=== PATIENT | male | born 1930 | race Caucasian/White ===

== ENCOUNTER 2017-08-08 12:46 | Inpatient (IN) | payer OTHER, MEDICARE ==
[~2017-08-08] VITALS: Ht 180.3 cm; Wt 90.1 kg
[~2017-08-08 12:46] MED LIST: ALLO300T2 PO; BACT800T5 PO; CEPH500C3 PO; FURO1TAB93 PO; KCL20 PO; LISI10 PO; OXYC-360 PO; PROP80CA PO; SIMV40 PO
[2017-08-08 12:48] VITALS: BP 157/90; PULSE 77; RESP 12; TEMP 98.9; O2SAT 96
[2017-08-08 13:16] VITALS: BP 168/89; PULSE 75; RESP 18; TEMP 97.8; O2SAT 98
[2017-08-08] MEDS ORDERED: POTA-163 PO (13:16)
[2017-08-08] MEDS ORDERED: FURO40TA PO (13:16)
[2017-08-08] MEDS ORDERED: LISI10TA3 PO (13:16)
[2017-08-08] MEDS ORDERED: SIMV20TA PO (13:16)
[2017-08-08] MEDS ORDERED: MORPHINE SULFATE 4 MG/ML INJ IV PUSH ONE (13:30)
[2017-08-08] MEDS ORDERED: SODIUM CHLORIDE 0.9% FLUSH 10 ML FLUSH IVF PRN (13:30)
[2017-08-08] MEDS ORDERED: SODIUM CHLORID 0.9% 500 ML INJ 500 ML IV ONE (13:30)
--- NOTE | 2017-08-08 13:30 | PD ---
HPI Chief Complaint: Back/ Neck Pain or Injury Time Seen by Provider: 13:16 Travel History International Travel<30 days: No Contact w/Intl Traveler<30days: No Traveled to known affect area: No History of Present Illness HPI 87-year-old male with history of pacemaker, and A. fib as well as on Coumadin, presents the emergency department with sudden onset severe pain between both shoulder blades started approximately 10 AM this morning. Patient was not doing anything strenuous. He was about to lay down for rest when it came on suddenly. He states it is 10 out of 10 and constant. Patient denies shortness of breath or anterior chest pain. He denies pain in the abdomen, or weakness or dizziness. Patient denies nausea or vomiting. No recent illness or fever. Patient has had a rash over the past 2 weeks which is itchy. Patient also was recently stopped on his Coumadin 3 days ago due to being hypertherapeutic. Patient states no history of aortic aneurysm reported to him. He has a history of MRSA but no other allergies to medications. PFSH Past Medical History Hx Anticoagulant Therapy: Yes (warfarin) Cardiovascular Problems: Yes (pacemaker ) High Cholesterol: Yes Chemotherapy: No Congestive Heart Failure: Yes Cerebrovascular Accident: No Diabetes: No Diminished Hearing: No Genitourinary: Yes (chronic kidney disease) Hypertension: Yes Musculoskeletal: No Respiratory: No Tetanus Vaccination: > 5 Years Past Surgical History Body Medical Devices: PACEMAKER Cardiac Surgery: Yes (PACEMAKER [facility] ) Social History Alcohol Use: Yes (RARE ) Tobacco Use: No Substance Use: No Allergies-Medications (Allergen,Severity, Reaction): Coded Allergies: *MDRO Multi-Drug Resistant Organism (Unverified Adverse Reaction, Unknown , 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 Reported Meds & Prescriptions Reported Meds & Active Scripts Active Reported Simvastatin 20 Mg Tab 20 Mg PO DAILY Potassium Chloride ER (Potassium Chloride) 20 Meq Tab 20 Meq PO DAILY Lisinopril 10 Mg Tab 10 Mg PO DAILY Furosemide 40 Mg Tab 40 Mg PO DAILY Propranolol ER (Propranolol HCl) 80 Mg Cap 40 Mg PO BID Kcl 20 Meq Tab (Potassium Chloride) 20 Meq Tabcr 20 Meq PO DAILY Review of Systems Except as stated in HPI: all other systems reviewed are Neg General / Constitutional: No: Fever Eyes: No: Visual changes HENT: No: Headaches Cardiovascular: Positive: Chest Pain or Discomfort (see history present illness.), No: Palpitations, Irregular Rhythm Respiratory: No: Cough, Shortness of Breath, Wheezing Gastrointestinal: No: Nausea, Vomiting, Diarrhea, Abdominal Pain Genitourinary: No: Dysuria Musculoskeletal: Positive: Pain, No: Myalgias, Arthralgias, Limited ROM Skin: No Rash Neurologic: No: Weakness Psychiatric: No: Depression Endocrine: No: Polydipsia Hematologic/Lymphatic: No: Easy Bruising Physical Exam Narrative GENERAL: Patient appears in mild to moderate distress. SKIN: Warm and dry. Normal color. Normal turgor. Patient is a dry generalized raised erythematous patchy rash consistent with tinea corporis to the trunk and upper arms. HEAD: Atraumatic. Normocephalic. EYES: Pupils equal and round. No scleral icterus. No injection or drainage. ENT: No nasal bleeding or discharge. Mucous membranes pink and moist. Pharynx is clear. Airway is patent. NECK: Trachea midline. Supple nontender. No bruits appreciated. CARDIOVASCULAR: Irregular rhythm with rate of 80 beats for minute. No obvious bruits or murmurs appreciated. RESPIRATORY: No accessory muscle use. Clear to auscultation. Breath sounds equal bilaterally. GASTROINTESTINAL: Abdomen soft, non-tender, nondistended. Hepatic and splenic margins not palpable. No palpable pulsatile masses. No CVA tenderness. MUSCULOSKELETAL: Extremities without clubbing, cyanosis, or bilateral 2+ nonpitting edema. No obvious deformities. Pain is not reproducible in the back between the shoulder blades. NEUROLOGICAL: Awake and alert. No obvious cranial nerve deficits. Motor grossly within normal limits. Five out of 5 muscle strength in the arms and legs. Normal speech. PSYCHIATRIC: Appropriate mood and affect; insight and judgment normal. Data Data Last Documented VS Vital Signs Date Time Temp Pulse Resp B/P (MAP) Pulse Ox O2 Delivery O2 Flow Rate FiO2 08/08/17 13:53 18 08/08/17 13:34 87 99 Room Air 08/08/17 13:16 97.8 Orders Orders Electrocardiogram (08/08/17 13:30) B-Type Natriuretic Peptide (08/08/17 13:30) Ckmb (Isoenzyme) Profile (08/08/17 13:30) Complete Blood Count With Diff (08/08/17 13:30) Comprehensive Metabolic Panel (08/08/17 13:30) Magnesium (Mg) (08/08/17 13:30) Prothrombin Time / Inr (Pt) (08/08/17 13:30) Act Partial Throm Time (Ptt) (08/08/17 13:30) Troponin I (08/08/17 13:30) Lipase (08/08/17 13:30) Chest, Single Ap (08/08/17 13:30) Ecg Monitoring (08/08/17 13:30) Bilateral Bp Monitoring (08/08/17 13:30) Iv Access Insert/Monitor (08/08/17 13:30) Oximetry (08/08/17 13:30) Oxygen Administration (08/08/17 13:30) Morphine Inj (Morphine Inj) (08/08/17 13:30) Sodium Chloride 0.9% Flush (Ns Flush) (08/08/17 13:30) Sodium Chlorid 0.9% 500 Ml Inj (Ns 500 M (08/08/17 13:30) Cta Thor Abd Aorta W Iv C W3d (08/08/17 13:30) Furosemide Inj (Lasix Inj) (08/08/17 14:15) Iodixanol 320 Inj (Rad Ct) (Visipaque 32 (08/08/17 16:02) Oxycodone-Acetamin 10-325 Mg (Percocet 1 (08/08/17 17:00) Admit Order (Ed Use Only) (08/08/17 16:56) Labs Laboratory Tests Test 08/08/17 13:44 White Blood Count 5.5 TH/MM3 Red Blood Count 4.01 MIL/MM3 Hemoglobin 9.9 GM/DL Hematocrit 32.1 % Mean Corpuscular Volume 80.1 FL Mean Corpuscular Hemoglobin 24.8 PG Mean Corpuscular Hemoglobin Concent 30.9 % Red Cell Distribution Width 16.6 % Platelet Count 144 TH/MM3 Mean Platelet Volume 7.5 FL Neutrophils (%) (Auto) 67.4 % Lymphocytes (%) (Auto) 11.0 % Monocytes (%) (Auto) 13.0 % Eosinophils (%) (Auto) 7.6 % Basophils (%) (Auto) 1.0 % Neutrophils # (Auto) 3.7 TH/MM3 Lymphocytes # (Auto) 0.6 TH/MM3 Monocytes # (Auto) 0.7 TH/MM3 Eosinophils # (Auto) 0.4 TH/MM3 Basophils # (Auto) 0.1 TH/MM3 CBC Comment DIFF FINAL Differential Comment Prothrombin Time 37.4 SEC Prothromb Time International Ratio 3.2 RATIO Activated Partial Thromboplast Time 52.5 SEC Blood Urea Nitrogen 29 MG/DL Creatinine 1.82 MG/DL Random Glucose 85 MG/DL Total Protein 7.0 GM/DL Albumin 3.0 GM/DL Calcium Level 8.0 MG/DL Magnesium Level 2.0 MG/DL Alkaline Phosphatase 89 U/L Aspartate Amino Transf (AST/SGOT) 12 U/L Alanine Aminotransferase (ALT/SGPT) 19 U/L Total Bilirubin 0.9 MG/DL Sodium Level 140 MEQ/L Potassium Level 4.6 MEQ/L Chloride Level 107 MEQ/L Carbon Dioxide Level 22.8 MEQ/L Anion Gap 10 MEQ/L Estimat Glomerular Filtration Rate 35 ML/MIN Total Creatine Kinase 65 U/L Troponin I 0.02 NG/ML B-Type Natriuretic Peptide 1453 PG/ML Lipase 228 U/L MDM Medical Decision Making Medical Screen Exam Complete: Yes Emergency Medical Condition: Yes Medical Record Reviewed: Yes Differential Diagnosis Atypical chest pain. Possible aortic dissection. AAA. Cardiac syndrome. Muscle skeletal pain. Narrative Course Patient is in pain but medically stable at time of exam. EKG shows normal sinus rhythm with left axis deviation without obvious paced rhythm at this time. This is reviewed with Dr. Liz. Chest x-ray and CT of the chest and abdomen with IV contrast is ordered. To rule out aortic aneurysm or dissection. IV access is obtained and labs ordered including CBC, CMP, PT PTT and INR, lipase, and cardiac panel. Patient is given 4 mg morphine IV as well as 4 mg Zofran IV. Aspirin is held at this time, as patient's history of warfarin, and risk of aortic dissection. CBC is remarkable for hemoglobin 9.9, hematocrit of 32.1. This is typical for the patient however, when compared to previous labs. Coagulation studies showed PT of 37.4, APTT of 52.5, and INR 3.2 Chest x-ray shows Congestive heart failure versus bibasilar pneumonia. Patient is given 40 mg Lasix IV. CMP shows BUN of 29, creatinine 1.82, aspirin and GFR 35, calcium is 8.0. First troponin is 0.02. ProBNP is 1453, which is consistent with chest x-ray showing CHF. CT of the chest and abdomen: 1. Right greater than left pleural effusion, probable rounded atelectasis at the left lung base with pleural thickening. No evidence for aortic dissection. 2. Mild aneurysmal dilatation of the infrarenal abdominal aorta. 3. Diverticulosis. 4. Liver cysts. 5. Mild left-sided hydronephrosis and mild bilateral hydroureter left greater than right. 6. Cholelithiasis. 7. Extensive atherosclerotic disease. Calls placed to the hospitalist for admission for CHF exacerbation. As well as acute kidney injury on chronic kidney disease. Patient discussed with the Residents and the patient will be admitted. Diagnosis Primary Impression: CHF exacerbation Qualified Codes: I50.9 - Heart failure, unspecified Additional Impressions: Acute kidney injury superimposed on chronic kidney disease Back pain Tinea corporis Admitting Information Admitting Physician Requests: Admit Condition: Stable Pelon Akins Aug 08, 2017 13:30
[2017-08-08 13:34] VITALS: PULSE 87; RESP 20; O2SAT 99
--- NOTE | 2017-08-08 13:53 | RADRPT ---
EXAM DATE/TIME: 08/08/2017 13:46 [facility] COMPARISON: No previous studies available for comparison. INDICATIONS : Chest and neck pain. MEDICAL HISTORY : Hypercholesterolemia. Hypertension Congestive heart failure. SURGICAL HISTORY : Pacemaker. ENCOUNTER: Initial ACUITY: 1 day PAIN SCORE: 10/10 LOCATION: Bilateral chest FINDINGS: Perihilar and basilar predominant bilateral airspace opacities with small bilateral pleural effusions . No pneumothorax. Heart size upper limits of normal. Cardiac pacer present. CONCLUSION: Failure versus bibasilar pneumonia. Jalil Lay MD on August 08, 2017 at 13:50 Board Certified Radiologist. This report was verified electronically.
[2017-08-08 14:07] LABS: AUTOMATED NEUTROPHIL # 3.7 TH/MM3 (1.8-7.7); BASOPHIL # 0.1 TH/MM3 (0-0.2); EOSINOPHIL # 0.4 TH/MM3 (0-0.4); EOSINOPHIL % 7.6 % (0.0-4.0); HEMATOCRIT 32.1 % (39.0-51.0); HEMOGLOBIN 9.9 GM/DL (13.0-17.0); LYMPHOCYTE # 0.6 TH/MM3 (1.0-4.8); MEAN CELL VOLUME 80.1 FL (80.0-100.0); MEAN CORPUSCULAR HEMOGLOBIN 24.8 PG (27.0-34.0); MEAN CORPUSCULAR HGB CONC 30.9 % (32.0-36.0); MEAN PLATELET VOLUME 7.5 FL (7.0-11.0); MONOCYTE # 0.7 TH/MM3 (0-0.9); NEUT % 67.4 % (16.0-70.0); PLATELET COUNT 144 TH/MM3 (150-450); RED BLOOD COUNT 4.01 MIL/MM3 (4.50-5.90); RED CELL DISTRIBUTION WIDTH 16.6 % (11.6-17.2); WHITE BLOOD COUNT 5.5 TH/MM3 (4.0-11.0)
[2017-08-08] MEDS ORDERED: FUROSEMIDE 40 MG/4 ML VIAL IV PUSH ONE (14:15)
[2017-08-08 14:16] LABS: INTERNATIONAL NORMALIZED RATIO 3.2 RATIO; PROTHROMBIN TIME - PATIENT 37.4 SEC (9.8-11.6)
[2017-08-08 14:25] LABS: AST (GOT) 12 U/L (15-37); BICARBONATE 22.8 MEQ/L (21.0-32.0); BLOOD UREA NITROGEN 29 MG/DL (7-18); CHLORIDE 107 MEQ/L (98-107); CREATININE 1.82 MG/DL (0.60-1.30); GLOMERULAR FILTRATION RATE 35 ML/MIN (>89); GLUCOSE,RANDOM 85 MG/DL (74-106); LIPASE 228 U/L (73-393); SODIUM (NA) 140 MEQ/L (136-145)
[2017-08-08 14:26] LABS: ALT (GPT) 19 U/L (12-78)
[2017-08-08 14:30] LABS: ALKALINE PHOSPHATASE 89 U/L (45-117); TOTAL BILIRUBIN ADULT 0.9 MG/DL (0.2-1.0); TROPONIN I 0.02 NG/ML (0.02-0.05)
[2017-08-08] MEDS ORDERED: IODIXANOL 320 MG/ML 10 ML VIAL (for Rad CT) IVCONTRAST ONE (16:02)
--- NOTE | 2017-08-08 16:10 | RADRPT ---
EXAM DATE/TIME: 08/08/2017 15:41 [facility] COMPARISON: No previous studies available for comparison. INDICATIONS : Back pain. IV CONTRAST: 50 cc Visipaque (iodixanol) IV RADIATION DOSE: 9.31 CTDIvol (mGy) MEDICAL HISTORY : Cardiovascular disease. SURGICAL HISTORY : None. ENCOUNTER: Initial ACUITY: 1 day PAIN SCALE: 5/10 LOCATION: Bilateral back TECHNIQUE: Volumetric scanning was performed using a multi-row detector CT scanner. The data was post processed with a variety of visualization algorithms including full volume maximum intensity projection, multi -planar sliding thin slab reformation, curved planar reformation, and surface rendering techniques. Using automated exposure control and adjustment of the mA and/or kV according to patient size, radiat ion dose was kept as low as reasonably achievable to obtain optimal diagnostic quality images. DICOM format image data is available electronically for review and comparison. FINDINGS: There is a large right-sided pleural effusion and a moderate left effusion. There are dependent atelectatic changes seen at both lung bases. There is masslike consolidative area in the left lower l obe measuring 5.4 x 2.6 cm with pleural thickening. An area of rounded atelectasis is suspected. 2 cm right paratracheal lymph node identified. Subcentimeter prevascular lymph node, 1.1 cm shor t axis subcarinal lymph node. Cholelithiasis is noted. There is diffuse atherosclerotic plaquing of t he aorta, great vessels, coronary arteries and visceral branches. There is no dissection. There is mi ld dilatation of the infrarenal abdominal aorta up to 3 cm in AP and transverse dimension on axial im age 89 just proximal to the bifurcation. Urinary bladder is unremarkable. There is diverticulosis of the sigmoid colon and descending colon without diverticulitis. Mildly prominent bilateral inguinal l ymph nodes are identified. There is subcutaneous edema and mild skin thickening of the lower abdomina l wall. There is a cyst in the lateral segment of the left lobe of the liver measuring 1.5 cm. The ki dneys demonstrate cortical thinning bilaterally, there is mild left-sided hydronephrosis, and bilater al mild ureteral dilatation left greater than right. 1.8 cm left midpole renal cyst and a cyst at the lower pole measuring 1.9 cm.. CONCLUSION: 1. Right greater than left pleural effusion, probable rounded atelectasis at the left lung base with pleural thickening. No evidence for aortic dissection. 2. Mild aneurysmal dilatation of the infrarenal abdominal aorta. 3. Diverticulosis. 4. Liver cysts. 5. Mild left-sided hydronephrosis and mild bilateral hydroureter left greater than right. 6. Cholelithiasis. 7. Extensive atherosclerotic disease. Frederick Victor MD on August 08, 2017 at 16:03 Board Certified Radiologist. This report was verified electronically.
[2017-08-08] MEDS ORDERED: oxyCODONE/ACETAMINOPHEN 10 MG/325 MG TAB PO ONE (17:00)
--- NOTE | 2017-08-08 17:45 | HHI.HP ---
HPI Service Family Medicine Primary Care Physician Unknown Admission Diagnosis CHF/Renal Insufficientcy/Upper Back Pain/Tinea Diagnoses: International Travel<30 Days: No Contact w/Intl Traveler<30days: No Known Affected Area: No History of Present Illness Patient is a very pleasant 87 year old with PMH significant for a-fib on coumadin, CHF, CKD, HTN, HLD who presents to the ED for evaluation of neck pain. He states he noticed pain in his lower neck this morning suddenly around 10:00 am. He is unsure what may have caused the pain. He denies any focal neuro deficit. Denying weakness, numbness, tingling, paresthesias of any extremity. He stated he had been having a stiff neck for about the past 2 weeks prior to this morning. He is unsure what may have caused his stiff neck. He has not had anything like this in the past. He denies any trauma to his neck or back in the past or recently within the last month. He has taken some Tylenol or Aleve as needed for relief of his neck pain which has not seem to help. He denies a headache, blurry or double vision, fevers or chills, recent unexplained weight loss, saddle anesthesia, bowel or bladder incontinence. He has not noticed any weakness to his upper or lower extremities recently. He states he is unable to move his neck much without having significant pain. His pain does not radiate anywhere. He denies chest pain. Denies lower back pain. He states he was not having this character of neck pain prior to this morning and that his range of motion had just been restricted for the past couple weeks. He states he is at baseline able to walk about 50 to 100 feet before getting short of breath. Over the past week or so he has had increased shortness of breath while walking inside his house just within his kitchen. Denies orthopnea or lower extremity edema. (Felix Ruiz MD R2) Review of Systems Constitutional: DENIES: Fever, Chills, Change in appetite Eyes: DENIES: Blurred vision, Diplopia, Vision loss, Double Vision Ears, nose, mouth, throat: DENIES: Tinnitus Respiratory: DENIES: Cough, Wheezing, Shortness of breath Cardiovascular: DENIES: Chest pain, Palpitations, Lower Extremity Edema Gastrointestinal: DENIES: Abdominal pain, Black stools, Bloody stools, Constipation, Diarrhea, Nausea, Vomiting Genitourinary: DENIES: Hematuria Musculoskeletal: COMPLAINS OF: Stiffness, Neck pain, DENIES: Back pain Neurologic: DENIES: Headache, Localized weakness, Paresthesias, Poor Balance ( Felix Ruiz MD R2) Past Family Social History Past Medical History Atrial fibrillation HTN HLD CHF Past Surgical History Pacemaker placement 2012 Bilateral knee replacements (Felix Ruiz MD R2) Allergies: Coded Allergies: *MDRO Multi-Drug Resistant Organism (Unverified Adverse Reaction, Unknown , 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 Family History Father: from complications due to alcoholism when patient was 13 years old Mother: from unknown cancer at 78 years of age Social History Tobacco: quit smoking earlier this year, previously 1/2 PPD for 10-15 years total Etoh: rare social occasions Illicit drug use: denies Lives with his and daughter at home (Felix Ruiz MD R2) Physical Exam Vital Signs Vital Signs Date Time Temp Pulse Resp B/P (MAP) Pulse Ox O2 Delivery O2 Flow Rate FiO2 08/08/17 13:53 18 08/08/17 13:34 87 20 99 Room Air 08/08/17 13:34 99 Room Air 08/08/17 13:16 97.8 75 18 168/89 (115) 98 Room Air 08/08/17 13:16 81 20 08/08/17 12:48 98.9 77 12 157/90 (112) 96 Physical Exam GENERAL: Sitting in bed with neck still, having pain with any movement of neck NEURO: Alert. Normal speech. apple packing header intact. Motor grossly normal. Strength 5/5 throughout. Sensation intact throughout to light touch. Gait normal. SKIN: Warm and dry. Erythematous, blotchy patches scattered on back. HEAD: Normocephalic. Atraumatic. NECK: No tenderness to percussion of spiny processes or paraspinal muscles. Marked limitation in neck flexion, extension, lateral movements, and rotation all exacerbating pain. EYES: PERRL. EOMI. No scleral icterus. No injection or drainage. ENT: No nasal drainage. Moist mucous membranes. No oral ulcers or lesions. NECK: Supple, trachea midline. No JVD. CARDIOVASCULAR: Regular rate, irregular rhythm. Early to mid systolic murmur best auscultated along left upper sternal border. Peripheral pulses 2+. Capillary refill < 2 seconds. RESPIRATORY: Bibasilar crackles. Expiratory wheezing mid and lower lung cantu. No accessory muscle use. GASTROINTESTINAL: Abdomen soft, nontender, nondistended, normal BS. MUSCULOSKELETAL: No lower extremity edema. Normal range of motion. BACK: Nontender without obvious deformity. Laboratory Laboratory Tests Test 08/08/17 13:44 White Blood Count 5.5 Red Blood Count 4.01 Hemoglobin 9.9 Hematocrit 32.1 Mean Corpuscular Volume 80.1 Mean Corpuscular Hemoglobin 24.8 Mean Corpuscular Hemoglobin Concent 30.9 Red Cell Distribution Width 16.6 Platelet Count 144 Mean Platelet Volume 7.5 Neutrophils (%) (Auto) 67.4 Lymphocytes (%) (Auto) 11.0 Monocytes (%) (Auto) 13.0 Eosinophils (%) (Auto) 7.6 Basophils (%) (Auto) 1.0 Neutrophils # (Auto) 3.7 Lymphocytes # (Auto) 0.6 Monocytes # (Auto) 0.7 Eosinophils # (Auto) 0.4 Basophils # (Auto) 0.1 CBC Comment DIFF FINAL Differential Comment Prothrombin Time 37.4 Prothromb Time International Ratio 3.2 Activated Partial Thromboplast Time 52.5 Blood Urea Nitrogen 29 Creatinine 1.82 Random Glucose 85 Total Protein 7.0 Albumin 3.0 Calcium Level 8.0 Magnesium Level 2.0 Alkaline Phosphatase 89 Aspartate Amino Transf (AST/SGOT) 12 Alanine Aminotransferase (ALT/SGPT) 19 Total Bilirubin 0.9 Sodium Level 140 Potassium Level 4.6 Chloride Level 107 Carbon Dioxide Level 22.8 Anion Gap 10 Estimat Glomerular Filtration Rate 35 Total Creatine Kinase 65 Troponin I 0.02 B-Type Natriuretic Peptide 1453 Lipase 228 (Felix Ruiz MD R2) Result Diagram: 08/08/17 1344 08/08/17 1344 Caprini VTE Risk Assessment Caprini VTE Risk Assessment: Mod/High Risk (score >= 2) Caprini Risk Assessment Model Point Value = 1 Point Value = 2 Point Value = 3 Point Value = 5 Age 41-60 Minor surgery BMI > 25 kg/m2 Swollen legs Varicose veins or History of unexplained or recurrent spontaneous Oral contraceptives or hormone replacement Sepsis (< 1 month) Serious lung disease, including pneumonia (< 1 month) Abnormal pulmonary function Acute myocardial infarction Congestive heart failure (< 1 month) History of inflammatory bowel disease Medical patient at bed rest Age 61-74 Arthroscopic surgery Major open surgery (> 45 min) Laparoscopic surgery (> 45 min) Malignancy Confined to bed (> 72 hours) Immobilizing plaster cast Central venous access Age >= 75 History of VTE Family history of VTE Factor V Leiden Prothrombin 30215I Lupus anticoagulant Anticardiolipin antibodies Elevated serum homocysteine Heparin-induced thrombocytopenia Other congenital or acquired thrombophilia Stroke (< 1 month) Elective arthroplasty Hip, pelvis, or leg fracture Acute spinal cord injury (< 1 month) Prophylaxis Regimen Total Risk Factor Score Risk Level Prophylaxis Regimen 0-1 Low Early ambulation 2 Moderate Order ONE of the following: *Sequential Compression Device (SCD) *Heparin 5000 units SQ BID 3-4 Higher Order ONE of the following medications: *Heparin 5000 units SQ TID *Enoxaparin/Lovenox 40 mg SQ daily (WT < 150 kg, CrCl > 30 mL/min) *Enoxaparin/Lovenox 30 mg SQ daily (WT < 150 kg, CrCl > 10-29 mL/min) *Enoxaparin/Lovenox 30 mg SQ BID (WT < 150 kg, CrCl > 30 mL/min) AND/OR *Sequential Compression Device (SCD) 5 or more Highest Order ONE of the following medications: *Heparin 5000 units SQ TID (Preferred with Epidurals) *Enoxaparin/Lovenox 40 mg SQ daily (WT < 150 kg, CrCl > 30 mL/min) *Enoxaparin/Lovenox 30 mg SQ daily (WT < 150 kg, CrCl > 10-29 mL/min) *Enoxaparin/Lovenox 30 mg SQ BID (WT < 150 kg, CrCl > 30 mL/min) AND *Sequential Compression Device (SCD) (Felix Ruiz MD R2) Assessment and Plan Assessment and Plan 87 year old male being admitted due to neck pain and acute on chronic CHF. Code Status Full code Discussed Condition With Dr. Carmelo Scott (Felix Ruiz MD R2) Attending Attestation Patient seen and examined. Case reviewed and discussed with the resident team. Agree with plan of care as discussed with me and documented in the resident note. pt seen in ED and his neck pain is as described with being worse on movement (Martha Rhodes MD) Problem List: (1) CHF exacerbation ICD Codes: I50.9 - Heart failure, unspecified Status: Acute Plan: - si/sxs consistent with acute exacerbation of CHF - BNP elevated to 1453 - Patient given Lasix 40 mg IV x1 in the ED - Continue lasix 40 mg po daily tomorrow - Continue to monitor clinically - Monitor I/Os - Trend BNP - Last echo from 03/2012 with an ejection fraction of 50% - Will obtain repeat 2D echo (2) Neck pain ICD Codes: M54.2 - Cervicalgia Status: Acute Plan: - Suspecting a musculoskeletal etiology at this time, patient not having any neuropathic pain or dermatomal symptoms - Neuro exam reassuring, no red flag symptoms - Will obtain a cervical spine x-ray - Will trial applying heat for relief of symptoms and patient would benefit from therapy if this is MSK in nature - Avoiding muscle relaxants at this time given his age and comorbidities - Holding off on contrast studies to avoid contrast-induced nephropathy as he already has underlying CKD - Consider noncontrast MRI if pain does not improve or is warranted on repeat neuro exam (3) Atrial fibrillation ICD Codes: I48.91 - Unspecified atrial fibrillation Status: Chronic Plan: Continue home propranolol INR at 3.2 Patient stated he takes warfarin 10 mg po daily and was instructed from his PCP to hold this for a total of 3 days after his INR was slightly above 4. Patient stated tomorrow will be day 3 of discontinuation. Will check INR tomorrow and consider restarting warfarin at the same or reduced dose the following day. (4) CKD (chronic kidney disease) ICD Codes: N18.9 - Chronic kidney disease, unspecified Status: Chronic Plan: Cr. 1.82 on admission Continue to monitor renal function, I/Os Avoid nephrotoxins (5) Hypertension ICD Codes: I10 - Essential (primary) hypertension Status: Chronic Plan: Continue home lisinopril 10 mg po daily Lasix 40 mg po daily Vitals q4h (6) Nutrition, metabolism, and development symptoms ICD Codes: R63.8 - Other symptoms and signs concerning food and fluid intake Status: Acute Plan: Fluids: none Electrolytes: WNL, continue to monitor Nutrition: Heart healthy DVT ppx: b/l SCDs (Felix Ruiz MD R2) Physician Certification 2 Midnight Certification Type: Admission for Inpatient Services Order for Inpatient Services The services are ordered in accordance with Medicare regulations or non- Medicare payer requirements, as applicable. In the case of services not specified as inpatient-only, they are appropriately provided as inpatient services in accordance with the 2-midnight benchmark. Estimated LOS (days): 2 days is the estimated time the patient will need to remain in the hospital, assuming treatment plan goals are met and no additional complications. Post-Hospital Plan: Home (Felix Ruiz MD R2) Problem Qualifiers (1) CHF exacerbation: Qualified Codes: I50.9 - Heart failure, unspecified (2) Atrial fibrillation: Qualified Codes: I48.2 - Chronic atrial fibrillation (3) CKD (chronic kidney disease): Qualified Codes: N18.3 - Chronic kidney disease, stage 3 (moderate) (4) Hypertension: Qualified Codes: I10 - Essential (primary) hypertension Felix Ruiz MD R2 Aug 08, 2017 17:45 Martha Rhodes MD Aug 09, 2017 14:02
[2017-08-08] MEDS ORDERED: ONDANSETRON HCL 4 MG/2 ML VIAL IVP PRN (18:15)
[2017-08-08] MEDS ORDERED: LACTULOSE SYRUP 20 GM/30 ML CUP PO PRN (18:15)
[2017-08-08] MEDS ORDERED: SENNOSIDES 8.6 MG TAB PO PRN (18:15)
[2017-08-08] MEDS ORDERED: SODIUM CHLORIDE 0.9% FLUSH 10 ML FLUSH IV FLUSH PRN (18:15)
[2017-08-08] MEDS ORDERED: BISACODYL 10 MG SUPP RECTAL PRN (18:15)
[2017-08-08] MEDS ORDERED: HEPARIN SODIUM - SQ 10,000 UNITS/ML VIAL SQ SCH (18:15)
[2017-08-08] MEDS ORDERED: ACETAMINOPHEN 325 MG TAB PO PRN (18:15)
[2017-08-08] MEDS ORDERED: MORPHINE SULFATE 4 MG/ML INJ IV PUSH PRN (18:15)
[2017-08-08] MEDS ORDERED: MAGNESIUM HYDROXIDE SUSP 30 ML CUP PO PRN (18:15)
[2017-08-08] MEDS ORDERED: NALOXONE HCL 0.4 MG/ML AMP IV PUSH PRN (18:15)
--- NOTE | 2017-08-08 19:18 | RADRPT ---
EXAM DATE/TIME: 08/08/2017 18:38 [place] COMPARISON: No previous studies available for comparison. INDICATIONS : Neck pain. MEDICAL HISTORY : Cardiovascular disease. SURGICAL HISTORY : Pacemaker. ENCOUNTER: Initial ACUITY: 1 day PAIN SCORE: 10/10 LOCATION: Bilateral neck. FINDINGS: Prominent bridging anterior osteophyte formation and mild disc space narrowing. Moderate facet hypert rophic changes throughout the cervical spine. Cervicothoracic junction is approximated. Severe forami nal narrowing at C3-4 through C6-7 on the left greater than right sides. Odontoid process is intact. Prevertebral soft tissues are unremarkable. CONCLUSION: Qulazwdd-cg-xdrdld degenerative changes. Frederick Victor MD on August 08, 2017 at 19:15 Board Certified Radiologist. This report was verified electronically.
[2017-08-08 20:15] VITALS: BP 150/91; PULSE 87; RESP 20; TEMP 97.5; O2SAT 99
[2017-08-08 21:37] VITALS: PULSE 82
[2017-08-08] MEDS ORDERED: ACETAMINOPHEN/HYDROcodone 325 MG/10 MG TAB PO PRN (22:00)
[2017-08-08] MEDS: PROPRANOLOL HCL 40 MG TAB PO SCH (22:14)
[2017-08-08] MEDS: DOCUSATE SODIUM 50 MG/SENNA 8.6 MG TAB PO SCH (22:14)
[2017-08-08] MEDS: SODIUM CHLORIDE 0.9% FLUSH 10 ML FLUSH IV FLUSH SCH (22:15)
[2017-08-09] VITALS: BP 115/57; PULSE 63; RESP 20; TEMP 97.7; O2SAT 96
[2017-08-09 04:00] VITALS: BP 109/66; PULSE 60; RESP 20; TEMP 97.9; O2SAT 97
[2017-08-09 08:00] VITALS: BP 122/82; PULSE 63; RESP 18; TEMP 99; O2SAT 95
[2017-08-09 08:22] LABS: AUTOMATED NEUTROPHIL # 3.3 TH/MM3 (1.8-7.7); BASOPHIL # 0.1 TH/MM3 (0-0.2); BASOPHIL % 1.2 % (0.0-2.0); EOSINOPHIL # 0.2 TH/MM3 (0-0.4); EOSINOPHIL % 4.1 % (0.0-4.0); HEMATOCRIT 29.2 % (39.0-51.0); HEMOGLOBIN 9.3 GM/DL (13.0-17.0); LYMPH % 15.9 % (9.0-44.0); LYMPHOCYTE # 0.8 TH/MM3 (1.0-4.8); MEAN CELL VOLUME 80.4 FL (80.0-100.0); MEAN CORPUSCULAR HEMOGLOBIN 25.6 PG (27.0-34.0); MEAN CORPUSCULAR HGB CONC 31.8 % (32.0-36.0); MONO % 15.9 % (0.0-8.0); MONOCYTE # 0.8 TH/MM3 (0-0.9); NEUT % 62.9 % (16.0-70.0); PLATELET COUNT 135 TH/MM3 (150-450); RED BLOOD COUNT 3.63 MIL/MM3 (4.50-5.90); RED CELL DISTRIBUTION WIDTH 16.3 % (11.6-17.2); WHITE BLOOD COUNT 5.3 TH/MM3 (4.0-11.0)
[2017-08-09 08:29] LABS: INTERNATIONAL NORMALIZED RATIO 3.3 RATIO; PROTHROMBIN TIME - PATIENT 38.9 SEC (9.8-11.6)
[2017-08-09 08:44] LABS: BICARBONATE 24.4 MEQ/L (21.0-32.0); CALCIUM 7.8 MG/DL (8.5-10.1); CREATININE 2.25 MG/DL (0.60-1.30)
--- NOTE | 2017-08-09 10:09 | HHI.HP ---
[facility] Service Family Medicine Primary Care Physician Unknown Admission Diagnosis CHF/Renal Insufficientcy/Upper Back Pain/Tinea Diagnoses: (1) CHF exacerbation Diagnosis: Principal (2) Neck pain Diagnosis: Principal (3) Atrial fibrillation Diagnosis: Principal (4) CKD (chronic kidney disease) Diagnosis: Principal (5) Hypertension Diagnosis: Principal (6) Nutrition, metabolism, and development symptoms Diagnosis: Principal International Travel<30 Days: No Contact w/Intl Traveler<30days: No Known Affected Area: No History of Present Illness Dr Vazquez is a very pleasant 87 year old with PMH significant for a-fib on coumadin, CHF, CKD, HTN, HLD who presented to the ED for evaluation of neck pain. He states he noticed pain in his lower neck this morning suddenly around 10:00 am. He is unsure what may have caused the pain. He denies any focal neuro deficit. Denying weakness, numbness, tingling, paresthesias of any extremity. He stated he had been having a stiff neck for about the past 2 weeks prior to this morning. He is unsure what may have caused his stiff neck. He has not had anything like this in the past. He denies any trauma to his neck or back in the past or recently within the last month. He has taken some Tylenol or Aleve as needed for relief of his neck pain which has not seem to help. He denies a headache, blurry or double vision, fevers or chills, recent unexplained weight loss, saddle anesthesia, bowel or bladder incontinence. He has not noticed any weakness to his upper or lower extremities recently. He states he is unable to move his neck much without having significant pain. His pain does not radiate anywhere. He denies chest pain. Denies lower back pain. He states he was not having this character of neck pain prior to this morning and that his range of motion had just been restricted for the past couple weeks. He states he is at baseline able to walk about 50 to 100 feet before getting short of breath. Over the past week or so he has had increased shortness of breath while walking inside his house just within his kitchen. Denies orthopnea or lower extremity edema. He reports feeling much better this am with his neck due to pain meds. Unfortunately, his renal fxn has decreased overnight likely due to contrast dye plus lasix. Explained to him he will need some gentle hydration as he has a poor mitral valve and perhaps chronic CHF related to that. 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 Review of Systems Other Constitutional: DENIES: Fever, Chills, Change in appetite Eyes: DENIES: Blurred vision, Diplopia, Vision loss, Double Vision Ears, nose, mouth, throat: DENIES: Tinnitus Respiratory: DENIES: Cough, Wheezing, Shortness of breath Cardiovascular: DENIES: Chest pain, Palpitations, Lower Extremity Edema Gastrointestinal: DENIES: Abdominal pain, Black stools, Bloody stools, Constipation, Diarrhea, Nausea, Vomiting Genitourinary: DENIES: Hematuria Musculoskeletal: COMPLAINS OF: Stiffness, Neck pain, DENIES: Back pain Neurologic: DENIES: Headache, Localized weakness, Paresthesias, Poor Balance Past Family Social History Past Medical History Atrial fibrillation HTN HLD CHF Past Surgical History Pacemaker placement 2012 Bilateral knee replacements Allergies: Coded Allergies: *MDRO Multi-Drug Resistant Organism (Unverified Adverse Reaction, Unknown , 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 Family History Father: from complications due to alcoholism when patient was 13 years old Mother: from unknown cancer at 78 years of age Social History Tobacco: quit smoking earlier this year, previously 1/2 PPD for 10-15 years total Etoh: rare social occasions Illicit drug use: denies Lives with his and daughter at home Physical Exam Vital Signs Vital Signs Date Time Temp Pulse Resp B/P (MAP) Pulse Ox O2 Delivery O2 Flow Rate FiO2 08/09/17 08:00 99.0 63 18 122/82 (95) 95 08/09/17 04:00 97.9 60 20 109/66 (80) 97 08/09/17 04:00 Room Air 08/09/17 00:00 97.7 63 20 115/57 (76) 96 08/09/17 00:00 Room Air 08/08/17 21:37 82 08/08/17 20:15 97.5 87 20 150/91 (110) 99 08/08/17 19:44 08/08/17 19:30 Room Air 08/08/17 13:53 18 08/08/17 13:34 87 20 99 Room Air 08/08/17 13:34 99 Room Air 08/08/17 13:16 97.8 75 18 168/89 (115) 98 Room Air 08/08/17 13:16 81 20 08/08/17 12:48 98.9 77 12 157/90 (112 96 Physical Exam GENERAL: Sitting in chair with neck still, having pain with any movement of neck but feels improved from yesterday NEURO: Alert. Normal speech. 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 Motor grossly normal. Strength 5/5 throughout. Sensation intact throughout to light touch. Gait normal. SKIN: Warm and dry. Erythematous, blotchy patches scattered on back. HEAD: Normocephalic. Atraumatic. NECK: No tenderness to percussion of spiny processes or paraspinal muscles. Marked limitation in neck flexion, extension, lateral movements, and rotation all exacerbating pain. EYES: PERRL. EOMI. No scleral icterus. No injection or drainage. ENT: No nasal drainage. Moist mucous membranes. No oral ulcers or lesions. NECK: Supple, trachea midline. No JVD. CARDIOVASCULAR: Regular rate, irregular rhythm. Early to mid systolic murmur best auscultated along left upper sternal border. Peripheral pulses 2+. Capillary refill < 2 seconds. RESPIRATORY: Bibasilar crackles. No accessory muscle use. GASTROINTESTINAL: Abdomen soft, nontender, nondistended, normal BS. MUSCULOSKELETAL: No lower extremity edema. Normal range of motion. BACK: Nontender without obvious deformity. Laboratory Laboratory Tests Test 08/08/17 13:44 08/09/17 05:50 White Blood Count 5.5 5.3 Red Blood Count 4.01 3.63 Hemoglobin 9.9 9.3 Hematocrit 32.1 29.2 Mean Corpuscular Volume 80.1 80.4 Mean Corpuscular Hemoglobin 24.8 25.6 Mean Corpuscular Hemoglobin Concent 30.9 31.8 Red Cell Distribution Width 16.6 16.3 Platelet Count 144 135 Mean Platelet Volume 7.5 8.0 Neutrophils (%) (Auto) 67.4 62.9 Lymphocytes (%) (Auto) 11.0 15.9 Monocytes (%) (Auto) 13.0 15.9 Eosinophils (%) (Auto) 7.6 4.1 Basophils (%) (Auto) 1.0 1.2 Neutrophils # (Auto) 3.7 3.3 Lymphocytes # (Auto) 0.6 0.8 Monocytes # (Auto) 0.7 0.8 Eosinophils # (Auto) 0.4 0.2 Basophils # (Auto) 0.1 0.1 CBC Comment DIFF FINAL DIFF FINAL Differential Comment Prothrombin Time 37.4 38.9 Prothromb Time International Ratio 3.2 3.3 Activated Partial Thromboplast Time 52.5 Blood Urea Nitrogen 29 34 Creatinine 1.82 2.25 Random Glucose 85 73 Total Protein 7.0 Albumin 3.0 Calcium Level 8.0 7.8 Magnesium Level 2.0 Alkaline Phosphatase 89 Aspartate Amino Transf (AST/SGOT) 12 Alanine Aminotransferase (ALT/SGPT) 19 Total Bilirubin 0.9 Sodium Level 140 143 Potassium Level 4.6 5.0 Chloride Level 107 109 Carbon Dioxide Level 22.8 24.4 Anion Gap 10 10 Estimat Glomerular Filtration Rate 35 28 Total Creatine Kinase 65 Troponin I 0.02 B-Type Natriuretic Peptide 1453 Lipase 228 Result Diagram: 08/09/1750 08/09/1750 Caprini VTE Risk Assessment Caprini VTE Risk Assessment: Mod/High Risk (score >= 2) Caprini Risk Assessment Model Point Value = 1 Point Value = 2 Point Value = 3 Point Value = 5 Age 41-60 Minor surgery BMI > 25 kg/m2 Swollen legs Varicose veins or History of unexplained or recurrent spontaneous Oral contraceptives or hormone replacement Sepsis (< 1 month) Serious lung disease, including pneumonia (< 1 month) Abnormal pulmonary function Acute myocardial infarction Congestive heart failure (< 1 month) History of inflammatory bowel disease Medical patient at bed rest Age 61-74 Arthroscopic surgery Major open surgery (> 45 min) Laparoscopic surgery (> 45 min) Malignancy Confined to bed (> 72 hours) Immobilizing plaster cast Central venous access Age >= 75 History of VTE Family history of VTE Factor V Leiden Prothrombin [id number] Lupus anticoagulant Anticardiolipin antibodies Elevated serum homocysteine Heparin-induced thrombocytopenia Other congenital or acquired thrombophilia Stroke (< 1 month) Elective arthroplasty Hip, pelvis, or leg fracture Acute spinal cord injury (< 1 month) Prophylaxis Regimen Total Risk Factor Score Risk Level Prophylaxis Regimen 0-1 Low Early ambulation 2 Moderate Order ONE of the following: *Sequential Compression Device (SCD) *Heparin 5000 units SQ BID 3-4 Higher Order ONE of the following medications: *Heparin 5000 units SQ TID *Enoxaparin/Lovenox 40 mg SQ daily (WT < 150 kg, CrCl > 30 mL/min) *Enoxaparin/Lovenox 30 mg SQ daily (WT < 150 kg, CrCl > 10-29 mL/min) *Enoxaparin/Lovenox 30 mg SQ BID (WT < 150 kg, CrCl > 30 mL/min) AND/OR *Sequential Compression Device (SCD) 5 or more Highest Order ONE of the following medications: *Heparin 5000 units SQ TID (Preferred with Epidurals) *Enoxaparin/Lovenox 40 mg SQ daily (WT < 150 kg, CrCl > 30 mL/min) *Enoxaparin/Lovenox 30 mg SQ daily (WT < 150 kg, CrCl > 10-29 mL/min) *Enoxaparin/Lovenox 30 mg SQ BID (WT < 150 kg, CrCl > 30 mL/min) AND *Sequential Compression Device (SCD) Assessment and Plan Assessment and Plan 87 year old male being admitted due to neck pain and acute on chronic CHF. Problem List: (1) CHF exacerbation ICD Codes: I50.9 - Heart failure, unspecified Status: Acute Plan: - si/sxs consistent with acute exacerbation of CHF - BNP elevated to 1453, now even higher - Patient given Lasix 40 mg IV x1 in the ED - Continue lasix 40 mg po daily tomorrow as tolerated - Continue to monitor clinically - Monitor I/Os - Trend BNP - Last echo from 03/2012 with an ejection fraction of 50% - Will obtain repeat 2D echo unfortunately, will need to give some iv hydration to help his kidneys (2) Neck pain ICD Codes: M54.2 - Cervicalgia Status: Acute Plan: - Suspecting a musculoskeletal etiology at this time, patient not having any neuropathic pain or dermatomal symptoms - Neuro exam reassuring, no red flag symptoms - Will obtain a cervical spine x-ray, showed OA - Will trial applying heat for relief of symptoms and patient would benefit from therapy if this is MSK in nature - Avoiding muscle relaxants at this time given his age and comorbidities - Holding off on contrast studies to avoid contrast-induced nephropathy as he already has underlying CKD - Consider noncontrast MRI if pain does not improve or is warranted on repeat neuro exam (3) Atrial fibrillation ICD Codes: I48.91 - Unspecified atrial fibrillation Status: Chronic Plan: Continue home propranolol INR at 3.2 Patient stated he takes warfarin 10 mg po daily and was instructed from his PCP to hold this for a total of 3 days after his INR was slightly above 4. Patient stated today is day 3 of discontinuation. Will check INR tomorrow and consider restarting warfarin at the same or reduced dose the following day. He was told he would need to start at 5 mg of Coumadin tomorrow (4) CKD (chronic kidney disease) ICD Codes: N18.9 - Chronic kidney disease, unspecified Status: Chronic Plan: Cr. 1.82 on admission, now higher Continue to monitor renal function, I/Os Avoid nephrotoxins (5) Hypertension ICD Codes: I10 - Essential (primary) hypertension Status: Chronic Plan: Continue home lisinopril 10 mg po daily Lasix 40 mg po daily Vitals q4h (6) Nutrition, metabolism, and development symptoms ICD Codes: R63.8 - Other symptoms and signs concerning food and fluid intake Status: Acute Plan: Fluids: start gentle hydration today as tolerated Electrolytes: WNL, continue to monitor Nutrition: Heart healthy DVT ppx: b/l SCDs (7) Acute kidney injury superimposed on chronic kidney disease ICD Codes: N17.9 - Acute kidney failure, unspecified; N18.9 - Chronic kidney disease, unspecified Status: Acute Plan: stuck with giving gentle fluids despite heart failure. Nor SOB right now. will need to watch renal fxn plus signs of heart failure Problem Qualifiers (1) CHF exacerbation: Qualified Codes: I50.9 - Heart failure, unspecified (2) Atrial fibrillation: Qualified Codes: I48.2 - Chronic atrial fibrillation (3) CKD (chronic kidney disease): Qualified Codes: N18.3 - Chronic kidney disease, stage 3 (moderate) (4) Hypertension: Qualified Codes: I10 - Essential (primary) hypertension Martha Rhodes MD Aug 09, 2017 10:09
[2017-08-09] MEDS: PROPRANOLOL HCL 40 MG TAB PO SCH ×2 (10:12→20:47)
[2017-08-09] MEDS: DOCUSATE SODIUM 50 MG/SENNA 8.6 MG TAB PO SCH ×2 (10:12→20:47)
[2017-08-09] MEDS: LISINOPRIL 10 MG TAB PO SCH (10:13)
[2017-08-09] MEDS: SODIUM CHLORIDE 0.9% FLUSH 10 ML FLUSH IV FLUSH SCH ×2 (10:13→20:47)
[2017-08-09] MEDS: FUROSEMIDE 40 MG TAB PO SCH (10:13)
[2017-08-09] MEDS ORDERED: SODIUM CHLOR 0.9% 1000 ML INJ 1,000 ML IV SCH (11:00)
--- NOTE | 2017-08-09 11:18 | EKG ---
Date Performed: 08/08/2017 Time Performed: 13:21:17 PTAGE: 87 years EKG: Normal Sinus rhythm with first degree AV block and PACs, which are new compared to the previous tracing MARKED LEFT AXIS DEVIATION MODERATE INTRAVENTRICULAR CONDUCTION DELAY MINIMAL ST DEPRESSION ABNORMAL QRS-T ANGLE PROL ONGED QT INTERVAL ABNORMAL ECG PREVIOUS TRACING 03/06/12 DOCTOR: Odin Vargas Interpretating Date/Time 08/09/2017 11:17:13
[2017-08-09 12:00] VITALS: BP 124/64; PULSE 88; RESP 20; TEMP 97.5; O2SAT 93
[2017-08-09 16:41] VITALS: BP 155/77; PULSE 65; RESP 18; TEMP 98.2; O2SAT 99
[2017-08-09 20:00] VITALS: BP 131/64; PULSE 60; RESP 18; TEMP 98.1; O2SAT 99
[2017-08-09] MEDS: TRIAMCINOLONE ACET 0.1% LOTION 60 ML BTL TOPICAL SCH (20:47)
[2017-08-10] VITALS (8 sets, daily range): BP systolic 130–164; BP diastolic 60–88; PULSE 60–80; RESP 18–20; TEMP 97.3–98; O2SAT 95–100
[2017-08-10 08:03] LABS: HEMATOCRIT 27.6 % (39.0-51.0); HEMOGLOBIN 8.9 GM/DL (13.0-17.0); MEAN CELL VOLUME 79.9 FL (80.0-100.0); MEAN CORPUSCULAR HEMOGLOBIN 25.8 PG (27.0-34.0); MEAN CORPUSCULAR HGB CONC 32.3 % (32.0-36.0); MEAN PLATELET VOLUME 7.8 FL (7.0-11.0); PLATELET COUNT 126 TH/MM3 (150-450); RED BLOOD COUNT 3.45 MIL/MM3 (4.50-5.90); RED CELL DISTRIBUTION WIDTH 16.4 % (11.6-17.2); WHITE BLOOD COUNT 4.8 TH/MM3 (4.0-11.0)
[2017-08-10 08:12] LABS: INTERNATIONAL NORMALIZED RATIO 2.4 RATIO; PROTHROMBIN TIME - PATIENT 27.6 SEC (9.8-11.6)
[2017-08-10 08:17] LABS: BICARBONATE 20.4 MEQ/L (21.0-32.0); CALCIUM 7.5 MG/DL (8.5-10.1); CREATININE 2.42 MG/DL (0.60-1.30)
[2017-08-10] MEDS: TRIAMCINOLONE ACET 0.1% LOTION 60 ML BTL TOPICAL SCH ×2 (09:00→20:42)
[2017-08-10] MEDS: SODIUM CHLORIDE 0.9% FLUSH 10 ML FLUSH IV FLUSH SCH ×2 (09:16→20:42)
[2017-08-10] MEDS: DOCUSATE SODIUM 50 MG/SENNA 8.6 MG TAB PO SCH ×2 (09:16→20:42)
[2017-08-10] MEDS: LISINOPRIL 10 MG TAB PO SCH (09:16)
[2017-08-10] MEDS: FUROSEMIDE 40 MG TAB PO SCH (09:16)
[2017-08-10] MEDS: PROPRANOLOL HCL 40 MG TAB PO SCH ×2 (09:16→20:41)
--- NOTE | 2017-08-10 13:03 | ECHRPT ---
Indication: HEART FAILURE CONCLUSIONS Mildly dilated left ventricle. Mild concentric left ventricular hypertrophy. The left ventricular systolic function is qopnnxlb-th-pawlsyc reduced with an estimated ejection fra ction in the range of 35-40%. The right ventricle is mildly dilated. The left atrial size is tush-wc-hbaidanwqm dilated. Moderate to severe mitral valve regurgitation. Aortic valve sclerosis is present. Fiyl-ky-vaqqixsn aortic valve regurgitation. Moderate Aortic Stenosis. Aortic valve area is 1.2 cm. Echogenic structure in the RV consistent with Pacemaker BP: 155 / 77 HR: Rhythm: Sinus MEASUREMENTS (Male / Female) Normal Values Technical Quality:Fair 2D ECHO LV Diastolic Diameter PLAX 6.4 cm 4.2 - 5.9 / 3.9 - 5.3 cm LV Systolic Diameter PLAX 5.5 cm IVS Diastolic Thickness 1.2 cm 0.6 - 1.0 / 0.6 - 0.9 cm LVPW Diastolic Thickness 1.2 cm 0.6 - 1.0 / 0.6 - 0.9 cm LV Relative Wall Thickness 0.4 LVOT Diameter 2.6 cm Aortic Root Diameter 3.7 cm LA Systolic Diameter LX 4.3 cm 3.0 - 4.0 / 2.7 - 3.8 cm DOPPLER AV Peak Velocity 221.5 cm/s AV Peak Gradient 19.6 mmHg AV Mean Gradient 10.5 mmHg AV Velocity Time Integral 46.9 cm AI Peak Velocity 436.0 cm/s AI Peak Gradient 76.0 mmHg AI Pressure Half Time 569.0 ms LVOT Peak Velocity 54.9 cm/s LVOT Peak Gradient 1.2 mmHg LVOT Velocity Time Integral 11.0 cm AV Area Cont Eq vti 1.2 cm AV Area Cont Eq pk 1.3 cm Mitral E Point Velocity 79.0 cm/s Mitral A Point Velocity 35.0 cm/s Mitral E to A Ratio 2.3 LV E' Lateral Velocity 7.0 cm/s Mitral E to LV E' Lateral Ratio 11.3 LV E' Septal Velocity 2.6 cm/s Mitral E to LV E' Septal Ratio 30.0 TR Peak Velocity 404.0 cm/s TR Peak Gradient 65.3 mmHg Right Atrial Pressure 10.0 mmHg Pulmonary Artery Systolic Pressu 75.3 mmHg Right Ventricular Systolic Press 75.3 mmHg PV Peak Velocity 45.9 cm/s PV Peak Gradient 0.8 mmHg FINDINGS LEFT VENTRICLE Mildly dilated left ventricle. Mild concentric left ventricular hypertrophy. The left ventricular systolic function is xmwzudop-jn-kdwtcym reduced with an estimated ejection fra ction in the range of 35-40%. RIGHT VENTRICLE The right ventricle is mildly dilated. LEFT ATRIUM The left atrial size is lock-qq-igixftgmna dilated. MITRAL VALVE Iipj-af-gbytlfmw mitral valve regurgitation. AORTIC VALVE Aortic valve sclerosis is present. Ifoy-rh-wkcffpqo aortic valve regurgitation. Aortic valve area is 1.2 cm. Aortic valve mean gradient is 10.5 mmHg. Haris Zacarias MD (Electronically Signed) Final Date:10 August 2017 13:01
--- NOTE | 2017-08-10 13:03 | ECHRPT ---
Indication: HEART FAILURE CONCLUSIONS Mildly dilated left ventricle. Mild concentric left ventricular hypertrophy. The left ventricular systolic function is gyqismbf-vd-qyjgszl reduced with an estimated ejection fra ction in the range of 35-40%. The right ventricle is mildly dilated. The left atrial size is mqwq-jx-znriboqpkf dilated. Moderate to severe mitral valve regurgitation. Aortic valve sclerosis is present. Fbvk-vq-cagmnjcu aortic valve regurgitation. Moderate Aortic Stenosis. Aortic valve area is 1.2 cm. Echogenic structure in the RV consistent with Pacemaker BP: 155 / 77 HR: Rhythm: Sinus MEASUREMENTS (Male / Female) Normal Values Technical Quality:Fair 2D ECHO LV Diastolic Diameter PLAX 6.4 cm 4.2 - 5.9 / 3.9 - 5.3 cm LV Systolic Diameter PLAX 5.5 cm IVS Diastolic Thickness 1.2 cm 0.6 - 1.0 / 0.6 - 0.9 cm LVPW Diastolic Thickness 1.2 cm 0.6 - 1.0 / 0.6 - 0.9 cm LV Relative Wall Thickness 0.4 LVOT Diameter 2.6 cm Aortic Root Diameter 3.7 cm LA Systolic Diameter LX 4.3 cm 3.0 - 4.0 / 2.7 - 3.8 cm DOPPLER AV Peak Velocity 221.5 cm/s AV Peak Gradient 19.6 mmHg AV Mean Gradient 10.5 mmHg AV Velocity Time Integral 46.9 cm AI Peak Velocity 436.0 cm/s AI Peak Gradient 76.0 mmHg AI Pressure Half Time 569.0 ms LVOT Peak Velocity 54.9 cm/s LVOT Peak Gradient 1.2 mmHg LVOT Velocity Time Integral 11.0 cm AV Area Cont Eq vti 1.2 cm AV Area Cont Eq pk 1.3 cm Mitral E Point Velocity 79.0 cm/s Mitral A Point Velocity 35.0 cm/s Mitral E to A Ratio 2.3 LV E' Lateral Velocity 7.0 cm/s Mitral E to LV E' Lateral Ratio 11.3 LV E' Septal Velocity 2.6 cm/s Mitral E to LV E' Septal Ratio 30.0 TR Peak Velocity 404.0 cm/s TR Peak Gradient 65.3 mmHg Right Atrial Pressure 10.0 mmHg Pulmonary Artery Systolic Pressu 75.3 mmHg Right Ventricular Systolic Press 75.3 mmHg PV Peak Velocity 45.9 cm/s PV Peak Gradient 0.8 mmHg FINDINGS LEFT VENTRICLE Mildly dilated left ventricle. Mild concentric left ventricular hypertrophy. The left ventricular systolic function is kqjziqxo-tu-vstgyho reduced with an estimated ejection fra ction in the range of 35-40%. RIGHT VENTRICLE The right ventricle is mildly dilated. LEFT ATRIUM The left atrial size is qpxd-xp-zhumupppbh dilated. MITRAL VALVE Euxn-kl-ftdvdpii mitral valve regurgitation. AORTIC VALVE Aortic valve sclerosis is present. Znei-es-ongoomvq aortic valve regurgitation. Aortic valve area is 1.2 cm. Aortic valve mean gradient is 10.5 mmHg. Haris Zacarias MD (Electronically Signed) Final Date:10 August 2017 13:01
--- NOTE | 2017-08-10 13:03 | ECHRPT ---
Indication: HEART FAILURE CONCLUSIONS Mildly dilated left ventricle. Mild concentric left ventricular hypertrophy. The left ventricular systolic function is rkkhbvxe-pf-yfjuapx reduced with an estimated ejection fra ction in the range of 35-40%. The right ventricle is mildly dilated. The left atrial size is mkbt-wr-ahpoesmerx dilated. Moderate to severe mitral valve regurgitation. Aortic valve sclerosis is present. Uwpl-qg-ksfrnwnq aortic valve regurgitation. Moderate Aortic Stenosis. Aortic valve area is 1.2 cm. Echogenic structure in the RV consistent with Pacemaker BP: 155 / 77 HR: Rhythm: Sinus MEASUREMENTS (Male / Female) Normal Values Technical Quality:Fair 2D ECHO LV Diastolic Diameter PLAX 6.4 cm 4.2 - 5.9 / 3.9 - 5.3 cm LV Systolic Diameter PLAX 5.5 cm IVS Diastolic Thickness 1.2 cm 0.6 - 1.0 / 0.6 - 0.9 cm LVPW Diastolic Thickness 1.2 cm 0.6 - 1.0 / 0.6 - 0.9 cm LV Relative Wall Thickness 0.4 LVOT Diameter 2.6 cm Aortic Root Diameter 3.7 cm LA Systolic Diameter LX 4.3 cm 3.0 - 4.0 / 2.7 - 3.8 cm DOPPLER AV Peak Velocity 221.5 cm/s AV Peak Gradient 19.6 mmHg AV Mean Gradient 10.5 mmHg AV Velocity Time Integral 46.9 cm AI Peak Velocity 436.0 cm/s AI Peak Gradient 76.0 mmHg AI Pressure Half Time 569.0 ms LVOT Peak Velocity 54.9 cm/s LVOT Peak Gradient 1.2 mmHg LVOT Velocity Time Integral 11.0 cm AV Area Cont Eq vti 1.2 cm AV Area Cont Eq pk 1.3 cm Mitral E Point Velocity 79.0 cm/s Mitral A Point Velocity 35.0 cm/s Mitral E to A Ratio 2.3 LV E' Lateral Velocity 7.0 cm/s Mitral E to LV E' Lateral Ratio 11.3 LV E' Septal Velocity 2.6 cm/s Mitral E to LV E' Septal Ratio 30.0 TR Peak Velocity 404.0 cm/s TR Peak Gradient 65.3 mmHg Right Atrial Pressure 10.0 mmHg Pulmonary Artery Systolic Pressu 75.3 mmHg Right Ventricular Systolic Press 75.3 mmHg PV Peak Velocity 45.9 cm/s PV Peak Gradient 0.8 mmHg FINDINGS LEFT VENTRICLE Mildly dilated left ventricle. Mild concentric left ventricular hypertrophy. The left ventricular systolic function is sycebzjk-gt-bcetefm reduced with an estimated ejection fra ction in the range of 35-40%. RIGHT VENTRICLE The right ventricle is mildly dilated. LEFT ATRIUM The left atrial size is rxdn-gs-lzzofotagi dilated. MITRAL VALVE Mqme-mb-aaxhbkzd mitral valve regurgitation. AORTIC VALVE Aortic valve sclerosis is present. Mkaq-rc-oekvgdgu aortic valve regurgitation. Aortic valve area is 1.2 cm. Aortic valve mean gradient is 10.5 mmHg. Haris Zacarias MD (Electronically Signed) Final Date:10 August 2017 13:01
--- NOTE | 2017-08-10 14:31 | HHI.FPPN ---
Subjective Remarks No acute events overnight, afebrile, vital signs within normal limits and stable. Today he feels well, denies neck pain, chest pain, shortness of breath. Objective Vitals Vital Signs Date Time Temp Pulse Resp B/P (MAP) Pulse Ox O2 Delivery O2 Flow Rate FiO2 08/10/17 12:00 97.3 60 20 133/69 (90) 95 08/10/17 08:00 97.6 67 20 156/78 (104) 97 08/10/17 04:00 Room Air 08/10/17 04:00 97.9 75 18 144/80 (101) 98 08/10/17 00:00 Room Air 08/10/17 00:00 98.0 60 18 130/60 (83) 98 08/09/17 20:00 60 08/09/17 20:00 Room Air 08/09/17 20:00 98.1 60 18 131/64 (86) 99 08/09/17 16:41 98.2 65 18 155/77 (103) 99 I/O 08/09/17 08/09/17 08/09/17 08/10/17 08/10/17 08/10/17 07:00 15:00 23:00 07:00 15:00 23:00 Intake Total 480 ml 240 ml 1227 ml Output Total 400 ml 50 ml Balance 480 ml -160 ml 1227 ml -50 ml Intake Oral 480 ml 240 ml 480 ml IV Total 747 ml Output Urine Total 400 ml 50 ml # Voids 1 5 2 # Bowel Movements 1 0 Result Diagram: 08/10/17 0639 08/10/17 0639 Objective Remarks GENERAL: Well-developed, well-nourished elderly white male lying comfortably in bed in no acute distress SKIN: No rashes, ecchymoses or lesions. Cool and dry. NECK: Supple, normal active range of motion in all axes without pain CARDIOVASCULAR: Normal rate, irregularly irregular rhythm.. Normal S1/S2. Soft, blowing, 2/6 systolic murmur loudest in the mitral area RESPIRATORY: CTAB. No crackles or wheezes. MUSCULOSKELETAL: Extremities without clubbing, cyanosis, or edema. NEUROLOGICAL: Awake and alert. Cranial nerves II through XII grossly intact. Moves all extremities without difficulty. Normal speech. A/P Assessment and Plan 87 year old male being admitted due to neck pain and acute on chronic CHF. Problem List: (1) CHF exacerbation ICD Codes: I50.9 - Heart failure, unspecified Status: Acute Plan: Resolved, now asymptomatic BNP trending upward, but likely due to acute kidney injury Echo showing EF 35-40% (slightly decreased from prior study) and severe mitral regurgitation (stable from previous) - Continue lasix 40 mg po daily - Gentle IVF for LISBETH as noted below - Monitor I/Os - Trend BNP (2) Acute kidney injury superimposed on chronic kidney disease ICD Codes: N17.9 - Acute kidney failure, unspecified; N18.9 - Chronic kidney disease, unspecified Status: Acute Plan: Likely due to contrast dye during imaging studies (Cr was at baseline on admission) - Gentle IV hydration (64 cc/hr) (3) Neck pain ICD Codes: M54.2 - Cervicalgia Status: Resolved Plan: Suspecting a musculoskeletal etiology at this time, patient not having any neuropathic pain or dermatomal symptoms Neuro exam reassuring, no red flag symptoms Cervical spine x-ray, showed OA - Heat for relief of symptoms - Avoiding muscle relaxants at this time given his age and comorbidities - Tylenol as needed for pain - [place] 5-325 as needed for breakthrough pain (4) Atrial fibrillation ICD Codes: I48.91 - Unspecified atrial fibrillation Status: Chronic Plan: Continue home propranolol INR at 2.4 - Resume coumadin at 7.5 mg daily dosing (decreasing due to PCP plan to lower due to elevated INR) (5) CKD (chronic kidney disease) ICD Codes: N18.9 - Chronic kidney disease, unspecified Status: Chronic Plan: Baseline Cr 1.82 Today 2.42 See LISBETH plan above (6) Hypertension ICD Codes: I10 - Essential (primary) hypertension Status: Chronic Plan: Continue home lisinopril 10 mg po daily Lasix 40 mg po daily Vitals q4h (7) Nutrition, metabolism, and development symptoms ICD Codes: R63.8 - Other symptoms and signs concerning food and fluid intake Status: Acute Plan: Fluids: continue gentle hydration today as tolerated Electrolytes: WNL, continue to monitor Nutrition: Heart healthy DVT ppx: b/l SCDs Problem Qualifiers (1) CHF exacerbation: Qualified Codes: I50.9 - Heart failure, unspecified (2) Atrial fibrillation: Qualified Codes: I48.2 - Chronic atrial fibrillation (3) CKD (chronic kidney disease): Qualified Codes: N18.3 - Chronic kidney disease, stage 3 (moderate) (4) Hypertension: Qualified Codes: I10 - Essential (primary) hypertension Ryan Castro MD R2 Aug 10, 2017 2:31 pm
[2017-08-10] MEDS: WARFARIN SOD 7.5 MG TAB PO SCH (16:42)
[2017-08-11] VITALS: BP 146/69; PULSE 77; RESP 20; TEMP 97.6; O2SAT 96
[2017-08-11 04:00] VITALS: BP 158/81; PULSE 64; RESP 20; TEMP 98.6; O2SAT 98
[2017-08-11 08:00] VITALS: BP 158/89; PULSE 61; PULSE 86; RESP 20; TEMP 97.6; O2SAT 97
[2017-08-11] MEDS: LISINOPRIL 10 MG TAB PO SCH (08:04)
[2017-08-11] MEDS: DOCUSATE SODIUM 50 MG/SENNA 8.6 MG TAB PO SCH (08:04)
[2017-08-11] MEDS: PROPRANOLOL HCL 40 MG TAB PO SCH (08:04)
[2017-08-11] MEDS: FUROSEMIDE 40 MG TAB PO SCH (08:04)
[2017-08-11] MEDS ORDERED: KETOCONAZOLE 2% CREAM 15 GM TOPICAL SCH (11:00)
[2017-08-11 12:00] VITALS: BP 150/81; PULSE 60; RESP 20; TEMP 97.5; O2SAT 98
--- NOTE | 2017-08-11 12:11 | HHI.FPPN ---
Subjective Remarks No acute events overnight. AFVSS. Feels well, denies CP, SOB, calf pain. Has been walking without difficulty. Objective Vitals Vital Signs Date Time Temp Pulse Resp B/P (MAP) Pulse Ox O2 Delivery O2 Flow Rate FiO2 08/11/17 08:00 97.6 61 20 158/89 (112) 97 08/11/17 04:00 98.6 64 20 158/81 (106) 98 08/11/17 00:00 97.6 77 20 146/69 (94) 96 08/10/17 20:29 80 08/10/17 20:00 Room Air 08/10/17 20:00 97.6 79 20 164/88 (113) 100 08/10/17 16:00 97.3 73 20 148/84 (105) 95 I/O 08/10/17 08/10/17 08/10/17 08/11/17 08/11/17 08/11/17 07:00 15:00 23:00 07:00 15:00 23:00 Intake Total 1227 ml 360 ml 1213 ml Output Total 50 ml 3 ml Balance 1227 ml -50 ml 357 ml 1213 ml Intake Oral 480 ml 360 ml 400 ml IV Total 747 ml 813 ml Output Urine Total 50 ml 3 ml # Voids 2 2 # Bowel Movements 0 0 Result Diagram: 08/10/1763808/10/17638 Objective Remarks GENERAL: Well-developed, well-nourished elderly white male lying comfortably in bed in no acute distress SKIN: No rashes, ecchymoses or lesions. Cool and dry. NECK: Supple, normal active range of motion in all axes without pain CARDIOVASCULAR: Normal rate, irregularly irregular rhythm.. Normal S1/S2. Soft, blowing, 2/6 systolic murmur loudest in the mitral area RESPIRATORY: CTAB. No crackles or wheezes. MUSCULOSKELETAL: Extremities without clubbing, cyanosis, or edema. NEUROLOGICAL: Awake and alert. Cranial nerves II through XII grossly intact. Moves all extremities without difficulty. Normal speech. A/P Assessment and Plan 87 year old male being admitted due to neck pain and acute on chronic CHF. Problem List: (1) CHF exacerbation ICD Codes: I50.9 - Heart failure, unspecified Status: Resolved Plan: Resolved, now asymptomatic BNP trending upward, but likely due to acute kidney injury Echo showing EF 35-40% (slightly decreased from prior study) and severe mitral regurgitation (stable from previous) - Continue lasix 40 mg po daily - Gentle IVF for LISBETH as noted below - Monitor I/Os (2) Acute kidney injury superimposed on chronic kidney disease ICD Codes: N17.9 - Acute kidney failure, unspecified; N18.9 - Chronic kidney disease, unspecified Status: Acute Plan: Likely due to contrast dye during imaging studies (Cr was at baseline on admission) - Gentle IV hydration (64 cc/hr) - F/u BMP; if improved, can discharge home with repeat BMP in about a week - Encourage oral hydration at home (caution re: fluid overload) (3) Neck pain ICD Codes: M54.2 - Cervicalgia Status: Resolved Plan: Suspecting a musculoskeletal etiology at this time, patient not having any neuropathic pain or dermatomal symptoms Neuro exam reassuring, no red flag symptoms Cervical spine x-ray, showed OA - Heat for relief of symptoms - Avoiding muscle relaxants at this time given his age and comorbidities - Tylenol as needed for pain (4) Atrial fibrillation ICD Codes: I48.91 - Unspecified atrial fibrillation Status: Chronic Plan: Continue home propranolol INR at 2.4 - Resumed coumadin on 08/10/17 at 7.5 mg daily dosing (decreasing due to PCP plan to lower due to elevated INR) - F/u INR as outpatient with PCP (5) CKD (chronic kidney disease) ICD Codes: N18.9 - Chronic kidney disease, unspecified Status: Chronic Plan: Baseline Cr 1.82 BMP today pending See LISBETH plan above (6) Hypertension ICD Codes: I10 - Essential (primary) hypertension Status: Chronic Plan: Continue home lisinopril 10 mg po daily Lasix 40 mg po daily Vitals q4h (7) Nutrition, metabolism, and development symptoms ICD Codes: R63.8 - Other symptoms and signs concerning food and fluid intake Status: Acute Plan: Fluids: continue gentle hydration IV until discharge Electrolytes: WNL, continue to monitor Nutrition: Heart healthy DVT ppx: b/l SCDs Problem Qualifiers (1) CHF exacerbation: Qualified Codes: I50.9 - Heart failure, unspecified (2) Atrial fibrillation: Qualified Codes: I48.2 - Chronic atrial fibrillation (3) CKD (chronic kidney disease): Qualified Codes: N18.3 - Chronic kidney disease, stage 3 (moderate) (4) Hypertension: Qualified Codes: I10 - Essential (primary) hypertension Ryan Castro MD R2 Aug 11, 2017 12:11 pm
[2017-08-11 12:48] LABS: HEMATOCRIT 32.1 % (39.0-51.0); HEMOGLOBIN 10.3 GM/DL (13.0-17.0)
[2017-08-11 13:16] LABS: BICARBONATE 21.8 MEQ/L (21.0-32.0); CALCIUM 7.9 MG/DL (8.5-10.1); CREATININE 2.58 MG/DL (0.60-1.30)
--- NOTE | 2017-08-11 15:29 | HHI.DCPOC ---
Discharge Care Plan Diagnosis: (1) Neck pain (2) Hypertension (3) CKD (chronic kidney disease) (4) Acute kidney injury superimposed on chronic kidney disease (5) CHF exacerbation Goals to Promote Your Health * To prevent worsening of your condition and complications * To maintain your health at the optimal level Directions to Meet Your Goals Take your medications as prescribed Follow your dietary instruction Follow activity as directed Keep your appointments as scheduled Take your immunizations and boosters as scheduled If your symptoms worsen call your PCP, if no PCP go to Urgent Care Center or Emergency Room Smoking is Dangerous to Your Health. Avoid second hand smoke Call the 24-hour hour crisis hotline for domestic abuse at Sherrie Leblanc MD, R1 Aug 11, 2017 15:29
--- NOTE | 2017-08-11 15:29 | HHI.DCPOC ---
Discharge Care Plan Diagnosis: (1) Neck pain (2) Hypertension (3) CKD (chronic kidney disease) (4) Acute kidney injury superimposed on chronic kidney disease (5) CHF exacerbation Goals to Promote Your Health * To prevent worsening of your condition and complications * To maintain your health at the optimal level Directions to Meet Your Goals Take your medications as prescribed Follow your dietary instruction Follow activity as directed Keep your appointments as scheduled Take your immunizations and boosters as scheduled If your symptoms worsen call your PCP, if no PCP go to Urgent Care Center or Emergency Room Smoking is Dangerous to Your Health. Avoid second hand smoke Call the 24-hour hour crisis hotline for domestic abuse at Sherrie Leblanc MD, R1 Aug 11, 2017 15:29
--- NOTE | 2017-08-11 15:29 | HHI.DCPOC ---
Discharge Care Plan Diagnosis: (1) Neck pain (2) Hypertension (3) CKD (chronic kidney disease) (4) Acute kidney injury superimposed on chronic kidney disease (5) CHF exacerbation Goals to Promote Your Health * To prevent worsening of your condition and complications * To maintain your health at the optimal level Directions to Meet Your Goals Take your medications as prescribed Follow your dietary instruction Follow activity as directed Keep your appointments as scheduled Take your immunizations and boosters as scheduled If your symptoms worsen call your PCP, if no PCP go to Urgent Care Center or Emergency Room Smoking is Dangerous to Your Health. Avoid second hand smoke Call the 24-hour hour crisis hotline for domestic abuse at Sherrie Leblanc MD, R1 Aug 11, 2017 15:29
[2017-08-11 16:15] VITALS: BP 135/70; PULSE 70; RESP 20; TEMP 98
[2017-08-11] MEDS: WARFARIN SOD 7.5 MG TAB PO SCH (17:27)
== END 2017-08-11 18:02 | disposition home or self-care (01) | DRG 292 ==
LOC: NEPC 12:46 → NEDA 16:58 → N04A 19:54
PROVIDERS: ADMIT Family Medicine; ATTEND Family Medicine
DX: I13.0 Hypertensive heart and chronic kidney disease with heart failure and stage 1 through stage 4 chronic kidney disease, or unspecified chronic kidney disease (principal); N17.9 Acute kidney failure, unspecified; N13.30 Unspecified hydronephrosis; K76.89 Other specified diseases of liver; I48.2 Chronic atrial fibrillation; B35.4 Tinea corporis; J98.11 Atelectasis; I34.0 Nonrheumatic mitral (valve) insufficiency; E78.5 Hyperlipidemia, unspecified; I50.9 Heart failure, unspecified; N18.3 Chronic kidney disease, stage 3 (moderate); M54.2 Cervicalgia; I71.4 Abdominal aortic aneurysm, without rupture; K57.90 Diverticulosis of intestine, part unspecified, without perforation or abscess without bleeding; K80.20 Calculus of gallbladder without cholecystitis without obstruction; M43.6 Torticollis; Z79.01 Long term (current) use of anticoagulants; Z79.899 Other long term (current) drug therapy; Z86.14 Personal history of Methicillin resistant Staphylococcus aureus infection; Z87.891 Personal history of nicotine dependence; Z95.0 Presence of cardiac pacemaker; Z96.653 Presence of artificial knee joint, bilateral
CPT/HCPCS: 71010; 71275; 72050; 74174; 80048; 80053; 82550; 83690; 83735; 83880; 84484; 85014; 85018; 85025; 85027; 85610; 85730; 93005; 93306; 96361; 96374; 96375; J1940; J2270; J7030; J7040; Q9967

== ENCOUNTER 2017-08-15 15:17 | Observation (INO) | payer MEDICARE, OTHER ==
[~2017-08-15] VITALS: Ht 180.3 cm; Wt 85.0 kg
[~2017-08-15 15:17] MED LIST changes: -ALLO300T2 PO; -BACT800T5 PO; -CEPH500C3 PO; -FURO1TAB93 PO; +FURO40TA PO; -LISI10 PO; +LISI10TA3 PO; -OXYC-360 PO; +SIMV20TA PO; -SIMV40 PO
[2017-08-15 15:22] VITALS: BP 128/59; PULSE 62; RESP 18; O2SAT 96
[2017-08-15 15:25] VITALS: BP 103/59; PULSE 76; RESP 19; TEMP 98.1; O2SAT 100
[2017-08-15] MEDS ORDERED: SODIUM CHLORIDE 0.9% FLUSH 10 ML FLUSH IVF PRN (15:45)
--- NOTE | 2017-08-15 15:49 | PD ---
HPI Chief Complaint: Complaint Time Seen by Provider: 15:25 Travel History International Travel<30 days: No Contact w/Intl Traveler<30days: No History of Present Illness HPI 87-year-old male with past medical history significant for A. fib on Coumadin, CHF, CK-MB, hypertension, a child the presents to the emergency department for evaluation of hematuria that started this morning. Patient was recently discharged for CHF, renal insufficiency, neck pain. He states he was doing well. He denies any pain at all. He denies any headache. No fevers or chills. No chest pain or shortness breath. No abdominal pain. No nausea, vomiting, diarrhea. She states he feels well, but wanted evaluation of his hematuria. He denies any dysuria, frequency, urgency. He does report a decreased urinary stream. Patient does appear well on exam. Severity is mild to moderate. No exacerbating or alleviating factors. PFSH Past Medical History Hx Anticoagulant Therapy: Yes (warfarin) Arthritis: Yes (hands, arms,legs ) Asthma: No Autoimmune Disease: No (had hep as a child ,not sure which one) Heart Rhythm Problems: Yes (afib) Cancer: No Cardiovascular Problems: Yes High Cholesterol: Yes Chemotherapy: No Chest Pain: No Congestive Heart Failure: Yes COPD: No Cerebrovascular Accident: No Diabetes: No Diminished Hearing: No Endocrine: No Genitourinary: Yes Hypertension: Yes Immune Disorder: No Kidney Stones: No Musculoskeletal: Yes Neurologic: No Psychiatric: No Respiratory: Yes Migraines: No Renal Failure: No Seizures: No Sickle Cell Disease: No Sleep Apnea: No Thyroid Disease: No Past Surgical History Abdominal Surgery: No AICD: No Arteriovenous Shunt: No Body Medical Devices: PACEMAKER Cardiac Surgery: Yes (PACEMAKER) Ear Surgery: No Endocrine Surgery: No Eye Surgery: No Genitourinary Surgery: No Insulin Pump: No Joint Replacement: Yes (bilateral knees) Oral Surgery: Yes (april upper teeth removed) Pacemaker: Yes (st laurie) Thoracic Surgery: No Social History Alcohol Use: No Tobacco Use: No Substance Use: No Allergies-Medications (Allergen,Severity, Reaction): Coded Allergies: *MDRO Multi-Drug Resistant Organism (Unverified Adverse Reaction, Unknown , 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 Reported Meds & Prescriptions Reported Meds & Active Scripts Active Reported Simvastatin 20 Mg Tab 20 Mg PO DAILY Lisinopril 10 Mg Tab 10 Mg PO DAILY Furosemide 40 Mg Tab 40 Mg PO DAILY Propranolol ER (Propranolol HCl) 80 Mg Cap 40 Mg PO BID Kcl 20 Meq Tab (Potassium Chloride) 20 Meq Tabcr 20 Meq PO DAILY Review of Systems Except as stated in HPI: all other systems reviewed are Neg Physical Exam Narrative GENERAL: Well-nourished, well-developed elderly male patient, ambulatory. Afebrile. SKIN: Focused skin assessment warm/dry. HEAD: Normocephalic. Atraumatic. EYES: No scleral icterus. No injection or drainage. NECK: Supple, trachea midline. No JVD or lymphadenopathy. CARDIOVASCULAR: Regular rate without murmurs, gallops, or rubs. RESPIRATORY: Breath sounds equal bilaterally. No accessory muscle use. Lungs sounds are clear to auscultation. GASTROINTESTINAL: Abdomen soft, non-tender, nondistended. MUSCULOSKELETAL: No cyanosis, or edema. BACK: Nontender without obvious deformity. No CVA tenderness. Data Data Last Documented VS Vital Signs Date Time Temp Pulse Resp B/P (MAP) Pulse Ox O2 Delivery O2 Flow Rate FiO2 08/15/17 15:25 98.1 76 19 103/59 (74) 100 Orders Orders Complete Blood Count With Diff (08/15/17 15:34) Basic Metabolic Panel (Bmp) (08/15/17 15:34) Urinalysis - C+S If Indicated (08/15/17 15:34) Ct Abd/Pel W/O Iv Contrast (08/15/17 15:34) Ecg Monitoring (08/15/17 15:34) Iv Access Insert/Monitor (08/15/17 15:34) Sodium Chloride 0.9% Flush (Ns Flush) (08/15/17 15:45) Act Partial Throm Time (Ptt) (08/15/17 15:49) Prothrombin Time / Inr (Pt) (08/15/17 15:49) Urinary Catheter Insert/Apply (08/15/17 16:21) Urine Culture (08/15/17 15:43) Ceftriaxone Inj (Rocephin Inj) (08/15/17 16:45) Phytonadione Inj (Vitamin K Inj) (08/15/17 17:15) Type And Screen (08/15/17 17:01) Admit Order (Ed Use Only) (08/15/17 17:38) Labs Laboratory Tests Test 08/15/17 15:43 08/15/17 16:05 White Blood Count 9.2 TH/MM3 Red Blood Count 4.04 MIL/MM3 Hemoglobin 10.3 GM/DL Hematocrit 31.7 % Mean Corpuscular Volume 78.4 FL Mean Corpuscular Hemoglobin 25.5 PG Mean Corpuscular Hemoglobin Concent 32.5 % Red Cell Distribution Width 16.2 % Platelet Count 149 TH/MM3 Mean Platelet Volume 7.4 FL Neutrophils (%) (Auto) 81.2 % Lymphocytes (%) (Auto) 7.2 % Monocytes (%) (Auto) 9.2 % Eosinophils (%) (Auto) 1.8 % Basophils (%) (Auto) 0.6 % Neutrophils # (Auto) 7.4 TH/MM3 Lymphocytes # (Auto) 0.7 TH/MM3 Monocytes # (Auto) 0.8 TH/MM3 Eosinophils # (Auto) 0.2 TH/MM3 Basophils # (Auto) 0.1 TH/MM3 CBC Comment DIFF FINAL Differential Comment Urine Color RED Urine Turbidity CLOUDY Urine pH 6.5 Urine Specific [place] 1.012 Urine Protein 100 mg/dL Urine Glucose (UA) NEG mg/dL Urine Ketones NEG mg/dL Urine Occult Blood LARGE Urine Nitrite NEG Urine Bilirubin NEG Urine Urobilinogen LESS THAN 2.0 MG/DL Urine Leukocyte Esterase LARGE Urine RBC /hpf Urine WBC /hpf Urine WBC Clumps MANY Urine Bacteria MOD /hpf Microscopic Urinalysis Comment CULTURE INDICATED Blood Urea Nitrogen 41 MG/DL Creatinine 2.38 MG/DL Random Glucose 97 MG/DL Calcium Level 7.8 MG/DL Sodium Level 141 MEQ/L Potassium Level 4.4 MEQ/L Chloride Level 108 MEQ/L Carbon Dioxide Level 23.3 MEQ/L Anion Gap 10 MEQ/L Estimat Glomerular Filtration Rate 26 ML/MIN Prothrombin Time 47.2 SEC Prothromb Time International Ratio 4.0 RATIO Activated Partial Thromboplast Time 64.8 SEC [facility] Medical Decision Making Medical Screen Exam Complete: Yes Emergency Medical Condition: Yes Medical Record Reviewed: Yes Differential Diagnosis Supratherapeutic INR versus UTI versus mass Narrative Course 87-year-old male presents to the emergency department for evaluation of hematuria that started this morning. Patient is on Coumadin. He denies any pain. He does appear well on exam. CBC, BMP, PTT, PT/INR are ordered and pending. UA is ordered and pending. CT abdomen/pelvis without contrast is ordered and pending. CBC shows slight anemia hemoglobin 10.3, hematocrit 31.7. BMP shows BUN 41, creatinine 2.38. This appears stable since previous labs on August 11, 2017. PTT is 64.8. PT/INR is 47.2/4.0. UA shows large occult blood, large leukocyte esterase, many wbc clumps, innumerable WBC, moderate bacteria. CT abdomen/ pelvis shows Left hydronephrosis and hydroureter; On the right, there is mild pelvocaliectasis of the collecting system with normal caliber of the proximal right ureter. Distal ureter is distended, however. 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 Cunningham was inserted and 1200 mL of bloody urine with blood clots are noted. I discussed the case with attending physician, Dr. Berger. Patient is given vitamin K 5 mg subcutaneous. Patient is given Rocephin 1 g IV for UTI. Dr. Berger recommends 23 hour observation. The patient agrees to this. Dr. Marti accepted admission. Diagnosis Primary Impression: Hematuria Qualified Codes: R31.0 - Gross hematuria Additional Impressions: UTI (urinary tract infection) Qualified Codes: N30.01 - Acute cystitis with hematuria Supratherapeutic INR CKD (chronic kidney disease) Qualified Codes: N18.9 - Chronic kidney disease, unspecified Admitting Information Admitting Physician Requests: Observation Polly Conner Aug 15, 2017 15:49
[2017-08-15 15:59] LABS: AUTOMATED NEUTROPHIL # 7.4 TH/MM3 (1.8-7.7); BASOPHIL # 0.1 TH/MM3 (0-0.2); BASOPHIL % 0.6 % (0.0-2.0); EOSINOPHIL # 0.2 TH/MM3 (0-0.4); EOSINOPHIL % 1.8 % (0.0-4.0); HEMATOCRIT 31.7 % (39.0-51.0); HEMO FLAGS DIFF FINAL; LYMPH % 7.2 % (9.0-44.0); LYMPHOCYTE # 0.7 TH/MM3 (1.0-4.8); MEAN CELL VOLUME 78.4 FL (80.0-100.0); MEAN CORPUSCULAR HEMOGLOBIN 25.5 PG (27.0-34.0); MEAN CORPUSCULAR HGB CONC 32.5 % (32.0-36.0); MONO % 9.2 % (0.0-8.0); NEUT % 81.2 % (16.0-70.0); PLATELET COUNT 149 TH/MM3 (150-450); RED BLOOD COUNT 4.04 MIL/MM3 (4.50-5.90); RED CELL DISTRIBUTION WIDTH 16.2 % (11.6-17.2); WHITE BLOOD COUNT 9.2 TH/MM3 (4.0-11.0)
[2017-08-15 16:10] LABS: BICARBONATE 23.3 MEQ/L (21.0-32.0); POTASSIUM 4.4 MEQ/L (3.5-5.1)
--- NOTE | 2017-08-15 16:17 | RADRPT ---
EXAM DATE/TIME: 08/15/2017 15:47 [facility] COMPARISON: CTA THORACIC ABDOMINAL AORTA W 3D RECON, August 08, 2017, 15:41. INDICATIONS : Hematuria, urinary retention. ORAL CONTRAST: No oral contrast ingested. RADIATION DOSE: 10.49 CTDIvol (mGy) MEDICAL HISTORY : Cardiovascular disease. Hepatitis. Hypertension. SURGICAL HISTORY : None. ENCOUNTER: Initial ACUITY: 1 day PAIN SCALE: 0/10 LOCATION: lower quadrant TECHNIQUE: Volumetric scanning of the abdomen and pelvis was performed. Using automated exposure control and ad justment of the mA and/or kV according to patient size, radiation dose was kept as low as reasonably achievable to obtain optimal diagnostic quality images. DICOM format image data is available electro nically for review and comparison. FINDINGS: LOWER LUNGS: Bilateral pleural effusions, moderate on the right and very small on the left. Concomitant atelectati c changes in the left base. LIVER: Probable 1.7 cm cyst in the left hepatic lobe. Small dependent gallstones in the gallbladder lumen. SPLEEN: Normal size without lesion. PANCREAS: Within normal limits. KIDNEYS: Pelvocaliectasis of the renal collecting systems bilaterally, left greater than right. Diffuse left-s ided hydroureter. The right renal pelvis is prominent with the ureter returning to a normal caliber j ust distal to the pelvis. The distal ureter on the right is again prominent. ADRENAL GLANDS: Within normal limits. VASCULAR: Mild ectasia of the distal abdominal aorta with scattered calcification. 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 ABDOMINAL WALL: Within normal limits. RETROPERITONEUM: There is no lymphadenopathy. BLADDER: Distention of the urinary bladder. REPRODUCTIVE: Within normal limits. INGUINAL: There is no lymphadenopathy or hernia. MUSCULOSKELETAL: Marked degenerative spurring of the lumbar spine. CONCLUSION: 1. Left hydronephrosis and hydroureter 2. On the right, there is mild pelvocaliectasis of the collecting system with normal caliber of the p roximal right ureter. Distal ureter is distended, however. I believe the ureteral prominence bilatera lly is due to urinary retention with marked distention of the urinary bladder. 3. Moderate right and a small left pleural effusion with concomitant atelectatic changes in the left base. 4. Cholelithiasis. 5. 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 6. Dense atherosclerotic calcification of the visualized coronary arteries . Brandon Patricio MD on August 15, 2017 at 16:06 Board Certified Radiologist. This report was verified electronically.
[2017-08-15 16:34] LABS: BACTERIA, URINE MOD /hpf; BLOOD, URINE LARGE (NEG); COMMENT (UR) CULTURE INDICATED; CULTURE IF INDICATED CULTURE INDICATED; GLUCOSE,URINE NEG (NEG); KETONE, URINE NEG (NEG); NITRITE,URINE NEG (NEG); PH, URINE 6.5 (5.0-8.5)
[2017-08-15 16:35] LABS: URINE COLOR RED (YELLW/STRAW)
[2017-08-15] MEDS ORDERED: cefTRIAXone INJ 1,000 MG in SODIUM CHLORIDE 0.9% INJ 100 ML IV ONE (16:45)
[2017-08-15 16:46] LABS: APTT (PATIENT) 64.8 SEC (24.3-30.1); PROTHROMBIN TIME - PATIENT 47.2 SEC (9.8-11.6)
[2017-08-15] MEDS ORDERED: PHYTONADIONE 10 MG/ML VIAL SQ ONE (17:15)
[2017-08-15 18:12] VITALS: BP 156/75; PULSE 62; RESP 17; O2SAT 100
[2017-08-15] MEDS ORDERED: NALOXONE HCL 0.4 MG/ML AMP IV PUSH PRN (18:30)
[2017-08-15] MEDS ORDERED: SODIUM CHLORIDE 0.9% FLUSH 10 ML FLUSH IV FLUSH PRN (18:30)
[2017-08-15] MEDS: TAMSULOSIN HCL 0.4 MG CAP PO SCH (18:30)
[2017-08-15] MEDS ORDERED: SENNOSIDES 8.6 MG TAB PO PRN (18:30)
--- NOTE | 2017-08-15 18:41 | HHI.HP ---
[facility] Admission Diagnosis hematuria, UTI, urinary retention, supratherapeutic INR Diagnoses: Chief Complaint: Hematuria Travel History International Travel<30 Days: No Contact w/Intl Traveler <30 Da: No History of Present Illness Patient is a 87-year-old gentleman who was recently discharged from the hospital with exacerbation of CHF. Patient does calm today because of hematuria and urinary incontinence at home. He reports not having normal urination since overnight. He came in without pain but with red urine and incontinence. A catheter was placed and 1.2 L of gross bloody urine was obtained. Patient did not have any pain or pressure. He notes no dysuria but urinary frequency and incontinence for the last several months. He says his family doctor put him on "a urine pill" but he is not sure what it is. Currently he is not on anything but Lasix. Patient says recently he had decreased his Lasix and vomiting and with shortness of breath and evidence of congestive heart failure and that is why he was recently admitted. Once his medications were adjusted he reports improvement in his shortness of breath. He does have chronic kidney disease and his renal function slightly above normal at this time. Patient is recommended for further evaluation due to gross hematuria and severe urinary retention Review of Systems Constitutional: DENIES: Diaphoretic episodes, Fatigue, Fever, Weight gain, Weight loss, Chills, Dizziness, Change in appetite, Night Sweats Endocrine: DENIES: Heat/cold intolerance, Polydipsia, Polyuria, Polyphagia Eyes: DENIES: Blurred vision, Diplopia, Eye inflammation, Eye pain, Vision loss , Photosensitivity, Double Vision Ears, nose, mouth, throat: DENIES: Tinnitus, Hearing loss, Vertigo, Nasal discharge, Oral lesions, Throat pain, Hoarseness, Ear Pain, Running Nose, Epistaxis, Sinus Pain, Toothache, Odynophagia Respiratory: DENIES: Apneas, Cough, Snoring, Wheezing, Hemoptysis, Sputum production, Shortness of breath Cardiovascular: DENIES: Chest pain, Palpitations, Syncope, Dyspnea on Exertion , PND, Lower Extremity Edema, Orthopnea, Claudication Genitourinary: COMPLAINS OF: Urinary incontinence, Urgency, Hematuria, DENIES: Sexual dysfunction, Urinary frequency, Dysuria, Nocturia, Penile Discharge, Testicular Pain, Testicular Swelling Musculoskeletal: DENIES: Joint pain, Muscle aches, Stiffness, Joint Swelling, Back pain, Neck pain Integumentary: DENIES: Abnormal pigmentation, Nail changes, Pruritus, Rash Hematologic/lymphatic: DENIES: Bruising, Lymphadenopathy Psychiatric: DENIES: Anxiety, Confusion, Mood changes, Depression, Hallucinations, Agitation, Suicidal Ideation, Homicidal Ideation, Delusions Past Family Social History Past Medical History Atrial fibrillation Prostatic hyperplasia per patient Congestive heart failure Chronic kidney disease Hypertension Past Surgical History Pacemaker Bilateral knees Reported Medications reviewed in the EMR Allergies: Coded Allergies: *MDRO Multi-Drug Resistant Organism (Unverified Adverse Reaction, Unknown , 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 Cool and dry. HEAD: Atraumatic. Normocephalic. No temporal or scalp tenderness. EYES: Pupils equal round and reactive. Extraocular motions intact. No scleral icterus. No injection or drainage. ENT: Nose without bleeding, purulent drainage or septal hematoma. Throat without erythema, tonsillar hypertrophy or exudate. Uvula midline. Airway patent. NECK: Trachea midline. No JVD or lymphadenopathy. Supple, nontender, no meningeal signs. CARDIOVASCULAR: Pacemaker, Regular rate and rhythm without murmurs, gallops, or rubs. RESPIRATORY: Clear to auscultation. Breath sounds equal bilaterally. No wheezes , rales, or rhonchi. GASTROINTESTINAL: Abdomen soft, non-tender, nondistended. No hepato-splenomegaly , or palpable masses. No guarding. MUSCULOSKELETAL: Extremities without clubbing, cyanosis, or edema. No joint tenderness, effusion, or edema noted. No calf tenderness. Negative Homans sign bilaterally. NEUROLOGICAL: Awake and alert. Cranial nerves II through XII intact. Motor and sensory grossly within normal limits. Five out of 5 muscle strength in all muscle groups. Normal speech. Laboratory Laboratory Tests Test 08/15/17 15:43 08/15/17 16:05 White Blood Count 9.2 Red Blood Count 4.04 Hemoglobin 10.3 Hematocrit 31.7 Mean Corpuscular Volume 78.4 Mean Corpuscular Hemoglobin 25.5 Mean Corpuscular Hemoglobin Concent 32.5 Red Cell Distribution Width 16.2 Platelet Count 149 Mean Platelet Volume 7.4 Neutrophils (%) (Auto) 81.2 Lymphocytes (%) (Auto) 7.2 Monocytes (%) (Auto) 9.2 Eosinophils (%) (Auto) 1.8 Basophils (%) (Auto) 0.6 Neutrophils # (Auto) 7.4 Lymphocytes # (Auto) 0.7 Monocytes # (Auto) 0.8 Eosinophils # (Auto) 0.2 Basophils # (Auto) 0.1 CBC Comment DIFF FINAL Differential Comment Urine Color RED Urine Turbidity CLOUDY Urine pH 6.5 Urine Specific [place] 1.012 Urine Protein 100 Urine Glucose (UA) NEG Urine Ketones NEG Urine Occult Blood LARGE Urine Nitrite NEG Urine Bilirubin NEG Urine Urobilinogen LESS THAN 2.0 Urine Leukocyte Esterase LARGE Urine RBC Urine WBC Urine WBC Clumps MANY Urine Bacteria MOD Microscopic Urinalysis Comment CULTURE INDICATED Blood Urea Nitrogen 41 Creatinine 2.38 Random Glucose 97 Calcium Level 7.8 Sodium Level 141 Potassium Level 4.4 Chloride Level 108 Carbon Dioxide Level 23.3 Anion Gap 10 Estimat Glomerular Filtration Rate 26 Prothrombin Time 47.2 Prothromb Time International Ratio 4.0 Activated Partial Thromboplast Time 64.8 Date/Time Source Procedure Growth Status 08/15/17 15:43 Urine Random Urine Urine Culture Pending Received Result Diagram: 08/15/17 1543 08/15/17 1543 Imaging Last Impressions Abdomen/Pelvis CT 08/15/17 1534 Signed Impressions: Service Date/Time: Thursday, August 15, 2017 15:47 - CONCLUSION: 1. Left hydronephrosis and hydroureter 2. On the right, there is mild pelvocaliectasis of the collecting system with normal caliber of the proximal right ureter. Distal ureter is distended, however. I believe the ureteral prominence bilaterally is due to urinary retention with marked distention of the urinary bladder. 3. Moderate right and a small left pleural effusion with concomitant atelectatic changes in the left base. 4. Cholelithiasis. 5. 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 6. Dense atherosclerotic calcification of the visualized coronary arteries . MD Isabel Ramirez VTE Risk Assessment Caprini VTE Risk Assessment: Mod/High Risk (score >= 2) VTE Pharm Contraindication: Active bleeding Caprini Risk Assessment Model Point Value = 1 Point Value = 2 Point Value = 3 Point Value = 5 Age 41-60 Minor surgery BMI > 25 kg/m2 Swollen legs Varicose veins or History of unexplained or recurrent spontaneous Oral contraceptives or hormone replacement Sepsis (< 1 month) Serious lung disease, including pneumonia (< 1 month) Abnormal pulmonary function Acute myocardial infarction Congestive heart failure (< 1 month) History of inflammatory bowel disease Medical patient at bed rest Age 61-74 Arthroscopic surgery Major open surgery (> 45 min) Laparoscopic surgery (> 45 min) Malignancy Confined to bed (> 72 hours) Immobilizing plaster cast Central venous access Age >= 75 History of VTE Family history of VTE Factor V Leiden Prothrombin [id number] Lupus anticoagulant Anticardiolipin antibodies Elevated serum homocysteine Heparin-induced thrombocytopenia Other congenital or acquired thrombophilia Stroke (< 1 month) Elective arthroplasty Hip, pelvis, or leg fracture Acute spinal cord injury (< 1 month) Prophylaxis Regimen Total Risk Factor Score Risk Level Prophylaxis Regimen 0-1 Low Early ambulation 2 Moderate Order ONE of the following: *Sequential Compression Device (SCD) *Heparin 5000 units SQ BID 3-4 Higher Order ONE of the following medications: *Heparin 5000 units SQ TID *Enoxaparin/Lovenox 40 mg SQ daily (WT < 150 kg, CrCl > 30 mL/min) *Enoxaparin/Lovenox 30 mg SQ daily (WT < 150 kg, CrCl > 10-29 mL/min) *Enoxaparin/Lovenox 30 mg SQ BID (WT < 150 kg, CrCl > 30 mL/min) AND/OR *Sequential Compression Device (SCD) 5 or more Highest Order ONE of the following medications: *Heparin 5000 units SQ TID (Preferred with Epidurals) *Enoxaparin/Lovenox 40 mg SQ daily (WT < 150 kg, CrCl > 30 mL/min) *Enoxaparin/Lovenox 30 mg SQ daily (WT < 150 kg, CrCl > 10-29 mL/min) *Enoxaparin/Lovenox 30 mg SQ BID (WT < 150 kg, CrCl > 30 mL/min) AND *Sequential Compression Device (SCD) Assessment and Plan Problem List: (1) CHF (congestive heart failure) ICD Code: I50.9 - Heart failure, unspecified Plan: patient with a known EF of about 40% and severe MR that is stable Patient on Lasix and (2) Retention, urine ICD Code: R33.9 - Retention of urine, unspecified Plan: patient with a Hx or prostatic enlargement Add flomax, retain catheter Urology eval pending (3) Hematuria ICD Code: R31.9 - Hematuria, unspecified Status: Acute Plan: May be due to urinary retention, follow for any cultures Follow hemoglobin for transfusion needs (4) Atrial fibrillation ICD Code: I48.91 - Unspecified atrial fibrillation Status: Chronic Plan: Rate currently controlled with supratherapeutic INR. We'll hold Coumadin and give vitamin K due to active hematuria Repeat INR in a.m. Continue propranolol Discussed Condition With patient, PERSONNEL REPRESENTATIVE and daughter at bedside Problem Qualifiers (1) Hematuria: Qualified Codes: R31.0 - Gross hematuria Saba Marti MD Aug 15, 2017 18:41
[2017-08-15 20:00] VITALS: BP 152/80; PULSE 73; RESP 20; O2SAT 96
[2017-08-15 20:50] VITALS: BP 162/86; PULSE 78; RESP 18; TEMP 97.4; O2SAT 100
[2017-08-15] MEDS: SODIUM CHLORIDE 0.9% FLUSH 10 ML FLUSH IV FLUSH SCH (21:02)
[2017-08-16] VITALS (7 sets, daily range): BP systolic 112–151; BP diastolic 66–80; PULSE 60–87; RESP 16–18; TEMP 97.4–98.2; O2SAT 97–99
[2017-08-16] MEDS ORDERED: LACTULOSE SYRUP 20 GM/30 ML CUP PO PRN (07:30)
[2017-08-16] MEDS ORDERED: SENNOSIDES 8.6 MG TAB PO PRN (07:30)
[2017-08-16] MEDS ORDERED: BISACODYL 10 MG SUPP RECTAL PRN (07:30)
[2017-08-16] MEDS ORDERED: NALOXONE HCL 0.4 MG/ML AMP IV PUSH PRN (07:30)
[2017-08-16] MEDS ORDERED: ONDANSETRON HCL 4 MG/2 ML VIAL IVP PRN (07:30)
[2017-08-16] MEDS ORDERED: ACETAMINOPHEN 325 MG TAB PO PRN ×2 (07:30)
[2017-08-16 08:03] LABS: AUTOMATED NEUTROPHIL # 5.8 TH/MM3 (1.8-7.7); BASOPHIL % 0.5 % (0.0-2.0); EOSINOPHIL # 0.1 TH/MM3 (0-0.4); EOSINOPHIL % 1.7 % (0.0-4.0); HEMATOCRIT 27.9 % (39.0-51.0); HEMO FLAGS DIFF FINAL; LYMPH % 8.5 % (9.0-44.0); LYMPHOCYTE # 0.6 TH/MM3 (1.0-4.8); MEAN CORPUSCULAR HEMOGLOBIN 25.6 PG (27.0-34.0); MEAN CORPUSCULAR HGB CONC 32.8 % (32.0-36.0); MONO % 11.1 % (0.0-8.0); NEUT % 78.2 % (16.0-70.0); PLATELET COUNT 122 TH/MM3 (150-450); RED BLOOD COUNT 3.58 MIL/MM3 (4.50-5.90); RED CELL DISTRIBUTION WIDTH 16.1 % (11.6-17.2); WHITE BLOOD COUNT 7.5 TH/MM3 (4.0-11.0)
[2017-08-16 08:06] LABS: INTERNATIONAL NORMALIZED RATIO 2.9 RATIO
[2017-08-16 08:27] LABS: BICARBONATE 23.5 MEQ/L (21.0-32.0); POTASSIUM 4.2 MEQ/L (3.5-5.1)
[2017-08-16] MEDS ORDERED: PHYTONADIONE 10 MG/ML VIAL SQ ONE (09:30)
[2017-08-16] MEDS: TAMSULOSIN HCL 0.4 MG CAP PO SCH (10:09)
[2017-08-16] MEDS: FUROSEMIDE 40 MG TAB PO SCH (10:09)
[2017-08-16] MEDS: DOCUSATE SODIUM 50 MG/SENNA 8.6 MG TAB PO SCH ×2 (10:09→21:26)
[2017-08-16] MEDS: SODIUM CHLORIDE 0.9% FLUSH 10 ML FLUSH IV FLUSH SCH ×2 (10:10→21:26)
[2017-08-16] MEDS: cefTRIAXone INJ 1,000 MG in SODIUM CHLORIDE 0.9% INJ 100 ML IV SCH (10:10)
--- NOTE | 2017-08-16 11:14 | MB ---
cc: MONSTER FARFAN MD DATE OF CONSULTATION: 08/16/2017 REASON FOR CONSULTATION: 1. Acute urinary retention. 2. Gross hematuria. 3. Bilateral hydronephrosis. HISTORY OF PRESENT ILLNESS: The patient is an 87 year-old male with history of chronic kidney disease who was recently discharged from the hospital for evaluation of CHF. He presented to the ER yesterday complaining of gross hematuria and unable to control his urine. In the ER catheter was placed for approximately 1200 cc of grossly bloody urine and he immediately felt better. CT of the abdomen and pelvis without contrast was performed which showed mild bilateral hydroureter nephrosis with a distended bladder prior to catheter insertion. Urology was consulted for these findings. The patient denies episode of gross hematuria in the past. He does have some baseline mild to moderate lower urinary tract infection, including weak stream, nocturia two to three and urinary frequency. He has not seen a urologist in the past. He does take Furosemide for his CHF. Denies history of kidney stones, urinary tract infection, denies history of prostate cancer, denies previous surgery on his prostate or his bladder. Denies nausea, vomiting, fevers, chills, flank pain. PAST MEDICAL HISTORY: Significant for: 1. Atrial fibrillation. 2. BPH. 3. Congestive heart failure. 4. Chronic kidney disease 5. Hypertension. PAST SURGICAL HISTORY Bilateral knee replacement, pacemaker ALLERGIES NO KNOWN DRUG ALLERGIES MEDICATIONS Home medications include: 1. Simvastatin 20 milligrams p.o. daily. 2. Propranolol 80 milligrams ER daily. 3. Lisinopril 20 milligrams p.o. daily. 4. Potassium chloride 20 milligrams a day. 5. Furosemide 40 milligram tablet daily. Denies urolithiasis or genitourinary malignancies. SOCIAL HISTORY Denies tobacco, illicit drug use, or alcohol dependency. REVIEW OF SYSTEMS: See HPI. 12 systems reviewed, and are otherwise negative. PHYSICAL EXAMINATION Vital signs: Temperature 98.1, pulse 87, respiratory rate 18, blood pressure 151/80, sating 99% on room air. GENERAL: Alert, oriented x3. No apparent distress. Pleasant, cooperative gentleman appearing his stated age. Head: Normocephalic, atraumatic. Eyes: No scleral icterus. Extraocular muscles intact. Neck is supple. Trachea is midline. No JVD. Skin: Mucous membranes pink and moist. No visible ulcers or rashes. Lungs: Nonlabored respirations. No wheezes, rales or rhonchi. Heart: Irregularly irregular, no murmurs, rubs, or gallops. Abdomen: Soft, non-tender, non-distended. Positive bowel sounds. Genitourinary: Penis is uncircumcised but it is edematous and swollen with the foreskin stuck behind the glans penis consistent with paraphimosis. He has a catheter draining grossly red urine. Testes descended bilaterally, normal size and consistency, without mass. Rectal: No examined at this time. Extremities: Nontender. No clubbing, cyanosis or edema. Psych: Normal affect. Neurologic: Cranial nerves II through XII intact. Strength is 5/5 all four extremities. LABORATORY DATA: White count 7.5019, hemoglobin 9.2, hematocrit 27.9, platelet count 122, sodium 141, potassium 4.2, chloride 108, carbon dioxide 28.5. creatinine 2.2, BUN 37. Urine showed large blood, large leukocyte esterase. Culture currently pending. IMAGING STUDIES CT of the abdomen and pelvis without contrast images were reviewed. Awaiting radiology report. The patient has a bilateral hydronephrosis, left greater than right with a distended bladder, no evidence of kidney stones. ASSESSMENT AND PLAN: The patient is an 87 year-old male with history of atrial fibrillation, BPH, comments with gross hematuria and urinary incontinence, found to be in acute urinary retention with bilateral nephrosis and a paraphimosis. Would recommend continuing a [place] catheter for now. Also start the patient on Flomax 0.4 milligrams daily. The paraphimosis was reduced successfully at bedside without difficulty. Maintain proper [place] catheter care. Will follow the hemoglobin. If his catheter stops draining, then he won't need to have a three way and start on bladder Will need cystoscopy as an outpatient. Thank you for the consultation. Monster Farfan MD EMF/NICOLE /9:59 AM /10:53 AM
--- NOTE | 2017-08-16 14:17 | HHI.PR ---
Subjective Remarks Follow-up gross hematuria. Denies pain. Patient has Cunningham catheter. Denies shortness of breath. Discussed with RN and , hold off with CBI at this time Objective Vitals Vital Signs Date Time Temp Pulse Resp B/P (MAP) Pulse Ox O2 Delivery O2 Flow Rate FiO2 08/16/17 12:40 97.6 75 18 124/66 (85) 99 08/16/17 08:33 98.1 87 18 151/80 (103) 99 08/16/17 04:36 98.2 80 16 139/76 (97) 99 08/16/17 00:07 98.1 73 18 145/75 (98) 99 08/15/17 20:50 97.4 78 18 162/86 (111) 100 08/15/17 20:00 73 20 152/80 (104) 96 08/15/17 18:12 62 17 156/75 (102) 100 Room Air 08/15/17 15:25 98.1 76 19 103/59 (74) 100 08/15/17 15:22 62 18 128/59 (82) 96 I/O 08/15/17 08/15/17 08/15/17 08/16/17 08/16/17 08/16/17 07:00 15:00 23:00 07:00 15:00 23:00 Output Total 800 ml 1300 ml Balance -800 ml -1300 ml Output Urine Total 800 ml 1300 ml Result Diagram: 08/16/17 0630 08/16/17 0630 Imaging Last Impressions Abdomen/Pelvis CT 08/15/17 1534 Signed Impressions: Service Date/Time: Tuesday, August 15, 2017 15:47 - CONCLUSION: 1. Left hydronephrosis and hydroureter 2. On the right, there is mild pelvocaliectasis of the collecting system with normal caliber of the proximal right ureter. Distal ureter is distended, however. I believe the ureteral prominence bilaterally is due to urinary retention with marked distention of the urinary bladder. 3. Moderate right and a small left pleural effusion with concomitant atelectatic changes in the left base. 4. Cholelithiasis. 5. 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 6. Dense atherosclerotic calcification of the visualized coronary arteries . Brandon Patricio MD Objective Remarks GENERAL: This is a well-nourished, well-developed patient SKIN: No rashes, ecchymoses or lesions. Cool and dry. HEAD: Atraumatic. Normocephalic. No temporal or scalp tenderness. EYES: Pupils equal round and reactive. Extraocular motions intact. No scleral icterus. No injection or drainage. ENT: Nose without bleeding, purulent drainage or septal hematoma. Throat without erythema, tonsillar hypertrophy or exudate. Uvula midline. Airway patent. NECK: Trachea midline. No JVD or lymphadenopathy. Supple, nontender, no meningeal signs. CARDIOVASCULAR: Pacemaker, Regular rate and rhythm without gallops, or rubs. RESPIRATORY: Clear to auscultation. Breath sounds equal bilaterally. No wheezes , rales, or rhonchi. GASTROINTESTINAL: Abdomen soft, non-tender, nondistended. No guarding. Cunningham with gross hematuria MUSCULOSKELETAL: Extremities without clubbing, cyanosis, or edema. No joint tenderness, effusion, or edema noted. No calf tenderness. Negative Homans sign bilaterally. NEUROLOGICAL: Awake and alert. Cranial nerves II through XII intact. Motor and sensory grossly within normal limits. Five out of 5 muscle strength in all muscle groups. Normal speech. Procedures None A/P Problem List: (1) CHF (congestive heart failure) ICD Code: I50.9 - Heart failure, unspecified (2) Retention, urine ICD Code: R33.9 - Retention of urine, unspecified (3) Hematuria ICD Code: R31.9 - Hematuria, unspecified Status: Acute (4) Atrial fibrillation ICD Code: I48.91 - Unspecified atrial fibrillation Status: Chronic Assessment and Plan (1) CHF (congestive heart failure) patient with a known EF of about 40% and severe MR that is stable Patient on Lasix and beta surendra. Also on JUAN ANTONIO inhibitor currently on hold secondary to acute kidney injury (2) Retention, urine patient with a Hx or prostatic enlargement in acute urinary retention with bilateral nephrosis and paraphimosis. Add flomax, retain catheter Urology consulted (3) Hematuria May be due to urinary retention, follow culture Follow hemoglobin for transfusion needs (4) Atrial fibrillation Rate currently controlled with supratherapeutic INR. We'll hold Coumadin and give vitamin K due to active hematuria Repeat INR in a.m. Continue propranolol Worsening anemia secondary to acute blood loss. Hemodynamically stable. Repeat CBC in the morning Discharge Planning Not stable for discharge Problem Qualifiers (1) Hematuria: Qualified Codes: R31.0 - Gross hematuria Bernabe Tinoco MD Aug 16, 2017 14:17
[2017-08-16] MEDS: PROPRANOLOL HCL 40 MG TAB PO SCH (21:26)
[2017-08-17 03:09] VITALS: BP 109/63; PULSE 61; RESP 16; TEMP 98.1; O2SAT 99
[2017-08-17 07:24] VITALS: BP 120/59; PULSE 61; RESP 16; TEMP 98; O2SAT 99
[2017-08-17 07:29] LABS: AUTOMATED NEUTROPHIL # 4.2 TH/MM3 (1.8-7.7); BASOPHIL % 0.8 % (0.0-2.0); EOSINOPHIL # 0.4 TH/MM3 (0-0.4); EOSINOPHIL % 7.2 % (0.0-4.0); HEMO FLAGS DIFF FINAL; LYMPH % 12.1 % (9.0-44.0); LYMPHOCYTE # 0.7 TH/MM3 (1.0-4.8); MEAN CELL VOLUME 77.6 FL (80.0-100.0); MEAN CORPUSCULAR HEMOGLOBIN 25.1 PG (27.0-34.0); MEAN CORPUSCULAR HGB CONC 32.4 % (32.0-36.0); MONO % 10.1 % (0.0-8.0); NEUT % 69.8 % (16.0-70.0); PLATELET COUNT 127 TH/MM3 (150-450); RED BLOOD COUNT 3.35 MIL/MM3 (4.50-5.90); RED CELL DISTRIBUTION WIDTH 16.6 % (11.6-17.2)
[2017-08-17 07:40] LABS: INTERNATIONAL NORMALIZED RATIO 1.4 RATIO; PROTHROMBIN TIME - PATIENT 15.6 SEC (9.8-11.6)
--- NOTE | 2017-08-17 08:14 | HHI.PR ---
Subjective Patient symptoms today denies any new issues. Still with blood in urine but good UOP. Denies fevers. Objective Vital Signs Vital Signs Date Time Temp Pulse Resp B/P (MAP) Pulse Ox O2 Delivery O2 Flow Rate FiO2 08/17/17 07:24 98.0 61 16 120/59 (79) 99 08/17/17 03:09 98.1 61 16 109/63 (78) 99 08/16/17 23:28 97.9 60 17 112/67 (82) 99 08/16/17 19:47 97.4 86 17 122/67 (85) 99 08/16/17 17:08 97.5 87 16 123/72 (89) 97 08/16/17 12:40 97.6 75 18 124/66 (85) 99 08/16/17 08:33 98.1 87 18 151/80 (103) 99 Intake & Output 08/17/17 08/17/17 07:00 19:00 Output Total 850 ml Balance -850 ml Output Urine Total 850 ml Result Diagram: 08/17/17 0559 08/16/17 0630 Objective Remarks NAD. abd soft penile edema, paraphimosis Medications and IVs Current Medications Medications (Trade) Dose Ordered Sig/Aga Route Start Time Stop Time Status Last Admin (NS Flush) 2 ml UNSCH PRN IVF 08/15/17 15:45 (NS Flush) 2 ml UNSCH PRN IV FLUSH 08/15/17 18:30 (NS Flush) 2 ml BID IV FLUSH 08/15/17 21:00 08/16/17 21:26 (Flomax) 0.4 mg DAILY PO 08/15/17 18:30 08/16/17 10:09 Ceftriaxone Sodium 1000 mg/ Sodium Chloride 100 ml @ 200 mls/hr Q24H IV 08/16/17 11:00 08/16/17 10:10 (Tylenol) 650 mg Q4H PRN PO 08/16/17 07:30 (Zofran Inj) 4 mg Q6H PRN IVP 08/16/17 07:30 (Tylenol) 650 mg Q6H PRN PO 08/16/17 07:30 (Narcan Inj) 0.4 mg UNSCH PRN IV PUSH 08/16/17 07:30 (Flower-Colace) 1 tab BID PO 08/16/17 09:00 08/16/17 21:26 (Senokot) 17.2 mg Q12H PRN PO 08/16/17 07:30 (Dulcolax Supp) 10 mg DAILY PRN RECTAL 08/16/17 07:30 (Lactulose Liq) 30 ml DAILY PRN PO 08/16/17 07:30 (Lasix) 40 mg DAILY PO 08/16/17 09:30 08/16/17 10:09 (Inderal) 40 mg BID PO 08/16/17 21:00 08/16/17 21:26 (Pravachol) 40 mg DAILY PO 08/17/17 09:00 Assessment and Plan Assessment and Plan 87 yo male with gross hematuria, urinary retention, paraphimosis x 2 -Home with sotomayor -Flomax 0.4 mg daily -Paraphimosis reduced again. Discussed with nurse about returning foreskin to proper position after catheter care. -F/U as outpatient for void trial. Monster Iqbal MD Aug 17, 2017 08:13
[2017-08-17 08:16] LABS: BICARBONATE 23.9 MEQ/L (21.0-32.0); MAGNESIUM 1.8 MG/DL (1.5-2.5)
[2017-08-17 08:35] LABS: CALCIUM-PROTEIN CORRECTED 8.2 MG/DL (8.5-10.1)
[2017-08-17] MEDS: FUROSEMIDE 40 MG TAB PO SCH (10:03)
[2017-08-17] MEDS: DOCUSATE SODIUM 50 MG/SENNA 8.6 MG TAB PO SCH ×2 (10:03→21:15)
[2017-08-17] MEDS: PRAVASTATIN SOD 40 MG TAB PO SCH (10:03)
[2017-08-17] MEDS: TAMSULOSIN HCL 0.4 MG CAP PO SCH (10:03)
[2017-08-17] MEDS: cefTRIAXone INJ 1,000 MG in SODIUM CHLORIDE 0.9% INJ 100 ML IV SCH (10:04)
[2017-08-17] MEDS: SODIUM CHLORIDE 0.9% FLUSH 10 ML FLUSH IV FLUSH SCH ×2 (10:04→21:21)
[2017-08-17] MEDS: PROPRANOLOL HCL 40 MG TAB PO SCH ×2 (10:04→21:15)
[2017-08-17 11:03] LABS: TRANSFERRIN IRON PROFILE 152 MG/DL (200-360)
[2017-08-17 11:29] LABS: FERRITIN 204 NG/ML (26-388)
[2017-08-17] MEDS ORDERED: VANCOMYCIN INJ 1,250 MG in SODIUM CHLOR 0.9% 250 ML INJ 250 ML IV ONE (11:30)
[2017-08-17] MEDS ORDERED: Vancomycin Consult Pharmacy 1 EA OTHER SCH (11:30)
[2017-08-17 11:58] VITALS: BP 132/61; PULSE 60; RESP 16; TEMP 98.1; O2SAT 98
--- NOTE | 2017-08-17 14:26 | HHI.PR ---
Subjective Remarks Follow-up hematuria. Still with hematuria. He does not want to leave the hospital with a Cunningham catheter and wants cystoscopy done in house. Discussed with RN, to update with patient's demands. Objective Vitals Vital Signs Date Time Temp Pulse Resp B/P (MAP) Pulse Ox O2 Delivery O2 Flow Rate FiO2 08/17/17 11:58 98.1 60 16 132/61 (84) 98 08/17/17 07:24 98.0 61 16 120/59 (79) 99 08/17/17 03:09 98.1 61 16 109/63 (78) 99 08/16/17 23:28 97.9 60 17 112/67 (82) 99 08/16/17 19:47 97.4 86 17 122/67 (85) 99 08/16/17 17:08 97.5 87 16 123/72 (89) 97 I/O 08/16/17 08/16/17 08/16/17 08/17/17 08/17/17 08/17/17 07:00 15:00 23:00 07:00 15:00 23:00 Intake Total 2600 ml 100 ml Output Total 800 ml 1300 ml 1400 ml 850 ml Balance -800 ml -1300 ml 1200 ml -850 ml 100 ml Intake Oral 2600 ml IV Total 100 ml Output Urine Total 800 ml 1300 ml 1400 ml 850 ml Result Diagram: 08/17/17 0559 08/17/17 0559 Imaging Last Impressions Abdomen/Pelvis CT 08/15/17 1534 Signed Impressions: Service Date/Time: Tuesday, August 15, 2017 15:47 - CONCLUSION: 1. Left hydronephrosis and hydroureter 2. On the right, there is mild pelvocaliectasis of the collecting system with normal caliber of the proximal right ureter. Distal ureter is distended, however. I believe the ureteral prominence bilaterally is due to urinary retention with marked distention of the urinary bladder. 3. Moderate right and a small left pleural effusion with concomitant atelectatic changes in the left base. 4. Cholelithiasis. 5. 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 6. Dense atherosclerotic calcification of the visualized coronary arteries . Brandon Patricio MD Objective Remarks GENERAL: This is a well-nourished, well-developed patient SKIN: No rashes, ecchymoses or lesions. Cool and dry. CARDIOVASCULAR: Pacemaker, Regular rate and rhythm without gallops, or rubs. RESPIRATORY: Clear to auscultation. Breath sounds equal bilaterally. No wheezes , rales, or rhonchi. GASTROINTESTINAL: Abdomen soft, non-tender, nondistended. No guarding. Cunningham with gross hematuria MUSCULOSKELETAL: Extremities without clubbing, cyanosis, or edema. No joint tenderness, effusion, or edema noted. No calf tenderness. Negative Homans sign bilaterally. NEUROLOGICAL: Awake and alert. Cranial nerves II through XII intact. Motor and sensory grossly within normal limits. Five out of 5 muscle strength in all muscle groups. Normal speech. Procedures None A/P Problem List: (1) CHF (congestive heart failure) ICD Code: I50.9 - Heart failure, unspecified (2) Retention, urine ICD Code: R33.9 - Retention of urine, unspecified (3) Hematuria ICD Code: R31.9 - Hematuria, unspecified Status: Acute (4) Atrial fibrillation ICD Code: I48.91 - Unspecified atrial fibrillation Status: Chronic Assessment and Plan (1) CHF (congestive heart failure) patient with a known EF of about 40% and severe MR that is stable Patient on Lasix and beta surendra. Also on JUAN ANTONIO inhibitor currently on hold secondary to acute kidney injury (2) Retention, urine patient with a Hx or prostatic enlargement in acute urinary retention with bilateral nephrosis and paraphimosis. Continue Flomax. Cunningham care Urology consulted. Patient does not want to go home with Cunningham and requests cystoscopy to be done in-house (3) Hematuria May be due to urinary retention, follow culture Follow hemoglobin for transfusion needs (4) Atrial fibrillation Rate currently controlled with supratherapeutic INR. We'll hold Coumadin status post vitamin K INR 1.6 Repeat INR in a.m. Continue propranolol Worsening anemia secondary to acute blood loss. Hemodynamically stable. Repeat CBC in the morning MRSA UTI. Switch to vancomycin and monitor response. Discharge Planning Not stable for discharge Problem Qualifiers (1) Hematuria: Qualified Codes: R31.0 - Gross hematuria Bernabe Tinoco MD Aug 17, 2017 14:26
--- NOTE | 2017-08-17 16:44 | HHI.FF ---
Face to Face Verification Diagnosis: (1) Retention, urine (2) Hematuria (3) UTI (urinary tract infection) Home Health Nursing Order: Nursing assessment with vital signs Cunningham catheter maintenance I have seen patient Gregor Vazquez on 08/17/17. My clinical findings support the need for the requested home health care services because: Ltd mobility - disease progression Deconditioned w/ increased weakness Limited ability to care for self I certify that my clinical findings support that this patient is homebound because: Post-op weakness Unsafe to leave home unassisted Unable to use public transportation Zoie Butler Aug 17, 2017 16:44
[2017-08-17] MEDS ORDERED: DOXYCYCLINE HYCLATE 100 MG CAP PO ONE (16:45)
[2017-08-17] MEDS ORDERED: TAMS5CAP PO (16:46)
[2017-08-17] MEDS ORDERED: DOXY100C PO (16:46)
[2017-08-17 16:47] VITALS: BP 124/61; PULSE 60; RESP 16; TEMP 98; O2SAT 100
[2017-08-17] MEDS ORDERED: COUM5TAB PO (17:40)
[2017-08-17 21:06] VITALS: BP 132/65; PULSE 61; RESP 19; TEMP 98.6; O2SAT 100
[2017-08-17] MEDS: DOXYCYCLINE HYCLATE 100 MG CAP PO SCH (21:14)
[2017-08-17] MEDS ORDERED: WARFARIN SOD 5 MG TAB PO SCH (22:15)
[2017-08-17 23:24] VITALS: BP 137/66; PULSE 59; RESP 19; TEMP 98.1; O2SAT 98
[2017-08-18 03:47] VITALS: BP 142/67; PULSE 60; RESP 18; TEMP 98.6; O2SAT 98
[2017-08-18 08:17] VITALS: BP 128/78; PULSE 62; RESP 16; TEMP 97.5; O2SAT 98
[2017-08-18] MEDS: SODIUM CHLORIDE 0.9% FLUSH 10 ML FLUSH IV FLUSH SCH (09:00)
[2017-08-18] MEDS: DOCUSATE SODIUM 50 MG/SENNA 8.6 MG TAB PO SCH (09:00)
[2017-08-18 09:35] LABS: AUTOMATED NEUTROPHIL # 3.6 TH/MM3 (1.8-7.7); BASOPHIL % 0.9 % (0.0-2.0); EOSINOPHIL # 0.5 TH/MM3 (0-0.4); EOSINOPHIL % 9.9 % (0.0-4.0); HEMATOCRIT 26.1 % (39.0-51.0); HEMO FLAGS DIFF FINAL; LYMPH % 13.3 % (9.0-44.0); LYMPHOCYTE # 0.7 TH/MM3 (1.0-4.8); MEAN CELL VOLUME 77.1 FL (80.0-100.0); MEAN CORPUSCULAR HEMOGLOBIN 25.4 PG (27.0-34.0); MONO % 9.7 % (0.0-8.0); NEUT % 66.2 % (16.0-70.0); PLATELET COUNT 138 TH/MM3 (150-450); RED BLOOD COUNT 3.39 MIL/MM3 (4.50-5.90); RED CELL DISTRIBUTION WIDTH 16.1 % (11.6-17.2); WHITE BLOOD COUNT 5.5 TH/MM3 (4.0-11.0)
[2017-08-18 09:40] LABS: INTERNATIONAL NORMALIZED RATIO 1.2 RATIO; PROTHROMBIN TIME - PATIENT 13.4 SEC (9.8-11.6)
[2017-08-18 10:21] LABS: BICARBONATE 24.3 MEQ/L (21.0-32.0); MAGNESIUM 1.8 MG/DL (1.5-2.5)
[2017-08-18] MEDS: PROPRANOLOL HCL 40 MG TAB PO SCH (10:57)
[2017-08-18] MEDS: FUROSEMIDE 40 MG TAB PO SCH (10:57)
[2017-08-18] MEDS: DOXYCYCLINE HYCLATE 100 MG CAP PO SCH (10:57)
[2017-08-18] MEDS: PRAVASTATIN SOD 40 MG TAB PO SCH (10:57)
[2017-08-18] MEDS: TAMSULOSIN HCL 0.4 MG CAP PO SCH (10:57)
[2017-08-18] MEDS ORDERED: VANCOMYCIN INJ 1,250 MG in SODIUM CHLOR 0.9% 250 ML INJ 250 ML IV SCH (13:00)
--- NOTE | 2017-08-18 14:19 | HHI.DS ---
Discharge Summary Admission Date Aug 15, 2017 at 17:40 Discharge Date: Aug 18, 2017 Admitting Diagnosis hematuria, UTI, urinary retention, supratherapeutic INR (1) CHF (congestive heart failure) ICD Code: I50.9 - Heart failure, unspecified Diagnosis: Principal (2) Retention, urine ICD Code: R33.9 - Retention of urine, unspecified Diagnosis: Principal Status: Acute (3) Hematuria ICD Code: R31.9 - Hematuria, unspecified Diagnosis: Principal Status: Acute (4) Atrial fibrillation ICD Code: I48.91 - Unspecified atrial fibrillation Diagnosis: Principal Status: Acute Procedures None Brief History - From Admission Patient is a 87-year-old gentleman who was recently discharged from the hospital with exacerbation of CHF. Patient does calm today because of hematuria and urinary incontinence at home. He reports not having normal urination since overnight. He came in without pain but with red urine and incontinence. A catheter was placed and 1.2 L of gross bloody urine was obtained. Patient did not have any pain or pressure. He notes no dysuria but urinary frequency and incontinence for the last several months. He says his family doctor put him on "a urine pill" but he is not sure what it is. Currently he is not on anything but Lasix. Patient says recently he had decreased his Lasix and vomiting and with shortness of breath and evidence of congestive heart failure and that is why he was recently admitted. Once his medications were adjusted he reports improvement in his shortness of breath. He does have chronic kidney disease and his renal function slightly above normal at this time. Patient is recommended for further evaluation due to gross hematuria and severe urinary retention CBC/BMP: 08/18/17 0847 08/18/17 0847 Significant Findings Laboratory Tests Test 08/15/17 15:43 08/15/17 16:05 08/16/17 06:30 08/17/17 05:57 Red Blood Count 4.04 MIL/MM3 (4.50-5.90) 3.58 MIL/MM3 (4.50-5.90) Hemoglobin 10.3 GM/DL (13.0-17.0) 9.2 GM/DL (13.0-17.0) Hematocrit 31.7 % (39.0-51.0) 27.9 % (39.0-51.0) Mean Corpuscular Volume 78.4 FL (80.0-100.0) 78.0 FL (80.0-100.0) Mean Corpuscular Hemoglobin 25.5 PG (27.0-34.0) 25.6 PG (27.0-34.0) Platelet Count 149 TH/MM3 (150-450) 122 TH/MM3 (150-450) Neutrophils (%) (Auto) 81.2 % (16.0-70.0) 78.2 % (16.0-70.0) Lymphocytes (%) (Auto) 7.2 % (9.0-44.0) 8.5 % (9.0-44.0) Monocytes (%) (Auto) 9.2 % (0.0-8.0) 11.1 % (0.0-8.0) Lymphocytes # (Auto) 0.7 TH/MM3 (1.0-4.8) 0.6 TH/MM3 (1.0-4.8) Urine Color RED (YELLW/STRAW) Urine Turbidity CLOUDY (CLEAR) Urine Protein 100 mg/dL (NEG-TRACE) Urine Occult Blood LARGE (NEG) Urine Leukocyte Esterase LARGE (NEG) Urine WBC Clumps MANY (NONE) Urine Bacteria MOD /hpf (NONE) Blood Urea Nitrogen 41 MG/DL (7-18) 37 MG/DL (7-18) Creatinine 2.38 MG/DL (0.60-1.30) 2.20 MG/DL (0.60-1.30) Calcium Level 7.8 MG/DL (8.5-10.1) 7.5 MG/DL (8.5-10.1) Chloride Level 108 MEQ/L (98-107) 108 MEQ/L (98-107) Estimat Glomerular Filtration Rate 26 ML/MIN (>89) 28 ML/MIN (>89) Prothrombin Time 47.2 SEC (9.8-11.6) 33.0 SEC (9.8-11.6) Activated Partial Thromboplast Time 64.8 SEC (24.3-30.1) Random Glucose 71 MG/DL (74-106) Iron Level 24 MCG/DL (65-175) Total Iron Binding Capacity 213 MCG/DL (250-450) Percent Iron Saturation 11.3 % (20-50) Test 08/17/17 05:58 08/17/17 05:59 08/18/17 08:47 Prothrombin Time 15.6 SEC (9.8-11.6) 13.4 SEC (9.8-11.6) Red Blood Count 3.35 MIL/MM3 (4.50-5.90) 3.39 MIL/MM3 (4.50-5.90) Hemoglobin 8.4 GM/DL (13.0-17.0) 8.6 GM/DL (13.0-17.0) Hematocrit 26.0 % (39.0-51.0) 26.1 % (39.0-51.0) Mean Corpuscular Volume 77.6 FL (80.0-100.0) 77.1 FL (80.0-100.0) Mean Corpuscular Hemoglobin 25.1 PG (27.0-34.0) 25.4 PG (27.0-34.0) Platelet Count 127 TH/MM3 (150-450) 138 TH/MM3 (150-450) Monocytes (%) (Auto) 10.1 % (0.0-8.0) 9.7 % (0.0-8.0) Eosinophils (%) (Auto) 7.2 % (0.0-4.0) 9.9 % (0.0-4.0) Lymphocytes # (Auto) 0.7 TH/MM3 (1.0-4.8) 0.7 TH/MM3 (1.0-4.8) Blood Urea Nitrogen 36 MG/DL (7-18) 39 MG/DL (7-18) Creatinine 1.98 MG/DL (0.60-1.30) 1.99 MG/DL (0.60-1.30) Random Glucose 71 MG/DL (74-106) Total Protein 5.7 GM/DL (6.4-8.2) 5.8 GM/DL (6.4-8.2) Calcium Level 7.4 MG/DL (8.5-10.1) 7.3 MG/DL (8.5-10.1) Chloride Level 108 MEQ/L (98-107) Estimat Glomerular Filtration Rate 32 ML/MIN (>89) 32 ML/MIN (>89) Protein Corrected Calcium 8.2 MG/DL (8.5-10.1) 8.0 MG/DL (8.5-10.1) Eosinophils # (Auto) 0.5 TH/MM3 (0-0.4) Imaging Last Impressions Abdomen/Pelvis CT 08/15/17 1534 Signed Impressions: Service Date/Time: Tuesday, August 15, 2017 15:47 - CONCLUSION: 1. Left hydronephrosis and hydroureter 2. On the right, there is mild pelvocaliectasis of the collecting system with normal caliber of the proximal right ureter. Distal ureter is distended, however. I believe the ureteral prominence bilaterally is due to urinary retention with marked distention of the urinary bladder. 3. Moderate right and a small left pleural effusion with concomitant atelectatic changes in the left base. 4. Cholelithiasis. 5. 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 6. Dense atherosclerotic calcification of the visualized coronary arteries . Brandon Patricio MD PE at Discharge GENERAL: This is a well-nourished, well-developed patient SKIN: No rashes, ecchymoses or lesions. Cool and dry. CARDIOVASCULAR: Pacemaker, Regular rate and rhythm without gallops, or rubs. RESPIRATORY: Clear to auscultation. Breath sounds equal bilaterally. No wheezes , rales, or rhonchi. GASTROINTESTINAL: Abdomen soft, non-tender, nondistended. No guarding. Cunningham with gross hematuria MUSCULOSKELETAL: Extremities without clubbing, cyanosis, or edema. No joint tenderness, effusion, or edema noted. No calf tenderness. Negative Homans sign bilaterally. NEUROLOGICAL: Awake and alert. Cranial nerves II through XII intact. Motor and sensory grossly within normal limits. Five out of 5 muscle strength in all muscle groups. Normal speech. Hospital Course (1) CHF (congestive heart failure) patient with a known EF of about 40% and severe MR that is stable Patient on Lasix and beta surendra. Also on JUAN ANTONIO inhibitor currently on hold secondary to acute kidney injury (2) Retention, urine patient with a Hx or prostatic enlargement in acute urinary retention with bilateral nephrosis and paraphimosis. Continue Flomax. Cunningham care Urology recommended to continue Cunningham catheter and have cystoscopy outpatient (3) Hematuria May be due to urinary retention, follow culture Follow hemoglobin for transfusion needs (4) Atrial fibrillation Rate currently controlled Was supratherapeutic status post vitamin K. cleared patient to restart Coumadin keep INR between 2 and 3 Continue propranolol Worsening anemia secondary to acute blood loss. Hemodynamically stable. Repeat CBC with stable blood counts MRSA UTI. Continue doxycycline Pt Condition on Discharge: Stable Discharge Disposition: Disch w/ Home Health Serv Discharge Time: > 30 minutes Discharge Instructions DIET: Follow Instructions for: Heart Healthy Diet Activities you can perform: Regular-No Restrictions Activities to Avoid: Driving Follow up Referrals: PCP Follow-up - 08/20/17 Urology - 1 Week with Monster Iqbal MD New Orders: BASIC METABOLIC PROF - 08/20/17 CBC WITH DIFF - 08/20/17 PT/INR - 08/20/17 New Medications: Warfarin (Coumadin) 5 Mg Tab 5 MG PO DAILY for Blood Clot Prevention, #30 TAB 0 Refills Take 5mg daily except on Thursday and Thursday. No Coumadin on Thursday and Thursday. Doxycycline Hyclate (Doxycycline Hyclate) 100 Mg Cap 100 MG PO BID for INFECTION for 7 Days, #14 CAP Tamsulosin (Flomax) 0.4 Mg Cap 0.4 MG PO DAILY for URINARY RETENTION for 30 Days, #30 CAP Continued Medications: Furosemide (Furosemide) 40 Mg Tab 40 MG PO DAILY, TAB 0 Refills Potassium Chloride (Kcl 20 Meq Tab) 20 Meq Tabcr 20 MEQ PO DAILY Propranolol ER (Propranolol ER) 80 Mg Cap 40 MG PO BID Simvastatin (Simvastatin) 20 Mg Tab 20 MG PO DAILY for Cholesterol Management, TAB 0 Refills Discontinued Medications: Lisinopril (Lisinopril) 10 Mg Tab 10 MG PO DAILY, TAB 0 Refills Bernabe Tinoco MD Aug 18, 2017 14:19
[2017-08-20] MEDS ORDERED: PHARMACY ORDERED LAB ONE (12:45)
== END 2017-08-18 15:03 | disposition home or self-care (01) ==
LOC: NEPE 15:17 → NEDA 17:40 → NEPGCP 20:47
PROVIDERS: ADMIT Internal Medicine; ATTEND Internal Medicine
DX: N30.01 Acute cystitis with hematuria (principal); B95.62 Methicillin resistant Staphylococcus aureus infection as the cause of diseases classified elsewhere; N40.1 Benign prostatic hyperplasia with lower urinary tract symptoms; R33.9 Retention of urine, unspecified; I48.91 Unspecified atrial fibrillation; I13.0 Hypertensive heart and chronic kidney disease with heart failure and stage 1 through stage 4 chronic kidney disease, or unspecified chronic kidney disease; I50.9 Heart failure, unspecified; N18.9 Chronic kidney disease, unspecified; Z79.01 Long term (current) use of anticoagulants
CPT/HCPCS: 74176; 80048; 81001; 82607; 82728; 82746; 83540; 83550; 83735; 84155; 85025; 85610; 85730; 86403; 86850; 86900; 86901; 87086; 87186; 96365; 96366; 96372; 96376; 97110; 97162; 97530; 99285; G0378; G8987; G8988; J0696; J3370; J3430; J7050

== ENCOUNTER 2017-08-25 14:56 | Emergency (ER) | payer OTHER ==
[~2017-08-25] VITALS: Ht 180.3 cm; Wt 80.5 kg
[~2017-08-25 14:56] MED LIST changes: +COUM5TAB PO; +DOXY100C PO; -LISI10TA3 PO; +TAMS5CAP PO
[2017-08-25 14:57] VITALS: BP 127/61; PULSE 60; RESP 16; TEMP 97.9; O2SAT 100
== END 2017-08-25 15:45 | disposition left against medical advice (07) ==
LOC: NEPC 14:56
DX: Z00.00 Encounter for general adult medical examination without abnormal findings (principal)

== ENCOUNTER 2017-11-22 14:08 | Inpatient (IN) | payer OTHER, MEDICARE ==
[2017-11-22] VITALS (18 sets, daily range): BP systolic 65–145; BP diastolic 39–78; PULSE 60–98; RESP 15–22; TEMP 97.5–100.1; O2SAT 95–100
[~2017-11-22] VITALS: Ht 181.6 cm; Wt 77.6 kg
[2017-11-22] MEDS ORDERED: LIDOCAINE HCL 1% 30 ML VIAL INFIL ONE (14:30)
[2017-11-22] MEDS ORDERED: TETANUS/DIPHTHERIA TOXOID ADULT 0.5 ML VIAL IM ONE (14:30)
[2017-11-22 14:40] LABS: AUTOMATED NEUTROPHIL # 7.1 TH/MM3 (1.8-7.7); BASOPHIL # 0.1 TH/MM3 (0-0.2); BASOPHIL % 0.7 % (0.0-2.0); EOSINOPHIL # 0.1 TH/MM3 (0-0.4); EOSINOPHIL % 0.7 % (0.0-4.0); HEMATOCRIT 29.2 % (39.0-51.0); HEMOGLOBIN 9.8 GM/DL (13.0-17.0); LYMPH % 6.2 % (9.0-44.0); LYMPHOCYTE # 0.5 TH/MM3 (1.0-4.8); MEAN CORPUSCULAR HEMOGLOBIN 24.6 PG (27.0-34.0); MEAN CORPUSCULAR HGB CONC 33.7 % (32.0-36.0); MONO % 11.7 % (0.0-8.0); NEUT % 80.7 % (16.0-70.0); PLATELET COUNT 193 TH/MM3 (150-450); RED CELL DISTRIBUTION WIDTH 16.3 % (11.6-17.2); WHITE BLOOD COUNT 8.8 TH/MM3 (4.0-11.0)
[2017-11-22 14:54] LABS: ALBUMIN 2.3 GM/DL (3.4-5.0); ALT (GPT) 13 U/L (12-78); AST (GOT) 16 U/L (15-37); BICARBONATE 18.7 MEQ/L (21.0-32.0); BLOOD UREA NITROGEN 73 MG/DL (7-18); CALCIUM 8.1 MG/DL (8.5-10.1); CHLORIDE 105 MEQ/L (98-107); CREATININE 2.56 MG/DL (0.60-1.30); GLOMERULAR FILTRATION RATE 24 ML/MIN (>89); GLUCOSE,RANDOM 88 MG/DL (74-106); SODIUM (NA) 135 MEQ/L (136-145)
[2017-11-22] MEDS ORDERED: LIDOCAINE HCL 1% PF 30 ML VIAL ONE (14:55)
--- NOTE | 2017-11-22 14:55 | RADRPT ---
EXAM DATE/TIME: 11/22/2017 14:37 [facility] COMPARISON: CHEST SINGLE AP, August 08, 2017, 13:46. INDICATIONS : Fall, complained of dizziness/weak prior to fall. MEDICAL HISTORY : Cardiovascular disease. SURGICAL HISTORY : Pacemaker. ENCOUNTER: Initial ACUITY: 1 day PAIN SCORE: 0/10 LOCATION: Bilateral chest FINDINGS: A single view of the chest demonstrates there is diffuse pulmonary vascular congestion. Left subclavi an bipolar pacer. The cardiac silhouette is widened unchanged.. The cardiomediastinal contours are u nremarkable. Osseous structures are intact. CONCLUSION: Mild pulmonary vascular congestion with a left subclavian pacer. Dagoberto Das MD on November 22, 2017 at 14:53 Board Certified Radiologist. This report was verified electronically.
[2017-11-22 14:57] LABS: INTERNATIONAL NORMALIZED RATIO 6.5 RATIO
[2017-11-22 14:58] LABS: ALKALINE PHOSPHATASE 83 U/L (45-117); TOTAL BILIRUBIN ADULT 0.4 MG/DL (0.2-1.0); TOTAL PROTEIN 7.7 GM/DL (6.4-8.2); TROPONIN I 0.02 NG/ML (0.02-0.05)
--- NOTE | 2017-11-22 14:59 | RADRPT ---
EXAM DATE/TIME: 11/22/2017 14:36 [facility] COMPARISON: No previous studies available for comparison. INDICATIONS : Fall about 2 hours ago. Patient complained of dizziness/weaknes prior to fall. MEDICAL HISTORY : Cardiovascular disease. SURGICAL HISTORY : Pacemaker. ENCOUNTER: Initial ACUITY: 1 day PAIN SCORE: 5/10 LOCATION: Bilateral pelvis FINDINGS: A single frontal view of the pelvis demonstrates no evidence of fracture. The bony pelvic ring is in tact. Bony mineralization is normal. The soft tissues are intact. CONCLUSION: Unremarkable examination of the pelvis. Dagoberto Das MD on November 22, 2017 at 14:57 Board Certified Radiologist. This report was verified electronically.
--- NOTE | 2017-11-22 15:02 | RADRPT ---
EXAM DATE/TIME: 11/22/2017 14:39 [facility] COMPARISON: CT BRAIN W/O CONTRAST, March 02, 2012, 16:05. INDICATIONS : Trauma; fall. RADIATION DOSE: 65.54 CTDIvol (mGy) MEDICAL HISTORY : Congestive hearrt failure. Hypertension. Chronic kidney disease. SURGICAL HISTORY : Pacemaker. ENCOUNTER: Initial ACUITY: 1 day PAIN SCALE: 5/10 LOCATION: Bilateral cranial TECHNIQUE: Multiple contiguous axial images were obtained of the head. Using automated exposure control and adj ustment of the mA and/or kV according to patient size, radiation dose was kept as low as reasonably a chievable to obtain optimal diagnostic quality images. DICOM format image data is available electro nically for review and comparison. FINDINGS: CEREBRUM: There is diffuse atrophy present. In the high right frontal region there is a small linear area of in creased density only 2 mm wide could be a small vessel. It is unlikely to represent a intracranial ar ea of hemorrhage The ventricles are normal for age. No evidence of midline shift, mass lesion, hemor rhage or acute infarction. No extra-axial fluid collections are seen. POSTERIOR FOSSA: The cerebellum and brainstem are intact. The 4th ventricle is midline. The cerebellopontine angle i s unremarkable. EXTRACRANIAL: The visualized portion of the orbits is intact. SKULL: The calvaria is intact. No evidence of skull fracture. CONCLUSION: Diffuse atrophy. 2 mm linear area of dense material in the extra-axial subdural space unlikely to rep resent hemorrhage. Soft tissue swelling in the high right parietal region Dagoberto Das MD on November 22, 2017 at 14:58 Board Certified Radiologist. This report was verified electronically.
--- NOTE | 2017-11-22 15:06 | RADRPT ---
EXAM DATE/TIME: 11/22/2017 14:39 [facility] COMPARISON: No previous studies available for comparison. INDICATIONS : Fall, neck pain. RADIATION DOSE: 21.62 CTDIvol (mGy) MEDICAL HISTORY : Congestive hearrt failure. Hypertension. Chronic kidney disease. SURGICAL HISTORY : None. ENCOUNTER: Initial ACUITY: 1 day PAIN SCALE: 3/10 LOCATION: Bilateral neck TECHNIQUE: Volumetric scanning of the cervical spine was performed. Multiplanar reconstructions in the sagittal, coronal and oblique axial planes were performed. Using automated exposure control and adjustment o f the mA and/or kV according to patient size, radiation dose was kept as low as reasonably achievable to obtain optimal diagnostic quality images. DICOM format image data is available electronically f or review and comparison. FINDINGS: VERTEBRAE: Normal vertebral body height. Large anterior osteophyte at C2-3 and C5-6. No endplate fractures ident ified. Marked intervertebral disc space narrowing at the 5-6 level. ALIGNMENT: No evidence of subluxation. C2-C3: The bony spinal canal is normal in size. No evidence of disc bulge or herniation. The neural forami na are bilaterally patent. C3-C4: The bony spinal canal is normal in size. No evidence of disc bulge or herniation. The neural forami na are bilaterally narrowed due to osteophytes. C4-C5: The bony spinal canal is normal in size. No evidence of disc bulge or herniation. The neural forami na are moderately narrowed due to uncovertebral osteophytes. C5-C6: The bony spinal canal is normal in size. No evidence of disc bulge or herniation. The neural forami na are bilaterally narrowed due to osteophyte. C6-C7: The bony spinal canal is normal in size. No evidence of disc bulge or herniation. The neural forami na are bilaterally patent. C7-T1: The bony spinal canal is normal in size. No evidence of disc bulge or herniation. The neural forami na are bilaterally patent. CONCLUSION: Large anterior osteophytes at multiple levels. Scattered areas of bilateral neuroforaminal narrowing due to osteophyte. No evidence of acute fracture or significant subluxation. Dagoberto Das MD on November 22, 2017 at 15:02 Board Certified Radiologist. This report was verified electronically.
--- NOTE | 2017-11-22 15:56 | PD ---
HPI Chief Complaint: Fall Time Seen by Provider: 14:18 Travel History International Travel<30 days: No Contact w/Intl Traveler<30days: No Traveled to known affect area: No History of Present Illness HPI 87 yo male here for mechanical fall and possible LOC. Patient was brought here via Ambulance. Per report and patient he lost his footing and hit the back of his head. Family did not witness it and has a head laceration. Possible LOC but not sure how long. Pain mainly to left shoulder and head. Takes coumadin. Per family patient is getting worked up for loss of 20 pounds recently and concerned for cancer. Takes coumadin for atrial fibrillation. No hip or back pain. No chest pain. No SOB. Unclear lass tetanus. No urinary or BM issues. History of MRSA. No blurry vision. Pain per patient is 4/10. Has abrasions to left lower leg. PFSH Past Medical History Hx Anticoagulant Therapy: Yes (warfarin) Arthritis: Yes (hands, arms,legs ) Asthma: No Autoimmune Disease: No (had hep as a child ,not sure which one) Blood Disorders: No Heart Rhythm Problems: Yes (afib) Cancer: No Cardiovascular Problems: Yes High Cholesterol: Yes Chemotherapy: No Chest Pain: No Congestive Heart Failure: Yes COPD: No Cerebrovascular Accident: No Diabetes: No Diminished Hearing: No Endocrine: No Genitourinary: Yes Hypertension: Yes Immune Disorder: No Kidney Stones: No Musculoskeletal: Yes Neurologic: No Psychiatric: No Reproductive: No Respiratory: Yes Migraines: No Radiation Therapy: No Renal Failure: No Seizures: No Sickle Cell Disease: No Sleep Apnea: No Thyroid Disease: No ?: Not Past Surgical History Abdominal Surgery: No AICD: No Arteriovenous Shunt: No Body Medical Devices: PACEMAKER Cardiac Surgery: Yes (PACEMAKER) Ear Surgery: No Endocrine Surgery: No Eye Surgery: No Genitourinary Surgery: No Insulin Pump: No Joint Replacement: Yes (bilateral knees) Oral Surgery: Yes (april upper teeth removed) Pacemaker: Yes (st laurie) Thoracic Surgery: No Social History Alcohol Use: No Tobacco Use: No Substance Use: No Allergies-Medications (Allergen,Severity, Reaction): Coded Allergies: *MDRO Multi-Drug Resistant Organism (Unverified Adverse Reaction, Unknown , 11/22/17) MRSA back wound 02/2015. Reported Meds & Prescriptions Reported Meds & Active Scripts Active Flomax (Tamsulosin HCl) 0.4 Mg Cap 0.4 Mg PO DAILY 30 Days Reported Linzess (Linaclotide) 72 Mcg Capsule 1 Tab PO DAILY Ferrous Sulfate 325 Mg (65 Mg Iron) Tablet 27 Mg PO DAILY Nitrofurantoin Macrocrystal 100 Mg Cap 100 Mg PO BID Warfarin 10 Mg Tab 10 Mg PO DAILY Vitamin D3 (Cholecalciferol) 5,000 Unit Cap 5,000 Units PO DAILY Metoprolol Tartrate 50 Mg Tab 50 Mg PO BID Lisinopril 20 Mg Tab 20 Mg PO DAILY Simvastatin 20 Mg Tab 20 Mg PO DAILY Furosemide 40 Mg Tab 40 Mg PO DAILY Review of Systems Except as stated in HPI: all other systems reviewed are Neg Physical Exam Narrative GENERAL: SKIN: Warm and dry. HEAD: Atraumatic. Normocephalic. Has a 4 cm semicircular laceration to right posterior head. Minor bleeding noted. EYES: Pupils equal and round 4mms reactive to light and accomodation. No scleral icterus. No injection or drainage. ENT: No nasal bleeding or discharge. Mucous membranes pink and moist.Tongue is midline. No uvula deviation. NECK: Trachea midline. No JVD. CARDIOVASCULAR: Regular rate and rhythm. No murmurs, S3, S4. RESPIRATORY: No accessory muscle use. Clear to auscultation. Breath sounds equal bilaterally. GASTROINTESTINAL: Abdomen soft, non-tender, nondistended. Hepatic and splenic margins not palpable. MUSCULOSKELETAL: Extremities without clubbing, cyanosis, or edema. No obvious deformities. No cervical, thoracic, lumbar spine tenderness to palpation. Full ROM of the upper and lower extremities bilaterally. Pain and swelling to left shoulder with bruising. Two small abrasions to left knee with no pain. 2+ pulses bilaterally. NEUROLOGICAL: Awake and alert. No obvious cranial nerve deficits. Motor grossly within normal limits. Five out of 5 muscle strength in the arms and legs. Normal speech. PSYCHIATRIC: Appropriate mood and affect; insight and judgment normal. Data Data Last Documented VS Vital Signs Date Time Temp Pulse Resp B/P (MAP) Pulse Ox O2 Delivery O2 Flow Rate FiO2 11/22/17 17:37 63 17 85/50 (62) 99 Nasal Cannula 2.00 11/22/17 16:59 98.9 Orders Orders Electrocardiogram (11/22/17 14:18) Complete Blood Count With Diff (11/22/17 14:18) Comprehensive Metabolic Panel (11/22/17 14:18) Troponin I (11/22/17 14:18) Prothrombin Time / Inr (Pt) (11/22/17 14:18) Act Partial Throm Time (Ptt) (11/22/17 14:18) Urinalysis - C+S If Indicated (11/22/17 14:18) Magnesium (Mg) (11/22/17 14:18) Chest, Single Ap (11/22/17 14:18) Ct Brain W/O Iv Contrast(Rout) (11/22/17 14:18) Iv Access Insert/Monitor (11/22/17 14:18) Ecg Monitoring (11/22/17 14:18) Oximetry (11/22/17 14:18) Ct Cerv Spine W/O Contrast (11/22/17 14:18) Pelvis, Ap Only (Routine) (11/22/17 ) Tetanus/Diphtheria Tox Adult (Tetanus/Di (11/22/17 14:30) Lidocaine 1% Inj (Xylocaine 1% Inj) (11/22/17 14:30) Shoulder, Complete (>2vws) (11/22/17 ) Lidocaine Pf 1% Inj (Xylocaine-Mpf 1% In (11/22/17 14:55) Ct Thorax/ Chest Wo Iv Contras (11/22/17 ) Ct Abd/Pel W/O Iv Contrast (11/22/17 ) Fresh Frozen Plasma (Ffp) (11/22/17 15:12) Blood Product Administration (11/22/17 15:12) Blood Culture (11/22/17 16:11) Lactic Acid Sepsis Protocol (11/22/17 16:11) Acetaminophen (Tylenol) (11/22/17 16:15) Sodium Chlorid 0.9% 500 Ml Inj (Ns 500 M (11/22/17 16:30) Urine Culture (11/22/17 16:00) Ceftriaxone Inj (Rocephin Inj) (11/22/17 16:30) Sodium Chlor 0.9% 1000 Ml Inj (Ns 1000 M (11/22/17 17:00) Type And Screen (11/22/17 16:55) Phenylephrine Inj (Neosynephrine Inj) (11/22/17 17:15) Terbutaline Inj (Brethine Inj) (11/22/17 17:15) Complete Blood Count With Diff (11/22/17 17:31) Basic Metabolic Panel (Bmp) (11/22/17 17:31) Piperacil-Tazo 3.375 Gm Premix (Zosyn 3. (11/22/17 17:45) Admit Order (Ed Use Only) (11/22/17 17:37) Red Blood Cells (Rbc) (11/22/17 15:55) Labs Laboratory Tests Test 11/22/17 14:20 11/22/17 16:00 11/22/17 17:00 White Blood Count 8.8 TH/MM3 Red Blood Count 4.00 MIL/MM3 Hemoglobin 9.8 GM/DL Hematocrit 29.2 % Mean Corpuscular Volume 73.0 FL Mean Corpuscular Hemoglobin 24.6 PG Mean Corpuscular Hemoglobin Concent 33.7 % Red Cell Distribution Width 16.3 % Platelet Count 193 TH/MM3 Mean Platelet Volume 6.0 FL Neutrophils (%) (Auto) 80.7 % Lymphocytes (%) (Auto) 6.2 % Monocytes (%) (Auto) 11.7 % Eosinophils (%) (Auto) 0.7 % Basophils (%) (Auto) 0.7 % Neutrophils # (Auto) 7.1 TH/MM3 Lymphocytes # (Auto) 0.5 TH/MM3 Monocytes # (Auto) 1.0 TH/MM3 Eosinophils # (Auto) 0.1 TH/MM3 Basophils # (Auto) 0.1 TH/MM3 CBC Comment DIFF FINAL Differential Comment Prothrombin Time 65.0 SEC Prothromb Time International Ratio 6.5 RATIO Activated Partial Thromboplast Time 74.9 SEC Blood Urea Nitrogen 73 MG/DL Creatinine 2.56 MG/DL Random Glucose 88 MG/DL Total Protein 7.7 GM/DL Albumin 2.3 GM/DL Calcium Level 8.1 MG/DL Magnesium Level 2.0 MG/DL Alkaline Phosphatase 83 U/L Aspartate Amino Transf (AST/SGOT) 16 U/L Alanine Aminotransferase (ALT/SGPT) 13 U/L Total Bilirubin 0.4 MG/DL Sodium Level 135 MEQ/L Potassium Level 5.5 MEQ/L Chloride Level 105 MEQ/L Carbon Dioxide Level 18.7 MEQ/L Anion Gap 11 MEQ/L Estimat Glomerular Filtration Rate 24 ML/MIN Troponin I 0.02 NG/ML Urine Color LIGHT-YELLOW Urine Turbidity HAZY Urine pH 5.0 Urine Specific [place] 1.008 Urine Protein NEG mg/dL Urine Glucose (UA) NEG mg/dL Urine Ketones NEG mg/dL Urine Occult Blood MOD Urine Nitrite NEG Urine Bilirubin NEG Urine Urobilinogen LESS THAN 2.0 MG/DL Urine Leukocyte Esterase LARGE Urine RBC 48 /hpf Urine WBC 93 /hpf Urine WBC Clumps RARE Urine Bacteria FEW /hpf Urine Mucus FEW /lpf Microscopic Urinalysis Comment CULTURE INDICATED Lactic Acid Level 2.5 mmol/L [facility] Medical Decision Making Medical Screen Exam Complete: Yes Emergency Medical Condition: Yes Medical Record Reviewed: Yes Interpretation(s) CBC & BMP Diagram 11/22/17 14:20 Total Protein 7.7, Albumin 2.3 L, Calcium Level 8.1 L, Magnesium Level 2.0, Alkaline Phosphatase 83, Aspartate Amino Transf (AST/SGOT) 16, Alanine Aminotransferase (ALT/SGPT) 13, Total Bilirubin 0.4 coags with elevated INR of 6.5 troponin and CKMB negative EKG shows atrial fibrillation but no RVR Last Impressions Head CT 11/22/17 1418 Signed Impressions: Service Date/Time: Wednesday, November 22, 2017 14:39 - CONCLUSION: Diffuse atrophy. 2 mm linear area of dense material in the extra-axial subdural space unlikely to represent hemorrhage. Soft tissue swelling in the high right parietal region Dagoberto Das MD Chest X-Ray 11/22/171417 Signed Impressions: Service Date/Time: Wednesday, November 22, 2017 14:37 - CONCLUSION: Mild pulmonary vascular congestion with a left subclavian pacer. Dagoberto Das MD Cervical Spine CT 11/22/17 1418 Signed Impressions: Service Date/Time: Wednesday, November 22, 2017 14:39 - CONCLUSION: Large anterior osteophytes at multiple levels. Scattered areas of bilateral neuroforaminal narrowing due to osteophyte. No evidence of acute fracture or significant subluxation. Dagoberto Das MD Pelvis X-Ray 11/22/17 0000 Signed Impressions: Service Date/Time: Wednesday, November 22, 2017 14:36 - CONCLUSION: Unremarkable examination of the pelvis. Dagoberto Das MD UA shows signs of infection Differential Diagnosis Fall versus head injury versus head bleed versus fracture versus contusion versus laceration versus internal injuries Narrative Course 87-year-old male that presents to the ED for evaluation of fall and head injury. Patient was properly examined and was found to have signs and symptoms consistent appears to be fall. Fall was not witnessed but per patient he did lost his footing he does remember that part. He does not remember how long he was on the floor. Follow was not witnessed. Labs and imaging were ordered. Labs did show highly elevated INR of 6.5 as well as pulmonary congestion what appears to be acute on chronic kidney injury, patient also has been found to have a low-grade fever of unclear etiology. CT of the head was reassuring but there was some concern for possible head bleed. The radiologist thought that it might not. Patient does have a laceration which does require suturing. Please refer to my suture note. Case was discussed in my attending who recommends FFP secondary to possible abnormal head CT. MRI was ordered but patient cannot get it secondary to pacemaker. Also patient has bad kidney function and CT with contract cannot be done. Labs and imaging were essentially unremarkable for acute disease other than stated above. I was called by ED nurse as patient started to having more alteration in his blood pressure started dropping. No signs of bleeding at this time. Patient does appear to be pale. Case was discussed in my attending immediately Dr. Harp who came and evaluated the patient and recommends inpatient on pressors as well as to doses of blood and continuing care. Patient will be admitted to the intensive care unit. I spoke with Dr. Cervantes who agrees to admission to his service but to Dr Snow. He wants to specifically to have asked that CBC and BMP redone, femoral line by my attending or central line, started on Zosyn incentive ceftriaxone, blood as needed and you can start on pressors per his recommendation and if the CBC does appear to be going down to start patient on vitamin K 10 mg SQ stat. This was made aware to my attending who has started doing the central line. Hand H did drop. Vit K SQ given Procedures Procedure Narrative LACERATION LOCATION: right posterior head LENGTH: 5 cm NUMBER OF STITCHES/ADRIANE: 11 sutures REPAIR: The area of the laceration was prepped with Betadine and sterilely draped. The laceration was infiltrated with 1% Xylocaine. The wound was copiously irrigated and explored without evidence of foreign body, tendon injury or neurovascular injury. The wound was closed using 5-0 Prolene. This was a 1 layer repair. A sterile dressing was applied. The patient was advised to keep the dressing clean and dry. Patient tolerated the procedure well. [facility] Point of Care Internal Pos. & Neg. Controls: Passed Fecal Specimen Occult Blood: Negative Sepsis Criteria SIRS Criteria (2 or more): WBC > 65389, < 4000 or > 10% bands Sepsis Criteria (SIRS+source): Infect source susp/known Severe Sepsis (+one): Hypotension Criteria Outcome: Meets sepsis criteria Diagnosis Primary Impression: Hypotension Qualified Codes: I95.9 - Hypotension, unspecified Additional Impressions: Acute kidney injury Hyperkalemia UTI (urinary tract infection) Qualified Codes: N30.00 - Acute cystitis without hematuria Sepsis Qualified Codes: A41.9 - Sepsis, unspecified organism Coagulopathy Subdural hematoma Admitting Information Admitting Physician Requests: Admit Carlos Villagomez Nov 22, 2017 15:55
[2017-11-22] MEDS ORDERED: CHOL5000 PO (16:11)
[2017-11-22] MEDS ORDERED: LINA72CA PO (16:11)
[2017-11-22] MEDS ORDERED: LISI-515 PO (16:11)
[2017-11-22] MEDS ORDERED: NITR1CAP36 PO (16:11)
[2017-11-22] MEDS ORDERED: FERR325T18 PO (16:11)
[2017-11-22] MEDS ORDERED: WARF-22 PO (16:11)
[2017-11-22] MEDS ORDERED: METO50TA PO (16:11)
[2017-11-22] MEDS ORDERED: ACETAMINOPHEN 325 MG TAB PO ONE (16:15)
[2017-11-22 16:22] LABS: BACTERIA, URINE FEW /hpf; BILIRUBIN, URINE NEG (NEG); BLOOD, URINE MOD (NEG); GLUCOSE,URINE NEG (NEG); KETONE, URINE NEG (NEG); MUCUS URINE FEW /lpf (OCC); NITRITE,URINE NEG (NEG); URINE COLOR LIGHT-YELLOW (YELLW/STRAW); URINE LEUKOCYTE ESTERASE LARGE (NEG); WHITE BLOOD CELL CLUMPS RARE
[2017-11-22] MEDS ORDERED: SODIUM CHLORID 0.9% 500 ML INJ 500 ML IV ONE (16:30)
[2017-11-22] MEDS ORDERED: cefTRIAXone INJ 1,000 MG in SODIUM CHLORIDE 0.9% INJ 100 ML IV ONE (16:30)
--- NOTE | 2017-11-22 16:31 | RADRPT ---
EXAM DATE/TIME: 11/22/2017 16:02 [facility] COMPARISON: CT ABDOMEN & PELVIS W/O CONTRAST, August 15, 2017, 15:47. INDICATIONS : Trauma; fall. ORAL CONTRAST: No oral contrast ingested. RADIATION DOSE: 15.93 CTDIvol (mGy) ; Combined studies MEDICAL HISTORY : Cardiovascular disease. Congestive heart failure. Hypertension. SURGICAL HISTORY : Pacemaker. ENCOUNTER: Initial ACUITY: 1 day PAIN SCALE: Non-responsive LOCATION: lower quadrant TECHNIQUE: Volumetric scanning of the abdomen and pelvis was performed. Using automated exposure control and ad justment of the mA and/or kV according to patient size, radiation dose was kept as low as reasonably achievable to obtain optimal diagnostic quality images. DICOM format image data is available electro nically for review and comparison. FINDINGS: There is respiratory motion artifact. LOWER LUNGS: Please refer to chest CT report for description of the supradiaphragmatic findings. LIVER: Homogeneous density with a stable left lobe cyst measuring 16 mm. There are are high-density stones i n the gallbladder. There is no dilation of the biliary tree. SPLEEN: Normal size without lesion. PANCREAS: Within normal limits. KIDNEYS: Normal in size and shape. There is no mass, stone, or hydronephrosis. ADRENAL GLANDS: Within normal limits. VASCULAR: There is severe atherosclerotic disease with ectasia of the aorta. It measures up to 2.8 cm. BOWEL/MESENTERY: The stomach, small bowel, and colon demonstrate no acute abnormality. There is no free intraperitone al air or fluid. There is sigmoid diverticulosis. ABDOMINAL WALL: Within normal limits. RETROPERITONEUM: There is no lymphadenopathy. BLADDER: No wall thickening or mass. REPRODUCTIVE: Within normal limits. INGUINAL: There is no lymphadenopathy or hernia. MUSCULOSKELETAL: There are degenerative changes throughout the lumbar spine. CONCLUSION: 1. No acute finding is identified on this mildly motion degraded noncontrast CT of the abdomen and pe lvis. 2. Stable nonacute findings include cholelithiasis, severe atherosclerotic disease, and sigmoid diver ticulosis. Jalil Cedillo MD on November 22, 2017 at 16:25 Board Certified Radiologist. This report was verified electronically.
--- NOTE | 2017-11-22 16:35 | RADRPT ---
EXAM DATE/TIME: 11/22/2017 16:02 [facility] COMPARISON: CTA THORACIC ABDOMINAL AORTA W 3D RECON, August 08, 2017, 15:41. INDICATIONS : Trauma; fall. RADIATION DOSE: 15.93 CTDIvol (mGy) MEDICAL HISTORY : Cardiovascular disease. Congestive heart failure. Hypertension. SURGICAL HISTORY : Pacemaker. ENCOUNTER: Initial ACUITY: 1 day PAIN SCALE: Non-responsive LOCATION: Bilateral chest TECHNIQUE: Volumetric scanning of the chest was performed. Using automated exposure control and adjustment of t he mA and/or kV according to patient size, radiation dose was kept as low as reasonably achievable to obtain optimal diagnostic quality images. DICOM format image data is available electronically for r eview and comparison. Follow-up recommendations for detected pulmonary nodules are based at a minimum on nodule size and pa tient risk factors according to Fleischner Society Guidelines. FINDINGS: LUNGS: There is a chronic pleural thickening in the left inferior hemithorax with chronic or round atelectas is in the left lower lobe and trace left pleural fluid. There is less aerated left lung volume compar ed to the right which is stable from the prior study. No pneumothorax is present. PLEURAE: There is pleural thickening in the left posterior inferior hemithorax with trace pleural fluid. These findings are stable. MEDIASTINUM: The heart and great vessels demonstrate no acute abnormality. Coronary artery calcification is prese nt along with moderate to severe atherosclerotic disease of the aorta. The ascending aorta measures u p to 4 cm. Left chest wall cardiac pacing device is present with lead tips in the right heart. There is no mediastinal or hilar lymphadenopathy. AXILLAE: Within normal limits. No lymphadenopathy. MUSCULOSKELETAL: There are degenerative changes throughout the thoracic spine. No acute osseous abnormality is identif ied. MISCELLANEOUS: Please refer to abdomen and pelvis CT report for description of the subdiaphragmatic findings. CONCLUSION: 1. No acute finding is identified on this noncontrast examination of the chest. 2. There is stable left pleural thickening, trace left pleural fluid, and volume loss in the left low er lobe. 3. Coronary artery calcification and severe atherosclerotic disease of aorta. Jalil Cedillo MD on November 22, 2017 at 16:29 Board Certified Radiologist. This report was verified electronically.
--- NOTE | 2017-11-22 16:54 | RADRPT ---
EXAM DATE/TIME: 11/22/2017 16:27 [facility] COMPARISON: No previous studies available for comparison. INDICATIONS : Left shoulder pain, fell MEDICAL HISTORY : Cardiovascular disease. Congestive heart failure. Hypertension SURGICAL HISTORY : Pacemaker. ENCOUNTER: Initial ACUITY: 1 day PAIN SCORE: 2/10 LOCATION: Left [place] FINDINGS: Multiple view examination of the left shoulder demonstrates no evidence of fracture or dislocation. T here is marked impingement on the greater tuberosity. Left subclavian bipolar pacer The glenohumeral and acromioclavicular joints are maintained. There is normal range of motion between internal and e xternal rotation. Bony mineralization is normal. Marked acromial spurring CONCLUSION: Unremarkable examination of the left shoulder status post left bipolar pacermaker. Marked impingemen t change with acromial spurring and erosions across the greater tuberosity Dagoberto Das MD on November 22, 2017 at 16:51 Board Certified Radiologist. This report was verified electronically.
[2017-11-22] MEDS: SODIUM CHLOR 0.9% 1000 ML INJ 1,000 ML IV ONE ×2 (17:00→17:06)
--- NOTE | 2017-11-22 17:12 | PD ---
Physical Exam Narrative GENERAL: SKIN: Warm and dry. PALE SKIN HEAD: Atraumatic. Normocephalic. EYES: Pupils equal and round. No scleral icterus. No injection or drainage. ENT: No nasal bleeding or discharge. Mucous membranes pink and moist. NECK: Trachea midline. No JVD. CARDIOVASCULAR: Regular rate and rhythm. RESPIRATORY: No accessory muscle use. Clear to auscultation. Breath sounds equal bilaterally. GASTROINTESTINAL: Abdomen soft, non-tender, nondistended. MUSCULOSKELETAL: Extremities without clubbing, cyanosis, or edema. No obvious deformities. NEUROLOGICAL: Awake and alert. No obvious cranial nerve deficits. Motor grossly within normal limits. Five out of 5 muscle strength in the arms and legs. Normal speech. PSYCHIATRIC: Appropriate mood and affect; insight and judgment normal. Data Data Last Documented VS Vital Signs Date Time Temp Pulse Resp B/P (MAP) Pulse Ox O2 Delivery O2 Flow Rate FiO2 11/22/17 17:37 63 17 85/50 (62) 99 Nasal Cannula 2.00 11/22/17 16:59 98.9 Orders Orders Electrocardiogram (11/22/17 14:18) Complete Blood Count With Diff (11/22/17 14:18) Comprehensive Metabolic Panel (11/22/17 14:18) Troponin I (11/22/17 14:18) Prothrombin Time / Inr (Pt) (11/22/17 14:18) Act Partial Throm Time (Ptt) (11/22/17 14:18) Urinalysis - C+S If Indicated (11/22/17 14:18) Magnesium (Mg) (11/22/17 14:18) Chest, Single Ap (11/22/17 14:18) Ct Brain W/O Iv Contrast(Rout) (11/22/17 14:18) Iv Access Insert/Monitor (11/22/17 14:18) Ecg Monitoring (11/22/17 14:18) Oximetry (11/22/17 14:18) Ct Cerv Spine W/O Contrast (11/22/17 14:18) Pelvis, Ap Only (Routine) (11/22/17 ) Tetanus/Diphtheria Tox Adult (Tetanus/Di (11/22/17 14:30) Lidocaine 1% Inj (Xylocaine 1% Inj) (11/22/17 14:30) Shoulder, Complete (>2vws) (11/22/17 ) Lidocaine Pf 1% Inj (Xylocaine-Mpf 1% In (11/22/17 14:55) Ct Thorax/ Chest Wo Iv Contras (11/22/17 ) Ct Abd/Pel W/O Iv Contrast (11/22/17 ) Fresh Frozen Plasma (Ffp) (11/22/17 15:12) Blood Product Administration (11/22/17 15:12) Blood Culture (11/22/17 16:11) Lactic Acid Sepsis Protocol (11/22/17 16:11) Acetaminophen (Tylenol) (11/22/17 16:15) Sodium Chlorid 0.9% 500 Ml Inj (Ns 500 M (11/22/17 16:30) Urine Culture (11/22/17 16:00) Ceftriaxone Inj (Rocephin Inj) (11/22/17 16:30) Sodium Chlor 0.9% 1000 Ml Inj (Ns 1000 M (11/22/17 17:00) Type And Screen (11/22/17 16:55) Phenylephrine Inj (Neosynephrine Inj) (11/22/17 17:15) Terbutaline Inj (Brethine Inj) (11/22/17 17:15) Complete Blood Count With Diff (11/22/17 17:31) Basic Metabolic Panel (Bmp) (11/22/17 17:31) Piperacil-Tazo 3.375 Gm Premix (Zosyn 3. (11/22/17 17:45) Admit Order (Ed Use Only) (11/22/17 17:37) Red Blood Cells (Rbc) (11/22/17 15:55) Labs Laboratory Tests Test 11/22/17 14:20 11/22/17 16:00 11/22/17 17:00 White Blood Count 8.8 TH/MM3 Red Blood Count 4.00 MIL/MM3 Hemoglobin 9.8 GM/DL Hematocrit 29.2 % Mean Corpuscular Volume 73.0 FL Mean Corpuscular Hemoglobin 24.6 PG Mean Corpuscular Hemoglobin Concent 33.7 % Red Cell Distribution Width 16.3 % Platelet Count 193 TH/MM3 Mean Platelet Volume 6.0 FL Neutrophils (%) (Auto) 80.7 % Lymphocytes (%) (Auto) 6.2 % Monocytes (%) (Auto) 11.7 % Eosinophils (%) (Auto) 0.7 % Basophils (%) (Auto) 0.7 % Neutrophils # (Auto) 7.1 TH/MM3 Lymphocytes # (Auto) 0.5 TH/MM3 Monocytes # (Auto) 1.0 TH/MM3 Eosinophils # (Auto) 0.1 TH/MM3 Basophils # (Auto) 0.1 TH/MM3 CBC Comment DIFF FINAL Differential Comment Prothrombin Time 65.0 SEC Prothromb Time International Ratio 6.5 RATIO Activated Partial Thromboplast Time 74.9 SEC Blood Urea Nitrogen 73 MG/DL Creatinine 2.56 MG/DL Random Glucose 88 MG/DL Total Protein 7.7 GM/DL Albumin 2.3 GM/DL Calcium Level 8.1 MG/DL Magnesium Level 2.0 MG/DL Alkaline Phosphatase 83 U/L Aspartate Amino Transf (AST/SGOT) 16 U/L Alanine Aminotransferase (ALT/SGPT) 13 U/L Total Bilirubin 0.4 MG/DL Sodium Level 135 MEQ/L Potassium Level 5.5 MEQ/L Chloride Level 105 MEQ/L Carbon Dioxide Level 18.7 MEQ/L Anion Gap 11 MEQ/L Estimat Glomerular Filtration Rate 24 ML/MIN Troponin I 0.02 NG/ML Urine Color LIGHT-YELLOW Urine Turbidity HAZY Urine pH 5.0 Urine Specific [place] 1.008 Urine Protein NEG mg/dL Urine Glucose (UA) NEG mg/dL Urine Ketones NEG mg/dL Urine Occult Blood MOD Urine Nitrite NEG Urine Bilirubin NEG Urine Urobilinogen LESS THAN 2.0 MG/DL Urine Leukocyte Esterase LARGE Urine RBC 48 /hpf Urine WBC 93 /hpf Urine WBC Clumps RARE Urine Bacteria FEW /hpf Urine Mucus FEW /lpf Microscopic Urinalysis Comment CULTURE INDICATED Lactic Acid Level 2.5 mmol/L [facility] Medical Record Reviewed: Yes Supervised Visit with JACIEL: Yes Critical Care Narrative CRITICAL CARE NOTE: With evaluation of the patient, labs, EKG, receipt of radiologic studies, administration of medications, reevaluation the patient and discussion of the patient with the admitting physicians, the total critical care time was [60] minutes. Time to perform other separately billable procedures was not included in the critical care time. REQUIRING PRESSOR, FFP AND PRBC TRANSFUSION Procedures Procedure Narrative After the risks and benefits were discussed the following procedure was performed: CENTRAL VENOUS LINE: The site was prepped with Betadine and sterilely draped. It was infiltrated with 1% lidocaine plain. The deep vein was cannulated using normal Seldinger technique. A central line was placed in the [RIGHT SUBCLAVIAN VEIN] site and secured with simple interrupted suture. The site was sterilely dressed. The patient tolerated the procedure well. Diagnosis Primary Impression: SYNCOPE Additional Impressions: Anemia Qualified Codes: D64.9 - Anemia, unspecified COUMADIN TOXICITY Hypotension Qualified Codes: I95.9 - Hypotension, unspecified Darrel Harp MD Nov 22, 2017 17:12
[2017-11-22] MEDS ORDERED: TERBUTALINE INJ 1 MG/ML AMP SQ PRN (17:15)
[2017-11-22 17:30] LABS: LACTIC ACID SEPSIS PROTOCOL 2.5 mmol/L (0.4-2.0)
[2017-11-22] MEDS: PHENYLEPHRINE INJ 40 MG in DEXTROSE 5% IN WATE 500 ML INJ 496 ML IV PRN ×4 (17:45→17:51)
[2017-11-22] MEDS ORDERED: PIPERACIL-TAZO 3.375 GM PREMIX 50 ML IV ONE (17:45)
--- NOTE | 2017-11-22 18:26 | RADRPT ---
EXAM DATE/TIME: 11/22/2017 18:15 [place] COMPARISON: No previous studies available for comparison. INDICATIONS : Post central line placement MEDICAL HISTORY : Cardiovascular disease. Congestive heart failure. Hypertension. SURGICAL HISTORY : Pacemaker. ENCOUNTER: Subsequent ACUITY: 1 day PAIN SCORE: 0/10 LOCATION: chest FINDINGS: A single view of the chest demonstrates poorly continued volume loss in left lung base with probably small pleural effusion and/or atelectasis. Left-sided bipolar pacer. The cardiomediastinal contours a re unremarkable. Osseous structures are intact. CONCLUSION: Persistent mild loss of left lung base with pleural effusion and passive atelectasis. Right lung is c lear. New right subclavian central line with its tip overlying the SVC. Dagoberot Das MD on November 22, 2017 at 18:24 Board Certified Radiologist. This report was verified electronically.
[2017-11-22 18:34] LABS: BASOPHIL % 0.4 % (0.0-2.0); EOSINOPHIL % 0.1 % (0.0-4.0); HEMATOCRIT 21.1 % (39.0-51.0); HEMOGLOBIN 7.3 GM/DL (13.0-17.0); LYMPHOCYTE # 0.4 TH/MM3 (1.0-4.8); MEAN CELL VOLUME 72.8 FL (80.0-100.0); MEAN CORPUSCULAR HEMOGLOBIN 25.1 PG (27.0-34.0); MEAN CORPUSCULAR HGB CONC 34.4 % (32.0-36.0); MONO % 11.4 % (0.0-8.0); MONOCYTE # 0.8 TH/MM3 (0-0.9); NEUT % 82.1 % (16.0-70.0); PLATELET COUNT 152 TH/MM3 (150-450); WHITE BLOOD COUNT 7.3 TH/MM3 (4.0-11.0)
[2017-11-22 18:56] LABS: BICARBONATE 21.5 MEQ/L (21.0-32.0); CALCIUM 7.8 MG/DL (8.5-10.1); CREATININE 2.75 MG/DL (0.60-1.30)
[2017-11-22] MEDS ORDERED: PHYTONADIONE INJ 10 MG in DEXTROSE 5% IN WATER INJ 50 ML IV ONE ×2 (19:00)
[2017-11-22] MEDS ORDERED: PHYTONADIONE 10 MG/ML VIAL SQ ONE (19:00)
[2017-11-22] MEDS ORDERED: PANTOPRAZOLE SODIUM 40 MG VIAL IV PUSH SCH (19:15)
[2017-11-22] MEDS ORDERED: SENNOSIDES 8.6 MG TAB PO PRN (19:15)
[2017-11-22] MEDS ORDERED: BISACODYL 10 MG SUPP RECTAL PRN (19:15)
[2017-11-22] MEDS ORDERED: SODIUM CHLORIDE 0.9% FLUSH 10 ML FLUSH IV FLUSH PRN (19:15)
[2017-11-22] MEDS ORDERED: CHLORHEXIDINE GLUCONATE 2 % 1 PACK (2 CLOTHS) TOP PRN (19:15)
[2017-11-22] MEDS ORDERED: MISCELLANEOUS NURSING INFORMATION XX SCH (19:15)
[2017-11-22] MEDS ORDERED: MAGNESIUM HYDROXIDE SUSP 30 ML CUP PO PRN (19:15)
[2017-11-22] MEDS ORDERED: RESP: ALBUTEROL 2.5 MG/IPRATROPIUM 0.5 MG NEB (PRN) INH (19:15)
[2017-11-22] MEDS ORDERED: LACTULOSE SYRUP 20 GM/30 ML CUP PO PRN (19:15)
[2017-11-22] MEDS ORDERED: METOCLOPRAMIDE HCL 10 MG/2 ML VIAL IV PUSH PRN (19:15)
[2017-11-22] MEDS ORDERED: ACETAMINOPHEN 325 MG TAB PO PRN (19:15)
[2017-11-22] MEDS ORDERED: ONDANSETRON HCL 4 MG/2 ML VIAL IV PUSH PRN (19:15)
[2017-11-22 20:52] LABS: INTERNATIONAL NORMALIZED RATIO 3.3 RATIO; PROTHROMBIN TIME - PATIENT 33.1 SEC (9.8-11.6)
[2017-11-22] MEDS: DOCUSATE SODIUM 50 MG/SENNA 8.6 MG TAB PO SCH (21:00)
[2017-11-22] MEDS: SODIUM CHLORIDE 0.9% FLUSH 10 ML FLUSH IV FLUSH SCH (21:00)
--- NOTE | 2017-11-22 21:22 | HHI.HP ---
HPI Service Critical Care Medicine Primary Care Physician Unknown Admission Diagnosis hypotension, sepsis, UTI, acute head injury, coagulopathy Diagnosis: Travel History International Travel<30 Days: No Contact w/Intl Traveler <30 Da: No Traveled to Known Affected Are: No History of Present Illness HPI Chief Complaint: Fall Time Seen by Provider: 14:18 Travel History International Travel<30 days: No Contact w/Intl Traveler<30days: No Traveled to known affect area: No History of Present Illness HPI 87 yo male here for mechanical fall and possible LOC. Patient was brought here via Ambulance. Per report and patient he lost his footing and hit the back of his head. Family did not witness it and has a head laceration. Possible LOC but not sure how long. Pain mainly to left shoulder and head. Takes coumadin. Per family patient is getting worked up for loss of 20 pounds recently and concerned for cancer. Takes coumadin for atrial fibrillation. No hip or back pain. No chest pain. No SOB. Unclear lass tetanus. No urinary or BM issues. History of MRSA. No blurry vision. Pain per patient is 4/10. Has abrasions to left lower leg. She reportedly had a urologic procedure a week back for a urethral stricture. He has noticed black tarry stools for the last week or so and has been progressively getting weaker. Patient had significant bleeding from his scalp laceration which was sutured in the ER. He was noted to be coagulopathic with an INR of 6.5 and received 2 units of FFP and vitamin K 10 mg IV in the ER. He had a subclavian central line placed by ER physician. Patient was given 1.5 L fluid bolus and started on Faisal-Synephrine for pressor support. 2 units FFP, PRBCs 2 units were ordered to be transfused as his hemoglobin dropped to 6.9 following fluid bolus. Patient was accepted for admission by critical care medicine service. When I evaluated the patient in the ER he was resting in the ER stretcher appeared comfortable and not in any acute distress. Head CT done earlier revealed a subdural hematoma from neurosurgery was consulted and did not plan any active intervention. When I evaluated the patient he was on Faisal-Synephrine about 20 mics per minute with a systolic blood pressure in the 140s having just finished his second unit of PRBCs. History PFSH Past Medical History Hx Anticoagulant Therapy: Yes (warfarin) Arthritis: Yes (hands, arms,legs ) Asthma: No Autoimmune Disease: No (had hep as a child ,not sure which one) Blood Disorders: No Heart Rhythm Problems: Yes (afib) Cancer: No Cardiovascular Problems: Yes High Cholesterol: Yes Chemotherapy: No Chest Pain: No Congestive Heart Failure: Yes COPD: No Cerebrovascular Accident: No Diabetes: No Diminished Hearing: No Endocrine: No Genitourinary: Yes Hypertension: Yes Immune Disorder: No Kidney Stones: No Musculoskeletal: Yes Neurologic: No Psychiatric: No Reproductive: No Respiratory: Yes Migraines: No Radiation Therapy: No Renal Failure: No Seizures: No Sickle Cell Disease: No Sleep Apnea: No Thyroid Disease: No ?: Not Past Surgical History Abdominal Surgery: No AICD: No Arteriovenous Shunt: No Body Medical Devices: PACEMAKER Cardiac Surgery: Yes (PACEMAKER) Ear Surgery: No Endocrine Surgery: No Eye Surgery: No Genitourinary Surgery: No Insulin Pump: No Joint Replacement: Yes (bilateral knees) Oral Surgery: Yes (april upper teeth removed) Pacemaker: Yes (st laurie) Thoracic Surgery: No Social History Alcohol Use: No Tobacco Use: No Substance Use: No Allergies-Medications Allergies-Medications (Allergen,Severity, Reaction): Coded Allergies: *MDRO Multi-Drug Resistant Organism (Unverified Adverse Reaction, Unknown , 11/22/17) MRSA back wound 02/2015. Reported Meds & Prescriptions Reported Meds & Active Scripts Active Flomax (Tamsulosin HCl) 0.4 Mg Cap 0.4 Mg PO DAILY 30 Days Reported Linzess (Linaclotide) 72 Mcg Capsule 1 Tab PO DAILY Ferrous Sulfate 325 Mg (65 Mg Iron) Tablet 27 Mg PO DAILY Nitrofurantoin Macrocrystal 100 Mg Cap 100 Mg PO BID Warfarin 10 Mg Tab 10 Mg PO DAILY Vitamin D3 (Cholecalciferol) 5,000 Unit Cap 5,000 Units PO DAILY Metoprolol Tartrate 50 Mg Tab 50 Mg PO BID Lisinopril 20 Mg Tab 20 Mg PO DAILY Simvastatin 20 Mg Tab 20 Mg PO DAILY Furosemide 40 Mg Tab 40 Mg PO DAILY ROS Review of Systems Except as stated in HPI: all other systems reviewed are Neg Review of Systems ROS Per history of present illness Physical Exam Vital Signs Vital Signs Date Time Temp Pulse Resp B/P (MAP) Pulse Ox O2 Delivery O2 Flow Rate FiO2 11/22/17 20:40 63 18 122/60 (80) 100 Room Air 11/22/17 20:08 67 18 137/78 (97) 98 Nasal Cannula 2.00 11/22/17 19:10 65 18 126/57 (80) 99 Nasal Cannula 2.00 11/22/17 18:49 97.6 63 15 117/56 99 11/22/17 18:39 97.5 60 22 109/54 (72) 98 Nasal Cannula 2.00 11/22/17 18:35 97.5 66 20 109/54 98 11/22/17 18:23 71 22 72/43 (53) 100 Nasal Cannula 2.00 11/22/17 18:09 65 20 65/39 (48) 100 Nasal Cannula 2.00 11/22/17 17:52 63 15 94/51 (65) 99 Nasal Cannula 2.00 11/22/17 17:51 60 85/51 11/22/17 17:37 63 17 85/50 (62) 99 Nasal Cannula 2.00 11/22/17 17:29 74 16 86/49 97 11/22/17 16:59 98.9 68 20 92/51 98 11/22/17 16:55 98.9 65 20 76/42 (53) 99 Nasal Cannula 2.00 11/22/17 16:44 98.9 76 20 88/52 95 11/22/17 16:17 64 16 124/78 (93) 95 Room Air 11/22/17 14:20 100.1 98 22 145/69 (94) 95 Physical Exam Narrative GENERAL: SKIN: Warm and dry. HEAD: Atraumatic. Normocephalic. Has a 4 cm semicircular sutured laceration to right posterior head. EYES: Pupils equal and round 4mms reactive to light and accomodation. No scleral icterus. No injection or drainage. ENT: No nasal bleeding or discharge. Mucous membranes pink and moist.Tongue is midline. No uvula deviation. NECK: Trachea midline. No JVD. CARDIOVASCULAR: Regular rate and rhythm. No murmurs, S3, S4. RESPIRATORY: No accessory muscle use. Clear to auscultation. Breath sounds equal bilaterally. GASTROINTESTINAL: Abdomen soft, non-tender, nondistended. Hepatic and splenic margins not palpable. MUSCULOSKELETAL: Extremities without clubbing, cyanosis, or edema. No obvious deformities. No cervical, thoracic, lumbar spine tenderness to palpation. Full ROM of the upper and lower extremities bilaterally. Pain and swelling to left shoulder with bruising. Two small abrasions to left knee with no pain. 2+ pulses bilaterally. NEUROLOGICAL: Awake and alert. No obvious cranial nerve deficits. Motor grossly within normal limits. Five out of 5 muscle strength in the arms and legs. Normal speech. PSYCHIATRIC: Appropriate mood and affect; insight and judgment normal. Laboratory Laboratory Tests Test 11/22/17 14:20 11/22/17 16:00 11/22/17 17:00 11/22/17 18:15 White Blood Count 8.8 7.3 Red Blood Count 4.00 2.90 Hemoglobin 9.8 7.3 Hematocrit 29.2 21.1 Mean Corpuscular Volume 73.0 72.8 Mean Corpuscular Hemoglobin 24.6 25.1 Mean Corpuscular Hemoglobin Concent 33.7 34.4 Red Cell Distribution Width 16.3 16.0 Platelet Count 193 152 Mean Platelet Volume 6.0 6.0 Neutrophils (%) (Auto) 80.7 82.1 Lymphocytes (%) (Auto) 6.2 6.0 Monocytes (%) (Auto) 11.7 11.4 Eosinophils (%) (Auto) 0.7 0.1 Basophils (%) (Auto) 0.7 0.4 Neutrophils # (Auto) 7.1 6.0 Lymphocytes # (Auto) 0.5 0.4 Monocytes # (Auto) 1.0 0.8 Eosinophils # (Auto) 0.1 0.0 Basophils # (Auto) 0.1 0.0 CBC Comment DIFF FINAL DIFF FINAL Differential Comment Prothrombin Time 65.0 Prothromb Time International Ratio 6.5 Activated Partial Thromboplast Time 74.9 Blood Urea Nitrogen 73 73 Creatinine 2.56 2.75 Random Glucose 88 113 Total Protein 7.7 Albumin 2.3 Calcium Level 8.1 7.8 Magnesium Level 2.0 Alkaline Phosphatase 83 Aspartate Amino Transf (AST/SGOT) 16 Alanine Aminotransferase (ALT/SGPT) 13 Total Bilirubin 0.4 Sodium Level 135 136 Potassium Level 5.5 5.4 Chloride Level 105 106 Carbon Dioxide Level 18.7 21.5 Anion Gap 11 9 Estimat Glomerular Filtration Rate 24 22 Troponin I 0.02 Urine Color LIGHT-YELLOW Urine Turbidity HAZY Urine pH 5.0 Urine Specific [place] 1.008 Urine Protein NEG Urine Glucose (UA) NEG Urine Ketones NEG Urine Occult Blood MOD Urine Nitrite NEG Urine Bilirubin NEG Urine Urobilinogen LESS THAN 2.0 Urine Leukocyte Esterase LARGE Urine RBC 48 Urine WBC 93 Urine WBC Clumps RARE Urine Bacteria FEW Urine Mucus FEW Microscopic Urinalysis Comment CULTURE INDICATED Lactic Acid Level 2.5 Test 11/22/17 20:20 Prothrombin Time 33.1 Prothromb Time International Ratio 3.3 Activated Partial Thromboplast Time 60.5 Lactic Acid Level 1.6 Date/Time Source Procedure Growth Status 11/22/17 15:15 Blood Peripheral Aerobic Blood Culture Pending Received 11/22/17 15:15 Blood Peripheral Anaerobic Blood Culture Pending Received 11/22/17 16:00 Urine Random Urine Urine Culture Pending Received Result Diagram: 11/22/17 18111/22/17 181 Imaging Last Impressions Head CT 11/22/17 141 Signed Impressions: Service Date/Time: Wednesday, November 22, 2017 14:39 - CONCLUSION: Diffuse atrophy. 2 mm linear area of dense material in the extra-axial subdural space unlikely to represent hemorrhage. Soft tissue swelling in the high right parietal region Dagoberto Das MD Chest X-Ray 11/22/17 1418 Signed Impressions: Service Date/Time: Wednesday, November 22, 2017 14:37 - CONCLUSION: Mild pulmonary vascular congestion with a left subclavian pacer. Dagoberto Das MD Cervical Spine CT 11/22/17 1418 Signed Impressions: Service Date/Time: Wednesday, November 22, 2017 14:39 - CONCLUSION: Large anterior osteophytes at multiple levels. Scattered areas of bilateral neuroforaminal narrowing due to osteophyte. No evidence of acute fracture or significant subluxation. Dagoberto Das MD Shoulder X-Ray 11/22/17 0000 Signed Impressions: Service Date/Time: Wednesday, November 22, 2017 16:27 - CONCLUSION: Unremarkable examination of the left shoulder status post left bipolar pacermaker. Marked impingement change with acromial spurring and erosions across the greater tuberosity Dagoberto Das MD Pelvis X-Ray 11/22/17 0000 Signed Impressions: Service Date/Time: Wednesday, November 22, 2017 14:36 - CONCLUSION: Unremarkable examination of the pelvis. Dagoberto Das MD Chest CT 11/22/17 0000 Signed Impressions: Service Date/Time: Wednesday, November 22, 2017 16:02 - CONCLUSION: 1. No acute finding is identified on this noncontrast examination of the chest. 2. There is stable left pleural thickening, trace left pleural fluid, and volume loss in the left lower lobe. 3. Coronary artery calcification and severe atherosclerotic disease of aorta. Jalil Cedillo MD Abdomen/Pelvis CT 11/22/17 0000 Signed Impressions: Service Date/Time: Wednesday, November 22, 2017 16:02 - CONCLUSION: 1. No acute finding is identified on this mildly motion degraded noncontrast CT of the abdomen and pelvis. 2. Stable nonacute findings include cholelithiasis, severe atherosclerotic disease, and sigmoid diverticulosis. MD Isabel Jackson VTE Risk Assessment Caprini VTE Risk Assessment: Mod/High Risk (score >= 2) Caprini Risk Assessment Model Point Value = 1 Point Value = 2 Point Value = 3 Point Value = 5 Age 41-60 Minor surgery BMI > 25 kg/m2 Swollen legs Varicose veins or History of unexplained or recurrent spontaneous Oral contraceptives or hormone replacement Sepsis (< 1 month) Serious lung disease, including pneumonia (< 1 month) Abnormal pulmonary function Acute myocardial infarction Congestive heart failure (< 1 month) History of inflammatory bowel disease Medical patient at bed rest Age 61-74 Arthroscopic surgery Major open surgery (> 45 min) Laparoscopic surgery (> 45 min) Malignancy Confined to bed (> 72 hours) Immobilizing plaster cast Central venous access Age >= 75 History of VTE Family history of VTE Factor V Leiden Prothrombin [id number] Lupus anticoagulant Anticardiolipin antibodies Elevated serum homocysteine Heparin-induced thrombocytopenia Other congenital or acquired thrombophilia Stroke (< 1 month) Elective arthroplasty Hip, pelvis, or leg fracture Acute spinal cord injury (< 1 month) Prophylaxis Regimen Total Risk Factor Score Risk Level Prophylaxis Regimen 0-1 Low Early ambulation 2 Moderate Order ONE of the following: *Sequential Compression Device (SCD) *Heparin 5000 units SQ BID 3-4 Higher Order ONE of the following medications: *Heparin 5000 units SQ TID *Enoxaparin/Lovenox 40 mg SQ daily (WT < 150 kg, CrCl > 30 mL/min) *Enoxaparin/Lovenox 30 mg SQ daily (WT < 150 kg, CrCl > 10-29 mL/min) *Enoxaparin/Lovenox 30 mg SQ BID (WT < 150 kg, CrCl > 30 mL/min) AND/OR *Sequential Compression Device (SCD) 5 or more Highest Order ONE of the following medications: *Heparin 5000 units SQ TID (Preferred with Epidurals) *Enoxaparin/Lovenox 40 mg SQ daily (WT < 150 kg, CrCl > 30 mL/min) *Enoxaparin/Lovenox 30 mg SQ daily (WT < 150 kg, CrCl > 10-29 mL/min) *Enoxaparin/Lovenox 30 mg SQ BID (WT < 150 kg, CrCl > 30 mL/min) AND *Sequential Compression Device (SCD) Assessment and Plan Assessment and Plan 87-year-old male with: Fall Scalp laceration Small subdural hemorrhage Coagulopathy secondary to Coumadin Acute blood loss anemia Hypotension Suspected GI blood loss Unexplained weight loss UTI LISBETH Plan: Neuro: Follow neuro status. Neurosurgery consult requested. Received vitamin K and FFP to reverse coagulopathy. Repeat head CT in a.m. Cardiovascular: Receive fluid bolus earlier. On Faisal-Synephrine for pressor support. Transfuse 2 units PRBCs 2 units FFP. Hold antihypertensives at this time. Has permanent pacemaker in place. Pulmonary: Supplemental O2 as needed. Broncho-dilators when necessary. GI/liver: Clear liquids for now. We'll consult GI in view of black tarry stools as patient may need EGD and colonoscopy for further evaluation. CT abdomen pelvis unremarkable except for cholelithiasis. Renal/: Recent urologic procedure per patient. UA appears infected. Received 1 dose of Rocephin earlier. We will initiate IV Zosyn for empiric antibiotic coverage. Follow UA and urine cultures ID: Follow-up urine cultures. Empiric antibiotic coverage with IV Zosyn. Endocrine: Watch for hyperglycemia, SSI for glycemic control if needed Heme: Follow CBC and coags. Received FFP and vitamin K. Repeat coags tonight. Prophylaxis: PPI/SCDs. No heparin or Lovenox in view of concern for bleeding. Discussed with neurosurgery Discussed with ER PA Condition critical. critical care excluding procedures 60 minutes Flako Fried MD Nov 22, 2017 21:22
[2017-11-22] MEDS: SODIUM CHLOR 0.9% 1000 ML INJ 1,000 ML IV SCH (23:00)
--- NOTE | 2017-11-22 23:25 | HHI.NSPN ---
History Chief Complaint: Fall Interval History 78 y/o male who fell striking his head. Unknown LOC Brought to ER due to scalp laceration and bleeding. Takes Coumadin Exam Results Vital Signs Date Time Temp Pulse Resp B/P (MAP) Pulse Ox O2 Delivery O2 Flow Rate FiO2 11/22/17 21:15 11/22/17 21:10 98.2 65 16 11/22/17 20:40 100 Room Air 11/22/17 20:08 2.00 Intake and Output 11/22/17 11/22/17 11/23/17 08:00 16:00 00:00 Intake Total 2008 ml Balance 2008 ml Physical Examination Alert and awake. Oriented x 3. Follws commands well Fluent speech. Normal affect Right handed CN intact Motor 5/5 Difficulty with right shoulder movement due to pain Sensory intact to touch DTRs TR Repaired laceration over right parietal boss Lab, Micro, Other Results CT head- Evidence of punctate hemorrhage in expanded subdural space or hygroma in the right parietal area CT of C spine- deg changes INR 6 Medical Decision Making Impression and Plan Imp: Punctate hemorrhage of subdural space. right Abnormal INR-elevated Rec: Correction of INR with FFP and Vit K Neuro observation Repeat CT in am No intervention necessary Solomon Garnica MD Nov 22, 2017 23:25
[2017-11-23] VITALS (16 sets, daily range): BP systolic 107–131; BP diastolic 52–88; PULSE 64–94; RESP 14–20; TEMP 97.5–99; O2SAT 96–100
[2017-11-23 00:43] LABS: HEMATOCRIT 26.4 % (39.0-51.0); HEMOGLOBIN 9.2 GM/DL (13.0-17.0); MEAN CELL VOLUME 73.5 FL (80.0-100.0); MEAN CORPUSCULAR HEMOGLOBIN 25.5 PG (27.0-34.0); MEAN CORPUSCULAR HGB CONC 34.7 % (32.0-36.0); MEAN PLATELET VOLUME 5.8 FL (7.0-11.0); PLATELET COUNT 132 TH/MM3 (150-450); RED CELL DISTRIBUTION WIDTH 17.6 % (11.6-17.2); WHITE BLOOD COUNT 8.1 TH/MM3 (4.0-11.0)
[2017-11-23] MEDS ORDERED: PIPERACIL-TAZO 2.25 GM PREMIX 50 ML IV SCH (01:00)
[2017-11-23] MEDS: PIPERACIL-TAZO 2.25 GM PREMIX 50 ML IV SCH ×3 (01:32→16:53)
[2017-11-23] MEDS: CHLORHEXIDINE GLUCONATE 2 % 1 PACK (2 CLOTHS) TOP SCH (02:57)
[2017-11-23 04:55] LABS: AUTOMATED NEUTROPHIL # 5.1 TH/MM3 (1.8-7.7); BASOPHIL % 0.6 % (0.0-2.0); EOSINOPHIL % 0.6 % (0.0-4.0); HEMATOCRIT 25.3 % (39.0-51.0); HEMOGLOBIN 8.8 GM/DL (13.0-17.0); LYMPH % 10.8 % (9.0-44.0); LYMPHOCYTE # 0.7 TH/MM3 (1.0-4.8); MEAN CELL VOLUME 73.5 FL (80.0-100.0); MEAN CORPUSCULAR HEMOGLOBIN 25.6 PG (27.0-34.0); MEAN CORPUSCULAR HGB CONC 34.9 % (32.0-36.0); MEAN PLATELET VOLUME 5.8 FL (7.0-11.0); MONO % 11.4 % (0.0-8.0); MONOCYTE # 0.8 TH/MM3 (0-0.9); NEUT % 76.6 % (16.0-70.0); PLATELET COUNT 129 TH/MM3 (150-450); RED BLOOD COUNT 3.44 MIL/MM3 (4.50-5.90); RED CELL DISTRIBUTION WIDTH 17.4 % (11.6-17.2); WHITE BLOOD COUNT 6.7 TH/MM3 (4.0-11.0)
[2017-11-23 05:02] LABS: INTERNATIONAL NORMALIZED RATIO 3.3 RATIO; PROTHROMBIN TIME - PATIENT 33.1 SEC (9.8-11.6)
[2017-11-23 05:23] LABS: ALBUMIN 2.1 GM/DL (3.4-5.0); ALT (GPT) 12 U/L (12-78); AST (GOT) 16 U/L (15-37); BICARBONATE 21.7 MEQ/L (21.0-32.0); BLOOD UREA NITROGEN 66 MG/DL (7-18); CALCIUM 7.7 MG/DL (8.5-10.1); CHLORIDE 108 MEQ/L (98-107); CREATININE 2.43 MG/DL (0.60-1.30); GLOMERULAR FILTRATION RATE 25 ML/MIN (>89); GLUCOSE,RANDOM 88 MG/DL (74-106); MAGNESIUM 2.1 MG/DL (1.5-2.5); SODIUM (NA) 138 MEQ/L (136-145)
[2017-11-23 05:25] LABS: ALKALINE PHOSPHATASE 64 U/L (45-117); TOTAL BILIRUBIN ADULT 0.8 MG/DL (0.2-1.0); TOTAL PROTEIN 6.5 GM/DL (6.4-8.2)
--- NOTE | 2017-11-23 06:16 | MB ---
cc: SOLOMON GARNICA MD DATE OF CONSULTATION 11/22/2017 CHIEF COMPLAINT Fall. HISTORY This is an 87-year-old male patient with history of Coumadin use who presents to the ER apparently after falling. The patient reports that he was trying to go to the bathroom when he lost control and fell striking the back of his head. He had possible loss of consciousness of unknown duration. He was brought to the emergency room because of bleeding of the scalp and a laceration and underwent evaluation. He also complains of left shoulder pain. He takes Coumadin for atrial fibrillation. Denies any other types or problems at the present time except for weight loss since August of last year for which he has undergone evaluation. PAST MEDICAL HISTORY 1. Remarkable for use of Coumadin. Has history of atrial fibrillation. 2. High cholesterol. 3. Congestive heart failure. 4. Genitourinary problems. 5. Hypertension. PAST SURGICAL HISTORY 1. Remarkable for placement of a pacemaker. 2. Bilateral knee replacements. 3. Urological procedure for bladder control. SOCIAL HISTORY Unremarkable. ALLERGIES Not well reported. MEDICATIONS 1. Flomax. 2. Linzess. 3. Ferrous sulfate. 4. Nitrofurantoin. 5. Warfarin. 6. Metoprolol. 7. Lisinopril. 8. Simvastatin. 9. Furosemide. 10. Vitamin D3. REVIEW OF SYSTEMS Unremarkable except for the above-mentioned items. PHYSICAL EXAMINATION VITAL SIGNS: Blood pressure initially of 85/50, pulse is 63, respirations of 17. Temperature 98.9. HEENT: Remarkable for evidence of a laceration which has been repaired in the right posterior parietal area. NECK: Supple with good carotid pulses. CHEST: Symmetrical. LUNGS: Clear. HEART: Regular rhythm with normal heart sounds. ABDOMEN: Soft and nontender. EXTREMITIES: Bruising in various areas of the arms and legs and there is small active bleeding in the left knee. NEUROLOGIC: The patient is alert and awake. He follows commands well. Speech is fluent. He is oriented x 3. His affect is normal. Cranial nerves II-XII are intact. Motor exam is 5+/5. He has difficulty moving the shoulders, especially the left one secondary to pain. Sensory exam is intact to touch. Deep tendon reflexes are trace at all sites. LABORATORY DATA INR was 6.5. IMAGING STUDIES CT scan of the brain showed evidence of increased density in the subdural space in the posterior right parietal area representing a questionable hemorrhage. CT of the cervical spine shows no acute fracture but significant degenerative changes. IMPRESSION Overall impression is that of possible punctate hemorrhage in the subdural/ expanded subarachnoid space right parietal. PLAN 1. Admit the patient for observation, 2. Correct his INR. 3. Place him on neurological observation. 4. No neurosurgical intervention needed at the present time. Solomon Garnica MD JLДмитрий/AZAM /8:01 PM /6:01 AM MTDCharlene
[2017-11-23] MEDS ORDERED: SODIUM CHLOR 0.9% 250 ML INJ 250 ML IV ONE (06:30)
[2017-11-23] MEDS: SODIUM CHLORIDE 0.9% FLUSH 10 ML FLUSH IV FLUSH SCH ×2 (09:20→20:12)
--- NOTE | 2017-11-23 09:25 | HHI.CCPN ---
Subjective Remarks/Hospital Course 11/22: 87 yo male here for mechanical fall and possible LOC. Patient was brought here via Ambulance. Per report and patient he lost his footing and hit the back of his head. Family did not witness it and has a head laceration. Possible LOC but not sure how long. Pain mainly to left shoulder and head. Takes coumadin. Per family patient is getting worked up for loss of 20 pounds recently and concerned for cancer. Takes coumadin for atrial fibrillation. No hip or back pain. No chest pain. No SOB. Unclear lass tetanus. No urinary or BM issues. History of MRSA. No blurry vision. Pain per patient is 4/10. Has abrasions to left lower leg. She reportedly had a urologic procedure a week back for a urethral stricture. He has noticed black tarry stools for the last week or so and has been progressively getting weaker. Patient had significant bleeding from his scalp laceration which was sutured in the ER. He was noted to be coagulopathic with an INR of 6.5 and received 2 units of FFP and vitamin K 10 mg IV in the ER. He had a subclavian central line placed by ER physician. Patient was given 1.5 L fluid bolus and started on Faisal-Synephrine for pressor support. 2 units FFP, PRBCs 2 units were ordered to be transfused as his hemoglobin dropped to 6.9 following fluid bolus. Patient was accepted for admission by critical care medicine service. When I evaluated the patient in the ER he was resting in the ER stretcher appeared comfortable and not in any acute distress. Head CT done earlier revealed a subdural hematoma from neurosurgery was consulted and did not plan any active intervention. When I evaluated the patient he was on Faisal-Synephrine about 20 mics per minute with a systolic blood pressure in the 140s having just finished his second unit of PRBCs. 11/23: No events over the night. Patient is doing well. Denies CP, dyspnea, palpitations, abdominal pain, N/V, melena since admission. No CHAMPAGNE. C/o right shoulder pain. Tmax 100.1, positive 2.4 liters since admission. Objective Vital Signs Date Time Temp Pulse Resp B/P (MAP) Pulse Ox O2 Delivery O2 Flow Rate FiO2 11/23/17 09:13 97.5 69 18 112/61 100 11/22/17 20:40 Room Air 11/22/17 20:08 2.00 Intake and Output 11/23/17 11/23/17 11/24/17 08:00 16:00 00:00 Intake Total 1004 ml 335 ml Output Total 1000 ml Balance 4 ml 335 ml Result Diagram: 11/23/17 0436 11/23/17 0436 Imaging Last Impressions Head CT 11/22/17 1418 Signed Impressions: Service Date/Time: Wednesday, November 22, 2017 14:39 - CONCLUSION: Diffuse atrophy. 2 mm linear area of dense material in the extra-axial subdural space unlikely to represent hemorrhage. Soft tissue swelling in the high right parietal region Dagoberto Das MD Chest X-Ray 11/22/17 1418 Signed Impressions: Service Date/Time: Wednesday, November 22, 2017 14:37 - CONCLUSION: Mild pulmonary vascular congestion with a left subclavian pacer. Dagoberto Das MD Cervical Spine CT 11/22/171417 Signed Impressions: Service Date/Time: Wednesday, November 22, 2017 14:39 - CONCLUSION: Large anterior osteophytes at multiple levels. Scattered areas of bilateral neuroforaminal narrowing due to osteophyte. No evidence of acute fracture or significant subluxation. Dagoberto Das MD Shoulder X-Ray 11/22/17 0000 Signed Impressions: Service Date/Time: Wednesday, November 22, 2017 16:27 - CONCLUSION: Unremarkable examination of the left shoulder status post left bipolar pacermaker. Marked impingement change with acromial spurring and erosions across the greater tuberosity Dagoberto Das MD Pelvis X-Ray 11/22/17 0000 Signed Impressions: Service Date/Time: Wednesday, November 22, 2017 14:36 - CONCLUSION: Unremarkable examination of the pelvis. Dagoberto Das MD Chest CT 11/22/17 0000 Signed Impressions: Service Date/Time: Wednesday, November 22, 2017 16:02 - CONCLUSION: 1. No acute finding is identified on this noncontrast examination of the chest. 2. There is stable left pleural thickening, trace left pleural fluid, and volume loss in the left lower lobe. 3. Coronary artery calcification and severe atherosclerotic disease of aorta. Jalil Cedillo MD Abdomen/Pelvis CT 11/22/17 0000 Signed Impressions: Service Date/Time: Wednesday, November 22, 2017 16:02 - CONCLUSION: 1. No acute finding is identified on this mildly motion degraded noncontrast CT of the abdomen and pelvis. 2. Stable nonacute findings include cholelithiasis, severe atherosclerotic disease, and sigmoid diverticulosis. Jalil Cedillo MD Objective Remarks General - elderly gentleman, awake, in no distress HEENT - small scalp laceration with dressing, pupils equal, reactive, sclerae anicteric, neck supple, no nuchal rigidity, neck veins not distended, no carotid bruit, dry MM, no thrush CV - regular S1, S2, systolic murmur at apex Chest - clear b/l, good air entry, no wheezes Abdomen - soft, non-tender, non-distended, BS present, no hepatomegaly, no splenomegaly Skin - no rashes, no cyanosis Extremities - warm and well perfused, no edema, + peripheral pulses, no clubbing Neuro - awake, alert and oriented X 3, motor 5/5 over all extremities, + right shoulder pain with motion, sensation intact, EOMI, smile symmetric, tongue midline, shrugs shoulders A/P Assessment and Plan 1. Small SDH post fall 2. Scalp laceration 3. Coagulopathy secondary to warfarin - improved 4. Acute blood loss anemia likely secondary to GIB 5. Hypotension - resolved 6. UTI 7. LISBETH 8. Unexplained weight loss Plan: 1. Continue neurochecks. CT head stat with any change in mental status 2. NS f/u 3. Transfuse an additional 3 units FFP and vit K at 7 pm 4. Repeat INR and CBC at 3 PM 5. GI consult 6. PPI BID 7. Pip/tazo till urine cx is available 8. Mechanical DVT prophylaxis with SCD's 9. Check ionized calcium Luis Manuel Bañuelos MD Nov 23, 2017 09:25
--- NOTE | 2017-11-23 10:00 | PD.CONS ---
HPI History of Present Illness This is a 87 year old male with AF on coumadin who presented after a fall and was found to have a small SDH. GI has been consulted for anemia and black tarry stool and weight loss. Pt was found to have supratherapeutic INR. He is being monitored for now by neurosurgery. He admits black tarry stools for the last 3 days. He has lost 45 lbs since August. He had a cystoscopy done at that time and what sounds like a procedure to alleviate BPH. He said since then he has felt fatigued, had decreased appetite. he denies any prior hx of GIB. Denies n/v, abd pain, sherrie bleeding, frequent use NSAIDs. [facility] 1 [facility] and was "ok." he has never had an EGD. 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 Family History cancer of "female organs" Social History rare etoh former smoker quit 1 y ago no illicit drug use (Klaudia Nina) Review of Systems Constitutional: COMPLAINS OF: Fatigue, Weight loss, DENIES: Fever Endocrine: DENIES: Polydipsia Eyes: DENIES: Blurred vision Ears, nose, mouth, throat: DENIES: Hearing loss Respiratory: DENIES: Cough Cardiovascular: DENIES: Chest pain Gastrointestinal: COMPLAINS OF: Black stools, DENIES: Abdominal pain, Bloody stools, Diarrhea, Nausea, Vomiting, Hematemesis Genitourinary: DENIES: Hematuria Musculoskeletal: DENIES: Joint Swelling Integumentary: DENIES: Rash Immunologic/allergic: DENIES: Eczema Neurologic: DENIES: Abnormal gait Psychiatric: DENIES: Confusion (Klaudia Nina) GI Exam Vitals I&O Vital Signs Date Time Temp Pulse Resp B/P (MAP) Pulse Ox O2 Delivery O2 Flow Rate FiO2 11/23/17 09:42 97.5 70 16 112/61 100 11/23/17 09:13 97.5 69 18 112/61 100 11/23/17 09:00 97.5 79 16 119/58 96 11/23/17 08:43 97.5 69 16 108/52 100 18 06:00 68 18 04:00 98.5 64 18 107/54 (71) 100 18 04:00 66 18 00:00 68 18 22:00 97.9 62 20 131/61 (84) 100 18 21:15 11/22/17 21:10 98.2 65 16 132/61 11/22/17 20:40 63 18 122/60 (80) 100 Room Air 11/22/17 20:08 67 18 137/78 (97) 98 Nasal Cannula 2.00 11/22/17 19:10 65 18 126/57 (80) 99 Nasal Cannula 2.00 11/22/17 18:49 97.6 63 15 117/56 99 18 18:39 97.5 60 22 109/54 (72) 98 Nasal Cannula 2.00 11/22/17 18:35 97.5 66 20 109/54 98 18 18:23 71 22 72/43 (53) 100 Nasal Cannula 2.00 18 18:09 65 20 65/39 (48) 100 Nasal Cannula 2.00 18 17:52 63 15 94/51 (65) 99 Nasal Cannula 2.00 18 17:51 60 85/51 18 17:37 63 17 85/50 (62) 99 Nasal Cannula 2.00 18 17:29 74 16 86/49 97 18 16:59 98.9 68 20 92/51 98 18 16:55 98.9 65 20 76/42 (53) 99 Nasal Cannula 2.00 18 16:44 98.9 76 20 88/52 95 18 16:17 64 16 124/78 (93) 95 Room Air 11/22/17 14:20 100.1 98 22 145/69 (94) 95 I/O 11/22/17 218/18 218/18 2/18 218 11/23/17 07:00 15:00 23:00 07:00 15:00 23:00 Intake Total 2009 ml 1404 ml 569 ml Output Total 1000 ml Balance 2009 ml 404 ml 569 ml Intake IV Total 600 ml 504 ml Packed Cells 400 ml 650 ml FFP 549 ml 250 ml 529 ml Blood Product IV Normal Saline Flush 460 ml 40 ml Output Urine Total 1000 ml Imaging Last Impressions Head CT 11/22/17 1418 Signed Impressions: Service Date/Time: Wednesday, November 22, 2017 14:39 - CONCLUSION: Diffuse atrophy. 2 mm linear area of dense material in the extra-axial subdural space unlikely to represent hemorrhage. Soft tissue swelling in the high right parietal region Dagoberto Das MD Chest X-Ray 11/22/178 Signed Impressions: Service Date/Time: Wednesday, November 22, 2017 14:37 - CONCLUSION: Mild pulmonary vascular congestion with a left subclavian pacer. Dagoberto Das MD Cervical Spine CT 11/22/171417 Signed Impressions: Service Date/Time: Wednesday, November 22, 2017 14:39 - CONCLUSION: Large anterior osteophytes at multiple levels. Scattered areas of bilateral neuroforaminal narrowing due to osteophyte. No evidence of acute fracture or significant subluxation. Dagoberto Das MD Shoulder X-Ray 11/22/17 0000 Signed Impressions: Service Date/Time: Wednesday, November 22, 2017 16:27 - CONCLUSION: Unremarkable examination of the left shoulder status post left bipolar pacermaker. Marked impingement change with acromial spurring and erosions across the greater tuberosity Dagoberto Das MD Pelvis X-Ray 11/22/17 0000 Signed Impressions: Service Date/Time: Wednesday, November 22, 2017 14:36 - CONCLUSION: Unremarkable examination of the pelvis. Dagoberto Das MD Chest CT 11/22/17 0000 Signed Impressions: Service Date/Time: Wednesday, November 22, 2017 16:02 - CONCLUSION: 1. No acute finding is identified on this noncontrast examination of the chest. 2. There is stable left pleural thickening, trace left pleural fluid, and volume loss in the left lower lobe. 3. Coronary artery calcification and severe atherosclerotic disease of aorta. Jalil Cedillo MD Abdomen/Pelvis CT 11/22/17 0000 Signed Impressions: Service Date/Time: Wednesday, November 22, 2017 16:02 - CONCLUSION: 1. No acute finding is identified on this mildly motion degraded noncontrast CT of the abdomen and pelvis. 2. Stable nonacute findings include cholelithiasis, severe atherosclerotic disease, and sigmoid diverticulosis. Jalil Cedillo MD Laboratory Test 11/22/17 14:20 11/22/17 16:00 11/22/17 17:00 11/22/17 18:15 White Blood Count 8.8 TH/MM3 7.3 TH/MM3 Red Blood Count 4.00 MIL/MM3 2.90 MIL/MM3 Hemoglobin 9.8 GM/DL 7.3 GM/DL Hematocrit 29.2 % 21.1 % Mean Corpuscular Volume 73.0 FL 72.8 FL Mean Corpuscular Hemoglobin 24.6 PG 25.1 PG Mean Corpuscular Hemoglobin Concent 33.7 % 34.4 % Red Cell Distribution Width 16.3 % 16.0 % Platelet Count 193 TH/MM3 152 TH/MM3 Mean Platelet Volume 6.0 FL 6.0 FL Neutrophils (%) (Auto) 80.7 % 82.1 % Lymphocytes (%) (Auto) 6.2 % 6.0 % Monocytes (%) (Auto) 11.7 % 11.4 % Eosinophils (%) (Auto) 0.7 % 0.1 % Basophils (%) (Auto) 0.7 % 0.4 % Neutrophils # (Auto) 7.1 TH/MM3 6.0 TH/MM3 Lymphocytes # (Auto) 0.5 TH/MM3 0.4 TH/MM3 Monocytes # (Auto) 1.0 TH/MM3 0.8 TH/MM3 Eosinophils # (Auto) 0.1 TH/MM3 0.0 TH/MM3 Basophils # (Auto) 0.1 TH/MM3 0.0 TH/MM3 CBC Comment DIFF FINAL DIFF FINAL Differential Comment Prothrombin Time 65.0 SEC Prothromb Time International Ratio 6.5 RATIO Activated Partial Thromboplast Time 74.9 SEC Blood Urea Nitrogen 73 MG/DL 73 MG/DL Creatinine 2.56 MG/DL 2.75 MG/DL Random Glucose 88 MG/DL 113 MG/DL Total Protein 7.7 GM/DL Albumin 2.3 GM/DL Calcium Level 8.1 MG/DL 7.8 MG/DL Magnesium Level 2.0 MG/DL Alkaline Phosphatase 83 U/L Aspartate Amino Transf (AST/SGOT) 16 U/L Alanine Aminotransferase (ALT/SGPT) 13 U/L Total Bilirubin 0.4 MG/DL Sodium Level 135 MEQ/L 136 MEQ/L Potassium Level 5.5 MEQ/L 5.4 MEQ/L Chloride Level 105 MEQ/L 106 MEQ/L Carbon Dioxide Level 18.7 MEQ/L 21.5 MEQ/L Anion Gap 11 MEQ/L 9 MEQ/L Estimat Glomerular Filtration Rate 24 ML/MIN 22 ML/MIN Troponin I 0.02 NG/ML Urine Color LIGHT-YELLOW Urine Turbidity HAZY Urine pH 5.0 Urine Specific [place] 1.008 Urine Protein NEG mg/dL Urine Glucose (UA) NEG mg/dL Urine Ketones NEG mg/dL Urine Occult Blood MOD Urine Nitrite NEG Urine Bilirubin NEG Urine Urobilinogen LESS THAN 2.0 MG/DL Urine Leukocyte Esterase LARGE Urine RBC 48 /hpf Urine WBC 93 /hpf Urine WBC Clumps RARE Urine Bacteria FEW /hpf Urine Mucus FEW /lpf Microscopic Urinalysis Comment CULTURE INDICATED Lactic Acid Level 2.5 mmol/L Test 11/22/17 20:20 11/22/17 22:30 11/23/17 00:30 11/23/17 04:36 Prothrombin Time 33.1 SEC 33.1 SEC Prothromb Time International Ratio 3.3 RATIO 3.3 RATIO Activated Partial Thromboplast Time 60.5 SEC 61.5 SEC Lactic Acid Level 1.6 mmol/L 0.8 mmol/L Nasal Screen MRSA (PCR) MRSA DETECTED White Blood Count 8.1 TH/MM3 6.7 TH/MM3 Red Blood Count 3.60 MIL/MM3 3.44 MIL/MM3 Hemoglobin 9.2 GM/DL 8.8 GM/DL Hematocrit 26.4 % 25.3 % Mean Corpuscular Volume 73.5 FL 73.5 FL Mean Corpuscular Hemoglobin 25.5 PG 25.6 PG Mean Corpuscular Hemoglobin Concent 34.7 % 34.9 % Red Cell Distribution Width 17.6 % 17.4 % Platelet Count 132 TH/MM3 129 TH/MM3 Mean Platelet Volume 5.8 FL 5.8 FL Neutrophils (%) (Auto) 76.6 % Lymphocytes (%) (Auto) 10.8 % Monocytes (%) (Auto) 11.4 % Eosinophils (%) (Auto) 0.6 % Basophils (%) (Auto) 0.6 % Neutrophils # (Auto) 5.1 TH/MM3 Lymphocytes # (Auto) 0.7 TH/MM3 Monocytes # (Auto) 0.8 TH/MM3 Eosinophils # (Auto) 0.0 TH/MM3 Basophils # (Auto) 0.0 TH/MM3 CBC Comment DIFF FINAL Differential Comment Blood Urea Nitrogen 66 MG/DL Creatinine 2.43 MG/DL Random Glucose 88 MG/DL Total Protein 6.5 GM/DL Albumin 2.1 GM/DL Calcium Level 7.7 MG/DL Phosphorus Level 4.0 MG/DL Magnesium Level 2.1 MG/DL Alkaline Phosphatase 64 U/L Aspartate Amino Transf (AST/SGOT) 16 U/L Alanine Aminotransferase (ALT/SGPT) 12 U/L Total Bilirubin 0.8 MG/DL Sodium Level 138 MEQ/L Potassium Level 5.0 MEQ/L Chloride Level 108 MEQ/L Carbon Dioxide Level 21.7 MEQ/L Anion Gap 8 MEQ/L Estimat Glomerular Filtration Rate 25 ML/MIN Date/Time Source Procedure Growth Status 11/22/17 15:15 Blood Peripheral Aerobic Blood Culture Pending Received 11/22/17 15:15 Blood Peripheral Anaerobic Blood Culture Pending Received 11/22/17 16:00 Urine Random Urine Urine Culture Pending Received Physical Examination HEENT: PERRL; normocephalic; no jaundice. bandage right cranium CHEST: diminished CARDIAC: irr HR ABDOMEN: Soft, nondistended, nontender; no hepatosplenomegaly; bowel sounds are present in all four quadrants. EXTREMITIES: No clubbing, cyanosis, or edema. SKIN: Normal; no rash; no jaundice. INSTRUMENT SETTER: No focal deficits; alert and oriented times three. (Klaudia Nina [facility]) Assessment and Plan Plan ASSESSMENT - black tarry stool, anemia - poss UGIB, on coumadin had supratherapeutic INR. anemia is microcytic. receiving FFP. - weight loss, decreased appetite - 45 lbs since september. last colonoscopy 1 y ago and "ok." never had EGD neurosurgery will clear for endoscopy if head CT in am stable, so will plan for just EGD for now - SDH, neurosurgery following, being monitored - LISBETH per [facility] PLAN - EGD Thursday if head CT stable, per neurosurgery - soft diet today - NPO after MN - obtain consent - monitor HH and coags - transfuse as needed -further recs to follow pt seen by myself and Dr Kenny and this note is written on his behalf (Klaudia Nina) Physician Comments Seen and examined with [facility], egd tomorrow if stable from neurosurgery standpoint. CT head ordered for tomorrow. Colonoscopy planned at a later date. Thank you (Delmer Kenny MD) Klaudia Nina Nov 23, 2017 10:00 Delmer Kenny MD Nov 23, 2017 16:13
[2017-11-23] MEDS: SODIUM CHLOR 0.9% 1000 ML INJ 1,000 ML IV SCH ×2 (10:08→16:53)
[2017-11-23] MEDS: DOCUSATE SODIUM 50 MG/SENNA 8.6 MG TAB PO SCH ×2 (10:08→20:19)
[2017-11-23] MEDS: PANTOPRAZOLE SODIUM 40 MG VIAL IV PUSH SCH ×2 (10:08→20:20)
--- NOTE | 2017-11-23 13:03 | HHI.NSPN ---
(Cory Mcconnell) History Chief Complaint: Fall (Cory Mcconnell) Interval History This is an 87-year-old male patient with history of Coumadin use who presents to the ER apparently after falling. The patient reports that he was trying to go to the bathroom when he lost control and fell striking the back of his head. He had possible loss of consciousness of unknown duration. He was brought to the emergency room because of bleeding of the scalp and a laceration and underwent evaluation. He also complains of left shoulder pain. He takes Coumadin for atrial fibrillation. Denies any other types or problems at the present time except for weight loss since August of last year for which he has undergone evaluation. 11/23/17: Pt awake and alert. Denies headache. No n/v. Pt states he has felt weak and tired over last 3 days at least and feels this is why his legs gave out from him and he fell. He also reports to me he has had dark stools during this time. (Cory Mcconnell) Review of Systems General: Negative for: fever, chills, insomnia Respiratory: Negative for: shortness of breath, cough, sputum Cardiovascular: Negative for: chest pain Gastrointestinal: Negative for: nausea, vomitting, diarrhea, constipation ( Cory Mcconnell) Exam Results Vital Signs Date Time Temp Pulse Resp B/P (MAP) Pulse Ox O2 Delivery O2 Flow Rate FiO2 11/23/17 10:00 80 11/23/17 09:42 97.5 16 112/61 100 11/23/17 07:00 Nasal Cannula 2.00 Intake and Output 11/23/17 11/23/17 11/24/17 08:00 16:00 00:00 Intake Total 1004 ml 924 ml Output Total 1000 ml Balance 4 ml 924 ml (Cory Mcconnell) Physical Examination General: Pt awake and alert. Joking with staff in no acute distress and stable vitals. Eyes: Pupils equal sclera anicteric. Resp: CTA bilaterally. Heart: NSR no murmurs Abd: Soft positive bs Skin: No cyanosis or erythema. Muscle: Moves all 4 extremities symmetrically with good strength. Neuro: Pt awake and alert. Pupils equal. Follows commands well. Speech clear and appropriate. (Cory Mcconnell) Lab, Micro, Other Results Last Impressions Head CT 11/22/171417 Signed Impressions: Service Date/Time: Wednesday, November 22, 2017 14:39 - CONCLUSION: Diffuse atrophy. 2 mm linear area of dense material in the extra-axial subdural space unlikely to represent hemorrhage. Soft tissue swelling in the high right parietal region Dagoberto Das MD Chest X-Ray 11/22/171417 Signed Impressions: Service Date/Time: Wednesday, November 22, 2017 14:37 - CONCLUSION: Mild pulmonary vascular congestion with a left subclavian pacer. Dagoberto Das MD Cervical Spine CT 11/22/171417 Signed Impressions: Service Date/Time: Wednesday, November 22, 2017 14:39 - CONCLUSION: Large anterior osteophytes at multiple levels. Scattered areas of bilateral neuroforaminal narrowing due to osteophyte. No evidence of acute fracture or significant subluxation. Dagoberto Das MD Shoulder X-Ray 11/22/17 0000 Signed Impressions: Service Date/Time: Wednesday, November 22, 2017 16:27 - CONCLUSION: Unremarkable examination of the left shoulder status post left bipolar pacermaker. Marked impingement change with acromial spurring and erosions across the greater tuberosity Dagoberto Das MD Pelvis X-Ray 11/22/17 0000 Signed Impressions: Service Date/Time: Wednesday, November 22, 2017 14:36 - CONCLUSION: Unremarkable examination of the pelvis. Dagoberto Das MD Chest CT 11/22/17 0000 Signed Impressions: Service Date/Time: Wednesday, November 22, 2017 16:02 - CONCLUSION: 1. No acute finding is identified on this noncontrast examination of the chest. 2. There is stable left pleural thickening, trace left pleural fluid, and volume loss in the left lower lobe. 3. Coronary artery calcification and severe atherosclerotic disease of aorta. Jalil Cedillo MD Abdomen/Pelvis CT 11/22/17 0000 Signed Impressions: Service Date/Time: Wednesday, November 22, 2017 16:02 - CONCLUSION: 1. No acute finding is identified on this mildly motion degraded noncontrast CT of the abdomen and pelvis. 2. Stable nonacute findings include cholelithiasis, severe atherosclerotic disease, and sigmoid diverticulosis. Jalil Cedillo MD Laboratory Tests Test 11/22/17 14:20 11/22/17 16:00 11/22/17 17:00 11/22/17 18:15 White Blood Count 8.8 TH/MM3 7.3 TH/MM3 Red Blood Count 4.00 MIL/MM3 2.90 MIL/MM3 Hemoglobin 9.8 GM/DL 7.3 GM/DL Hematocrit 29.2 % 21.1 % Mean Corpuscular Volume 73.0 FL 72.8 FL Mean Corpuscular Hemoglobin 24.6 PG 25.1 PG Mean Corpuscular Hemoglobin Concent 33.7 % 34.4 % Red Cell Distribution Width 16.3 % 16.0 % Platelet Count 193 TH/MM3 152 TH/MM3 Mean Platelet Volume 6.0 FL 6.0 FL Neutrophils (%) (Auto) 80.7 % 82.1 % Lymphocytes (%) (Auto) 6.2 % 6.0 % Monocytes (%) (Auto) 11.7 % 11.4 % Eosinophils (%) (Auto) 0.7 % 0.1 % Basophils (%) (Auto) 0.7 % 0.4 % Neutrophils # (Auto) 7.1 TH/MM3 6.0 TH/MM3 Lymphocytes # (Auto) 0.5 TH/MM3 0.4 TH/MM3 Monocytes # (Auto) 1.0 TH/MM3 0.8 TH/MM3 Eosinophils # (Auto) 0.1 TH/MM3 0.0 TH/MM3 Basophils # (Auto) 0.1 TH/MM3 0.0 TH/MM3 CBC Comment DIFF FINAL DIFF FINAL Differential Comment Prothrombin Time 65.0 SEC Prothromb Time International Ratio 6.5 RATIO Activated Partial Thromboplast Time 74.9 SEC Blood Urea Nitrogen 73 MG/DL 73 MG/DL Creatinine 2.56 MG/DL 2.75 MG/DL Random Glucose 88 MG/DL 113 MG/DL Total Protein 7.7 GM/DL Albumin 2.3 GM/DL Calcium Level 8.1 MG/DL 7.8 MG/DL Magnesium Level 2.0 MG/DL Alkaline Phosphatase 83 U/L Aspartate Amino Transf (AST/SGOT) 16 U/L Alanine Aminotransferase (ALT/SGPT) 13 U/L Total Bilirubin 0.4 MG/DL Sodium Level 135 MEQ/L 136 MEQ/L Potassium Level 5.5 MEQ/L 5.4 MEQ/L Chloride Level 105 MEQ/L 106 MEQ/L Carbon Dioxide Level 18.7 MEQ/L 21.5 MEQ/L Anion Gap 11 MEQ/L 9 MEQ/L Estimat Glomerular Filtration Rate 24 ML/MIN 22 ML/MIN Troponin I 0.02 NG/ML Urine Color LIGHT-YELLOW Urine Turbidity HAZY Urine pH 5.0 Urine Specific [place] 1.008 Urine Protein NEG mg/dL Urine Glucose (UA) NEG mg/dL Urine Ketones NEG mg/dL Urine Occult Blood MOD Urine Nitrite NEG Urine Bilirubin NEG Urine Urobilinogen LESS THAN 2.0 MG/DL Urine Leukocyte Esterase LARGE Urine RBC 48 /hpf Urine WBC 93 /hpf Urine WBC Clumps RARE Urine Bacteria FEW /hpf Urine Mucus FEW /lpf Microscopic Urinalysis Comment CULTURE INDICATED Lactic Acid Level 2.5 mmol/L Test 11/22/17 20:20 11/22/17 22:30 11/23/17 00:30 11/23/17 04:36 Prothrombin Time 33.1 SEC 33.1 SEC Prothromb Time International Ratio 3.3 RATIO 3.3 RATIO Activated Partial Thromboplast Time 60.5 SEC 61.5 SEC Lactic Acid Level 1.6 mmol/L 0.8 mmol/L Nasal Screen MRSA (PCR) MRSA DETECTED White Blood Count 8.1 TH/MM3 6.7 TH/MM3 Red Blood Count 3.60 MIL/MM3 3.44 MIL/MM3 Hemoglobin 9.2 GM/DL 8.8 GM/DL Hematocrit 26.4 % 25.3 % Mean Corpuscular Volume 73.5 FL 73.5 FL Mean Corpuscular Hemoglobin 25.5 PG 25.6 PG Mean Corpuscular Hemoglobin Concent 34.7 % 34.9 % Red Cell Distribution Width 17.6 % 17.4 % Platelet Count 132 TH/MM3 129 TH/MM3 Mean Platelet Volume 5.8 FL 5.8 FL Neutrophils (%) (Auto) 76.6 % Lymphocytes (%) (Auto) 10.8 % Monocytes (%) (Auto) 11.4 % Eosinophils (%) (Auto) 0.6 % Basophils (%) (Auto) 0.6 % Neutrophils # (Auto) 5.1 TH/MM3 Lymphocytes # (Auto) 0.7 TH/MM3 Monocytes # (Auto) 0.8 TH/MM3 Eosinophils # (Auto) 0.0 TH/MM3 Basophils # (Auto) 0.0 TH/MM3 CBC Comment DIFF FINAL Differential Comment Blood Urea Nitrogen 66 MG/DL Creatinine 2.43 MG/DL Random Glucose 88 MG/DL Total Protein 6.5 GM/DL Albumin 2.1 GM/DL Calcium Level 7.7 MG/DL Phosphorus Level 4.0 MG/DL Magnesium Level 2.1 MG/DL Alkaline Phosphatase 64 U/L Aspartate Amino Transf (AST/SGOT) 16 U/L Alanine Aminotransferase (ALT/SGPT) 12 U/L Total Bilirubin 0.8 MG/DL Sodium Level 138 MEQ/L Potassium Level 5.0 MEQ/L Chloride Level 108 MEQ/L Carbon Dioxide Level 21.7 MEQ/L Anion Gap 8 MEQ/L Estimat Glomerular Filtration Rate 25 ML/MIN 11/23/17 11/23/17 11/24/17 15:00 23:00 07:00 Intake Total 924 ml Balance 924 ml FFP 874 ml Blood Product IV Normal Saline Flush 50 ml (Cory Mcconnell) Medical Decision Making Impression and Plan A: 87 y/o M with elevated PT/INR s/p fall with possibly a very small amount of hemorrhage in the right subdural space. Anemia with pt reporting history of dark stool. P: Correcting his coags getting FFP. Continue with neuro checks. Continue with current care. Reportedly going to have colonoscopy and endoscopy tomorrow morning. (Cory Mcconnell) Attending Statement The exam, history, and the medical decision-making described in the above note were completed with the assistance of the mid-level provider. I reviewed and agree with the findings presented. I attest that I had a [id number] encounter with the patient on the same day, and personally performed and documented my assessment and findings in the medical record. Stable neurologic examination. Received further FFP transfusions for elevated INR. We'll obtain follow-up CT scan of the head tomorrow morning and that this is stable then he can proceed with endoscopy. Discussed with patient and nursing staff. (Carter Santacruz MD) Cory Mcconnell Nov 23, 2017 13:03 Carter Santacruz MD Nov 23, 2017 13:55
[2017-11-23] MEDS ORDERED: PEG (High)/E-LYTE SOLN 4000 ML BTL PO ONE (16:00)
[2017-11-23] MEDS ORDERED: Vancomycin Consult Pharmacy 1 EA OTHER SCH (16:30)
[2017-11-23 17:45] LABS: HEMATOCRIT 21.7 % (39.0-51.0); HEMOGLOBIN 7.6 GM/DL (13.0-17.0); MEAN CELL VOLUME 73.5 FL (80.0-100.0); MEAN CORPUSCULAR HEMOGLOBIN 25.7 PG (27.0-34.0); MEAN CORPUSCULAR HGB CONC 34.9 % (32.0-36.0); MEAN PLATELET VOLUME 5.9 FL (7.0-11.0); PLATELET COUNT 108 TH/MM3 (150-450); RED BLOOD COUNT 2.95 MIL/MM3 (4.50-5.90); RED CELL DISTRIBUTION WIDTH 17.7 % (11.6-17.2); WHITE BLOOD COUNT 5.7 TH/MM3 (4.0-11.0)
[2017-11-23] MEDS ORDERED: VANCOMYCIN 1 GM/200 ML PREMIX IV ONE (18:00)
[2017-11-23 18:05] LABS: INTERNATIONAL NORMALIZED RATIO 2.1 RATIO
[2017-11-23] MEDS ORDERED: PHYTONADIONE 10 MG/ML VIAL SQ ONE (19:00)
[2017-11-23 21:05] LABS: AUTOMATED NEUTROPHIL # 4.8 TH/MM3 (1.8-7.7); BASOPHIL % 0.8 % (0.0-2.0); EOSINOPHIL # 0.1 TH/MM3 (0-0.4); EOSINOPHIL % 2.5 % (0.0-4.0); HEMATOCRIT 22.4 % (39.0-51.0); HEMOGLOBIN 7.6 GM/DL (13.0-17.0); LYMPH % 7.2 % (9.0-44.0); LYMPHOCYTE # 0.4 TH/MM3 (1.0-4.8); MEAN CELL VOLUME 73.4 FL (80.0-100.0); MEAN PLATELET VOLUME 5.8 FL (7.0-11.0); MONO % 8.5 % (0.0-8.0); MONOCYTE # 0.5 TH/MM3 (0-0.9); PLATELET COUNT 117 TH/MM3 (150-450); RED BLOOD COUNT 3.05 MIL/MM3 (4.50-5.90); RED CELL DISTRIBUTION WIDTH 17.5 % (11.6-17.2); WHITE BLOOD COUNT 5.9 TH/MM3 (4.0-11.0)
[2017-11-23 21:28] LABS: BICARBONATE 20.5 MEQ/L (21.0-32.0); CALCIUM 7.5 MG/DL (8.5-10.1); CREATININE 2.38 MG/DL (0.60-1.30); MAGNESIUM 1.9 MG/DL (1.5-2.5); PHOSPHORUS 3.1 MG/DL (2.5-4.9)
--- NOTE | 2017-11-23 23:07 | EKG ---
Date Performed: 11/22/2017 Time Performed: 15:06:10 PTAGE: 87 years EKG: ATRIAL FIBRILLATION MODERATE INTRAVENTRICULAR CONDUCTION DELAY ST DEVIATION AND MODERATE T- WAVE ABNORMALITY, CONSIDER ANTEROLATERAL ISCHEMIA ABNORMAL ECG PREVIOUS TRACING : 08/08/2017 13.21 DOCTOR: Phill Champagne Interpretating Date/Time 11/23/2017 22:58:06
[2017-11-24] VITALS (12 sets, daily range): BP systolic 96–126; BP diastolic 46–61; PULSE 68–102; RESP 14–24; TEMP 97.5–99; O2SAT 99–100
[2017-11-24] MEDS: PIPERACIL-TAZO 2.25 GM PREMIX 50 ML IV SCH ×2 (00:35→08:38)
[2017-11-24] MEDS: CHLORHEXIDINE GLUCONATE 2 % 1 PACK (2 CLOTHS) TOP SCH (04:00)
--- NOTE | 2017-11-24 05:31 | RADRPT ---
EXAM DATE/TIME: 11/24/2017 05:16 [facility] COMPARISON: CT BRAIN W/O CONTRAST, November 22, 2017, 14:39. INDICATIONS : Trauma; fall.. Followup abnormal head CT with small high density structure. RADIATION DOSE: 56.35 CTDIvol (mGy) MEDICAL HISTORY : Hypertension. Cardiovascular disease SURGICAL HISTORY : Pacemaker. ENCOUNTER: Initial ACUITY: 1 day PAIN SCALE: 3/10 LOCATION: cranial TECHNIQUE: Multiple contiguous axial images were obtained of the head. Using automated exposure control and adj ustment of the mA and/or kV according to patient size, radiation dose was kept as low as reasonably a chievable to obtain optimal diagnostic quality images. DICOM format image data is available electro nically for review and comparison. FINDINGS: The previously noted small linear high density structure along the right parietal lobe has incre ased in size and now measures 6 mm in greatest diameter compared to 2 mm. There are 2 additional slig htly smaller areas of high density hemorrhage now noted one along the right parietal lobe and one in one of the parietal fissures. Bilateral low density subdural hygromas are again noted without change. There is no mass effect or midline shift. The ventricular system remains within normal limits. Diffu se atrophy is present. The posterior fossa and brainstem remain unremarkable. Soft tissue swelling is again noted along the right outer parietal bone with no evidence of fracture. CONCLUSION: 1. Mild increase in the size of the high density hemorrhage along the right parietal lobe 2. 2 additional smaller areas of high density punctate hemorrhage are now noted along the right parie andrew lobe as well. Franklin Schaefer MD on November 24, 2017 at 5:25 Board Certified Radiologist. This report was verified electronically.
[2017-11-24 06:35] LABS: AUTOMATED NEUTROPHIL # 3.7 TH/MM3 (1.8-7.7); BASOPHIL % 0.8 % (0.0-2.0); EOSINOPHIL # 0.2 TH/MM3 (0-0.4); EOSINOPHIL % 3.4 % (0.0-4.0); HEMATOCRIT 21.9 % (39.0-51.0); HEMOGLOBIN 7.5 GM/DL (13.0-17.0); LYMPH % 10.8 % (9.0-44.0); LYMPHOCYTE # 0.5 TH/MM3 (1.0-4.8); MEAN CELL VOLUME 74.3 FL (80.0-100.0); MEAN CORPUSCULAR HEMOGLOBIN 25.5 PG (27.0-34.0); MEAN CORPUSCULAR HGB CONC 34.4 % (32.0-36.0); MONOCYTE # 0.6 TH/MM3 (0-0.9); PLATELET COUNT 108 TH/MM3 (150-450); RED BLOOD COUNT 2.95 MIL/MM3 (4.50-5.90); RED CELL DISTRIBUTION WIDTH 17.3 % (11.6-17.2); WHITE BLOOD COUNT 5.1 TH/MM3 (4.0-11.0)
[2017-11-24 06:44] LABS: INTERNATIONAL NORMALIZED RATIO 1.8 RATIO; PROTHROMBIN TIME - PATIENT 18.2 SEC (9.8-11.6)
[2017-11-24 07:24] LABS: AST (GOT) 11 U/L (15-37); BICARBONATE 22.2 MEQ/L (21.0-32.0); BLOOD UREA NITROGEN 45 MG/DL (7-18); CALCIUM 7.6 MG/DL (8.5-10.1); CREATININE 2.05 MG/DL (0.60-1.30); GLOMERULAR FILTRATION RATE 31 ML/MIN (>89); GLUCOSE,RANDOM 68 MG/DL (74-106)
[2017-11-24 07:28] LABS: ALKALINE PHOSPHATASE 56 U/L (45-117); ALT (GPT) 8 U/L (12-78); CHLORIDE 110 MEQ/L (98-107); SODIUM (NA) 140 MEQ/L (136-145); TOTAL BILIRUBIN ADULT 0.8 MG/DL (0.2-1.0); TOTAL PROTEIN 6.2 GM/DL (6.4-8.2)
[2017-11-24] MEDS ORDERED: DEXTROSE 50% IN WATER 50 ML SYRINGE IV PUSH ONE (08:30)
[2017-11-24] MEDS: PANTOPRAZOLE SODIUM 40 MG VIAL IV PUSH SCH ×2 (08:37→20:30)
[2017-11-24] MEDS: DOCUSATE SODIUM 50 MG/SENNA 8.6 MG TAB PO SCH ×2 (08:38→20:31)
[2017-11-24] MEDS: SODIUM CHLORIDE 0.9% FLUSH 10 ML FLUSH IV FLUSH SCH ×2 (08:38→20:30)
[2017-11-24] MEDS ORDERED: PHYTONADIONE 10 MG/ML VIAL SQ ONE (09:00)
--- NOTE | 2017-11-24 09:49 | HHI.CCPN ---
Subjective Remarks/Hospital Course 11/22: 87 yo male here for mechanical fall and possible LOC. Patient was brought here via Ambulance. Per report and patient he lost his footing and hit the back of his head. Family did not witness it and has a head laceration. Possible LOC but not sure how long. Pain mainly to left shoulder and head. Takes coumadin. Per family patient is getting worked up for loss of 20 pounds recently and concerned for cancer. Takes coumadin for atrial fibrillation. No hip or back pain. No chest pain. No SOB. Unclear lass tetanus. No urinary or BM issues. History of MRSA. No blurry vision. Pain per patient is 4/10. Has abrasions to left lower leg. She reportedly had a urologic procedure a week back for a urethral stricture. He has noticed black tarry stools for the last week or so and has been progressively getting weaker. Patient had significant bleeding from his scalp laceration which was sutured in the ER. He was noted to be coagulopathic with an INR of 6.5 and received 2 units of FFP and vitamin K 10 mg IV in the ER. He had a subclavian central line placed by ER physician. Patient was given 1.5 L fluid bolus and started on Faisal-Synephrine for pressor support. 2 units FFP, PRBCs 2 units were ordered to be transfused as his hemoglobin dropped to 6.9 following fluid bolus. Patient was accepted for admission by critical care medicine service. When I evaluated the patient in the ER he was resting in the ER stretcher appeared comfortable and not in any acute distress. Head CT done earlier revealed a subdural hematoma from neurosurgery was consulted and did not plan any active intervention. When I evaluated the patient he was on Faisal-Synephrine about 20 mics per minute with a systolic blood pressure in the 140s having just finished his second unit of PRBCs. 11/23: No events over the night. Patient is doing well. Denies CP, dyspnea, palpitations, abdominal pain, N/V, melena since admission. No CHAMPAGNE. C/o right shoulder pain. Tmax 100.1, positive 2.4 liters since admission. 11/24: Patient did well through the night. Good spirits, denies any complaints except that he is hungry. Blood glucose 68 --> received 1/2 amp d50. Tmax 99, negative 520 cc/24 hours. Objective Vital Signs Date Time Temp Pulse Resp B/P (MAP) Pulse Ox O2 Delivery O2 Flow Rate FiO2 11/24/17 01:05 100 Nasal Cannula 2.00 11/24/17 00:00 74 11/24/17 00:00 99.0 17 102/53 (69) Intake and Output 11/24/17 11/24/17 11/25/17 08:00 16:00 00:00 Intake Total 50 ml 5 ml Balance 50 ml 5 ml Result Diagram: 11/24/17 0550 11/24/17 0550 Imaging Last Impressions Head CT 11/24/17 0600 Signed Impressions: Service Date/Time: Friday, November 24, 2017 05:16 - CONCLUSION: 1. Mild increase in the size of the high density hemorrhage along the right parietal lobe 2. 2 additional smaller areas of high density punctate hemorrhage are now noted along the right parietal lobe as well. Franklin Schaefer MD Chest X-Ray 11/22/17 1418 Signed Impressions: Service Date/Time: Wednesday, November 22, 2017 14:37 - CONCLUSION: Mild pulmonary vascular congestion with a left subclavian pacer. Dagoberto Das MD Cervical Spine CT 11/22/17 1418 Signed Impressions: Service Date/Time: Wednesday, November 22, 2017 14:39 - CONCLUSION: Large anterior osteophytes at multiple levels. Scattered areas of bilateral neuroforaminal narrowing due to osteophyte. No evidence of acute fracture or significant subluxation. Dagoberto Das MD Shoulder X-Ray 11/22/17 0000 Signed Impressions: Service Date/Time: Wednesday, November 22, 2017 16:27 - CONCLUSION: Unremarkable examination of the left shoulder status post left bipolar pacermaker. Marked impingement change with acromial spurring and erosions across the greater tuberosity Daogberto Das MD Pelvis X-Ray 11/22/17 0000 Signed Impressions: Service Date/Time: Wednesday, November 22, 2017 14:36 - CONCLUSION: Unremarkable examination of the pelvis. Dagoberto Das MD Chest CT 11/22/17 0000 Signed Impressions: Service Date/Time: Wednesday, November 22, 2017 16:02 - CONCLUSION: 1. No acute finding is identified on this noncontrast examination of the chest. 2. There is stable left pleural thickening, trace left pleural fluid, and volume loss in the left lower lobe. 3. Coronary artery calcification and severe atherosclerotic disease of aorta. Jalil Cedillo MD Abdomen/Pelvis CT 11/22/17 0000 Signed Impressions: Service Date/Time: Wednesday, November 22, 2017 16:02 - CONCLUSION: 1. No acute finding is identified on this mildly motion degraded noncontrast CT of the abdomen and pelvis. 2. Stable nonacute findings include cholelithiasis, severe atherosclerotic disease, and sigmoid diverticulosis. Jalil Cedillo MD Last Impressions Head CT 11/22/17 1418 Signed Impressions: Service Date/Time: Wednesday, November 22, 2017 14:39 - CONCLUSION: Diffuse atrophy. 2 mm linear area of dense material in the extra-axial subdural space unlikely to represent hemorrhage. Soft tissue swelling in the high right parietal region Dagoberto Das MD Chest X-Ray 11/22/17 1418 Signed Impressions: Service Date/Time: Wednesday, November 22, 2017 14:37 - CONCLUSION: Mild pulmonary vascular congestion with a left subclavian pacer. Dagoberto Das MD Cervical Spine CT 11/22/17 1418 Signed Impressions: Service Date/Time: Wednesday, November 22, 2017 14:39 - CONCLUSION: Large anterior osteophytes at multiple levels. Scattered areas of bilateral neuroforaminal narrowing due to osteophyte. No evidence of acute fracture or significant subluxation. Dagoberto Das MD Shoulder X-Ray 11/22/17 0000 Signed Impressions: Service Date/Time: Wednesday, November 22, 2017 16:27 - CONCLUSION: Unremarkable examination of the left shoulder status post left bipolar pacermaker. Marked impingement change with acromial spurring and erosions across the greater tuberosity Dagoberto Das MD Pelvis X-Ray 11/22/17 0000 Signed Impressions: Service Date/Time: Wednesday, November 22, 2017 14:36 - CONCLUSION: Unremarkable examination of the pelvis. Dagoberto Das MD Chest CT 11/22/17 0000 Signed Impressions: Service Date/Time: Wednesday, November 22, 2017 16:02 - CONCLUSION: 1. No acute finding is identified on this noncontrast examination of the chest. 2. There is stable left pleural thickening, trace left pleural fluid, and volume loss in the left lower lobe. 3. Coronary artery calcification and severe atherosclerotic disease of aorta. Jalil Cedillo MD Abdomen/Pelvis CT 11/22/17 0000 Signed Impressions: Service Date/Time: Wednesday, November 22, 2017 16:02 - CONCLUSION: 1. No acute finding is identified on this mildly motion degraded noncontrast CT of the abdomen and pelvis. 2. Stable nonacute findings include cholelithiasis, severe atherosclerotic disease, and sigmoid diverticulosis. Jalil Cedillo MD Objective Remarks General - elderly gentleman, awake, in no distress HEENT - small scalp laceration with dressing, pupils are equal, reactive, sclerae are anicteric, neck is supple, no rigidity, no JVD, no carotid bruit, dry MM, no thrush, RIJ CVC - site is clean CV - regular heart sounds, systolic murmur at apex Chest - clear b/l, good air entry, no wheezes Abdomen - soft, non-tender, non-distended, BS present, no hepatomegaly, no splenomegaly Skin - no rashes, no cyanosis Extremities - warm, no edema, + peripheral pulses, no clubbing Neuro - awake, alert and oriented X 3, EOMI, smile symmetric, tongue midline, shrugs shoulders, motor 5/5 over all extremities, sensation intact A/P Assessment and Plan 1. Small SDH post fall - slight increase in SDH on repeat CT head 2. Scalp laceration 3. Coagulopathy secondary to warfarin - improved 4. Acute blood loss anemia likely secondary to GIB - no episodes 5. Hypotension - resolved 6. MRSA UTI and likely MRSA bacteremia with concern for endovascular infection - patient has a PPM 7. LISBETH - slowly improving, good urine output 8. Unexplained weight loss Plan: 1. Continue neurochecks. CT head stat with any change in mental status 2. NS f/u 3. Transfuse an additional 2 units FFP 4. EGD scheduled today 5. Started on vanco, stop pip/tazo 6. Blood cx X 2 tomorrow 7. TTE 8. PPI BID 9. Mechanical DVT prophylaxis with SCD's Luis Manuel Bañuelos MD Nov 24, 2017 09:49
[2017-11-24] MEDS ORDERED: VANCOMYCIN 500 MG/NS 100 ML IV ONE ×2 (10:00)
--- NOTE | 2017-11-24 10:01 | HHI.NSPN ---
(Cory Mcconnell) History Chief Complaint: Fall (Cory Mcconnell) Interval History This is an 87-year-old male patient with history of Coumadin use who presents to the ER apparently after falling. The patient reports that he was trying to go to the bathroom when he lost control and fell striking the back of his head. He had possible loss of consciousness of unknown duration. He was brought to the emergency room because of bleeding of the scalp and a laceration and underwent evaluation. He also complains of left shoulder pain. He takes Coumadin for atrial fibrillation. Denies any other types or problems at the present time except for weight loss since August of last year for which he has undergone evaluation. 11/23/17: Pt awake and alert. Denies headache. No n/v. Pt states he has felt weak and tired over last 3 days at least and feels this is why his legs gave out from him and he fell. He also reports to me he has had dark stools during this time. 11/24/17: Pt awake and alert. Denies headache, nausea, vomiting. No weakness other than limitation with deltoid from his chronic shoulder condition. (Cory Mcconnell) Review of Systems General: Negative for: fever, chills, insomnia Respiratory: Negative for: shortness of breath, cough, sputum Cardiovascular: Negative for: chest pain Gastrointestinal: Negative for: nausea, vomitting, diarrhea, constipation ( Cory Mcconnell) Exam Results Vital Signs Date Time Temp Pulse Resp B/P (MAP) Pulse Ox O2 Delivery O2 Flow Rate FiO2 11/24/17 09:38 98.6 78 14 121/61 100 11/24/17 01:05 Nasal Cannula 2.00 Intake and Output 11/24/17 11/24/17 11/25/17 08:00 16:00 00:00 Intake Total 50 ml 5 ml Balance 50 ml 5 ml (Cory Mcconnell) Physical Examination General: Pt awake and alert, in no acute distress and stable vitals. Eyes: Pupils equal sclera anicteric. Resp: CTA bilaterally. Heart: Irregular no murmurs. Abd: Soft positive bs. Skin: No cyanosis or erythema. Muscle: Moves all 4 extremities symmetrically with good strength. Some limitation with deltoid strength bilaterally pt states from chronic shoulder problems. Neuro: Pt awake and alert. Pupils equal 3mm bilaterally. Follows commands well. Speech clear and appropriate. (Cory Mcconnell) Lab, Micro, Other Results Last Impressions Head CT 11/24/17 0600 Signed Impressions: Service Date/Time: Friday, November 24, 2017 05:16 - CONCLUSION: 1. Mild increase in the size of the high density hemorrhage along the right parietal lobe 2. 2 additional smaller areas of high density punctate hemorrhage are now noted along the right parietal lobe as well. Franklin Schaefer MD Chest X-Ray 11/22/17 1418 Signed Impressions: Service Date/Time: Wednesday, November 22, 2017 14:37 - CONCLUSION: Mild pulmonary vascular congestion with a left subclavian pacer. Dagoberto Das MD Cervical Spine CT 11/22/17 1418 Signed Impressions: Service Date/Time: Wednesday, November 22, 2017 14:39 - CONCLUSION: Large anterior osteophytes at multiple levels. Scattered areas of bilateral neuroforaminal narrowing due to osteophyte. No evidence of acute fracture or significant subluxation. Dagoberto Das MD Shoulder X-Ray 11/22/17 0000 Signed Impressions: Service Date/Time: Wednesday, November 22, 2017 16:27 - CONCLUSION: Unremarkable examination of the left shoulder status post left bipolar pacermaker. Marked impingement change with acromial spurring and erosions across the greater tuberosity Dagoberto Das MD Pelvis X-Ray 11/22/17 0000 Signed Impressions: Service Date/Time: Wednesday, November 22, 2017 14:36 - CONCLUSION: Unremarkable examination of the pelvis. Dagoberto Das MD Chest CT 11/22/17 0000 Signed Impressions: Service Date/Time: Wednesday, November 22, 2017 16:02 - CONCLUSION: 1. No acute finding is identified on this noncontrast examination of the chest. 2. There is stable left pleural thickening, trace left pleural fluid, and volume loss in the left lower lobe. 3. Coronary artery calcification and severe atherosclerotic disease of aorta. Jalil Cedillo MD Abdomen/Pelvis CT 11/22/17 0000 Signed Impressions: Service Date/Time: Wednesday, November 22, 2017 16:02 - CONCLUSION: 1. No acute finding is identified on this mildly motion degraded noncontrast CT of the abdomen and pelvis. 2. Stable nonacute findings include cholelithiasis, severe atherosclerotic disease, and sigmoid diverticulosis. Jalil Cedillo MD Laboratory Tests Test 11/23/17 17:00 11/23/17 20:50 11/24/17 05:50 11/24/17 06:55 White Blood Count 5.7 TH/MM3 5.9 TH/MM3 5.1 TH/MM3 Red Blood Count 2.95 MIL/MM3 3.05 MIL/MM3 2.95 MIL/MM3 Hemoglobin 7.6 GM/DL 7.6 GM/DL 7.5 GM/DL Hematocrit 21.7 % 22.4 % 21.9 % Mean Corpuscular Volume 73.5 FL 73.4 FL 74.3 FL Mean Corpuscular Hemoglobin 25.7 PG 25.0 PG 25.5 PG Mean Corpuscular Hemoglobin Concent 34.9 % 34.0 % 34.4 % Red Cell Distribution Width 17.7 % 17.5 % 17.3 % Platelet Count 108 TH/MM3 117 TH/MM3 108 TH/MM3 Mean Platelet Volume 5.9 FL 5.8 FL 6.0 FL Prothrombin Time 21.0 SEC 18.2 SEC Prothromb Time International Ratio 2.1 RATIO 1.8 RATIO Neutrophils (%) (Auto) 81.0 % 73.0 % Lymphocytes (%) (Auto) 7.2 % 10.8 % Monocytes (%) (Auto) 8.5 % 12.0 % Eosinophils (%) (Auto) 2.5 % 3.4 % Basophils (%) (Auto) 0.8 % 0.8 % Neutrophils # (Auto) 4.8 TH/MM3 3.7 TH/MM3 Lymphocytes # (Auto) 0.4 TH/MM3 0.5 TH/MM3 Monocytes # (Auto) 0.5 TH/MM3 0.6 TH/MM3 Eosinophils # (Auto) 0.1 TH/MM3 0.2 TH/MM3 Basophils # (Auto) 0.0 TH/MM3 0.0 TH/MM3 CBC Comment DIFF FINAL DIFF FINAL Differential Comment Blood Urea Nitrogen 53 MG/DL 45 MG/DL Creatinine 2.38 MG/DL 2.05 MG/DL Random Glucose 153 MG/DL 68 MG/DL Calcium Level 7.5 MG/DL 7.6 MG/DL Phosphorus Level 3.1 MG/DL Magnesium Level 1.9 MG/DL Sodium Level 138 MEQ/L 140 MEQ/L Potassium Level 4.4 MEQ/L 4.5 MEQ/L Chloride Level 108 MEQ/L 110 MEQ/L Carbon Dioxide Level 20.5 MEQ/L 22.2 MEQ/L Anion Gap 10 MEQ/L 8 MEQ/L Estimat Glomerular Filtration Rate 26 ML/MIN 31 ML/MIN Total Protein 6.2 GM/DL Albumin 2.0 GM/DL Alkaline Phosphatase 56 U/L Aspartate Amino Transf (AST/SGOT) 11 U/L Alanine Aminotransferase (ALT/SGPT) 8 U/L Total Bilirubin 0.8 MG/DL 11/24/17 11/24/17 11/25/17 15:00 23:00 07:00 Intake Total 5 ml Balance 5 ml Blood Product IV Normal Saline Flush 5 ml (Cory Mcconnell) Medical Decision Making Impression and Plan A: 87 y/o M with elevated PT/INR s/p fall with possibly a very small amount of hemorrhage in the right subdural space. On Follow up CT head pt has more small contusions in the right parietal area also. Anemia with pt reporting history of dark stool. P: Continue with neuro checks. Continue with current care. Okay for pt to have his EGD and colonoscopy today per Dr. Santacruz. (Cory Mcconnell) Attending Statement The exam, history, and the medical decision-making described in the above note were completed with the assistance of the mid-level provider. I reviewed and agree with the findings presented. I attest that I had a [id number] encounter with the patient on the same day, and personally performed and documented my assessment and findings in the medical record. Stable neurologically with follow-up CT scan the small areas of increase subdural bleed. Okay for endoscopy. Continue supportive care and further correction of INR. Updated family at bedside and discussed with nursing staff. (Carter Santacruz MD) Cory Mcconnell Nov 24, 2017 10:01 Carter Santacruz MD Nov 24, 2017 17:12
--- NOTE | 2017-11-24 11:55 | GIPROC ---
[facility] [address] [facility]. [facility], [address] EGD PROCEDURE REPORT EXAM DATE: 11/24/2017 PATIENT NAME: Gregor Vazquez MR #: [id number] BIRTHDATE: 1930 ATTENDING: Delmer Kenny MD ORDER #: [id number] SENIOR SITE MANAGER: Sean Marte and Jelly Blunt STATUS: inpatient INDICATIONS: The patient is a 87 yr old male here for an EGD due to iron deficiency anemia and acute post hemorrhagic anemia PROCEDURE PERFORMED: EGD w/ biopsy MEDICATIONS: Per Anesthesia and None. TOPICAL ANESTHETIC: CONSENT: The patient understands the risks and benefits of the procedure and understands that these risks include, but are not limited to: sedation, allergic reaction, infection, perforation and/or bleeding. Alternative means of evaluation and treatment include, among others: physical exam, x-rays, and/or surgical intervention. The patient elects to proceed with this endoscopic procedure. medical equipment was checked for proper function. Hand hygiene and appropriate measures for infection prevention was taken. After the risks, benefits and alternatives of the procedure were thoroughly explained, Informed consent was verified, confirmed and timeout was successfully executed by the treatment team. The patient was anesthetized with topical anesthesia and the Pentax [id number] endoscope was introduced through the mouth and advanced to the second portion of the duodenum. Retroflexed views revealed no abnormalities The gastroscope was then slowly withdrawn and removed. ESOPHAGUS: The mucosa of the esophagus appeared normal. STOMACH: There was mild gastritis in the gastric antrum. DUODENUM: A single non-bleeding, shallow and clean-based ulcer ranging between 3-5 mm in size was found in the 1st part of the duodenum. Biopsies were taken at edge of the ulcer. ADVERSE EVENTS: There were no complications. IMPRESSIONS: 1. The esophagus appeared normal 2. There was mild gastritis in the gastric antrum 3. Single ulcer ranging between 3-5 mm in size was found in the 1st part of the duodenum; biopsies were taken 4. Retroflexed views revealed no abnormalities RECOMMENDATIONS: 1. Await biopsy results. Biopsy results will not be ready for 7-10 days. If you don't hear from us in two weeks, call our office for biopsy results. 2. Anti-reflux regimen 3. Continue PPI 4. Avoid NSAIDS 5. Colonoscopy PATIENT CONDITION: stable DISPOSITION: Inpatient REPEAT EXAM: Return 3 months EGD pending biopsy results Delmer Kenny MD eSigned: Delmer Kenny MD 11/24/2017 11:54 AM cc: PATIENT NAME: Taylor Gregor E MR#: [id number]
[2017-11-24] MEDS ORDERED: PROPOFOL 200 MG/20 ML AMP IV ONE (12:00)
[2017-11-24] MEDS ORDERED: PHENYLEPH/NS 1000 MCG/10 ML SYR IV ONE (12:00)
--- NOTE | 2017-11-24 14:25 | PD.ID.CON ---
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 Mr Vazquez confirmed several facts which appeared fairly accurate. is an 87 y/o CM with PMHx of CAD, CHF, Afib on anticoagulant and with Pacemaker in Left subclavian. Patient reports h/o 2 falls at home (note patient on anticoagulants) ? LOC after this fall. Patient was brought to hospital via Ambulance. Per chart review it appears patient had lost his footing and hit the back of his head. Family did not witness it and has a head laceration. There is report of possible LOC but not sure how long. When patient woke up he mainly complained of pain mainly to left shoulder and head. Per family patient is getting worked up for loss of 20 pounds recently and concerned for cancer. He has noticed black tarry stools for the last week or so and has been progressively getting weaker. Patient had significant bleeding from his scalp laceration which was sutured in the ER. He was noted to be coagulopathic with an INR of 6.5 and received 2 units of FFP and vitamin K 10 mg IV in the ER. He had a subclavian central line placed by ER physician. Patient was given 1.5 L fluid bolus and started on Faisal-Synephrine for pressor support. 2 units FFP, PRBCs 2 units were ordered to be transfused as his hemoglobin dropped to 6.9 following fluid bolus. Patient was admitted under critical care medicine service. Head CT done revealed a subdural hematoma. Neurosurgery was consulted and did not plan any active intervention. Patient was evaluated by GI and underwent EGD today with reported duodenitis and no bleeder or malignancies per verbal report. Colonoscopy is planned at some point in future per GI notes. Blood cultures done on admission were positive for MRSA and ID consulted for same given h/o pacer in situ. Pertinent positives and negatives: Family reported h/o MRSA. Patient reportedly had a urologic procedure a week back for a urethral stricture. H/o falls x 2 Patient upon questioning reports he stubbed his toe probably around the falls. Not sure of timing. H/o weight loss, workup ongoing. Review of Systems ROS Limitations: Poor Historian Constitutional: COMPLAINS OF: Fatigue, Weight loss, Dizziness, DENIES: Diaphoretic episodes, Fever, Weight gain, Chills, Change in appetite, Night Sweats Endocrine: DENIES: Heat/cold intolerance, Polydipsia, Polyuria, Polyphagia Eyes: DENIES: Blurred vision, Diplopia, Eye inflammation, Eye pain, Vision loss , Photosensitivity, Double Vision Ears, nose, mouth, throat: DENIES: Tinnitus, Hearing loss, Vertigo, Nasal discharge, Oral lesions, Throat pain, Hoarseness, Ear Pain, Running Nose, Epistaxis, Sinus Pain, Toothache, Odynophagia Respiratory: DENIES: Apneas, Cough, Snoring, Wheezing, Hemoptysis, Sputum production, Shortness of breath Cardiovascular: DENIES: Chest pain, Palpitations, Syncope, Dyspnea on Exertion , PND, Lower Extremity Edema, Orthopnea, Claudication Gastrointestinal: DENIES: Abdominal pain, Black stools, Bloody stools, Constipation, Diarrhea, Nausea, Vomiting, Difficulty Swallowing, Anorexia Genitourinary: DENIES: Sexual dysfunction, Urinary frequency, Urinary incontinence, Urgency, Hematuria, Dysuria, Nocturia, Penile Discharge, Testicular Pain, Testicular Swelling Musculoskeletal: DENIES: Joint pain, Muscle aches, Stiffness, Joint Swelling, Back pain, Neck pain Integumentary: DENIES: Abnormal pigmentation, Nail changes, Pruritus, Rash Hematologic/lymphatic: DENIES: Bruising, Lymphadenopathy Immunologic/allergic: DENIES: Eczema, Urticaria Neurologic: COMPLAINS OF: Poor Balance, DENIES: Abnormal gait, Headache, Localized weakness, Paresthesias, Seizures, Speech Problems, Tremor Except as stated in HPI: all other systems reviewed are Neg Past Family Social History Allergies: Coded Allergies: *MDRO Multi-Drug Resistant Organism (Unverified Adverse Reaction, Unknown , 11/22/17) MRSA back wound 02/2015. Past Medical History Hepatitis as a child. Afib on warfarin. CHF CAD Hypercholestrolemia. Arthritis. ? BPH HTN Past Surgical History [facility] Pacemaker 2011 ? by per patient. Bilateral knee replacement . Oral surgery. Reported Medications Reported Meds & Active Scripts Active Flomax (Tamsulosin HCl) 0.4 Mg Cap 0.4 Mg PO DAILY 30 Days Reported Linzess (Linaclotide) 72 Mcg Capsule 1 Tab PO DAILY Ferrous Sulfate 325 Mg (65 Mg Iron) Tablet 27 Mg PO DAILY Nitrofurantoin Macrocrystal 100 Mg Cap 100 Mg PO BID Warfarin 10 Mg Tab 10 Mg PO DAILY Vitamin D3 (Cholecalciferol) 5,000 Unit Cap 5,000 Units PO DAILY Metoprolol Tartrate 50 Mg Tab 50 Mg PO BID Lisinopril 20 Mg Tab 20 Mg PO DAILY Simvastatin 20 Mg Tab 20 Mg PO DAILY Furosemide 40 Mg Tab 40 Mg PO DAILY Active Ordered Medications Current Medications Medications (Trade) Dose Ordered Sig/Aga Route Start Time Stop Time Status Last Admin Phenylephrine HCl 40 mg/Dextrose 500 ml @ 30 mls/hr TITRATE PRN IV 11/22/17 17:15 11/22/17 17:51 (Brethine Inj) 1 mg UNSCH PRN SQ 11/22/17 17:15 Sodium Chloride 1,000 ml @ 84 mls/hr [id number] IV 11/22/17 19:10 11/23/17 16:53 (NS Flush) 2 ml UNSCH PRN IV FLUSH 11/22/17 19:15 (NS Flush) 2 ml BID IV FLUSH 11/22/17 21:00 11/24/17 08:38 (Tylenol) 650 mg Q6H PRN PO 11/22/17 19:15 (Zofran Inj) 4 mg Q6H PRN IV PUSH 11/22/17 19:15 (Reglan Inj) 10 mg Q6H PRN IV PUSH 11/22/17 19:15 (Duoneb Neb) 1 ampule Q4HR NEB PRN INH 11/22/17 19:15 Miscellaneous Information 1 Q361D XX 11/22/17 19:15 (Chlorhexidine 2% Cloth) 3 pack Taper DAILY@04 TOP 11/23/17 04:00 11/19/18 03:59 (Chlorhexidine 2% Cloth) 3 pack UNSCH PRN TOP 11/22/17 19:15 (Flower-Colace) 1 tab BID PO 11/22/17 21:00 11/24/17 08:38 (Milk Of Magnesia Liq) 30 ml Q12H PRN PO 11/22/17 19:15 (Senokot) 17.2 mg Q12H PRN PO 11/22/17 19:15 (Dulcolax Supp) 10 mg DAILY PRN RECTAL 11/22/17 19:15 (Lactulose Liq) 30 ml DAILY PRN PO 11/22/17 19:15 (Protonix Inj) 40 mg Q12H IV PUSH 11/23/17 10:00 11/24/17 08:37 Pharmacy Profile Note 0 ml @ 0 mls/hr UNSCH OTHER 11/23/17 16:30 Family History reviewed and NC to current age. Social History Lives at home with son and daughter. Details of rest not known at present time. Physical Exam Vital Signs Vital Signs Date Time Temp Pulse Resp B/P (MAP) Pulse Ox O2 Delivery O2 Flow Rate FiO2 11/24/17 09:38 98.6 78 14 121/61 100 11/24/17 01:05 100 Nasal Cannula 2.00 11/24/17 00:00 74 11/24/17 00:00 99.0 76 17 102/53 (69) 100 11/23/17 22:00 72 11/23/17 20:00 72 11/23/17 20:00 99.0 94 20 131/88 (102) 100 11/23/17 19:00 100 Nasal Cannula 2.00 11/23/17 18:00 64 11/23/17 16:00 64 11/23/17 16:00 97.8 64 14 107/54 (71) 100 Physical Exam GENERAL: This is a well-nourished, well-developed patient, in no apparent distress. SKIN: No rashes, ecchymoses or lesions. Cool and dry. HEAD: Atraumatic. Normocephalic. No temporal or scalp tenderness. EYES: Pupils equal round and reactive. Extraocular motions intact. No scleral icterus. No injection or drainage. ENT: Nose without bleeding, purulent drainage or septal hematoma. Throat without erythema, tonsillar hypertrophy or exudate. Uvula midline. Airway patent. NECK: Trachea midline. Supple, nontender, no meningeal signs. CARDIOVASCULAR: HS audible.Pacemaker site ok with no e.o infection. RESPIRATORY: Clear to auscultation. Breath sounds equal bilaterally. GASTROINTESTINAL: Abdomen soft, non-tender, nondistended. MUSCULOSKELETAL: right 3rd toe with subungal hematoma ? avulsed nail. small area of blackening ? hematoma vs abscess. Extremities without clubbing, cyanosis , or edema. Knee surgical scars intact with no e.o infection. NEUROLOGICAL: Awake and alert. Responds to questions. Speech ok. Psych cooperative IV line sites with no e.o infection. Laboratory Laboratory Tests Test 11/23/17 17:00 11/23/17 20:50 11/24/17 05:50 11/24/17 06:55 White Blood Count 5.7 5.9 5.1 Red Blood Count 2.95 3.05 2.95 Hemoglobin 7.6 7.6 7.5 Hematocrit 21.7 22.4 21.9 Mean Corpuscular Volume 73.5 73.4 74.3 Mean Corpuscular Hemoglobin 25.7 25.0 25.5 Mean Corpuscular Hemoglobin Concent 34.9 34.0 34.4 Red Cell Distribution Width 17.7 17.5 17.3 Platelet Count 108 117 108 Mean Platelet Volume 5.9 5.8 6.0 Prothrombin Time 21.0 18.2 Prothromb Time International Ratio 2.1 1.8 Neutrophils (%) (Auto) 81.0 73.0 Lymphocytes (%) (Auto) 7.2 10.8 Monocytes (%) (Auto) 8.5 12.0 Eosinophils (%) (Auto) 2.5 3.4 Basophils (%) (Auto) 0.8 0.8 Neutrophils # (Auto) 4.8 3.7 Lymphocytes # (Auto) 0.4 0.5 Monocytes # (Auto) 0.5 0.6 Eosinophils # (Auto) 0.1 0.2 Basophils # (Auto) 0.0 0.0 CBC Comment DIFF FINAL DIFF FINAL Differential Comment Blood Urea Nitrogen 53 45 Creatinine 2.38 2.05 Random Glucose 153 68 Calcium Level 7.5 7.6 Phosphorus Level 3.1 Magnesium Level 1.9 Sodium Level 138 140 Potassium Level 4.4 4.5 Chloride Level 108 110 Carbon Dioxide Level 20.5 22.2 Anion Gap 10 8 Estimat Glomerular Filtration Rate 26 31 Total Protein 6.2 Albumin 2.0 Alkaline Phosphatase 56 Aspartate Amino Transf (AST/SGOT) 11 Alanine Aminotransferase (ALT/SGPT) 8 Total Bilirubin 0.8 Date/Time Source Procedure Growth Status 11/22/17 15:15 Blood Peripheral Aerobic Blood Culture - Preliminary NO GROWTH IN 2 DAYS Resulted 11/22/17 15:15 Blood Peripheral Anaerobic Blood Culture - Preliminary NO GROWTH IN 2 DAYS Resulted 11/22/17 16:00 Urine Random Urine Urine Culture - Final S. Aureus Mrsa Complete Result Diagram: 11/24/17 0550 11/24/17 0550 Imaging Last Impressions Head CT 11/24/17 0600 Signed Impressions: Service Date/Time: Friday, November 24, 2017 05:16 - CONCLUSION: 1. Mild increase in the size of the high density hemorrhage along the right parietal lobe 2. 2 additional smaller areas of high density punctate hemorrhage are now noted along the right parietal lobe as well. Franklin Schaefer MD Foot X-Ray 11/24/17 0000 Signed Impressions: Service Date/Time: Friday, November 24, 2017 15:10 - CONCLUSION: 1. No acute fracture or dislocation. 2. Nonspecific periosteal reaction in the distal first phalanx. Chris Cooper MD Chest X-Ray 11/22/17 1418 Signed Impressions: Service Date/Time: Wednesday, November 22, 2017 14:37 - CONCLUSION: Mild pulmonary vascular congestion with a left subclavian pacer. Dagoberto Das MD Cervical Spine CT 11/22/17 1418 Signed Impressions: Service Date/Time: Wednesday, November 22, 2017 14:39 - CONCLUSION: Large anterior osteophytes at multiple levels. Scattered areas of bilateral neuroforaminal narrowing due to osteophyte. No evidence of acute fracture or significant subluxation. Dagoberto Das MD Shoulder X-Ray 11/22/17 0000 Signed Impressions: Service Date/Time: Wednesday, November 22, 2017 16:27 - CONCLUSION: Unremarkable examination of the left shoulder status post left bipolar pacermaker. Marked impingement change with acromial spurring and erosions across the greater tuberosity Dagoberto Das MD Pelvis X-Ray 11/22/17 0000 Signed Impressions: Service Date/Time: Wednesday, November 22, 2017 14:36 - CONCLUSION: Unremarkable examination of the pelvis. Dagoberto Das MD Chest CT 11/22/17 0000 Signed Impressions: Service Date/Time: Wednesday, November 22, 2017 16:02 - CONCLUSION: 1. No acute finding is identified on this noncontrast examination of the chest. 2. There is stable left pleural thickening, trace left pleural fluid, and volume loss in the left lower lobe. 3. Coronary artery calcification and severe atherosclerotic disease of aorta. Jalil Cedillo MD Abdomen/Pelvis CT 11/22/17 0000 Signed Impressions: Service Date/Time: Wednesday, November 22, 2017 16:02 - CONCLUSION: 1. No acute finding is identified on this mildly motion degraded noncontrast CT of the abdomen and pelvis. 2. Stable nonacute findings include cholelithiasis, severe atherosclerotic disease, and sigmoid diverticulosis. Jalil Cedillo MD Assessment and Plan Assessment and Plan MRSA bacteremia present on admission. R/o pacer infection and endocarditis. ? reason for fall vs resultant of fall related toe injury. MRSA in urine likely from renal translocation concerning for endovascular infection. Right 3rd toe abscess r/o osteomyelitis. ? source of bacteremia. Pacemaker in situ. Afib on anticoagulation. H/o falls x 2, Right parietal lobe bleed. Pulm edema Recs: Repeat blood cultures x 2 ECHO No clinical evidence of pocket infection based on bedside clinical exam. Xray of foot Podiatry consult: r/o osteomyelitis in patient with MRSA bacteremia and pacemaker infection. donna Rachel Podiatry: bedside debridement and removal of nail tomorrow. Follow cultures Follow clinically. donna pt, no family at bedside. Rossy Reed RN, MD Nov 24, 2017 14:25
--- NOTE | 2017-11-24 15:46 | RADRPT ---
EXAM DATE/TIME: 11/24/2017 15:10 [facility] COMPARISON: PELVIS AP ONLY, November 22, 2017, 14:36. INDICATIONS : Pain in left foot. MEDICAL HISTORY : Cardiovascular disease. Congestive heart failure. Hypertension. SURGICAL HISTORY : Pacemaker. ENCOUNTER: Subsequent ACUITY: 3 days PAIN SCORE: 0/10 LOCATION: Left foot FINDINGS: Two view examination of the left foot demonstrates no soft tissue swelling, dislocation, or fracture. Periosteal reaction in the distal first phalanx. The calcaneus is intact. Bony mineralization is n ormal. CONCLUSION: 1. No acute fracture or dislocation. 2. Nonspecific periosteal reaction in the distal first phalanx. Chris Cooper MD on November 24, 2017 at 15:41 Board Certified Radiologist. This report was verified electronically.
--- NOTE | 2017-11-24 18:10 | MB ---
cc: [facility] DATE OF CONSULTATION 11/24/17 REASON FOR CONSULTATION Possible ulcer abscess osteomyelitis right foot, lesser digits. HISTORY OF PRESENT ILLNESS This is an 87-year-old male who has a history of falling sustaining a laceration. He lost control striking his head, possible loss of consciousness. He was brought into the emergency room with a bleeding wound from his scalp and underwent evaluation. He also complains of other issues, however, pertaining to the foot. Infectious disease noted there was possible inflammation and abscess of the right third digit. X-ray showed periosteal reaction, likely of the distal hallux, which does not have clinical correlate. The patient is ambulatory. The patient admits he might have some numbness of his feet but is quite active and he does not recall any injury to the lesser digit. He does not follow with a sex therapist. PAST MEDICAL HISTORY 1. Atrial fibrillation, 2. High cholesterol, 3. Congestive heart failure 4. Genitourinary problems 5. Hypertension. PAST SURGICAL HISTORY 1. Pacemaker 2. Bilateral knee replacement 3. Urological procedure for bladder control. SOCIAL HISTORY Daughter named Umer he prefers us to call if any issues. MEDICATIONS Outpatient reviewed and verified. Inpatient medications antibiotic with vancomycin and Zosyn. Please see complete med list in chart. ALLERGIES MULTIDRUG RESISTANT ORGANISM VERIFIED BY BLOOD CULTURE PHYSICAL EXAMINATION VITAL SIGNS: Temperature is 98.6, pulse rate 78, respiratory rate is 14, blood pressure is 121/61. He is satting 100% on two liters nasal cannula. This is an alert and oriented gentleman seen bedside. He has slight muscle wasting of the distal lower extremities. The right third digit appears to have a severely elongated, thickened male with evidence of distal fluctuance of the digit. There is redness that encompasses mainly the distal aspect of the right third digit. It does not appear to have any signs of necrosis or soft tissue emphysema. The hallux was without ulceration. The nails diffusely one through five per noted to be elongated and thickened. They appear to be significant for onychomycosis. The patient has mild hammertoes noted, but no crepitus or instability upon range of motion of the digits, hind foot or ankle. Sensation appears to be decreased but intact to deep pressure. LABORATORY FINDINGS White blood cell 5.1, hemoglobin/hematocrit 7 and 21, platelet count is 108. Chem-7 sodium is 140, potassium 4.5, chloride 110, CO2 22.2, BUN is 45, creatinine 2.05, random glucose 68. IMAGING STUDIES Imaging findings pertaining to the left foot - of note per radiology there is a periosteal nonspecific reaction of the distal first phalanx. Right foot xrays ordered ASSESSMENT/PLAN Distal abscess of the digit, low suspicion for osteomyelitis. I reviewed the case with infectious disease. We will move forward with nail avulsion with incision and drainage of digit within the next 24 hours. Deep cultures will be taken. I spoke with the patient in great detail. I also spoke with the patient's daughter, Sofi. Orders for bedside procedure were placed to nursing. I will see the patient tomorrow for bedside procedure. WILFRIDO Bhardwaj/ /5:42 PM /5:51 PM BRISSA
--- NOTE | 2017-11-24 18:22 | RADRPT ---
EXAM DATE/TIME: 11/24/2017 18:04 [place] COMPARISON: No previous studies available for comparison. INDICATIONS : Right foot 3rd digit abcess. MEDICAL HISTORY : None. SURGICAL HISTORY : None. ENCOUNTER: Subsequent ACUITY: 3 days PAIN SCORE: 3/10 LOCATION: Right foot FINDINGS: Chronic appearing medial erosive change of the proximal first metatarsal at the MTP joint. Remaining osseous structures appear intact without acute fracture or significant erosive change. Soft tissues a re grossly unremarkable. Joint spaces are maintained. CONCLUSION: 1. Chronic appearing limited erosion of the medial proximal first metatarsal near the MTP joint. 2. No evidence for erosive change to suggest osteomyelitis involving the third digit. Chris Cooper MD on November 24, 2017 at 18:18 Board Certified Radiologist. This report was verified electronically.
--- NOTE | 2017-11-24 18:59 | EKG ---
Date Performed: 11/23/2017 Time Performed: 21:37:46 PTAGE: 87 years EKG: Sinus rhythm with borderline 1st degree A-V block Left ventricular hypertrophy Extensive ST-T changes may be due to hypertrophy and/or ischemia Baseline artifact. When compared to prior tracing the patient is no lo ghislaine in atrial fibrillation. Abnormal ECG NO PREVIOUS TRACING DOCTOR: Lola Moraes Interpretating Date/Time 11/24/2017 18:59:01
[2017-11-24] MEDS: SODIUM CHLOR 0.9% 1000 ML INJ 1,000 ML IV SCH (21:00)
[2017-11-25] VITALS (13 sets, daily range): BP systolic 94–136; BP diastolic 56–76; PULSE 71–107; RESP 17–25; TEMP 97.4–99.8; O2SAT 97–100
[2017-11-25] MEDS ORDERED: LIDOCAINE HCL 1% 50 ML VIAL SCH (00:30)
[2017-11-25] MEDS: CHLORHEXIDINE GLUCONATE 2 % 1 PACK (2 CLOTHS) TOP SCH (02:24)
[2017-11-25 05:27] LABS: INTERNATIONAL NORMALIZED RATIO 1.3 RATIO; PROTHROMBIN TIME - PATIENT 13.5 SEC (9.8-11.6)
[2017-11-25 05:36] LABS: BASOPHIL % 0.7 % (0.0-2.0); EOSINOPHIL # 0.3 TH/MM3 (0-0.4); EOSINOPHIL % 4.9 % (0.0-4.0); HEMATOCRIT 21.2 % (39.0-51.0); HEMOGLOBIN 7.3 GM/DL (13.0-17.0); LYMPH % 11.9 % (9.0-44.0); LYMPHOCYTE # 0.7 TH/MM3 (1.0-4.8); MEAN CELL VOLUME 74.4 FL (80.0-100.0); MEAN CORPUSCULAR HEMOGLOBIN 25.5 PG (27.0-34.0); MEAN CORPUSCULAR HGB CONC 34.3 % (32.0-36.0); MEAN PLATELET VOLUME 6.1 FL (7.0-11.0); MONO % 12.1 % (0.0-8.0); MONOCYTE # 0.7 TH/MM3 (0-0.9); NEUT % 70.4 % (16.0-70.0); PLATELET COUNT 122 TH/MM3 (150-450); RED BLOOD COUNT 2.85 MIL/MM3 (4.50-5.90); RED CELL DISTRIBUTION WIDTH 17.6 % (11.6-17.2); WHITE BLOOD COUNT 5.6 TH/MM3 (4.0-11.0)
[2017-11-25 05:54] LABS: ALBUMIN 1.9 GM/DL (3.4-5.0); BICARBONATE 23.3 MEQ/L (21.0-32.0); CALCIUM 7.3 MG/DL (8.5-10.1); CALCIUM-PROTEIN CORRECTED 7.8 MG/DL (8.5-10.1); CREATININE 1.89 MG/DL (0.60-1.30); RANDOM VANCOMYCIN 10.7 COMMENT; TOTAL BILIRUBIN ADULT 0.6 MG/DL (0.2-1.0); TOTAL PROTEIN 6.1 GM/DL (6.4-8.2)
--- NOTE | 2017-11-25 09:36 | HHI.NSPN ---
(Cory Mcconnell) History Chief Complaint: Fall (Cory Mcconnell) Interval History This is an 87-year-old male patient with history of Coumadin use who presents to the ER apparently after falling. The patient reports that he was trying to go to the bathroom when he lost control and fell striking the back of his head. He had possible loss of consciousness of unknown duration. He was brought to the emergency room because of bleeding of the scalp and a laceration and underwent evaluation. He also complains of left shoulder pain. He takes Coumadin for atrial fibrillation. Denies any other types or problems at the present time except for weight loss since August of last year for which he has undergone evaluation. 11/23/17: Pt awake and alert. Denies headache. No n/v. Pt states he has felt weak and tired over last 3 days at least and feels this is why his legs gave out from him and he fell. He also reports to me he has had dark stools during this time. 11/24/17: Pt awake and alert. Denies headache, nausea, vomiting. No weakness other than limitation with deltoid from his chronic shoulder condition. 11/25/17: Pt awake and alert. Denies headache, nausea, vomiting, numbness or tingling. Denies any chest pain or sob. (Cory Mcconnell) Review of Systems General: Negative for: fever, chills, insomnia Respiratory: Negative for: shortness of breath, cough, sputum Cardiovascular: Negative for: chest pain Gastrointestinal: Negative for: nausea, vomitting, diarrhea, constipation ( Cory Mcconnell) Exam Results Vital Signs Date Time Temp Pulse Resp B/P (MAP) Pulse Ox O2 Delivery O2 Flow Rate FiO2 11/25/17 06:00 71 11/25/17 04:00 98.5 25 94/56 (69) 97 11/24/17 19:00 Room Air 11/24/17 01:05 2.00 Intake and Output 11/25/17 11/25/17 11/25/17 07:59 15:59 23:59 Intake Total 400 ml Output Total 750 ml Balance -350 ml (Cory Mcconnell) Physical Examination General: Pt awake and alert, in no acute distress and stable vitals. Eyes: Pupils equal sclera anicteric. Resp: CTA bilaterally. Heart: Irregular no murmurs. Abd: Soft positive bs. Skin: No cyanosis or erythema. Muscle: Moves all 4 extremities symmetrically with good strength. Some limitation with deltoid strength bilaterally pt states from chronic shoulder problems. Neuro: Pt awake and alert. Pupils equal 3mm bilaterally. Follows commands well. Speech clear and appropriate. (Cory Mcconnell) Lab, Micro, Other Results Last Impressions Head CT 11/24/17 0600 Signed Impressions: Service Date/Time: Friday, November 24, 2017 05:16 - CONCLUSION: 1. Mild increase in the size of the high density hemorrhage along the right parietal lobe 2. 2 additional smaller areas of high density punctate hemorrhage are now noted along the right parietal lobe as well. Franklin Schaefer MD Foot X-Ray 11/24/17 0000 Signed Impressions: Service Date/Time: Friday, November 24, 2017 18:04 - CONCLUSION: 1. Chronic appearing limited erosion of the medial proximal first metatarsal near the MTP joint. 2. No evidence for erosive change to suggest osteomyelitis involving the third digit. Chris Cooper MD Chest X-Ray 11/22/17 1418 Signed Impressions: Service Date/Time: Wednesday, November 22, 2017 14:37 - CONCLUSION: Mild pulmonary vascular congestion with a left subclavian pacer. Dagoberto Das MD Cervical Spine CT 11/22/17 1418 Signed Impressions: Service Date/Time: Wednesday, November 22, 2017 14:39 - CONCLUSION: Large anterior osteophytes at multiple levels. Scattered areas of bilateral neuroforaminal narrowing due to osteophyte. No evidence of acute fracture or significant subluxation. Dagoberto Das MD Shoulder X-Ray 11/22/17 0000 Signed Impressions: Service Date/Time: Wednesday, November 22, 2017 16:27 - CONCLUSION: Unremarkable examination of the left shoulder status post left bipolar pacermaker. Marked impingement change with acromial spurring and erosions across the greater tuberosity Dagoberto Das MD Pelvis X-Ray 11/22/17 0000 Signed Impressions: Service Date/Time: Wednesday, November 22, 2017 14:36 - CONCLUSION: Unremarkable examination of the pelvis. Dagoberto Das MD Chest CT 11/22/17 0000 Signed Impressions: Service Date/Time: Wednesday, November 22, 2017 16:02 - CONCLUSION: 1. No acute finding is identified on this noncontrast examination of the chest. 2. There is stable left pleural thickening, trace left pleural fluid, and volume loss in the left lower lobe. 3. Coronary artery calcification and severe atherosclerotic disease of aorta. Jalil Cedillo MD Abdomen/Pelvis CT 11/22/17 0000 Signed Impressions: Service Date/Time: Wednesday, November 22, 2017 16:02 - CONCLUSION: 1. No acute finding is identified on this mildly motion degraded noncontrast CT of the abdomen and pelvis. 2. Stable nonacute findings include cholelithiasis, severe atherosclerotic disease, and sigmoid diverticulosis. Jalil Cedillo MD Laboratory Tests Test 11/25/17 04:57 11/25/17 05:00 White Blood Count 5.6 TH/MM3 Red Blood Count 2.85 MIL/MM3 Hemoglobin 7.3 GM/DL Hematocrit 21.2 % Mean Corpuscular Volume 74.4 FL Mean Corpuscular Hemoglobin 25.5 PG Mean Corpuscular Hemoglobin Concent 34.3 % Red Cell Distribution Width 17.6 % Platelet Count 122 TH/MM3 Mean Platelet Volume 6.1 FL Neutrophils (%) (Auto) 70.4 % Lymphocytes (%) (Auto) 11.9 % Monocytes (%) (Auto) 12.1 % Eosinophils (%) (Auto) 4.9 % Basophils (%) (Auto) 0.7 % Neutrophils # (Auto) 4.0 TH/MM3 Lymphocytes # (Auto) 0.7 TH/MM3 Monocytes # (Auto) 0.7 TH/MM3 Eosinophils # (Auto) 0.3 TH/MM3 Basophils # (Auto) 0.0 TH/MM3 CBC Comment DIFF FINAL Differential Comment Prothrombin Time 13.5 SEC Prothromb Time International Ratio 1.3 RATIO Blood Urea Nitrogen 40 MG/DL Creatinine 1.89 MG/DL Random Glucose 78 MG/DL Total Protein 6.1 GM/DL Albumin 1.9 GM/DL Calcium Level 7.3 MG/DL Alkaline Phosphatase 57 U/L Aspartate Amino Transf (AST/SGOT) 13 U/L Alanine Aminotransferase (ALT/SGPT) 14 U/L Total Bilirubin 0.6 MG/DL Sodium Level 139 MEQ/L Potassium Level 4.7 MEQ/L Chloride Level 109 MEQ/L Carbon Dioxide Level 23.3 MEQ/L Anion Gap 7 MEQ/L Estimat Glomerular Filtration Rate 34 ML/MIN Protein Corrected Calcium 7.8 MG/DL Random Vancomycin Level 10.7 COMMENT (Cory Mcconnell) Medical Decision Making Impression and Plan A: 87 y/o M with elevated PT/INR s/p fall with possibly a very small amount of hemorrhage in the right subdural space. On Follow up CT head pt has more small contusions in the right parietal area also. Anemia P: Continue with neuro checks. Continue with current care. Pt being transferred to the floor. (Cory Mcconnell) Attending Statement The exam, history, and the medical decision-making described in the above note were completed with the assistance of the mid-level provider. I reviewed and agree with the findings presented. I attest that I had a [id number] encounter with the patient on the same day, and personally performed and documented my assessment and findings in the medical record. INR corrected with a stable neurologic examination. Okay for transfer to floor and increase activity status as tolerated. Hold anticoagulation for 10 days. (Carter Santacruz MD) Cory Mcconnell Nov 25, 2017 09:35 Carter Santacruz MD Nov 25, 2017 11:39
--- NOTE | 2017-11-25 09:40 | HHI.CCPN ---
Subjective Remarks/Hospital Course 11/22: 87 yo male here for mechanical fall and possible LOC. Patient was brought here via Ambulance. Per report and patient he lost his footing and hit the back of his head. Family did not witness it and has a head laceration. Possible LOC but not sure how long. Pain mainly to left shoulder and head. Takes coumadin. Per family patient is getting worked up for loss of 20 pounds recently and concerned for cancer. Takes coumadin for atrial fibrillation. No hip or back pain. No chest pain. No SOB. Unclear lass tetanus. No urinary or BM issues. History of MRSA. No blurry vision. Pain per patient is 4/10. Has abrasions to left lower leg. She reportedly had a urologic procedure a week back for a urethral stricture. He has noticed black tarry stools for the last week or so and has been progressively getting weaker. Patient had significant bleeding from his scalp laceration which was sutured in the ER. He was noted to be coagulopathic with an INR of 6.5 and received 2 units of FFP and vitamin K 10 mg IV in the ER. He had a subclavian central line placed by ER physician. Patient was given 1.5 L fluid bolus and started on Faisal-Synephrine for pressor support. 2 units FFP, PRBCs 2 units were ordered to be transfused as his hemoglobin dropped to 6.9 following fluid bolus. Patient was accepted for admission by critical care medicine service. When I evaluated the patient in the ER he was resting in the ER stretcher appeared comfortable and not in any acute distress. Head CT done earlier revealed a subdural hematoma from neurosurgery was consulted and did not plan any active intervention. When I evaluated the patient he was on Faisal-Synephrine about 20 mics per minute with a systolic blood pressure in the 140s having just finished his second unit of PRBCs. 11/23: No events over the night. Patient is doing well. Denies CP, dyspnea, palpitations, abdominal pain, N/V, melena since admission. No CHAMPAGNE. C/o right shoulder pain. Tmax 100.1, positive 2.4 liters since admission. 11/24: Patient did well through the night. Good spirits, denies any complaints except that he is hungry. Blood glucose 68 --> received 1/2 amp d50. Tmax 99, negative 520 cc/24 hours. 11/25: No events overnight. Patient is doing well, denies any headache, nausea , vomiting, chest pain, palpitations. T-max 99.8, good urine output. Yesterday , he was seen by infectious diseases and podiatry. Consult appreciated. Objective Vital Signs Date Time Temp Pulse Resp B/P (MAP) Pulse Ox O2 Delivery O2 Flow Rate FiO2 11/25/17 06:00 71 11/25/17 04:00 98.5 25 94/56 (69) 97 11/24/17 19:00 Room Air 11/24/17 01:05 2.00 Intake and Output 11/25/17 11/25/17 11/26/17 08:00 16:00 00:00 Intake Total 400 ml Output Total 750 ml Balance -350 ml Result Diagram: 11/25/17 0457 11/25/17 0500 Other Results Microbiology Date/Time Source Procedure Growth Status 11/22/17 16:00 Urine Random Urine Urine Culture - Final S. Aureus Mrsa Complete Imaging Last Impressions Head CT 11/24/17 0600 Signed Impressions: Service Date/Time: Friday, November 24, 2017 05:16 - CONCLUSION: 1. Mild increase in the size of the high density hemorrhage along the right parietal lobe 2. 2 additional smaller areas of high density punctate hemorrhage are now noted along the right parietal lobe as well. Franklin Schaefer MD Chest X-Ray 11/22/17 1418 Signed Impressions: Service Date/Time: Wednesday, November 22, 2017 14:37 - CONCLUSION: Mild pulmonary vascular congestion with a left subclavian pacer. Dagoberto aDs MD Cervical Spine CT 11/22/17 1418 Signed Impressions: Service Date/Time: Wednesday, November 22, 2017 14:39 - CONCLUSION: Large anterior osteophytes at multiple levels. Scattered areas of bilateral neuroforaminal narrowing due to osteophyte. No evidence of acute fracture or significant subluxation. Dagoberto Das MD Shoulder X-Ray 11/22/17 0000 Signed Impressions: Service Date/Time: Wednesday, November 22, 2017 16:27 - CONCLUSION: Unremarkable examination of the left shoulder status post left bipolar pacermaker. Marked impingement change with acromial spurring and erosions across the greater tuberosity Dagoberto Das MD Pelvis X-Ray 11/22/17 0000 Signed Impressions: Service Date/Time: Wednesday, November 22, 2017 14:36 - CONCLUSION: Unremarkable examination of the pelvis. Dagoberto Das MD Chest CT 11/22/17 0000 Signed Impressions: Service Date/Time: Wednesday, November 22, 2017 16:02 - CONCLUSION: 1. No acute finding is identified on this noncontrast examination of the chest. 2. There is stable left pleural thickening, trace left pleural fluid, and volume loss in the left lower lobe. 3. Coronary artery calcification and severe atherosclerotic disease of aorta. Jalil Cedillo MD Abdomen/Pelvis CT 11/22/17 0000 Signed Impressions: Service Date/Time: Wednesday, November 22, 2017 16:02 - CONCLUSION: 1. No acute finding is identified on this mildly motion degraded noncontrast CT of the abdomen and pelvis. 2. Stable nonacute findings include cholelithiasis, severe atherosclerotic disease, and sigmoid diverticulosis. Jalil Cedillo MD Last Impressions Head CT 11/22/17 1418 Signed Impressions: Service Date/Time: Wednesday, November 22, 2017 14:39 - CONCLUSION: Diffuse atrophy. 2 mm linear area of dense material in the extra-axial subdural space unlikely to represent hemorrhage. Soft tissue swelling in the high right parietal region Dagoberto Das MD Chest X-Ray 11/22/17 1418 Signed Impressions: Service Date/Time: Wednesday, November 22, 2017 14:37 - CONCLUSION: Mild pulmonary vascular congestion with a left subclavian pacer. Dagoberto Das MD Cervical Spine CT 11/22/17 1418 Signed Impressions: Service Date/Time: Wednesday, November 22, 2017 14:39 - CONCLUSION: Large anterior osteophytes at multiple levels. Scattered areas of bilateral neuroforaminal narrowing due to osteophyte. No evidence of acute fracture or significant subluxation. Dagoberto Das MD Shoulder X-Ray 11/22/17 0000 Signed Impressions: Service Date/Time: Wednesday, November 22, 2017 16:27 - CONCLUSION: Unremarkable examination of the left shoulder status post left bipolar pacermaker. Marked impingement change with acromial spurring and erosions across the greater tuberosity Dagoberto Das MD Pelvis X-Ray 11/22/17 0000 Signed Impressions: Service Date/Time: Wednesday, November 22, 2017 14:36 - CONCLUSION: Unremarkable examination of the pelvis. Dagoberto Das MD Chest CT 11/22/17 0000 Signed Impressions: Service Date/Time: Wednesday, November 22, 2017 16:02 - CONCLUSION: 1. No acute finding is identified on this noncontrast examination of the chest. 2. There is stable left pleural thickening, trace left pleural fluid, and volume loss in the left lower lobe. 3. Coronary artery calcification and severe atherosclerotic disease of aorta. Jalil Cedillo MD Abdomen/Pelvis CT 11/22/17 0000 Signed Impressions: Service Date/Time: Wednesday, November 22, 2017 16:02 - CONCLUSION: 1. No acute finding is identified on this mildly motion degraded noncontrast CT of the abdomen and pelvis. 2. Stable nonacute findings include cholelithiasis, severe atherosclerotic disease, and sigmoid diverticulosis. Jalil Cedillo MD Objective Remarks General - elderly gentleman, awake, in no distress HEENT - small scalp laceration with dressing, pupils equal, reactive, sclerae anicteric, neck supple, no rigidity, no JVD, RIJ CVC - site is clean CV - regular S1, S2, systolic murmur at apex Chest - clear b/l, good air entry, no wheezes Abdomen - soft, non-tender, non-distended, BS present Skin - no rashes Extremities - no edema, + peripheral pulses, warm and well perfused Neuro - awake, alert and oriented X 3, pupils equal and reactive, EOMI, smile symmetric, tongue midline, shrugs shoulders, motor 5/5 over all extremities, sensation intact A/P Assessment and Plan 1. Small SDH post fall - slight increase in SDH on repeat CT head from yesterday 2. Scalp laceration 3. Coagulopathy secondary to warfarin - resolved 4. Acute blood loss anemia likely secondary to GIB - no episodes since admission. Had EGD done yesterday - gastritis and duodenal ulcer 5. Hypotension - resolved 6. MRSA UTI and likely MRSA bacteremia with concern for endovascular infection - patient has a PPM 7. LISBETH - slowly improving, good urine output 8. Unexplained weight loss 9. Right 3rd toe abscess r/o osteomyelitis Plan: 1. Patient is doing well from neuro standpoint 2. On vanco followed by ID 3. TTE 4. Blood cx X 2 today 5. PPI BID 6. Scheduled for I&D of toe abscess today 7. Mechanical DVT prophylaxis with SCD's Discussed with neurosurgery - OK to transfer out of ICU. Will ask hospitalist service to take over patient's care. Please call back with any questions or if additional help is needed. Luis Manuel Bañuelos MD Nov 25, 2017 09:40
[2017-11-25] MEDS: PANTOPRAZOLE SODIUM 40 MG VIAL IV PUSH SCH (10:03)
[2017-11-25] MEDS: DOCUSATE SODIUM 50 MG/SENNA 8.6 MG TAB PO SCH ×2 (10:03→20:35)
[2017-11-25] MEDS: SODIUM CHLORIDE 0.9% FLUSH 10 ML FLUSH IV FLUSH SCH ×2 (10:04→20:35)
[2017-11-25] MEDS: SODIUM CHLOR 0.9% 1000 ML INJ 1,000 ML IV SCH ×2 (11:19→17:47)
--- NOTE | 2017-11-25 13:31 | ECHRPT ---
Indication: A FIB FLUTTER CONCLUSIONS Mildly dilated left ventricle. Mild concentric left ventricular hypertrophy. The left ventricular systolic function is xgkzwqeo-[id number] reduced with an estimated ejection fra ction in the range of 35-40%. Mitral annular calcification is present. Mild thickening of the aortic valve leaflets. Mild aortic valve regurgitation. Mild aortic valve stenosis. Aortic valve mean gradient is 15 mmHg. Aortic valve area is 1 cm. There is moderate to severe tricuspid valve regurgitation. There is estimated uyduvjak-kp-kltwbs pulmonary hypertension present (63mmHg). moderate to severe mr with possible mild stenosis (gradient not obtained on this study) BP: 112 / 61 HR: 80 Rhythm: MEASUREMENTS (Male / Female) Normal Values Technical Quality:Good 2D ECHO LV Diastolic Diameter PLAX 5.3 cm 4.2 - 5.9 / 3.9 - 5.3 cm LV Systolic Diameter PLAX 4.3 cm IVS Diastolic Thickness 1.1 cm 0.6 - 1.0 / 0.6 - 0.9 cm LVPW Diastolic Thickness 0.8 cm 0.6 - 1.0 / 0.6 - 0.9 cm LV Relative Wall Thickness 0.4 LVOT Diameter 2.0 cm LA Systolic Diameter LX 4.1 cm 3.0 - 4.0 / 2.7 - 3.8 cm DOPPLER AV Peak Velocity 261.0 cm/s AV Peak Gradient 27.2 mmHg AV Mean Gradient 15.0 mmHg AV Velocity Time Integral 59.9 cm LVOT Peak Velocity 89.8 cm/s LVOT Peak Gradient 3.2 mmHg LVOT Velocity Time Integral 19.6 cm AV Area Cont Eq vti 1.0 cm AV Area Cont Eq pk 1.1 cm MR Peak Velocity 438.0 cm/s MR Peak Gradient 76.7 mmHg Mitral E Point Velocity 78.8 cm/s Mitral A Point Velocity 73.4 cm/s Mitral E to A Ratio 1.1 TR Peak Velocity 396.0 cm/s TR Peak Gradient 62.7 mmHg FINDINGS LEFT VENTRICLE Mildly dilated left ventricle. Mild concentric left ventricular hypertrophy. The left ventricular systolic function is urbqxpop-uf-jkwyraj reduced with an estimated ejection fra ction in the range of 35-40%. RIGHT VENTRICLE Normal right ventricular size and systolic function. LEFT ATRIUM The left atrial size is normal. RIGHT ATRIUM The right atrial size is normal. ATRIAL SEPTUM Normal atrial septal thickness without atrial level shunting by limited color doppler interrogation. AORTA The aortic root and proximal ascending aorta are normal in size on limited imaging. MITRAL VALVE Mitral annular calcification is present. AORTIC VALVE Mild thickening of the aortic valve leaflets. Mild aortic valve regurgitation. Mild aortic valve stenosis. Aortic valve mean gradient is 15 mmHg. Aortic valve area is 1 cm. TRICUSPID VALVE There is moderate to severe tricuspid valve regurgitation. There is estimated aimbhbfl-zk-rjkxyy pulmonary hypertension present (63mmHg). PULMONARY VALVE The pulmonary valve is not well visualized. VESSELS The inferior vena cava is normal in size. PERICARDIUM No pericardial effusion. Odin Vargas MD, FACC, [facility] (Electronically Signed) Final Date:25 November 2017 13:30
[2017-11-25] MEDS ORDERED: VANCOMYCIN INJ 1,500 MG in SODIUM CHLORID 0.9% 500 ML INJ 500 ML IV ONE (14:00)
--- NOTE | 2017-11-25 15:04 | HHI.IDPN ---
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 Patient reports h/o 2 falls at home (note patient on anticoagulants) ? LOC after this fall. Patient was brought to hospital via Ambulance. Per chart review it appears patient had lost his footing and hit the back of his head. Family did not witness it and has a head laceration. There is report of possible LOC but not sure how long. When patient woke up he mainly complained of pain mainly to left shoulder and head. Per family patient is getting worked up for loss of 20 pounds recently and concerned for cancer. He has noticed black tarry stools for the last week or so and has been progressively getting weaker. Patient had significant bleeding from his scalp laceration which was sutured in the ER. He was noted to be coagulopathic with an INR of 6.5 and received 2 units of FFP and vitamin K 10 mg IV in the ER. He had a subclavian central line placed by ER physician. Patient was given 1.5 L fluid bolus and started on Faisal-Synephrine for pressor support. 2 units FFP, PRBCs 2 units were ordered to be transfused as his hemoglobin dropped to 6.9 following fluid bolus. Patient was admitted under critical care medicine service. Head CT done revealed a subdural hematoma. Neurosurgery was consulted and did not plan any active intervention. Patient was evaluated by GI and underwent EGD today with reported duodenitis and no bleeder or malignancies per verbal report. Colonoscopy is planned at some point in future per GI notes. Blood cultures done on admission were positive for MRSA and ID consulted for same given h/o pacer in situ. Pertinent positives and negatives: Family reported h/o MRSA. Patient reportedly had a urologic procedure a week back for a urethral stricture. H/o falls x 2 Patient upon questioning reports he stubbed his toe probably around the falls. Not sure of timing. H/o weight loss, workup ongoing. Overnight events reviewed No fevers No rash No diarrhea CT head : neurosurgery aware. Antibiotics Vanco IV Lines Line sites with no e.o infection Past Medical History reviewed Allergies: Coded Allergies: *MDRO Multi-Drug Resistant Organism (Unverified Adverse Reaction, Unknown , 11/22/17) MRSA back wound 02/2015. Objective . Vital Signs Date Time Temp Pulse Resp B/P (MAP) Pulse Ox O2 Delivery O2 Flow Rate FiO2 11/25/17 12:00 95 11/25/17 12:00 98.0 95 17 131/67 (88) 100 11/25/17 10:00 107 11/25/17 08:00 98 Room Air 11/25/17 08:00 98.6 74 23 106/58 (74) 98 11/25/17 08:00 74 11/25/17 06:00 71 11/25/17 04:00 78 11/25/17 04:00 98.5 78 25 94/56 (69) 97 11/25/17 02:00 90 11/25/17 00:00 88 11/25/17 00:00 99.8 88 22 109/56 (73) 100 11/24/17 22:00 90 11/24/17 20:37 100 11/24/17 20:00 97.5 79 24 109/58 (75) 100 11/24/17 20:00 79 11/24/17 19:00 100 Room Air 11/24/17 18:00 102 11/24/17 16:00 68 11/24/17 16:00 98.2 92 24 96/46 (63) 99 . Laboratory Tests Test 11/23/17 17:00 11/23/17 20:50 11/24/17 05:50 11/25/17 04:57 White Blood Count 5.7 TH/MM3 5.9 TH/MM3 5.1 TH/MM3 5.6 TH/MM3 Red Blood Count 2.95 MIL/MM3 3.05 MIL/MM3 2.95 MIL/MM3 2.85 MIL/MM3 Hemoglobin 7.6 GM/DL 7.6 GM/DL 7.5 GM/DL 7.3 GM/DL Hematocrit 21.7 % 22.4 % 21.9 % 21.2 % Mean Corpuscular Volume 73.5 FL 73.4 FL 74.3 FL 74.4 FL Mean Corpuscular Hemoglobin 25.7 PG 25.0 PG 25.5 PG 25.5 PG Mean Corpuscular Hemoglobin Concent 34.9 % 34.0 % 34.4 % 34.3 % Red Cell Distribution Width 17.7 % 17.5 % 17.3 % 17.6 % Platelet Count 108 TH/MM3 117 TH/MM3 108 TH/MM3 122 TH/MM3 Mean Platelet Volume 5.9 FL 5.8 FL 6.0 FL 6.1 FL Neutrophils (%) (Auto) 81.0 % 73.0 % 70.4 % Lymphocytes (%) (Auto) 7.2 % 10.8 % 11.9 % Monocytes (%) (Auto) 8.5 % 12.0 % 12.1 % Eosinophils (%) (Auto) 2.5 % 3.4 % 4.9 % Basophils (%) (Auto) 0.8 % 0.8 % 0.7 % Neutrophils # (Auto) 4.8 TH/MM3 3.7 TH/MM3 4.0 TH/MM3 Lymphocytes # (Auto) 0.4 TH/MM3 0.5 TH/MM3 0.7 TH/MM3 Monocytes # (Auto) 0.5 TH/MM3 0.6 TH/MM3 0.7 TH/MM3 Eosinophils # (Auto) 0.1 TH/MM3 0.2 TH/MM3 0.3 TH/MM3 Basophils # (Auto) 0.0 TH/MM3 0.0 TH/MM3 0.0 TH/MM3 CBC Comment DIFF FINAL DIFF FINAL DIFF FINAL Differential Comment Laboratory Tests Test 11/23/17 20:50 11/24/17 05:50 11/24/17 06:55 11/25/17 05:00 Blood Urea Nitrogen 53 MG/DL 45 MG/DL 40 MG/DL Creatinine 2.38 MG/DL 2.05 MG/DL 1.89 MG/DL Random Glucose 153 MG/DL 68 MG/DL 78 MG/DL Calcium Level 7.5 MG/DL 7.6 MG/DL 7.3 MG/DL Phosphorus Level 3.1 MG/DL Magnesium Level 1.9 MG/DL Sodium Level 138 MEQ/L 140 MEQ/L 139 MEQ/L Potassium Level 4.4 MEQ/L 4.5 MEQ/L 4.7 MEQ/L Chloride Level 108 MEQ/L 110 MEQ/L 109 MEQ/L Carbon Dioxide Level 20.5 MEQ/L 22.2 MEQ/L 23.3 MEQ/L Anion Gap 10 MEQ/L 8 MEQ/L 7 MEQ/L Estimat Glomerular Filtration Rate 26 ML/MIN 31 ML/MIN 34 ML/MIN Total Protein 6.2 GM/DL 6.1 GM/DL Albumin 2.0 GM/DL 1.9 GM/DL Alkaline Phosphatase 56 U/L 57 U/L Aspartate Amino Transf (AST/SGOT) 11 U/L 13 U/L Alanine Aminotransferase (ALT/SGPT) 8 U/L 14 U/L Total Bilirubin 0.8 MG/DL 0.6 MG/DL C-Reactive Protein 16.10 MG/DL Protein Corrected Calcium 7.8 MG/DL Microbiology Date/Time Source Procedure Growth Status 11/25/17 04:51 Blood Peripheral Aerobic Blood Culture Pending Received 11/25/17 04:51 Blood Peripheral Anaerobic Blood Culture Pending Received 11/25/17 04:50 Blood Peripheral Aerobic Blood Culture Pending Received 11/25/17 04:50 Blood Peripheral Anaerobic Blood Culture Pending Received 11/22/17 15:15 Blood Peripheral Aerobic Blood Culture - Preliminary NO GROWTH IN 3 DAYS Resulted 11/22/17 15:15 Blood Peripheral Anaerobic Blood Culture - Preliminary NO GROWTH IN 3 DAYS Resulted 11/22/17 15:10 Blood Peripheral Aerobic Blood Culture - Final S. Aureus Mrsa Resulted 11/22/17 15:10 Blood Peripheral Anaerobic Blood Culture - Preliminary NO GROWTH IN 3 DAYS Resulted 11/22/17 16:00 Urine Random Urine Urine Culture - Final S. Aureus Mrsa Complete Imaging Last Impressions Head CT 11/24/17 0600 Signed Impressions: Service Date/Time: Friday, November 24, 2017 05:16 - CONCLUSION: 1. Mild increase in the size of the high density hemorrhage along the right parietal lobe 2. 2 additional smaller areas of high density punctate hemorrhage are now noted along the right parietal lobe as well. Franklin Schaefer MD Foot X-Ray 11/24/17 0000 Signed Impressions: Service Date/Time: Friday, November 24, 2017 18:04 - CONCLUSION: 1. Chronic appearing limited erosion of the medial proximal first metatarsal near the MTP joint. 2. No evidence for erosive change to suggest osteomyelitis involving the third digit. Chris Cooper MD Chest X-Ray 11/22/17 1418 Signed Impressions: Service Date/Time: Wednesday, November 22, 2017 14:37 - CONCLUSION: Mild pulmonary vascular congestion with a left subclavian pacer. Dagoberto Das MD Cervical Spine CT 11/22/17 1418 Signed Impressions: Service Date/Time: Wednesday, November 22, 2017 14:39 - CONCLUSION: Large anterior osteophytes at multiple levels. Scattered areas of bilateral neuroforaminal narrowing due to osteophyte. No evidence of acute fracture or significant subluxation. Dagoberto Das MD Shoulder X-Ray 11/22/17 0000 Signed Impressions: Service Date/Time: Wednesday, November 22, 2017 16:27 - CONCLUSION: Unremarkable examination of the left shoulder status post left bipolar pacermaker. Marked impingement change with acromial spurring and erosions across the greater tuberosity Dagoberto Das MD Pelvis X-Ray 11/22/17 0000 Signed Impressions: Service Date/Time: Wednesday, November 22, 2017 14:36 - CONCLUSION: Unremarkable examination of the pelvis. Dagoberto Das MD Chest CT 11/22/17 0000 Signed Impressions: Service Date/Time: Wednesday, November 22, 2017 16:02 - CONCLUSION: 1. No acute finding is identified on this noncontrast examination of the chest. 2. There is stable left pleural thickening, trace left pleural fluid, and volume loss in the left lower lobe. 3. Coronary artery calcification and severe atherosclerotic disease of aorta. Jalil Cedillo MD Abdomen/Pelvis CT 11/22/17 0000 Signed Impressions: Service Date/Time: Wednesday, November 22, 2017 16:02 - CONCLUSION: 1. No acute finding is identified on this mildly motion degraded noncontrast CT of the abdomen and pelvis. 2. Stable nonacute findings include cholelithiasis, severe atherosclerotic disease, and sigmoid diverticulosis. Jalil Cedillo MD Physical Exam GENERAL: This is a well-nourished, well-developed patient, in no apparent distress. SKIN: No rashes, ecchymoses or lesions. Cool and dry. HEAD: Atraumatic. Normocephalic. No temporal or scalp tenderness. EYES: Pupils equal round and reactive. Extraocular motions intact. No scleral icterus. No injection or drainage. ENT: Nose without bleeding, purulent drainage or septal hematoma. Throat without erythema, tonsillar hypertrophy or exudate. Uvula midline. Airway patent. NECK: Trachea midline. Supple, nontender, no meningeal signs. CARDIOVASCULAR: HS audible.Pacemaker site ok with no e.o infection. RESPIRATORY: Clear to auscultation. Breath sounds equal bilaterally. GASTROINTESTINAL: Abdomen soft, non-tender, nondistended. MUSCULOSKELETAL: right 3rd toe with subungal hematoma ? avulsed nail. small area of blackening ? hematoma vs abscess. Extremities without clubbing, cyanosis , or edema. Knee surgical scars intact with no e.o infection. NEUROLOGICAL: Awake and alert. Responds to questions. Speech ok. Psych cooperative IV line sites with no e.o infection. Assessment & Plan Remarks MRSA bacteremia present on admission. R/o pacer infection and endocarditis. ? reason for fall vs resultant of fall related toe injury. MRSA in urine likely from renal translocation concerning for endovascular infection. Right 3rd toe abscess r/o osteomyelitis. ? source of bacteremia. Pacemaker in situ. Afib on anticoagulation. H/o falls x 2, Right parietal lobe bleed. Pulm edema Recs: Continue Vanco IV (target 15-20 for MRSA bacteremia) Await further input from as well as results of repeat blood culture to decide on length of treatment. Follow cultures Follow clinically. donna pt, no family at bedside. Rossy Reed RN, MD Nov 25, 2017 15:04
--- NOTE | 2017-11-25 15:29 | HHI.GIFU ---
Subjective Remarks Pt resting in bed watching TV. No GI complaints. (Klaudia Nina) Objective Vitals I&O Vital Signs Date Time Temp Pulse Resp B/P (MAP) Pulse Ox O2 Delivery O2 Flow Rate FiO2 11/25/17 14:00 80 11/25/17 12:00 95 11/25/17 12:00 98.0 95 17 131/67 (88) 100 11/25/17 10:00 107 11/25/17 08:00 98 Room Air 11/25/17 08:00 98.6 74 23 106/58 (74) 98 11/25/17 08:00 74 11/25/17 06:00 71 11/25/17 04:00 78 11/25/17 04:00 98.5 78 25 94/56 (69) 97 11/25/17 02:00 90 11/25/17 00:00 88 11/25/17 00:00 99.8 88 22 109/56 (73) 100 11/24/17 22:00 90 11/24/17 20:37 100 11/24/17 20:00 97.5 79 24 109/58 (75) 100 11/24/17 20:00 79 11/24/17 19:00 100 Room Air 11/24/17 18:00 102 11/24/17 16:00 68 11/24/17 16:00 98.2 92 24 96/46 (63) 99 I/O 11/24/17 11/24/17 11/24/17 11/25/17 11/25/17 11/25/17 07:00 15:00 23:00 07:00 15:00 23:00 Intake Total 50 ml 210 ml 1000 ml 400 ml Output Total 1200 ml 750 ml Balance 50 ml 210 ml -200 ml -350 ml Intake Oral 0 ml 400 ml IV Total 50 ml 1000 ml Blood Product IV Normal Saline Flush 10 ml Other 200 ml Output Urine Total 1200 ml 750 ml Stool Total 0 ml # Bowel Movements 0 Laboratory Laboratory Tests Test 11/25/17 04:57 11/25/17 05:00 White Blood Count 5.6 Red Blood Count 2.85 Hemoglobin 7.3 Hematocrit 21.2 Mean Corpuscular Volume 74.4 Mean Corpuscular Hemoglobin 25.5 Mean Corpuscular Hemoglobin Concent 34.3 Red Cell Distribution Width 17.6 Platelet Count 122 Mean Platelet Volume 6.1 Neutrophils (%) (Auto) 70.4 Lymphocytes (%) (Auto) 11.9 Monocytes (%) (Auto) 12.1 Eosinophils (%) (Auto) 4.9 Basophils (%) (Auto) 0.7 Neutrophils # (Auto) 4.0 Lymphocytes # (Auto) 0.7 Monocytes # (Auto) 0.7 Eosinophils # (Auto) 0.3 Basophils # (Auto) 0.0 CBC Comment DIFF FINAL Differential Comment Prothrombin Time 13.5 Prothromb Time International Ratio 1.3 Blood Urea Nitrogen 40 Creatinine 1.89 Random Glucose 78 Total Protein 6.1 Albumin 1.9 Calcium Level 7.3 Alkaline Phosphatase 57 Aspartate Amino Transf (AST/SGOT) 13 Alanine Aminotransferase (ALT/SGPT) 14 Total Bilirubin 0.6 Sodium Level 139 Potassium Level 4.7 Chloride Level 109 Carbon Dioxide Level 23.3 Anion Gap 7 Estimat Glomerular Filtration Rate 34 Protein Corrected Calcium 7.8 Random Vancomycin Level 10.7 Date/Time Source Procedure Growth Status 11/25/17 04:51 Blood Peripheral Aerobic Blood Culture Pending Received 11/25/17 04:51 Blood Peripheral Anaerobic Blood Culture Pending Received 11/22/17 16:00 Urine Random Urine Urine Culture - Final S. Aureus Mrsa Complete Imaging Last Impressions Head CT 11/24/17 0600 Signed Impressions: Service Date/Time: Friday, November 24, 2017 05:16 - CONCLUSION: 1. Mild increase in the size of the high density hemorrhage along the right parietal lobe 2. 2 additional smaller areas of high density punctate hemorrhage are now noted along the right parietal lobe as well. Franklin Schaefer MD Foot X-Ray 11/24/17 0000 Signed Impressions: Service Date/Time: Friday, November 24, 2017 18:04 - CONCLUSION: 1. Chronic appearing limited erosion of the medial proximal first metatarsal near the MTP joint. 2. No evidence for erosive change to suggest osteomyelitis involving the third digit. Chris Cooper MD Chest X-Ray 11/22/178 Signed Impressions: Service Date/Time: Wednesday, November 22, 2017 14:37 - CONCLUSION: Mild pulmonary vascular congestion with a left subclavian pacer. Dagoberto Das MD Cervical Spine CT 11/22/17 1418 Signed Impressions: Service Date/Time: Wednesday, November 22, 2017 14:39 - CONCLUSION: Large anterior osteophytes at multiple levels. Scattered areas of bilateral neuroforaminal narrowing due to osteophyte. No evidence of acute fracture or significant subluxation. Dagoberto Das MD Shoulder X-Ray 11/22/17 0000 Signed Impressions: Service Date/Time: Wednesday, November 22, 2017 16:27 - CONCLUSION: Unremarkable examination of the left shoulder status post left bipolar pacermaker. Marked impingement change with acromial spurring and erosions across the greater tuberosity Dagoberto Das MD Pelvis X-Ray 11/22/17 0000 Signed Impressions: Service Date/Time: Wednesday, November 22, 2017 14:36 - CONCLUSION: Unremarkable examination of the pelvis. Dagoberto Das MD Chest CT 11/22/17 0000 Signed Impressions: Service Date/Time: Wednesday, November 22, 2017 16:02 - CONCLUSION: 1. No acute finding is identified on this noncontrast examination of the chest. 2. There is stable left pleural thickening, trace left pleural fluid, and volume loss in the left lower lobe. 3. Coronary artery calcification and severe atherosclerotic disease of aorta. Jalil Cedillo MD Abdomen/Pelvis CT 11/22/17 0000 Signed Impressions: Service Date/Time: Wednesday, November 22, 2017 16:02 - CONCLUSION: 1. No acute finding is identified on this mildly motion degraded noncontrast CT of the abdomen and pelvis. 2. Stable nonacute findings include cholelithiasis, severe atherosclerotic disease, and sigmoid diverticulosis. Jalil Cedillo MD Physical Exam HEENT: PERRL; normocephalic; no jaundice. CHEST: CTA CARDIAC: RRR ABDOMEN: Soft, nondistended, nontender; no hepatosplenomegaly; bowel sounds are present in all four quadrants. EXTREMITIES: No clubbing, cyanosis, or edema. SKIN: Normal; no rash; no jaundice. OPERATING ROOM COORDINATOR: No focal deficits; alert and oriented times three. (Klaudia Nina) Assessment and Plan Plan ASSESSMENT - black tarry stool, anemia - poss UGIB, on coumadin had supratherapeutic INR. anemia is microcytic. receiving FFP. - weight loss, decreased appetite - 45 lbs since september. last colonoscopy 1 y ago and "ok." never had EGD neurosurgery will clear for endoscopy if head CT in am stable, so will plan for just EGD for now - SDH, neurosurgery following, being monitored - LISBETH per CCM 11/25/17 S/P EGD found gastritis, ulcer in duodenum. HH is stable, no active bleeding. tolerating diet. no complaints. PLAN - await biopsies - EGD in 3 months - monitor labs - transfuse as needed pt seen by myself and Dr Kenny and this note is written on his behalf (Klaudia Nina) Physician Comments Seen and examined with MAINTENANCE SUPERVISOR 2ND SHIFT, no active bleeding. Transfuse as needed. Monitor H/ H , Diet as tolerated. (Delmer Kenny MD) Klaudia Nina Nov 25, 2017 15:29 Delmer Kenny MD Nov 25, 2017 16:15
--- NOTE | 2017-11-25 15:56 | RADRPT ---
EXAM DATE/TIME: 11/25/2017 15:16 [facility] COMPARISON: FOOT RIGHT COMPLETE ([id number]), November 24, 2017, 18:04. INDICATIONS : Short of breath. MEDICAL HISTORY : Cardiovascular disease. Congestive heart failure. Hypertension. SURGICAL HISTORY : Pacemaker. ENCOUNTER: Subsequent ACUITY: 3 days PAIN SCORE: Non-responsive. LOCATION: Bilateral chest FINDINGS: The heart is at the upper limits of normal size. There is left basilar pleural effusion and consolida tion. There is mild hyperinflation of the right lung. The pacer and central line are in good position . The bony structures demonstrate degenerative changes in the shoulders but are otherwise intact. CONCLUSION: 1. Left basilar effusion and consolidation concerning for pneumonia. Darrian Shell MD on November 25, 2017 at 15:54 Board Certified Radiologist. This report was verified electronically.
[2017-11-25] MEDS ORDERED: LIDOCAINE HCL 1% 20 ML VIAL OTHER SCH (16:00)
[2017-11-26] VITALS (7 sets, daily range): BP systolic 118–141; BP diastolic 62–76; PULSE 80–101; RESP 16–18; TEMP 97.3–97.6; O2SAT 96–100
[2017-11-26] MEDS: PANTOPRAZOLE SODIUM 40 MG VIAL IV PUSH SCH ×2 (00:30→09:09)
[2017-11-26] MEDS: CHLORHEXIDINE GLUCONATE 2 % 1 PACK (2 CLOTHS) TOP SCH (04:00)
[2017-11-26] MEDS: SODIUM CHLOR 0.9% 1000 ML INJ 1,000 ML IV SCH (05:55)
[2017-11-26 07:13] LABS: AUTOMATED NEUTROPHIL # 3.1 TH/MM3 (1.8-7.7); BASOPHIL % 0.7 % (0.0-2.0); EOSINOPHIL # 0.4 TH/MM3 (0-0.4); EOSINOPHIL % 9.2 % (0.0-4.0); HEMATOCRIT 21.7 % (39.0-51.0); HEMOGLOBIN 7.2 GM/DL (13.0-17.0); LYMPH % 12.3 % (9.0-44.0); LYMPHOCYTE # 0.6 TH/MM3 (1.0-4.8); MEAN CELL VOLUME 75.2 FL (80.0-100.0); MEAN CORPUSCULAR HGB CONC 33.2 % (32.0-36.0); MEAN PLATELET VOLUME 6.1 FL (7.0-11.0); MONO % 10.5 % (0.0-8.0); MONOCYTE # 0.5 TH/MM3 (0-0.9); NEUT % 67.3 % (16.0-70.0); PLATELET COUNT 136 TH/MM3 (150-450); RED BLOOD COUNT 2.88 MIL/MM3 (4.50-5.90); RED CELL DISTRIBUTION WIDTH 17.5 % (11.6-17.2); WHITE BLOOD COUNT 4.6 TH/MM3 (4.0-11.0)
[2017-11-26 07:22] LABS: INTERNATIONAL NORMALIZED RATIO 1.2 RATIO; PROTHROMBIN TIME - PATIENT 12.2 SEC (9.8-11.6)
[2017-11-26 07:36] LABS: ALBUMIN 1.8 GM/DL (3.4-5.0); BICARBONATE 21.2 MEQ/L (21.0-32.0); CALCIUM 7.1 MG/DL (8.5-10.1); CALCIUM-PROTEIN CORRECTED 7.7 MG/DL (8.5-10.1); CREATININE 1.63 MG/DL (0.60-1.30); RANDOM VANCOMYCIN 16.8 COMMENT; TOTAL BILIRUBIN ADULT 0.7 MG/DL (0.2-1.0)
--- NOTE | 2017-11-26 08:08 | PD.OP ---
Operative Report Right 3rd digit ulcer OM Postoperative Diagnosis: same Procedure: Incision drainage and debridement with bone biopsy right third digit Anesthesia: Local only 1% lidocaine plain 3 cc Surgeon: Caleb Perez Registered Nurse Renal(s): nurse, Art, nursing Operation and Findings: After appropriate timeout and verbal informed written consent procedure took place. 1% lidocaine anesthesia was infiltrated at the base of the right third digit. The patient's right third digit was then scrubbed prepped and draped in usual aseptic fashion. The nail was avulsed utilizing [place] and hemostats. The distal aspect of the right third digit revealed purulent abscess that tracked down to the distal phalanx. Utilizing bone rongeur and bone was removed of the distal phalanx and sent for pathological analysis, tissue culture was also taken from bone and sent for microbial analysis. We will await results if positive for bone infection we may consider digit amputation. The patient wishes to refrain from talks of amputation until pathology has resulted. Overall good bleeding was noted however slightly delayed. Caleb Perez DPM Nov 26, 2017 08:07
[2017-11-26] MEDS: VANCOMYCIN INJ 1,500 MG in SODIUM CHLORID 0.9% 500 ML INJ 500 ML IV SCH (10:38)
--- NOTE | 2017-11-26 11:40 | HHI.GIFU ---
Subjective Remarks Pt resting in bed. No GI complaints. tolerating diet. s/p toe surgery. (Klaudia Nina) Objective Vitals I&O Vital Signs Date Time Temp Pulse Resp B/P (MAP) Pulse Ox O2 Delivery O2 Flow Rate FiO2 11/26/17 10:15 98 21 11/26/17 08:16 97.3 91 18 141/75 (97) 99 11/26/17 05:53 97.6 101 16 118/73 (88) 11/26/17 00:00 97.6 92 18 123/62 (82) 100 11/25/17 23:10 97.4 91 18 136/76 (96) 100 11/25/17 20:00 86 11/25/17 20:00 98.6 91 24 111/64 (80) 100 11/25/17 19:52 100 21 11/25/17 19:00 100 Room Air 11/25/17 18:00 80 11/25/17 16:00 75 11/25/17 16:00 97.7 95 23 112/68 (83) 100 11/25/17 14:00 80 11/25/17 12:00 95 11/25/17 12:00 98.0 95 17 131/67 (88) 100 I/O 11/25/17 11/25/17 11/25/17 11/26/17 11/26/17 11/26/17 07:00 15:00 23:00 07:00 15:00 23:00 Intake Total 400 ml 300 ml Output Total 750 ml Balance -350 ml 300 ml Intake Oral 400 ml 300 ml Output Urine Total 750 ml Stool Total 0 ml # Voids 5 1 # Bowel Movements 0 1 1 Laboratory Laboratory Tests Test 11/26/17 05:45 White Blood Count 4.6 Red Blood Count 2.88 Hemoglobin 7.2 Hematocrit 21.7 Mean Corpuscular Volume 75.2 Mean Corpuscular Hemoglobin 25.0 Mean Corpuscular Hemoglobin Concent 33.2 Red Cell Distribution Width 17.5 Platelet Count 136 Mean Platelet Volume 6.1 Neutrophils (%) (Auto) 67.3 Lymphocytes (%) (Auto) 12.3 Monocytes (%) (Auto) 10.5 Eosinophils (%) (Auto) 9.2 Basophils (%) (Auto) 0.7 Neutrophils # (Auto) 3.1 Lymphocytes # (Auto) 0.6 Monocytes # (Auto) 0.5 Eosinophils # (Auto) 0.4 Basophils # (Auto) 0.0 CBC Comment DIFF FINAL Differential Comment Prothrombin Time 12.2 Prothromb Time International Ratio 1.2 Blood Urea Nitrogen 34 Creatinine 1.63 Random Glucose 71 Total Protein 6.0 Albumin 1.8 Calcium Level 7.1 Alkaline Phosphatase 56 Aspartate Amino Transf (AST/SGOT) 16 Alanine Aminotransferase (ALT/SGPT) 10 Total Bilirubin 0.7 Sodium Level 138 Potassium Level 4.2 Chloride Level 108 Carbon Dioxide Level 21.2 Anion Gap 9 Estimat Glomerular Filtration Rate 40 Protein Corrected Calcium 7.7 Random Vancomycin Level 16.8 Date/Time Source Procedure Growth Status 11/25/17 04:51 Blood Peripheral Aerobic Blood Culture - Preliminary NO GROWTH IN 1 DAY Resulted 11/25/17 04:51 Blood Peripheral Anaerobic Blood Culture - Preliminary NO GROWTH IN 1 DAY Resulted 11/22/17 16:00 Urine Random Urine Urine Culture - Final S. Aureus Mrsa Complete 11/26/17 08:30 Wound Toe Gram Stain Pending Received 11/26/17 08:30 Wound Toe Wound Culture Pending Received Imaging Last Impressions Chest X-Ray 11/25/17 0000 Signed Impressions: Service Date/Time: Saturday, November 25, 2017 15:16 - CONCLUSION: 1. Left basilar effusion and consolidation concerning for pneumonia. Darrian Shell MD Head CT 11/24/17 0600 Signed Impressions: Service Date/Time: Friday, November 24, 2017 05:16 - CONCLUSION: 1. Mild increase in the size of the high density hemorrhage along the right parietal lobe 2. 2 additional smaller areas of high density punctate hemorrhage are now noted along the right parietal lobe as well. Franklin Schaefer MD Foot X-Ray 11/24/17 0000 Signed Impressions: Service Date/Time: Friday, November 24, 2017 18:04 - CONCLUSION: 1. Chronic appearing limited erosion of the medial proximal first metatarsal near the MTP joint. 2. No evidence for erosive change to suggest osteomyelitis involving the third digit. Chris Cooper MD Cervical Spine CT 11/22/17 1418 Signed Impressions: Service Date/Time: Wednesday, November 22, 2017 14:39 - CONCLUSION: Large anterior osteophytes at multiple levels. Scattered areas of bilateral neuroforaminal narrowing due to osteophyte. No evidence of acute fracture or significant subluxation. Dagoberto Das MD Shoulder X-Ray 11/22/17 0000 Signed Impressions: Service Date/Time: Wednesday, November 22, 2017 16:27 - CONCLUSION: Unremarkable examination of the left shoulder status post left bipolar pacermaker. Marked impingement change with acromial spurring and erosions across the greater tuberosity Dagoberto Das MD Pelvis X-Ray 11/22/17 0000 Signed Impressions: Service Date/Time: Wednesday, November 22, 2017 14:36 - CONCLUSION: Unremarkable examination of the pelvis. Dagoberto Das MD Chest CT 11/22/17 0000 Signed Impressions: Service Date/Time: Wednesday, November 22, 2017 16:02 - CONCLUSION: 1. No acute finding is identified on this noncontrast examination of the chest. 2. There is stable left pleural thickening, trace left pleural fluid, and volume loss in the left lower lobe. 3. Coronary artery calcification and severe atherosclerotic disease of aorta. Jalil Cedillo MD Abdomen/Pelvis CT 11/22/17 0000 Signed Impressions: Service Date/Time: Wednesday, November 22, 2017 16:02 - CONCLUSION: 1. No acute finding is identified on this mildly motion degraded noncontrast CT of the abdomen and pelvis. 2. Stable nonacute findings include cholelithiasis, severe atherosclerotic disease, and sigmoid diverticulosis. Jalil Cedillo MD Physical Exam HEENT: PERRL; normocephalic; no jaundice. CHEST: CTA CARDIAC: irr HR ABDOMEN: Soft, nondistended, nontender; no hepatosplenomegaly; bowel sounds are present in all four quadrants. EXTREMITIES: No clubbing, cyanosis, or edema. bandage left foot SKIN: Normal; no rash; no jaundice. 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 (Klaudia Nina OPERATIONS ADMINISTRATOR) Assessment and Plan Plan ASSESSMENT - black tarry stool, anemia - poss UGIB, on coumadin had supratherapeutic INR. anemia is microcytic. receiving FFP. - weight loss, decreased appetite - 45 lbs since september. last colonoscopy 1 y ago and "ok." never had EGD neurosurgery will clear for endoscopy if head CT in am stable, so will plan for just EGD for now - SDH, neurosurgery following, being monitored - LISBETH per CCM 11/25/17 S/P EGD found gastritis, ulcer in duodenum. HH is stable, no active bleeding. tolerating diet. no complaints. 11/26/17 HH relatively stable. No bleeding. bx duodenitis. PLAN - switch IV protonix to PO - EGD in 3 months - monitor labs - transfuse as needed pt seen by myself and Dr Kenny and this note is written on his behalf (Klaudia Nina) Physician Comments Seen and examined with KIRK, no bleeding reported. Monitor H/H. Repeat egd and colonoscopy when more stable . Gi will sign off. Thank you (Delmer Kenny MD) Klaudia Nina Nov 26, 2017 11:40 Delmer Kenny MD Nov 26, 2017 15:34
--- NOTE | 2017-11-26 13:39 | HHI.IDPN ---
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 Patient reports h/o 2 falls at home (note patient on anticoagulants) ? LOC after this fall. Patient was brought to hospital via Ambulance. Per chart review it appears patient had lost his footing and hit the back of his head. Family did not witness it and has a head laceration. There is report of possible LOC but not sure how long. When patient woke up he mainly complained of pain mainly to left shoulder and head. Per family patient is getting worked up for loss of 20 pounds recently and concerned for cancer. He has noticed black tarry stools for the last week or so and has been progressively getting weaker. Patient had significant bleeding from his scalp laceration which was sutured in the ER. He was noted to be coagulopathic with an INR of 6.5 and received 2 units of FFP and vitamin K 10 mg IV in the ER. He had a subclavian central line placed by ER physician. Patient was given 1.5 L fluid bolus and started on Faisal-Synephrine for pressor support. 2 units FFP, PRBCs 2 units were ordered to be transfused as his hemoglobin dropped to 6.9 following fluid bolus. Patient was admitted under critical care medicine service. Head CT done revealed a subdural hematoma. Neurosurgery was consulted and did not plan any active intervention. Patient was evaluated by GI and underwent EGD today with reported duodenitis and no bleeder or malignancies per verbal report. Colonoscopy is planned at some point in future per GI notes. Blood cultures done on admission were positive for MRSA and ID consulted for same given h/o pacer in situ. Pertinent positives and negatives: Family reported h/o MRSA. Patient reportedly had a urologic procedure a week back for a urethral stricture. H/o falls x 2 Patient upon questioning reports he stubbed his toe probably around the falls. Not sure of timing. H/o weight loss, workup ongoing. Overnight events reviewed No fevers No rash No diarrhea dw bedside I&D performed highly suspicious of osteomyelitis. Bone biopsy performed as probed down to the bone. Antibiotics Vanco IV Lines Line sites with no e.o infection Past Medical History reviewed Allergies: Coded Allergies: *MDRO Multi-Drug Resistant Organism (Unverified Adverse Reaction, Unknown , 11/22/17) MRSA back wound 02/2015. Objective . Vital Signs Date Time Temp Pulse Resp B/P (MAP) Pulse Ox O2 Delivery O2 Flow Rate FiO2 11/26/17 13:06 97.6 100 18 128/76 (93) 96 11/26/17 10:15 98 21 11/26/17 08:16 97.3 91 18 141/75 (97) 99 11/26/17 05:53 97.6 101 16 118/73 (88) 11/26/17 00:00 97.6 92 18 123/62 (82) 100 11/25/17 23:10 97.4 91 18 136/76 (96) 100 11/25/17 20:00 86 11/25/17 20:00 98.6 91 24 111/64 (80) 100 11/25/17 19:52 100 21 11/25/17 19:00 100 Room Air 11/25/17 18:00 80 11/25/17 16:00 75 11/25/17 16:00 97.7 95 23 112/68 (83) 100 11/25/17 14:00 80 11/26/17 11/26/17 11/27/17 15:00 23:00 07:00 # Voids 1 # Bowel Movements 1 . Laboratory Tests Test 11/25/17 04:57 11/26/17 05:45 White Blood Count 5.6 TH/MM3 4.6 TH/MM3 Red Blood Count 2.85 MIL/MM3 2.88 MIL/MM3 Hemoglobin 7.3 GM/DL 7.2 GM/DL Hematocrit 21.2 % 21.7 % Mean Corpuscular Volume 74.4 FL 75.2 FL Mean Corpuscular Hemoglobin 25.5 PG 25.0 PG Mean Corpuscular Hemoglobin Concent 34.3 % 33.2 % Red Cell Distribution Width 17.6 % 17.5 % Platelet Count 122 TH/MM3 136 TH/MM3 Mean Platelet Volume 6.1 FL 6.1 FL Neutrophils (%) (Auto) 70.4 % 67.3 % Lymphocytes (%) (Auto) 11.9 % 12.3 % Monocytes (%) (Auto) 12.1 % 10.5 % Eosinophils (%) (Auto) 4.9 % 9.2 % Basophils (%) (Auto) 0.7 % 0.7 % Neutrophils # (Auto) 4.0 TH/MM3 3.1 TH/MM3 Lymphocytes # (Auto) 0.7 TH/MM3 0.6 TH/MM3 Monocytes # (Auto) 0.7 TH/MM3 0.5 TH/MM3 Eosinophils # (Auto) 0.3 TH/MM3 0.4 TH/MM3 Basophils # (Auto) 0.0 TH/MM3 0.0 TH/MM3 CBC Comment DIFF FINAL DIFF FINAL Differential Comment Laboratory Tests Test 11/25/17 05:00 11/26/17 05:45 Blood Urea Nitrogen 40 MG/DL 34 MG/DL Creatinine 1.89 MG/DL 1.63 MG/DL Random Glucose 78 MG/DL 71 MG/DL Total Protein 6.1 GM/DL 6.0 GM/DL Albumin 1.9 GM/DL 1.8 GM/DL Calcium Level 7.3 MG/DL 7.1 MG/DL Alkaline Phosphatase 57 U/L 56 U/L Aspartate Amino Transf (AST/SGOT) 13 U/L 16 U/L Alanine Aminotransferase (ALT/SGPT) 14 U/L 10 U/L Total Bilirubin 0.6 MG/DL 0.7 MG/DL Sodium Level 139 MEQ/L 138 MEQ/L Potassium Level 4.7 MEQ/L 4.2 MEQ/L Chloride Level 109 MEQ/L 108 MEQ/L Carbon Dioxide Level 23.3 MEQ/L 21.2 MEQ/L Anion Gap 7 MEQ/L 9 MEQ/L Estimat Glomerular Filtration Rate 34 ML/MIN 40 ML/MIN Protein Corrected Calcium 7.8 MG/DL 7.7 MG/DL Microbiology Date/Time Source Procedure Growth Status 11/25/17 04:51 Blood Peripheral Aerobic Blood Culture - Preliminary NO GROWTH IN 1 DAY Resulted 11/25/17 04:51 Blood Peripheral Anaerobic Blood Culture - Preliminary NO GROWTH IN 1 DAY Resulted 11/25/17 04:50 Blood Peripheral Aerobic Blood Culture - Preliminary NO GROWTH IN 1 DAY Resulted 11/25/17 04:50 Blood Peripheral Anaerobic Blood Culture - Preliminary NO GROWTH IN 1 DAY Resulted 11/26/17 08:30 Wound Toe Gram Stain Pending Received 11/26/17 08:30 Wound Toe Wound Culture Pending Received Imaging Last Impressions Head CT 11/24/17 0600 Signed Impressions: Service Date/Time: Friday, November 24, 2017 05:16 - CONCLUSION: 1. Mild increase in the size of the high density hemorrhage along the right parietal lobe 2. 2 additional smaller areas of high density punctate hemorrhage are now noted along the right parietal lobe as well. Franklin Schaefer MD Foot X-Ray 11/24/17 0000 Signed Impressions: Service Date/Time: Friday, November 24, 2017 18:04 - CONCLUSION: 1. Chronic appearing limited erosion of the medial proximal first metatarsal near the MTP joint. 2. No evidence for erosive change to suggest osteomyelitis involving the third digit. Chris Cooper MD Chest X-Ray 11/22/178 Signed Impressions: Service Date/Time: Wednesday, November 22, 2017 14:37 - CONCLUSION: Mild pulmonary vascular congestion with a left subclavian pacer. Dagoberto Das MD Cervical Spine CT 11/22/171417 Signed Impressions: Service Date/Time: Wednesday, November 22, 2017 14:39 - CONCLUSION: Large anterior osteophytes at multiple levels. Scattered areas of bilateral neuroforaminal narrowing due to osteophyte. No evidence of acute fracture or significant subluxation. Dagoberto Das MD Shoulder X-Ray 11/22/17 0000 Signed Impressions: Service Date/Time: Wednesday, November 22, 2017 16:27 - CONCLUSION: Unremarkable examination of the left shoulder status post left bipolar pacermaker. Marked impingement change with acromial spurring and erosions across the greater tuberosity Dagoberto Das MD Pelvis X-Ray 11/22/17 0000 Signed Impressions: Service Date/Time: Wednesday, November 22, 2017 14:36 - CONCLUSION: Unremarkable examination of the pelvis. Dagoberto Das MD Chest CT 11/22/17 0000 Signed Impressions: Service Date/Time: Wednesday, November 22, 2017 16:02 - CONCLUSION: 1. No acute finding is identified on this noncontrast examination of the chest. 2. There is stable left pleural thickening, trace left pleural fluid, and volume loss in the left lower lobe. 3. Coronary artery calcification and severe atherosclerotic disease of aorta. Jalil Cedillo MD Abdomen/Pelvis CT 11/22/17 0000 Signed Impressions: Service Date/Time: Wednesday, November 22, 2017 16:02 - CONCLUSION: 1. No acute finding is identified on this mildly motion degraded noncontrast CT of the abdomen and pelvis. 2. Stable nonacute findings include cholelithiasis, severe atherosclerotic disease, and sigmoid diverticulosis. Jalil Cedillo MD Physical Exam GENERAL: This is a well-nourished, well-developed patient, in no apparent distress. SKIN: No rashes, ecchymoses or lesions. Cool and dry. HEAD: Atraumatic. Normocephalic. No temporal or scalp tenderness. EYES: Pupils equal round and reactive. Extraocular motions intact. No scleral icterus. No injection or drainage. ENT: Nose without bleeding, purulent drainage or septal hematoma. Throat without erythema, tonsillar hypertrophy or exudate. Uvula midline. Airway patent. NECK: Trachea midline. Supple, nontender, no meningeal signs. CARDIOVASCULAR: HS audible.Pacemaker site ok with no e.o infection. RESPIRATORY: Clear to auscultation. Breath sounds equal bilaterally. GASTROINTESTINAL: Abdomen soft, non-tender, nondistended. MUSCULOSKELETAL: rt foot in dressing. NEUROLOGICAL: Awake and alert. Responds to questions. Speech ok. Psych cooperative IV line sites with no e.o infection. Assessment & Plan Remarks MRSA bacteremia present on admission. R/o pacer infection and endocarditis. ? reason for fall vs resultant of fall related toe injury. MRSA in urine likely from renal translocation concerning for endovascular infection. Right 3rd toe abscess r/o osteomyelitis. ? source of bacteremia. Pacemaker in situ. Afib on anticoagulation. H/o falls x 2, Right parietal lobe bleed. Pulm edema Recs: Continue Vanco IV (target 15-20 for MRSA bacteremia) donna Hair bedside I&D performed highly suspicious of osteomyelitis. Bone biopsy performed as probed down to the bone. Follow cultures Follow clinically. dw pt, no family at bedside. donna RN I will be off 11/27/2017 to 11/29/2017. Other ID MDs covering for me. Please check with [facility] call center. Rossy Fried MD Nov 26, 2017 13:39
[2017-11-26] MEDS ORDERED: METF500T PO (14:31)
--- NOTE | 2017-11-26 14:36 | RADRPT ---
EXAM DATE/TIME: 11/26/2017 00:00 [place] COMPARISON: No previous studies available for comparison. INDICATIONS : Sepsis, hypotension TECHNIQUE: Five-station segmental examination of the lower extremities was performed. Pulsed-cuff waveform tracings and pressures were recorded. Ankle-brachial indices and toe-brachial indices were calculated. PRESSURES (mmHg): Brachial (arm): Right 115 Left IV SITE Lower Thigh: Right CNO>220 Left CNO Calf: Right CNO Left CNO Ankle: Right 72 Left CNO Toe: Right 42 Left 58 EARNEST: Right 0.63 Left CNO TBI: Right 0.37 Left 0.50 PULSED CUFF WAVEFORMS: Reduced amplitude in delayed upstroke involving the ankles bilaterally. CONCLUSION: Inability to occlude multiple vessels bilaterally suggesting calcified atherosclerotic disease. There is significant reduction of the right EARNEST with inability to calculate a left EARNEST. Both toe brachial indices are reduced. Consideration could be made to CTA with runoff to further evaluate. Edy Kat Jr., MD on November 26, 2017 at 14:31 Board Certified Radiologist. This report was verified electronically.
--- NOTE | 2017-11-26 14:55 | HHI.PR ---
Subjective Remarks Went for surgery in the morning. Patient seen later. He says he is starting to have some pain in his toe at the surgical site. No fever or chills. No nausea vomiting no diarrhea or constipation. Appetite is fairly well. Denies any chest pain or shortness of breath, he is saturating well on room air at this time. Objective Vitals Vital Signs Date Time Temp Pulse Resp B/P (MAP) Pulse Ox O2 Delivery O2 Flow Rate FiO2 11/26/17 13:06 97.6 100 18 128/76 (93) 96 11/26/17 10:15 98 21 11/26/17 08:16 97.3 91 18 141/75 (97) 99 11/26/17 05:53 97.6 101 16 118/73 (88) 11/26/17 00:00 97.6 92 18 123/62 (82) 100 11/25/17 23:10 97.4 91 18 136/76 (96) 100 11/25/17 20:00 86 11/25/17 20:00 98.6 91 24 111/64 (80) 100 11/25/17 19:52 100 21 11/25/17 19:00 100 Room Air 11/25/17 18:00 80 11/25/17 16:00 75 11/25/17 16:00 97.7 95 23 112/68 (83) 100 I/O 11/25/17 11/25/17 11/25/17 11/26/17 11/26/17 11/26/17 06:59 14:59 22:59 06:59 14:59 22:59 Intake Total 400 ml 300 ml Output Total 750 ml Balance -350 ml 300 ml Intake Oral 400 ml 300 ml Output Urine Total 750 ml Stool Total 0 ml # Voids 5 1 # Bowel Movements 0 1 1 Result Diagram: 11/26/17 0545 11/26/17 0545 Imaging Last Impressions Chest X-Ray 11/25/17 0000 Signed Impressions: Service Date/Time: Saturday, November 25, 2017 15:16 - CONCLUSION: 1. Left basilar effusion and consolidation concerning for pneumonia. Darrian Shell MD Head CT 11/24/17 0600 Signed Impressions: Service Date/Time: Friday, November 24, 2017 05:16 - CONCLUSION: 1. Mild increase in the size of the high density hemorrhage along the right parietal lobe 2. 2 additional smaller areas of high density punctate hemorrhage are now noted along the right parietal lobe as well. Franklin Schaefer MD Foot X-Ray 11/24/17 0000 Signed Impressions: Service Date/Time: Friday, November 24, 2017 18:04 - CONCLUSION: 1. Chronic appearing limited erosion of the medial proximal first metatarsal near the MTP joint. 2. No evidence for erosive change to suggest osteomyelitis involving the third digit. Chris Cooper MD Cervical Spine CT 11/22/17 1418 Signed Impressions: Service Date/Time: Wednesday, November 22, 2017 14:39 - CONCLUSION: Large anterior osteophytes at multiple levels. Scattered areas of bilateral neuroforaminal narrowing due to osteophyte. No evidence of acute fracture or significant subluxation. Dagoberto Das MD Shoulder X-Ray 11/22/17 0000 Signed Impressions: Service Date/Time: Wednesday, November 22, 2017 16:27 - CONCLUSION: Unremarkable examination of the left shoulder status post left bipolar pacermaker. Marked impingement change with acromial spurring and erosions across the greater tuberosity Dagoberto Das MD Pelvis X-Ray 11/22/17 0000 Signed Impressions: Service Date/Time: Wednesday, November 22, 2017 14:36 - CONCLUSION: Unremarkable examination of the pelvis. Dagoberto Das MD Chest CT 11/22/17 0000 Signed Impressions: Service Date/Time: Wednesday, November 22, 2017 16:02 - CONCLUSION: 1. No acute finding is identified on this noncontrast examination of the chest. 2. There is stable left pleural thickening, trace left pleural fluid, and volume loss in the left lower lobe. 3. Coronary artery calcification and severe atherosclerotic disease of aorta. Jalil Cedillo MD Abdomen/Pelvis CT 11/22/17 0000 Signed Impressions: Service Date/Time: Wednesday, November 22, 2017 16:02 - CONCLUSION: 1. No acute finding is identified on this mildly motion degraded noncontrast CT of the abdomen and pelvis. 2. Stable nonacute findings include cholelithiasis, severe atherosclerotic disease, and sigmoid diverticulosis. Jalil Cedillo MD Objective Remarks General: Elderly gentleman, awake, in no distress HEENT: Small scalp laceration with dressing, pupils equal, reactive, sclerae anicteric, neck supple, no rigidity, no JVD, RIJ CVC - site is clean Cardiovascular: regular, normal S1, S2, systolic murmur at apex Respiratory: Lungs clear bilaterally, no wheezes Abdomen: Soft, non-tender, non-distended, BS present x 4 Q Skin: no rashes Extremities - no edema, + peripheral pulses, warm and well perfused . 3rd toe with dressing on, some bleeding Neurological: Pleasant, awake, alert and oriented X 4, pupils equal and reactive, EOMI, motor 5/5 over all extremities, sensation intact Procedures Right 3rd digit ulcer OM s/p Incision drainage and debridement with bone biopsy right third digit by Dr Barr podiatry on 11/26/17 A/P Assessment and Plan Right 3rd digit ulcer OM s/p Incision drainage and debridement with bone biopsy right third digit Small SDH post fall - slight increase in SDH on repeat CT head, however neurologically intact Scalp laceration Coagulopathy secondary to warfarin - resolved Acute blood loss anemia likely secondary to GIB - no episodes since admission. Had EGD done yesterday - gastritis and duodenal ulcer Hypotension - resolved MRSA UTI and likely MRSA bacteremia with concern for endovascular infection - patient has a PPM LISBETH - slowly improving, good urine output Unexplained weight loss Right 3rd toe abscess r/o osteomyelitis. Right 3rd digit ulcer OM s/p Incision drainage and debridement with bone biopsy right third digit by Madhav podiatry on 11/26/17 Patient is doing well from neuro standpoint On vanco followed by ID TTE Follow up Blood cx Continue pantoprazole 40 mg IV BID Right 3rd digit ulcer OM s/p Incision drainage and debridement with bone biopsy right third digit by Madhav podiatry on 11/26/17 DVT prophylaxis with SCD's Savanna Sood MD Nov 26, 2017 14:55
[2017-11-26] MEDS ORDERED: ACETAMINOPHEN/HYDROcodone 325 MG/5 MG TAB PO PRN (15:15)
[2017-11-26] MEDS ORDERED: NALOXONE HCL 0.4 MG/ML AMP IV PUSH PRN (15:15)
--- NOTE | 2017-11-26 17:18 | HHI.NSPN ---
(Cory Mcconnell) History Chief Complaint: Fall (Cory Mcconnell) Interval History This is an 87-year-old male patient with history of Coumadin use who presents to the ER apparently after falling. The patient reports that he was trying to go to the bathroom when he lost control and fell striking the back of his head. He had possible loss of consciousness of unknown duration. He was brought to the emergency room because of bleeding of the scalp and a laceration and underwent evaluation. He also complains of left shoulder pain. He takes Coumadin for atrial fibrillation. Denies any other types or problems at the present time except for weight loss since August of last year for which he has undergone evaluation. 11/23/17: Pt awake and alert. Denies headache. No n/v. Pt states he has felt weak and tired over last 3 days at least and feels this is why his legs gave out from him and he fell. He also reports to me he has had dark stools during this time. 11/24/17: Pt awake and alert. Denies headache, nausea, vomiting. No weakness other than limitation with deltoid from his chronic shoulder condition. 11/25/17: Pt awake and alert. Denies headache, nausea, vomiting, numbness or tingling. Denies any chest pain or sob. 11/26/17: Pt awake and alert. Denies headache, nausea, vomiting, numbness or tingling. Pt had surgery on his right 3rd toe bandage in place. He doesn't think he has urinated that much today. (Cory Mcconnell) Review of Systems General: Negative for: fever, chills, insomnia Respiratory: Negative for: shortness of breath, cough, sputum Cardiovascular: Negative for: chest pain Gastrointestinal: Negative for: nausea, vomitting, diarrhea, constipation Genitourinary: Negative for: urinary burning, urinary frequency, urinary urgency (Cory Mcconnell) Exam Results Vital Signs Date Time Temp Pulse Resp B/P (MAP) Pulse Ox O2 Delivery O2 Flow Rate FiO2 11/26/17 16:02 97.6 87 18 120/76 (91) 99 11/26/17 10:15 21 11/25/17 19:00 Room Air 11/24/17 01:05 2.00 Intake and Output 11/26/17 11/26/17 11/27/17 08:00 16:00 00:00 Intake Total 480 ml Output Total 200 ml Balance 280 ml (Cory Mcconnell) Physical Examination General: Pt awake and alert, in no acute distress and stable vitals. Eyes: Pupils equal sclera anicteric. Resp: CTA bilaterally. Heart: Irregular no murmurs. Abd: Soft positive bs. He did not have any tenderness on palpation of the bladder. Skin: No cyanosis or erythema. Muscle: Moves all 4 extremities symmetrically with good strength. Some limitation with deltoid strength bilaterally pt states from chronic shoulder problems. Neuro: Pt awake and alert. Pupils equal 3mm bilaterally. Follows commands well. Speech clear and appropriate. (Cory Mcconnell) Lab, Micro, Other Results Last Impressions Chest X-Ray 11/25/17 0000 Signed Impressions: Service Date/Time: Saturday, November 25, 2017 15:16 - CONCLUSION: 1. Left basilar effusion and consolidation concerning for pneumonia. Darrian Shell MD Head CT 11/24/17 0600 Signed Impressions: Service Date/Time: Friday, November 24, 2017 05:16 - CONCLUSION: 1. Mild increase in the size of the high density hemorrhage along the right parietal lobe 2. 2 additional smaller areas of high density punctate hemorrhage are now noted along the right parietal lobe as well. Franklin Schaefer MD Foot X-Ray 11/24/17 0000 Signed Impressions: Service Date/Time: Friday, November 24, 2017 18:04 - CONCLUSION: 1. Chronic appearing limited erosion of the medial proximal first metatarsal near the MTP joint. 2. No evidence for erosive change to suggest osteomyelitis involving the third digit. Chris Cooper MD Cervical Spine CT 11/22/17 1418 Signed Impressions: Service Date/Time: Wednesday, November 22, 2017 14:39 - CONCLUSION: Large anterior osteophytes at multiple levels. Scattered areas of bilateral neuroforaminal narrowing due to osteophyte. No evidence of acute fracture or significant subluxation. Dagoberto A. Sevigny, MD Shoulder X-Ray 11/22/17 0000 Signed Impressions: Service Date/Time: Wednesday, November 22, 2017 16:27 - CONCLUSION: Unremarkable examination of the left shoulder status post left bipolar pacermaker. Marked impingement change with acromial spurring and erosions across the greater tuberosity Dagoberto Das MD Pelvis X-Ray 11/22/17 0000 Signed Impressions: Service Date/Time: Wednesday, November 22, 2017 14:36 - CONCLUSION: Unremarkable examination of the pelvis. Dagoberto Das MD Chest CT 11/22/17 0000 Signed Impressions: Service Date/Time: Wednesday, November 22, 2017 16:02 - CONCLUSION: 1. No acute finding is identified on this noncontrast examination of the chest. 2. There is stable left pleural thickening, trace left pleural fluid, and volume loss in the left lower lobe. 3. Coronary artery calcification and severe atherosclerotic disease of aorta. Jalil Cedillo MD Abdomen/Pelvis CT 11/22/17 0000 Signed Impressions: Service Date/Time: Wednesday, November 22, 2017 16:02 - CONCLUSION: 1. No acute finding is identified on this mildly motion degraded noncontrast CT of the abdomen and pelvis. 2. Stable nonacute findings include cholelithiasis, severe atherosclerotic disease, and sigmoid diverticulosis. Jalil Cedillo MD Laboratory Tests Test 11/26/17 05:45 White Blood Count 4.6 TH/MM3 Red Blood Count 2.88 MIL/MM3 Hemoglobin 7.2 GM/DL Hematocrit 21.7 % Mean Corpuscular Volume 75.2 FL Mean Corpuscular Hemoglobin 25.0 PG Mean Corpuscular Hemoglobin Concent 33.2 % Red Cell Distribution Width 17.5 % Platelet Count 136 TH/MM3 Mean Platelet Volume 6.1 FL Neutrophils (%) (Auto) 67.3 % Lymphocytes (%) (Auto) 12.3 % Monocytes (%) (Auto) 10.5 % Eosinophils (%) (Auto) 9.2 % Basophils (%) (Auto) 0.7 % Neutrophils # (Auto) 3.1 TH/MM3 Lymphocytes # (Auto) 0.6 TH/MM3 Monocytes # (Auto) 0.5 TH/MM3 Eosinophils # (Auto) 0.4 TH/MM3 Basophils # (Auto) 0.0 TH/MM3 CBC Comment DIFF FINAL Differential Comment Prothrombin Time 12.2 SEC Prothromb Time International Ratio 1.2 RATIO Blood Urea Nitrogen 34 MG/DL Creatinine 1.63 MG/DL Random Glucose 71 MG/DL Total Protein 6.0 GM/DL Albumin 1.8 GM/DL Calcium Level 7.1 MG/DL Alkaline Phosphatase 56 U/L Aspartate Amino Transf (AST/SGOT) 16 U/L Alanine Aminotransferase (ALT/SGPT) 10 U/L Total Bilirubin 0.7 MG/DL Sodium Level 138 MEQ/L Potassium Level 4.2 MEQ/L Chloride Level 108 MEQ/L Carbon Dioxide Level 21.2 MEQ/L Anion Gap 9 MEQ/L Estimat Glomerular Filtration Rate 40 ML/MIN Protein Corrected Calcium 7.7 MG/DL Random Vancomycin Level 16.8 COMMENT 11/26/17 11/26/17 11/27/17 15:00 23:00 07:00 Intake Total 480 ml Output Total 200 ml Balance 280 ml Intake Oral 480 ml Output Urine Total 200 ml # Voids 1 # Bowel Movements 1 (Cory Mcconnell) Medical Decision Making Impression and Plan A: 87 y/o M with elevated PT/INR s/p fall with possibly a very small amount of hemorrhage in the right subdural space. On Follow up CT head pt has more small contusions in the right parietal area also. Anemia P: Continue with neuro checks. Continue with current care. Discussed with RN with scan bladder. If retaining urine will notify medical team and pts wants urology consulted at that point. (Cory Mcconnell) Attending Statement The exam, history, and the medical decision-making described in the above note were completed with the assistance of the mid-level provider. I reviewed and agree with the findings presented. I attest that I had a [id number] encounter with the patient on the same day, and personally performed and documented my assessment and findings in the medical record. (Carter Santacruz MD) Cory Mcconnell Nov 26, 2017 17:18 Carter Santacruz MD Nov 27, 2017 08:45
[2017-11-26] MEDS: TAMSULOSIN HCL 0.4 MG CAP PO SCH (18:01)
[2017-11-26] MEDS: SODIUM CHLORIDE 0.9% FLUSH 10 ML FLUSH IV FLUSH SCH (20:06)
[2017-11-26] MEDS: PANTOPRAZOLE SOD 40 MG DELAYED RELEASE TAB PO SCH (20:06)
[2017-11-26] MEDS: DOCUSATE SODIUM 50 MG/SENNA 8.6 MG TAB PO SCH (20:15)
[2017-11-27] VITALS (11 sets, daily range): BP systolic 113–160; BP diastolic 58–81; PULSE 76–114; RESP 17–20; TEMP 97.2–98.9; O2SAT 96–100
[2017-11-27] MEDS: CHLORHEXIDINE GLUCONATE 2 % 1 PACK (2 CLOTHS) TOP SCH (04:00)
[2017-11-27] MEDS: SODIUM CHLOR 0.9% 1000 ML INJ 1,000 ML IV SCH ×3 (05:27→17:13)
[2017-11-27 07:21] LABS: INTERNATIONAL NORMALIZED RATIO 1.2 RATIO
[2017-11-27 07:29] LABS: AUTOMATED NEUTROPHIL # 3.3 TH/MM3 (1.8-7.7); BASOPHIL % 0.6 % (0.0-2.0); EOSINOPHIL # 0.4 TH/MM3 (0-0.4); EOSINOPHIL % 7.5 % (0.0-4.0); LYMPH % 11.4 % (9.0-44.0); LYMPHOCYTE # 0.6 TH/MM3 (1.0-4.8); MEAN CELL VOLUME 74.3 FL (80.0-100.0); MEAN CORPUSCULAR HEMOGLOBIN 25.6 PG (27.0-34.0); MEAN CORPUSCULAR HGB CONC 34.4 % (32.0-36.0); MEAN PLATELET VOLUME 6.1 FL (7.0-11.0); MONO % 12.1 % (0.0-8.0); MONOCYTE # 0.6 TH/MM3 (0-0.9); NEUT % 68.4 % (16.0-70.0); PLATELET COUNT 136 TH/MM3 (150-450); RED BLOOD COUNT 2.67 MIL/MM3 (4.50-5.90); RED CELL DISTRIBUTION WIDTH 17.2 % (11.6-17.2); WHITE BLOOD COUNT 4.9 TH/MM3 (4.0-11.0)
[2017-11-27] MEDS: DOCUSATE SODIUM 50 MG/SENNA 8.6 MG TAB PO SCH ×2 (07:43→20:23)
[2017-11-27] MEDS: SODIUM CHLORIDE 0.9% FLUSH 10 ML FLUSH IV FLUSH SCH ×2 (07:43→20:15)
[2017-11-27] MEDS: PANTOPRAZOLE SOD 40 MG DELAYED RELEASE TAB PO SCH ×2 (07:43→20:15)
[2017-11-27 07:46] LABS: ALBUMIN 1.6 GM/DL (3.4-5.0); CALCIUM 7.3 MG/DL (8.5-10.1); CALCIUM-PROTEIN CORRECTED 7.9 MG/DL (8.5-10.1); CREATININE 1.57 MG/DL (0.60-1.30); TOTAL BILIRUBIN ADULT 0.6 MG/DL (0.2-1.0); TOTAL PROTEIN 5.9 GM/DL (6.4-8.2)
[2017-11-27 07:57] LABS: HEMOGLOBIN 6.8 GM/DL (13.0-17.0)
[2017-11-27 07:58] LABS: HEMATOCRIT 19.8 % (39.0-51.0)
[2017-11-27] MEDS ORDERED: ACETAMINOPHEN 325 MG TAB PO PRN (09:15)
[2017-11-27] MEDS ORDERED: SODIUM CHLOR 0.9% 250 ML INJ 250 ML IV ONE (09:15)
[2017-11-27] MEDS ORDERED: diphenhydrAMINE HCL 25 MG CAP PO PRN (09:15)
[2017-11-27] MEDS ORDERED: FUROSEMIDE 20 MG/2 ML VIAL IV PUSH ONE (10:00)
[2017-11-27] MEDS: VANCOMYCIN INJ 1,500 MG in SODIUM CHLORID 0.9% 500 ML INJ 500 ML IV SCH (10:14)
--- NOTE | 2017-11-27 15:01 | HHI.PR ---
Subjective Remarks The patient is in bed, he denies any fever or chills. He feels tired. Plan to transfuse 2 units of blood. Patient denies any chest pain at this time or shortness of breath. No palpitations. Pain at the surgical site is controlled by current medications. Objective Vitals Vital Signs Date Time Temp Pulse Resp B/P (MAP) Pulse Ox O2 Delivery O2 Flow Rate FiO2 11/27/17 13:50 97.5 90 20 117/70 100 11/27/17 13:30 97.7 84 19 113/59 100 11/27/17 13:15 97.7 89 20 124/74 100 11/27/17 12:16 97.4 88 17 115/59 (77) 99 11/27/17 08:38 98.0 114 17 119/73 (88) 96 11/27/17 04:00 97.2 91 18 114/58 (76) 97 11/27/17 00:00 98.9 105 18 150/81 (104) 98 11/26/17 20:24 Room Air 11/26/17 20:00 97.5 80 18 125/66 (85) 98 11/26/17 16:02 97.6 87 18 120/76 (91) 99 I/O 11/26/17 11/26/17 11/26/17 11/27/17 11/27/17 11/27/17 07:00 15:00 23:00 07:00 15:00 23:00 Intake Total 480 ml 5 ml Output Total 450 ml Balance 30 ml 5 ml Intake Oral 480 ml Blood Product IV Normal Saline Flush 5 ml Output Urine Total 450 ml Bladder Scan Volume Amount 427 ml # Voids 5 1 1 4 1 # Bowel Movements 1 1 4 1 Result Diagram: 11/27/17 0650 11/27/17 0650 Imaging Last Impressions Chest X-Ray 11/25/17 0000 Signed Impressions: Service Date/Time: Saturday, November 25, 2017 15:16 - CONCLUSION: 1. Left basilar effusion and consolidation concerning for pneumonia. Darrian Shell MD Head CT 11/24/17 0600 Signed Impressions: Service Date/Time: Friday, November 24, 2017 05:16 - CONCLUSION: 1. Mild increase in the size of the high density hemorrhage along the right parietal lobe 2. 2 additional smaller areas of high density punctate hemorrhage are now noted along the right parietal lobe as well. Franklin Schaefer MD Foot X-Ray 11/24/17 0000 Signed Impressions: Service Date/Time: Friday, November 24, 2017 18:04 - CONCLUSION: 1. Chronic appearing limited erosion of the medial proximal first metatarsal near the MTP joint. 2. No evidence for erosive change to suggest osteomyelitis involving the third digit. Chris Cooper MD Cervical Spine CT 11/22/17 1418 Signed Impressions: Service Date/Time: Wednesday, November 22, 2017 14:39 - CONCLUSION: Large anterior osteophytes at multiple levels. Scattered areas of bilateral neuroforaminal narrowing due to osteophyte. No evidence of acute fracture or significant subluxation. Dagoberto Das MD Shoulder X-Ray 11/22/17 0000 Signed Impressions: Service Date/Time: Wednesday, November 22, 2017 16:27 - CONCLUSION: Unremarkable examination of the left shoulder status post left bipolar pacermaker. Marked impingement change with acromial spurring and erosions across the greater tuberosity Dagoberto Das MD Pelvis X-Ray 11/22/17 0000 Signed Impressions: Service Date/Time: Wednesday, November 22, 2017 14:36 - CONCLUSION: Unremarkable examination of the pelvis. Dagoberto Das MD Chest CT 11/22/17 0000 Signed Impressions: Service Date/Time: Wednesday, November 22, 2017 16:02 - CONCLUSION: 1. No acute finding is identified on this noncontrast examination of the chest. 2. There is stable left pleural thickening, trace left pleural fluid, and volume loss in the left lower lobe. 3. Coronary artery calcification and severe atherosclerotic disease of aorta. Jalil Cedillo MD Abdomen/Pelvis CT 11/22/17 0000 Signed Impressions: Service Date/Time: Wednesday, November 22, 2017 16:02 - CONCLUSION: 1. No acute finding is identified on this mildly motion degraded noncontrast CT of the abdomen and pelvis. 2. Stable nonacute findings include cholelithiasis, severe atherosclerotic disease, and sigmoid diverticulosis. Jalil Cedillo MD Objective Remarks General: Elderly gentleman, awake, in no distress HEENT: Small scalp laceration with dressing, pupils equal, reactive, sclerae anicteric, neck supple, no rigidity, no JVD, RIJ CVC - site is clean Cardiovascular: regular, normal S1, S2, systolic murmur at apex Respiratory: Lungs clear bilaterally, no wheezes Abdomen: Soft, non-tender, non-distended, BS present x 4 Q Skin: no rashes Extremities - no edema, + peripheral pulses, warm and well perfused . 3rd toe with dressing on, some bleeding Neurological: Pleasant, awake, alert and oriented X 4, pupils equal and reactive, EOMI, motor 5/5 over all extremities, sensation intact Procedures Right 3rd digit ulcer OM s/p Incision drainage and debridement with bone biopsy right third digit by Dr Barr podiatry on 11/26/17 A/P Assessment and Plan Right 3rd digit ulcer OM s/p Incision drainage and debridement with bone biopsy right third digit Small SDH post fall - slight increase in SDH on repeat CT head, however neurologically intact Scalp laceration Coagulopathy secondary to warfarin - resolved Acute blood loss anemia likely secondary to GIB - no episodes since admission. Had EGD done - gastritis and duodenal ulcer. 11/27/17 hemoglobin drop postsurgically. Transfuse 2 units of blood. Monitor H&H Hypotension - resolved MRSA UTI and MRSA bacteremia with concern for endovascular infection - patient has a PPM. LISBETH - slowly improving, good urine output Unexplained weight loss Right 3rd toe abscess r/o osteomyelitis. Right 3rd digit ulcer OM s/p Incision drainage and debridement with bone biopsy right third digit by Madhav podiatry on 11/26/17 Patient is doing well from neuro standpoint On vanco followed by ID TTE Follow up Blood cx Continue pantoprazole 40 mg IV BID Right 3rd digit ulcer OM s/p Incision drainage and debridement with bone biopsy right third digit by Madhav podiatry on 11/26/17. Wound cultures with MRSA 11/27/17 hemoglobin drop postsurgically. Transfuse 2 units of blood. Monitor H &H DVT prophylaxis with SCD's Discussed with the patient, nurse, patient daughter by phone. Savanna Sood MD Nov 27, 2017 15:01
--- NOTE | 2017-11-27 16:40 | HHI.NSPN ---
History Chief Complaint: Fall Interval History This is an 87-year-old male patient with history of Coumadin use who presents to the ER apparently after falling. The patient reports that he was trying to go to the bathroom when he lost control and fell striking the back of his head. He had possible loss of consciousness of unknown duration. He was brought to the emergency room because of bleeding of the scalp and a laceration and underwent evaluation. He also complains of left shoulder pain. He takes Coumadin for atrial fibrillation. Denies any other types or problems at the present time except for weight loss since August of last year for which he has undergone evaluation. 11/23/17: Pt awake and alert. Denies headache. No n/v. Pt states he has felt weak and tired over last 3 days at least and feels this is why his legs gave out from him and he fell. He also reports to me he has had dark stools during this time. 11/24/17: Pt awake and alert. Denies headache, nausea, vomiting. No weakness other than limitation with deltoid from his chronic shoulder condition. 11/25/17: Pt awake and alert. Denies headache, nausea, vomiting, numbness or tingling. Denies any chest pain or sob. 11/26/17: Pt awake and alert. Denies headache, nausea, vomiting, numbness or tingling. Pt had surgery on his right 3rd toe bandage in place. He doesn't think he has urinated that much today. 11/27/17: Pt awakens. States he feels very tired. No nausea, vomiting, paresthesias in face or extremities. Review of Systems General: Negative for: fever, chills, insomnia Respiratory: Negative for: shortness of breath, cough, sputum Cardiovascular: Negative for: chest pain Gastrointestinal: Negative for: nausea, vomitting, diarrhea, constipation Exam Results Vital Signs Date Time Temp Pulse Resp B/P (MAP) Pulse Ox O2 Delivery O2 Flow Rate FiO2 11/27/17 16:13 97.6 76 17 115/69 (84) 99 11/26/17 20:24 Room Air 11/26/17 10:15 21 11/24/17 01:05 2.00 Intake and Output 11/27/17 11/27/17 11/28/17 08:00 16:00 00:00 Intake Total 5 ml 240 ml Balance 5 ml 240 ml Physical Examination General: Pt awake and alert, in no acute distress and stable vitals. Eyes: Pupils equal sclera anicteric. Resp: CTA bilaterally. Heart: Irregular no murmurs. Abd: Soft positive bs. Skin: No cyanosis or erythema. Muscle: Moves all 4 extremities symmetrically with good strength. Some limitation with deltoid strength bilaterally pt states from chronic shoulder problems. Neuro: Pt awake and alert. Pupils equal 3mm bilaterally. Follows commands well. Speech clear and appropriate. Lab, Micro, Other Results Last Impressions Chest X-Ray 11/25/17 0000 Signed Impressions: Service Date/Time: Saturday, November 25, 2017 15:16 - CONCLUSION: 1. Left basilar effusion and consolidation concerning for pneumonia. Darrian Shell MD Head CT 11/24/17 0600 Signed Impressions: Service Date/Time: Friday, November 24, 2017 05:16 - CONCLUSION: 1. Mild increase in the size of the high density hemorrhage along the right parietal lobe 2. 2 additional smaller areas of high density punctate hemorrhage are now noted along the right parietal lobe as well. Franklin Schaefer MD Foot X-Ray 11/24/17 0000 Signed Impressions: Service Date/Time: Friday, November 24, 2017 18:04 - CONCLUSION: 1. Chronic appearing limited erosion of the medial proximal first metatarsal near the MTP joint. 2. No evidence for erosive change to suggest osteomyelitis involving the third digit. Chris Cooper MD Cervical Spine CT 11/22/17 1418 Signed Impressions: Service Date/Time: Wednesday, November 22, 2017 14:39 - CONCLUSION: Large anterior osteophytes at multiple levels. Scattered areas of bilateral neuroforaminal narrowing due to osteophyte. No evidence of acute fracture or significant subluxation. Dagoberto Das MD Shoulder X-Ray 11/22/17 0000 Signed Impressions: Service Date/Time: Wednesday, November 22, 2017 16:27 - CONCLUSION: Unremarkable examination of the left shoulder status post left bipolar pacermaker. Marked impingement change with acromial spurring and erosions across the greater tuberosity Dagoberto Das MD Pelvis X-Ray 11/22/17 0000 Signed Impressions: Service Date/Time: Wednesday, November 22, 2017 14:36 - CONCLUSION: Unremarkable examination of the pelvis. Dagoberto Das MD Chest CT 11/22/17 0000 Signed Impressions: Service Date/Time: Wednesday, November 22, 2017 16:02 - CONCLUSION: 1. No acute finding is identified on this noncontrast examination of the chest. 2. There is stable left pleural thickening, trace left pleural fluid, and volume loss in the left lower lobe. 3. Coronary artery calcification and severe atherosclerotic disease of aorta. Jalil Cedillo MD Abdomen/Pelvis CT 11/22/17 0000 Signed Impressions: Service Date/Time: Wednesday, November 22, 2017 16:02 - CONCLUSION: 1. No acute finding is identified on this mildly motion degraded noncontrast CT of the abdomen and pelvis. 2. Stable nonacute findings include cholelithiasis, severe atherosclerotic disease, and sigmoid diverticulosis. Jalil Cedillo MD Laboratory Tests Test 11/27/17 06:50 White Blood Count 4.9 TH/MM3 Red Blood Count 2.67 MIL/MM3 Hemoglobin 6.8 GM/DL Hematocrit 19.8 % Mean Corpuscular Volume 74.3 FL Mean Corpuscular Hemoglobin 25.6 PG Mean Corpuscular Hemoglobin Concent 34.4 % Red Cell Distribution Width 17.2 % Platelet Count 136 TH/MM3 Mean Platelet Volume 6.1 FL Neutrophils (%) (Auto) 68.4 % Lymphocytes (%) (Auto) 11.4 % Monocytes (%) (Auto) 12.1 % Eosinophils (%) (Auto) 7.5 % Basophils (%) (Auto) 0.6 % Neutrophils # (Auto) 3.3 TH/MM3 Lymphocytes # (Auto) 0.6 TH/MM3 Monocytes # (Auto) 0.6 TH/MM3 Eosinophils # (Auto) 0.4 TH/MM3 Basophils # (Auto) 0.0 TH/MM3 CBC Comment DIFF FINAL Differential Comment Prothrombin Time 12.0 SEC Prothromb Time International Ratio 1.2 RATIO Blood Urea Nitrogen 28 MG/DL Creatinine 1.57 MG/DL Random Glucose 80 MG/DL Total Protein 5.9 GM/DL Albumin 1.6 GM/DL Calcium Level 7.3 MG/DL Alkaline Phosphatase 50 U/L Aspartate Amino Transf (AST/SGOT) 12 U/L Alanine Aminotransferase (ALT/SGPT) 10 U/L Total Bilirubin 0.6 MG/DL Sodium Level 140 MEQ/L Potassium Level 4.4 MEQ/L Chloride Level 111 MEQ/L Carbon Dioxide Level 20.0 MEQ/L Anion Gap 9 MEQ/L Estimat Glomerular Filtration Rate 42 ML/MIN Protein Corrected Calcium 7.9 MG/DL 11/27/17 11/27/17 11/28/17 15:00 23:00 07:00 Intake Total 5 ml 240 ml Balance 5 ml 240 ml Intake Oral 240 ml Blood Product IV Normal Saline Flush 5 ml # Voids 1 # Bowel Movements 1 Medical Decision Making Impression and Plan A: 87 y/o M with elevated PT/INR s/p fall with possibly a very small amount of hemorrhage in the right subdural space. On Follow up CT head pt has more small contusions in the right parietal area also. Anemia P: Continue with neuro checks. Continue with current care. Pt getting blood transfusion currently for low H/H Cory Mcconnell Nov 27, 2017 4:40 pm
[2017-11-27] MEDS: TAMSULOSIN HCL 0.4 MG CAP PO SCH (16:58)
[2017-11-27] MEDS: FERROUS SULFATE 325 MG (65 MG ELEMENTAL IRON) TAB PO SCH (16:58)
--- NOTE | 2017-11-27 22:33 | RADRPT ---
EXAM DATE/TIME: 11/27/2017 21:56 [facility] COMPARISON: No previous studies available for comparison. INDICATIONS : Bilateral arm swelling. MEDICAL HISTORY : Hypercholesterolemia. Congestive heart failure. Renal failure, chronic. Anticoagulant therapy. Afib. Hypertension. BPH. Arthritis. Shingles. MRSA. SURGICAL HISTORY : Pacemaker. TURP. Bilateral lens replacements. Bilateral knee replacements. ENCOUNTER: Initial ACUITY: 1 day PAIN SCORE: 0/10 LOCATION: Bilateral arms. FINDINGS: RIGHT UPPER EXTREMITY: There is spontaneous flow documented in the brachial, basilic, cephalic, axillary, and subclavian vei ns. The vessels are compressible and augmentation response is documented. No filling defects are se en. The flow is phasic with respiration. Direction of flow in the jugular vein is caudal. LEFT UPPER EXTREMITY: There is spontaneous flow documented in the brachial, basilic, cephalic, axillary, and subclavian vei ns. The vessels are compressible and augmentation response is documented. No filling defects are se en. The flow is phasic with respiration. Direction of flow in the jugular vein is caudal. CONCLUSION: 1. No sonographic evidence for upper extremity DVT. Chris Cooper MD on November 27, 2017 at 22:31 Board Certified Radiologist. This report was verified electronically.
[2017-11-28] VITALS: BP 141/69; PULSE 112; RESP 18; TEMP 98.6; O2SAT 97
[2017-11-28 04:00] VITALS: BP 147/85; PULSE 115; RESP 20; TEMP 98.9; O2SAT 97
[2017-11-28] MEDS: CHLORHEXIDINE GLUCONATE 2 % 1 PACK (2 CLOTHS) TOP SCH (04:00)
[2017-11-28 07:02] LABS: AUTOMATED NEUTROPHIL # 3.8 TH/MM3 (1.8-7.7); BASOPHIL # 0.1 TH/MM3 (0-0.2); EOSINOPHIL # 0.3 TH/MM3 (0-0.4); EOSINOPHIL % 5.5 % (0.0-4.0); HEMATOCRIT 23.8 % (39.0-51.0); HEMOGLOBIN 8.2 GM/DL (13.0-17.0); LYMPH % 11.3 % (9.0-44.0); LYMPHOCYTE # 0.6 TH/MM3 (1.0-4.8); MEAN CELL VOLUME 77.5 FL (80.0-100.0); MEAN CORPUSCULAR HEMOGLOBIN 26.7 PG (27.0-34.0); MEAN CORPUSCULAR HGB CONC 34.4 % (32.0-36.0); MONOCYTE # 0.6 TH/MM3 (0-0.9); NEUT % 70.2 % (16.0-70.0); PLATELET COUNT 151 TH/MM3 (150-450); RED BLOOD COUNT 3.08 MIL/MM3 (4.50-5.90); RED CELL DISTRIBUTION WIDTH 18.3 % (11.6-17.2); WHITE BLOOD COUNT 5.4 TH/MM3 (4.0-11.0)
[2017-11-28 07:28] LABS: BICARBONATE 22.2 MEQ/L (21.0-32.0); CALCIUM 7.2 MG/DL (8.5-10.1); CREATININE 1.53 MG/DL (0.60-1.30)
[2017-11-28 08:00] VITALS: BP 104/60; PULSE 104; RESP 18; TEMP 98.4; O2SAT 98
[2017-11-28 08:03] LABS: CALCIUM-PROTEIN CORRECTED 7.7 MG/DL (8.5-10.1); TOTAL PROTEIN 6.2 GM/DL (6.4-8.2)
[2017-11-28] MEDS: DOCUSATE SODIUM 50 MG/SENNA 8.6 MG TAB PO SCH ×2 (09:43→21:32)
[2017-11-28] MEDS: SODIUM CHLORIDE 0.9% FLUSH 10 ML FLUSH IV FLUSH SCH ×2 (09:43→21:00)
[2017-11-28] MEDS: SODIUM CHLOR 0.9% 1000 ML INJ 1,000 ML IV SCH ×2 (09:43→17:29)
[2017-11-28] MEDS: PANTOPRAZOLE SOD 40 MG DELAYED RELEASE TAB PO SCH ×2 (09:43→21:32)
[2017-11-28] MEDS ORDERED: CALCIUM CARBONATE 500 MG CHEWABLE TAB CHEW ONE (10:00)
[2017-11-28] MEDS: VANCOMYCIN INJ 1,500 MG in SODIUM CHLORID 0.9% 500 ML INJ 500 ML IV SCH (10:31)
--- NOTE | 2017-11-28 11:26 | HHI.PR ---
Subjective Remarks Has no pain at the surgical site. He complains of some pain in his left shoulder patient has chronic pain however now worsened after the fall. No fever or chills overnight. No nausea vomiting no diarrhea or constipation. Patient had a normal colored bowel movement in the morning no blood in it. Objective Vitals Vital Signs Date Time Temp Pulse Resp B/P (MAP) Pulse Ox O2 Delivery O2 Flow Rate FiO2 11/28/17 08:00 98.4 104 18 104/60 (75) 98 11/28/17 04:00 98.9 115 20 147/85 (105) 97 11/28/17 00:00 98.6 112 18 141/69 (93) 97 11/27/17 20:00 97.6 114 18 160/73 (102) 96 11/27/17 18:05 97.8 110 20 129/77 100 11/27/17 17:56 97.3 105 18 131/75 100 11/27/17 16:13 97.6 76 17 115/69 (84) 99 11/27/17 13:50 97.5 90 20 117/70 100 11/27/17 13:30 97.7 84 19 113/59 100 11/27/17 13:15 97.7 89 20 124/74 100 11/27/17 12:16 97.4 88 17 115/59 (77) 99 I/O 11/27/17 11/27/17 11/27/17 11/28/17 11/28/17 11/28/17 07:00 15:00 23:00 07:00 15:00 23:00 Intake Total 5 ml 1050 ml Output Total 3 ml Balance 5 ml 1050 ml -3 ml Intake Oral 240 ml Packed Cells 800 ml Blood Product IV Normal Saline Flush 5 ml 10 ml Stool Total 3 ml # Voids 4 1 1 5 # Bowel Movements 4 1 1 Result Diagram: 11/28/17 0615 11/28/17 0615 Imaging Last Impressions Upper Extremity Ultrasound 11/27/17 0000 Signed Impressions: Service Date/Time: Monday, November 27, 2017 21:56 - CONCLUSION: 1. No sonographic evidence for upper extremity DVT. Chris Cooper MD Chest X-Ray 11/25/17 0000 Signed Impressions: Service Date/Time: Saturday, November 25, 2017 15:16 - CONCLUSION: 1. Left basilar effusion and consolidation concerning for pneumonia. Darrian Shell MD Head CT 11/24/17 0600 Signed Impressions: Service Date/Time: Friday, November 24, 2017 05:16 - CONCLUSION: 1. Mild increase in the size of the high density hemorrhage along the right parietal lobe 2. 2 additional smaller areas of high density punctate hemorrhage are now noted along the right parietal lobe as well. Franklin Schaefer MD Foot X-Ray 11/24/17 0000 Signed Impressions: Service Date/Time: Friday, November 24, 2017 18:04 - CONCLUSION: 1. Chronic appearing limited erosion of the medial proximal first metatarsal near the MTP joint. 2. No evidence for erosive change to suggest osteomyelitis involving the third digit. Chris Cooper MD Cervical Spine CT 11/22/17 1418 Signed Impressions: Service Date/Time: Wednesday, November 22, 2017 14:39 - CONCLUSION: Large anterior osteophytes at multiple levels. Scattered areas of bilateral neuroforaminal narrowing due to osteophyte. No evidence of acute fracture or significant subluxation. Dagoberto Das MD Shoulder X-Ray 11/22/17 0000 Signed Impressions: Service Date/Time: Wednesday, November 22, 2017 16:27 - CONCLUSION: Unremarkable examination of the left shoulder status post left bipolar pacermaker. Marked impingement change with acromial spurring and erosions across the greater tuberosity Dagoberto Das MD Pelvis X-Ray 11/22/17 0000 Signed Impressions: Service Date/Time: Wednesday, November 22, 2017 14:36 - CONCLUSION: Unremarkable examination of the pelvis. Dagoberto Das MD Chest CT 11/22/17 0000 Signed Impressions: Service Date/Time: Wednesday, November 22, 2017 16:02 - CONCLUSION: 1. No acute finding is identified on this noncontrast examination of the chest. 2. There is stable left pleural thickening, trace left pleural fluid, and volume loss in the left lower lobe. 3. Coronary artery calcification and severe atherosclerotic disease of aorta. Jalil Cedillo MD Abdomen/Pelvis CT 11/22/17 0000 Signed Impressions: Service Date/Time: Wednesday, November 22, 2017 16:02 - CONCLUSION: 1. No acute finding is identified on this mildly motion degraded noncontrast CT of the abdomen and pelvis. 2. Stable nonacute findings include cholelithiasis, severe atherosclerotic disease, and sigmoid diverticulosis. Jalil Cedillo MD Objective Remarks General: Elderly gentleman, awake, in no distress HEENT: Small scalp laceration with dressing, pupils equal, reactive, sclerae anicteric, neck supple, no rigidity, no JVD, RIJ CVC - site is clean Cardiovascular: regular, normal S1, S2, systolic murmur at apex Respiratory: Lungs clear bilaterally, no wheezes Abdomen: Soft, non-tender, non-distended, BS present x 4 Q Skin: no rashes Extremities - no edema, + peripheral pulses, warm and well perfused . 3rd toe with dressing on, some bleeding Neurological: Pleasant, awake, alert and oriented X 4, pupils equal and reactive, EOMI, motor 5/5 over all extremities, sensation intact Procedures Right 3rd digit ulcer OM s/p Incision drainage and debridement with bone biopsy right third digit by Dr Barr podiatry on 11/26/17 A/P Assessment and Plan Right 3rd digit ulcer OM s/p Incision drainage and debridement with bone biopsy right third digit Small SDH post fall - slight increase in SDH on repeat CT head, however neurologically intact Scalp laceration Coagulopathy secondary to warfarin - resolved Acute blood loss anemia likely secondary to GIB - no episodes since admission. Had EGD done - gastritis and duodenal ulcer. 11/27/17 hemoglobin drop postsurgically. Transfuse 2 units of blood. Monitor H&H Hypotension - resolved MRSA UTI and MRSA bacteremia with concern for endovascular infection - patient has a PPM. 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 Right 3rd digit ulcer OM s/p Incision drainage and debridement with bone biopsy right third digit by Madhav podiatry on . MRSA on cultures. also pathology shows OM. Plan for surgery, vasc surgeon consulted for evaluation and clearance. 11/27/17 hemoglobin drop postsurgically. Transfuse 2 units of blood. Monitor H& H. HGB repeat is stable. Reconsult GI. Patient is doing well from neuro standpoint On vanco followed by ID TTE Follow up Blood cx Continue pantoprazole 40 mg IV BID Right 3rd digit ulcer OM s/p Incision drainage and debridement with bone biopsy right third digit by Madhav podiatry on 11/26/17. Wound cultures with MRSA. Pathology shows Osteomyelitis. Discussed with Madhav plans for surgery. Patient needs vasc surgery evaluation prior to surgery. Consult Vasc surgery for eval Also paient with anemia, s.p 2 uPRBC started iron supplement. Also reconsult GI DVT prophylaxis with SCD's Discussed with the patient, nurse, daughter by phone, Dr. Barr podiatry Savanna Sood MD Nov 28, 2017 11:26
--- NOTE | 2017-11-28 11:52 | PD.POD ---
Subjective Pain score: 1 Remarks Doing well no events overnight Past Med/Surg/Social History Social History Smoking Status: Never Smoker Objective Vital Signs Vital Signs Date Time Temp Pulse Resp B/P (MAP) Pulse Ox O2 Delivery O2 Flow Rate FiO2 11/28/17 08:00 98.4 104 18 104/60 (75) 98 11/28/17 04:00 98.9 115 20 147/85 (105) 97 11/28/17 00:00 98.6 112 18 141/69 (93) 97 11/27/17 20:00 97.6 114 18 160/73 (102) 96 11/27/17 18:05 97.8 110 20 129/77 100 11/27/17 17:56 97.3 105 18 131/75 100 11/27/17 16:13 97.6 76 17 115/69 (84) 99 11/27/17 13:50 97.5 90 20 117/70 100 11/27/17 13:30 97.7 84 19 113/59 100 11/27/17 13:15 97.7 89 20 124/74 100 11/27/17 12:16 97.4 88 17 115/59 (77) 99 Coded Allergies: *MDRO Multi-Drug Resistant Organism (Unverified Adverse Reaction, Unknown , 11/22/17) MRSA back wound 02/2015. Medications and IVs Administered Medications Medications (Trade) Dose Ordered Sig/Aga Route PRN Reason Start Time Stop Time Status Last Admin Dose Admin Phenylephrine HCl 40 mg/Dextrose 500 ml @ 30 mls/hr TITRATE PRN IV Blood pressure management 11/22/17 17:15 11/22/17 17:51 Sodium Chloride 1,000 ml @ 84 mls/hr [id number] IV 11/22/17 19:10 11/28/17 09:43 Sodium Chloride (NS Flush) 2 ml BID IV FLUSH 11/22/17 21:00 11/28/17 09:43 Acetaminophen (Tylenol) 650 mg Q6H PRN PO PAIN 1-2 AND/OR FEVER >101F 11/22/17 19:15 11/27/17 08:23 Senna/Docusate Sodium (Flower-Colace) 1 tab BID PO 11/22/17 21:00 11/28/17 09:43 Vancomycin HCl 1500 mg/Sodium Chloride 515 ml @ 250 mls/hr Q24H IV 11/26/17 11:00 11/28/17 10:31 Pantoprazole Sodium (Protonix) 40 mg Q12HR PO 11/26/17 21:00 11/28/17 09:43 Tamsulosin HCl (Flomax) 0.4 mg DAILY@1800 PO 11/26/17 18:00 11/27/17 16:58 Ferrous Sulfate (Ferrous Sulfate) 325 mg BID@12,17 PO 11/27/17 17:00 11/27/17 16:58 Laboratory Tests Test 11/27/17 06:50 11/28/17 06:15 White Blood Count 4.9 TH/MM3 5.4 TH/MM3 Red Blood Count 2.67 MIL/MM3 3.08 MIL/MM3 Hemoglobin 6.8 GM/DL 8.2 GM/DL Hematocrit 19.8 % 23.8 % Mean Corpuscular Volume 74.3 FL 77.5 FL Mean Corpuscular Hemoglobin 25.6 PG 26.7 PG Mean Corpuscular Hemoglobin Concent 34.4 % 34.4 % Red Cell Distribution Width 17.2 % 18.3 % Platelet Count 136 TH/MM3 151 TH/MM3 Mean Platelet Volume 6.1 FL 6.0 FL Neutrophils (%) (Auto) 68.4 % 70.2 % Lymphocytes (%) (Auto) 11.4 % 11.3 % Monocytes (%) (Auto) 12.1 % 12.0 % Eosinophils (%) (Auto) 7.5 % 5.5 % Basophils (%) (Auto) 0.6 % 1.0 % Neutrophils # (Auto) 3.3 TH/MM3 3.8 TH/MM3 Lymphocytes # (Auto) 0.6 TH/MM3 0.6 TH/MM3 Monocytes # (Auto) 0.6 TH/MM3 0.6 TH/MM3 Eosinophils # (Auto) 0.4 TH/MM3 0.3 TH/MM3 Basophils # (Auto) 0.0 TH/MM3 0.1 TH/MM3 CBC Comment DIFF FINAL DIFF FINAL Differential Comment Laboratory Tests Test 11/27/17 06:50 11/28/17 06:15 Blood Urea Nitrogen 28 MG/DL 28 MG/DL Creatinine 1.57 MG/DL 1.53 MG/DL Random Glucose 80 MG/DL 76 MG/DL Total Protein 5.9 GM/DL 6.2 GM/DL Albumin 1.6 GM/DL Calcium Level 7.3 MG/DL 7.2 MG/DL Alkaline Phosphatase 50 U/L Aspartate Amino Transf (AST/SGOT) 12 U/L Alanine Aminotransferase (ALT/SGPT) 10 U/L Total Bilirubin 0.6 MG/DL Sodium Level 140 MEQ/L 140 MEQ/L Potassium Level 4.4 MEQ/L 4.2 MEQ/L Chloride Level 111 MEQ/L 111 MEQ/L Carbon Dioxide Level 20.0 MEQ/L 22.2 MEQ/L Anion Gap 9 MEQ/L 7 MEQ/L Estimat Glomerular Filtration Rate 42 ML/MIN 43 ML/MIN Protein Corrected Calcium 7.9 MG/DL 7.7 MG/DL Microbiology Date/Time Source Procedure Growth Status 11/26/17 08:30 Wound Toe Gram Stain - Final Complete 11/26/17 08:30 Wound Culture - Final S. Aureus Mrsa Complete Other Results [facility] DEPARTMENT OF PATHOLOGY [address] [facility], [address] [address] [address] [email or web address] PATHOLOGY REPORT Patient: MERCEDES MARIN Specimen #: [id number] Page 1 of 1 [facility] DEPARTMENT OF PATHOLOGY [address] [facility] [address], [place] [address] [email or web address] PATHOLOGY REPORT Page 1 of 1 CLINICAL HISTORY: Abscess to bone right third toe. TISSUE: BONE FROM RIGHT THIRD TOE GROSS DESCRIPTION: Received without fixative is a 0.3 x 0.2 x 0.1 cm gritty robin fragment of tissue. TE 1 after decalcification. DXN/jeannine FINAL DIAGNOSIS: BONE, RIGHT THIRD TOE, BIOPSY: - REACTIVE AND FOCALLY NECROTIC BONE WITH FEATURES OF REMODELING AND ASSOCIATED ACUTELY INFLAMED FIBROVASCULAR TISSUE, SUSPICIOUS FOR ACUTE OSTEOMYELITIS. TECHNIQUE: Five-station segmental examination of the lower extremities was performed. Pulsed-cuff waveform tracings and pressures were recorded. Ankle-brachial indices and toe-brachial indices were calculated. PRESSURES (mmHg): Brachial (arm): Right 115 Left IV SITE Lower Thigh: Right CNO>220 Left CNO Calf: Right CNO Left CNO Ankle: Right 72 Left CNO Toe: Right 42 Left 58 EARNEST: Right 0.63 Left CNO TBI: Right 0.37 Left 0.50 PULSED CUFF WAVEFORMS: Reduced amplitude in delayed upstroke involving the ankles bilaterally. CONCLUSION: Inability to occlude multiple vessels bilaterally suggesting calcified atherosclerotic disease. There is significant reduction of the right EARNEST with inability to calculate a left EARNEST. Both toe brachial indices are reduced. Consideration could be made to CTA with runoff to further evaluate. Physical Exam Remarks Right foot decreased pulses. Warm improved edema and erythema of right third digit with ulcer that probes directly to distal phalanx Assessment & Plan A/P Right foot ulcer infection osteomyelitis. The patient has poor circulation verified by Doppler. Requesting vascular clearance before proceeding with second digit amputation. Continue antibiotics reviewed case with medicine minimal blood loss anticipated if we proceed with surgery Caleb Barr DPM Nov 28, 2017 11:52
[2017-11-28 12:00] VITALS: BP 124/82; PULSE 102; RESP 18; TEMP 97.8; O2SAT 98
[2017-11-28] MEDS: FERROUS SULFATE 325 MG (65 MG ELEMENTAL IRON) TAB PO SCH ×2 (12:23→17:28)
--- NOTE | 2017-11-28 13:26 | HHI.GIFU ---
Subjective Remarks Hard of hearing Resting in the bed Denies any nausea vomiting diarrhea or constipation. Brown stool noted with no blood Hungry asking for regular food No abdominal pain or tenderness (Kelsy Steiner) Objective Vitals I&O Vital Signs Date Time Temp Pulse Resp B/P (MAP) Pulse Ox O2 Delivery O2 Flow Rate FiO2 11/28/17 12:00 97.8 102 18 124/82 (96) 98 11/28/17 08:00 98.4 104 18 104/60 (75) 98 11/28/17 04:00 98.9 115 20 147/85 (105) 97 11/28/17 00:00 98.6 112 18 141/69 (93) 97 11/27/17 20:00 97.6 114 18 160/73 (102) 96 11/27/17 18:05 97.8 110 20 129/77 100 11/27/17 17:56 97.3 105 18 131/75 100 11/27/17 16:13 97.6 76 17 115/69 (84) 99 11/27/17 13:50 97.5 90 20 117/70 100 11/27/17 13:30 97.7 84 19 113/59 100 I/O 11/27/17 11/27/17 11/27/17 11/28/17 11/28/17 11/28/17 07:00 15:00 23:00 07:00 15:00 23:00 Intake Total 5 ml 1050 ml Output Total 3 ml Balance 5 ml 1050 ml -3 ml Intake Oral 240 ml Packed Cells 800 ml Blood Product IV Normal Saline Flush 5 ml 10 ml Stool Total 3 ml # Voids 4 1 1 5 # Bowel Movements 4 1 1 Laboratory Laboratory Tests Test 11/28/17 06:15 White Blood Count 5.4 Red Blood Count 3.08 Hemoglobin 8.2 Hematocrit 23.8 Mean Corpuscular Volume 77.5 Mean Corpuscular Hemoglobin 26.7 Mean Corpuscular Hemoglobin Concent 34.4 Red Cell Distribution Width 18.3 Platelet Count 151 Mean Platelet Volume 6.0 Neutrophils (%) (Auto) 70.2 Lymphocytes (%) (Auto) 11.3 Monocytes (%) (Auto) 12.0 Eosinophils (%) (Auto) 5.5 Basophils (%) (Auto) 1.0 Neutrophils # (Auto) 3.8 Lymphocytes # (Auto) 0.6 Monocytes # (Auto) 0.6 Eosinophils # (Auto) 0.3 Basophils # (Auto) 0.1 CBC Comment DIFF FINAL Differential Comment Blood Urea Nitrogen 28 Creatinine 1.53 Random Glucose 76 Total Protein 6.2 Calcium Level 7.2 Sodium Level 140 Potassium Level 4.2 Chloride Level 111 Carbon Dioxide Level 22.2 Anion Gap 7 Estimat Glomerular Filtration Rate 43 Protein Corrected Calcium 7.7 Date/Time Source Procedure Growth Status 11/25/17 04:51 Blood Peripheral Aerobic Blood Culture - Preliminary NO GROWTH IN 3 DAYS Resulted 11/25/17 04:51 Blood Peripheral Anaerobic Blood Culture - Preliminary NO GROWTH IN 3 DAYS Resulted 11/22/17 16:00 Urine Random Urine Urine Culture - Final S. Aureus Mrsa Complete 11/26/17 08:30 Wound Toe Gram Stain - Final Complete 11/26/17 08:30 Wound Culture - Final S. Aureus Mrsa Complete Imaging Last Impressions Upper Extremity Ultrasound 11/27/17 0000 Signed Impressions: Service Date/Time: Monday, November 27, 2017 21:56 - CONCLUSION: 1. No sonographic evidence for upper extremity DVT. Chris Cooper MD Chest X-Ray 11/25/17 0000 Signed Impressions: Service Date/Time: Saturday, November 25, 2017 15:16 - CONCLUSION: 1. Left basilar effusion and consolidation concerning for pneumonia. Darrian Shell MD Head CT 11/24/17 0600 Signed Impressions: Service Date/Time: Friday, November 24, 2017 05:16 - CONCLUSION: 1. Mild increase in the size of the high density hemorrhage along the right parietal lobe 2. 2 additional smaller areas of high density punctate hemorrhage are now noted along the right parietal lobe as well. Franklin Schaefer MD Foot X-Ray 11/24/17 0000 Signed Impressions: Service Date/Time: Friday, November 24, 2017 18:04 - CONCLUSION: 1. Chronic appearing limited erosion of the medial proximal first metatarsal near the MTP joint. 2. No evidence for erosive change to suggest osteomyelitis involving the third digit. Chris Cooper MD Cervical Spine CT 11/22/17 1418 Signed Impressions: Service Date/Time: Wednesday, November 22, 2017 14:39 - CONCLUSION: Large anterior osteophytes at multiple levels. Scattered areas of bilateral neuroforaminal narrowing due to osteophyte. No evidence of acute fracture or significant subluxation. Dagoberto Das MD Shoulder X-Ray 11/22/17 0000 Signed Impressions: Service Date/Time: Wednesday, November 22, 2017 16:27 - CONCLUSION: Unremarkable examination of the left shoulder status post left bipolar pacermaker. Marked impingement change with acromial spurring and erosions across the greater tuberosity Dagoberto Das MD Pelvis X-Ray 11/22/17 0000 Signed Impressions: Service Date/Time: Wednesday, November 22, 2017 14:36 - CONCLUSION: Unremarkable examination of the pelvis. Dagoberto Das MD Chest CT 11/22/17 0000 Signed Impressions: Service Date/Time: Wednesday, November 22, 2017 16:02 - CONCLUSION: 1. No acute finding is identified on this noncontrast examination of the chest. 2. There is stable left pleural thickening, trace left pleural fluid, and volume loss in the left lower lobe. 3. Coronary artery calcification and severe atherosclerotic disease of aorta. Jalil Cedillo MD Abdomen/Pelvis CT 11/22/17 0000 Signed Impressions: Service Date/Time: Wednesday, November 22, 2017 16:02 - CONCLUSION: 1. No acute finding is identified on this mildly motion degraded noncontrast CT of the abdomen and pelvis. 2. Stable nonacute findings include cholelithiasis, severe atherosclerotic disease, and sigmoid diverticulosis. Jalil Cedillo MD Physical Exam HEENT: PERRL; normocephalic; atraumatic pale, oral cavity clear CHEST: Essentially clear CARDIAC: Irregular heart rate, controlled ABDOMEN: Round, Soft, nondistended, nontender; no hepatosplenomegaly; bowel sounds are present in all four quadrants. EXTREMITIES: No clubbing, cyanosis, or edema, right foot third toe, bandaged and clean dry and intact SKIN: Pale, Normal; no rash; no jaundice. ENGINEERING AND OPERATIONS DIRECTOR: No focal deficits; alert and oriented times 2 (Kelsy Steiner) Assessment and Plan Plan ASSESSMENT - black tarry stool anemia - poss UGIB, on coumadin, anemia is microcytic. 11/24/17 S/P EGD found gastritis, ulcer in duodenum. Reconsult on 11/28/17 due to hemoglobin drop on 11/27/17 to 6.8. Hemoglobin has been trending in the low to mid 7 range, 2 units of blood being transfused today. Currently patient is hungry asking for regular food. Normal stool brown this a.m., but will need to continue to monitor for tarry stool next bowel movement. Could be due to patient's duodenal ulcer. Discussed with nurse to monitor for tarry stool. Patient currently denies any nausea, vomiting ,diarrhea or abdominal pain. Patient has osteomyelitis in his right foot third toe, plan is for amputation. no history of cancer PLAN -continue PPI - Diet change per attending -Discussed with nursing staff to monitor for any black tarry stools. If patient does have black tarry stools within the next 24 hours - Consider bleeding scan or repeat EGD/ possible cautery. - Intake and output - EGD in 3 months - monitor labs - transfuse today okay Discussed with hospitalist pt seen by myself and Dr Olmedo, note is written on his behalf (Kelsy Steiner) Plan Patient was seen and examined, agree with above-noted, had drop in his hemoglobin, responded to blood transfusion, we will monitor his hemoglobin if drop again then he will need repeat and endoscopy with possible cautery, another option is there are signs of active bleeding with possible angiogram with embolization (Ange Olmedo MD) Kelsy Steiner Nov 28, 2017 13:26 Ange Olmedo MD Nov 28, 2017 15:45
--- NOTE | 2017-11-28 14:45 | HHI.NSPN ---
(Cory Mcconnell) History Chief Complaint: Fall (Cory Mcconnell) Interval History This is an 87-year-old male patient with history of Coumadin use who presents to the ER apparently after falling. The patient reports that he was trying to go to the bathroom when he lost control and fell striking the back of his head. He had possible loss of consciousness of unknown duration. He was brought to the emergency room because of bleeding of the scalp and a laceration and underwent evaluation. He also complains of left shoulder pain. He takes Coumadin for atrial fibrillation. Denies any other types or problems at the present time except for weight loss since August of last year for which he has undergone evaluation. 11/23/17: Pt awake and alert. Denies headache. No n/v. Pt states he has felt weak and tired over last 3 days at least and feels this is why his legs gave out from him and he fell. He also reports to me he has had dark stools during this time. 11/24/17: Pt awake and alert. Denies headache, nausea, vomiting. No weakness other than limitation with deltoid from his chronic shoulder condition. 11/25/17: Pt awake and alert. Denies headache, nausea, vomiting, numbness or tingling. Denies any chest pain or sob. 11/26/17: Pt awake and alert. Denies headache, nausea, vomiting, numbness or tingling. Pt had surgery on his right 3rd toe bandage in place. He doesn't think he has urinated that much today. 11/27/17: Pt awakens. States he feels very tired. No nausea, vomiting, paresthesias in face or extremities. 11/28/17: Pt awake and alert. He states he is feeling better now his blood counts have come up he is less tired. He denies any headaches, nausea or vomiting. (Cory Mcconnell) Review of Systems General: Negative for: fever, chills, insomnia Cardiovascular: Negative for: chest pain Gastrointestinal: Negative for: nausea, vomitting, diarrhea, constipation ( Cory Mcconnell) Exam Results Vital Signs Date Time Temp Pulse Resp B/P (MAP) Pulse Ox O2 Delivery O2 Flow Rate FiO2 11/28/17 12:00 97.8 102 18 124/82 (96) 98 11/26/17 20:24 Room Air 11/26/17 10:15 21 Intake and Output 11/28/17 11/28/17 11/29/17 08:00 16:00 00:00 Output Total 3 ml Balance -3 ml (Cory Mcconnell) Physical Examination General: Pt awake and alert, in no acute distress and stable vitals. Eyes: Pupils equal sclera anicteric. Resp: CTA bilaterally. Heart: Irregular no murmurs. Abd: Soft positive bs. Skin: No cyanosis or erythema. His right 3rd toe is bandaged. Muscle: Moves all 4 extremities symmetrically with good strength. Some limitation with deltoid strength bilaterally pt states from chronic shoulder problems. Neuro: Pt awake and alert. Pupils equal 3mm bilaterally. Follows commands well. Speech clear and appropriate. (Cory Mcconnell) Lab, Micro, Other Results Last Impressions Upper Extremity Ultrasound 11/27/17 0000 Signed Impressions: Service Date/Time: Monday, November 27, 2017 21:56 - CONCLUSION: 1. No sonographic evidence for upper extremity DVT. Chris Cooper MD Chest X-Ray 11/25/17 0000 Signed Impressions: Service Date/Time: Saturday, November 25, 2017 15:16 - CONCLUSION: 1. Left basilar effusion and consolidation concerning for pneumonia. Darrian Shell MD Head CT 11/24/17 0600 Signed Impressions: Service Date/Time: Friday, November 24, 2017 05:16 - CONCLUSION: 1. Mild increase in the size of the high density hemorrhage along the right parietal lobe 2. 2 additional smaller areas of high density punctate hemorrhage are now noted along the right parietal lobe as well. Franklin Schaefer MD Foot X-Ray 11/24/17 0000 Signed Impressions: Service Date/Time: Friday, November 24, 2017 18:04 - CONCLUSION: 1. Chronic appearing limited erosion of the medial proximal first metatarsal near the MTP joint. 2. No evidence for erosive change to suggest osteomyelitis involving the third digit. Chris Cooper MD Cervical Spine CT 11/22/17 1418 Signed Impressions: Service Date/Time: Wednesday, November 22, 2017 14:39 - CONCLUSION: Large anterior osteophytes at multiple levels. Scattered areas of bilateral neuroforaminal narrowing due to osteophyte. No evidence of acute fracture or significant subluxation. Dagoberto Das MD Shoulder X-Ray 11/22/17 0000 Signed Impressions: Service Date/Time: Wednesday, November 22, 2017 16:27 - CONCLUSION: Unremarkable examination of the left shoulder status post left bipolar pacermaker. Marked impingement change with acromial spurring and erosions across the greater tuberosity Dagoberto Das MD Pelvis X-Ray 11/22/17 0000 Signed Impressions: Service Date/Time: Wednesday, November 22, 2017 14:36 - CONCLUSION: Unremarkable examination of the pelvis. Dagoberto Das MD Chest CT 11/22/17 0000 Signed Impressions: Service Date/Time: Wednesday, November 22, 2017 16:02 - CONCLUSION: 1. No acute finding is identified on this noncontrast examination of the chest. 2. There is stable left pleural thickening, trace left pleural fluid, and volume loss in the left lower lobe. 3. Coronary artery calcification and severe atherosclerotic disease of aorta. Jalil Cedillo MD Abdomen/Pelvis CT 11/22/17 0000 Signed Impressions: Service Date/Time: Wednesday, November 22, 2017 16:02 - CONCLUSION: 1. No acute finding is identified on this mildly motion degraded noncontrast CT of the abdomen and pelvis. 2. Stable nonacute findings include cholelithiasis, severe atherosclerotic disease, and sigmoid diverticulosis. Jalil Cedillo MD Laboratory Tests Test 11/28/17 06:15 White Blood Count 5.4 TH/MM3 Red Blood Count 3.08 MIL/MM3 Hemoglobin 8.2 GM/DL Hematocrit 23.8 % Mean Corpuscular Volume 77.5 FL Mean Corpuscular Hemoglobin 26.7 PG Mean Corpuscular Hemoglobin Concent 34.4 % Red Cell Distribution Width 18.3 % Platelet Count 151 TH/MM3 Mean Platelet Volume 6.0 FL Neutrophils (%) (Auto) 70.2 % Lymphocytes (%) (Auto) 11.3 % Monocytes (%) (Auto) 12.0 % Eosinophils (%) (Auto) 5.5 % Basophils (%) (Auto) 1.0 % Neutrophils # (Auto) 3.8 TH/MM3 Lymphocytes # (Auto) 0.6 TH/MM3 Monocytes # (Auto) 0.6 TH/MM3 Eosinophils # (Auto) 0.3 TH/MM3 Basophils # (Auto) 0.1 TH/MM3 CBC Comment DIFF FINAL Differential Comment Blood Urea Nitrogen 28 MG/DL Creatinine 1.53 MG/DL Random Glucose 76 MG/DL Total Protein 6.2 GM/DL Calcium Level 7.2 MG/DL Sodium Level 140 MEQ/L Potassium Level 4.2 MEQ/L Chloride Level 111 MEQ/L Carbon Dioxide Level 22.2 MEQ/L Anion Gap 7 MEQ/L Estimat Glomerular Filtration Rate 43 ML/MIN Protein Corrected Calcium 7.7 MG/DL (Cory Mcconnell) Medical Decision Making Impression and Plan A: 87 y/o M with elevated PT/INR s/p fall with possibly a very small amount of hemorrhage in the right subdural space. On Follow up CT head pt has more small contusions in the right parietal area also. Anemia Sepsis P: Continue with neuro checks. Continue with current care. Continue with antibiotics for his sepsis. (Cory Mcconnell) Attending Statement The exam, history, and the medical decision-making described in the above note were completed with the assistance of the mid-level provider. I reviewed and agree with the findings presented. I attest that I had a [id number] encounter with the patient on the same day, and personally performed and documented my assessment and findings in the medical record. (Carter Santacruz MD) Cory Mcconnell Nov 28, 2017 14:45 Carter Santacruz MD Nov 28, 2017 20:07
--- NOTE | 2017-11-28 14:54 | PD.CAR.PN ---
CVT Progress Note Subjective/Hospital Course: Patient seen full consult dictated Thanks J Objective: Vital Signs Date Time Temp Pulse Resp B/P (MAP) Pulse Ox O2 Delivery O2 Flow Rate FiO2 11/28/17 12:00 97.8 102 18 124/82 (96) 98 11/28/17 08:00 98.4 104 18 104/60 (75) 98 11/28/17 04:00 98.9 115 20 147/85 (105) 97 11/28/17 00:00 98.6 112 18 141/69 (93) 97 11/27/17 20:00 97.6 114 18 160/73 (102) 96 11/27/17 18:05 97.8 110 20 129/77 100 11/27/17 17:56 97.3 105 18 131/75 100 11/27/17 16:13 97.6 76 17 115/69 (84) 99 Labs: Laboratory Tests Test 11/28/17 06:15 White Blood Count 5.4 TH/MM3 (4.0-11.0) Red Blood Count 3.08 MIL/MM3 (4.50-5.90) Hemoglobin 8.2 GM/DL (13.0-17.0) Hematocrit 23.8 % (39.0-51.0) Mean Corpuscular Volume 77.5 FL (80.0-100.0) Mean Corpuscular Hemoglobin 26.7 PG (27.0-34.0) Mean Corpuscular Hemoglobin Concent 34.4 % (32.0-36.0) Red Cell Distribution Width 18.3 % (11.6-17.2) Platelet Count 151 TH/MM3 (150-450) Mean Platelet Volume 6.0 FL (7.0-11.0) Neutrophils (%) (Auto) 70.2 % (16.0-70.0) Lymphocytes (%) (Auto) 11.3 % (9.0-44.0) Monocytes (%) (Auto) 12.0 % (0.0-8.0) Eosinophils (%) (Auto) 5.5 % (0.0-4.0) Basophils (%) (Auto) 1.0 % (0.0-2.0) Neutrophils # (Auto) 3.8 TH/MM3 (1.8-7.7) Lymphocytes # (Auto) 0.6 TH/MM3 (1.0-4.8) Monocytes # (Auto) 0.6 TH/MM3 (0-0.9) Eosinophils # (Auto) 0.3 TH/MM3 (0-0.4) Basophils # (Auto) 0.1 TH/MM3 (0-0.2) CBC Comment DIFF FINAL Differential Comment Blood Urea Nitrogen 28 MG/DL (7-18) Creatinine 1.53 MG/DL (0.60-1.30) Random Glucose 76 MG/DL (74-106) Total Protein 6.2 GM/DL (6.4-8.2) Calcium Level 7.2 MG/DL (8.5-10.1) Sodium Level 140 MEQ/L (136-145) Potassium Level 4.2 MEQ/L (3.5-5.1) Chloride Level 111 MEQ/L (98-107) Carbon Dioxide Level 22.2 MEQ/L (21.0-32.0) Anion Gap 7 MEQ/L (5-15) Estimat Glomerular Filtration Rate 43 ML/MIN (>89) Protein Corrected Calcium 7.7 MG/DL (8.5-10.1) Result Diagram: 11/28/1715 11/28/17 0615 Raad Ramirez MD Nov 28, 2017 14:54
[2017-11-28 16:00] VITALS: BP 137/85; PULSE 108; RESP 18; TEMP 98; O2SAT 98
[2017-11-28] MEDS: TAMSULOSIN HCL 0.4 MG CAP PO SCH (17:28)
--- NOTE | 2017-11-28 18:15 | MB ---
cc: RAAD DUMONT MD DATE OF CONSULTATION: 11/28/2017. REASON FOR CONSULTATION: Peripheral vascular disease and gangrene and infection of the third digit of the right foot. HISTORY OF PRESENT ILLNESS: This 87-year-old male with multiple medical problems fell striking his head. He was brought to the emergency room with bleeding scalp and underwent evaluation and workup. On workup, he was found to have cellulitis and purulent discharge from the third digit of the right foot; hence, podiatry was consulted and from there vascular surgery. The question arises about any vascular implications. PAST MEDICAL HISTORY: 1. Congestive heart failure. 2. Coronary artery disease. 3. Atrial fibrillation. PAST SURGICAL HISTORY: 1. Bilateral knee replacements. 2. Pacemaker placement. 3. Some sort of cystoscopy. SOCIAL HISTORY: He does not smoke or drink. He is a retired [employer] . ALLERGIES: NO ALLERGIES. PHYSICAL EXAMINATION: GENERAL: The physical examination reveals an 87-year-old gentleman who is awake, alert, oriented. HEAD, EYES, EARS, NOSE, THROAT: Normocephalic. No trauma to the head. Pupils are equal and reactive. Extraocular muscles intact. NECK: The neck is supple. Bilateral carotid pulses and bilateral faint carotid bruits. The patient had an ultrasound of the carotids last year which showed some narrowing but no hemodynamically significant stenosis. CHEST: Bilateral breath sounds. HEART: Irregular rhythm. The patient is in a controlled atrial fibrillation of about 90 beats per minute and bilateral breath sounds are decreased consistent with moderate degree of COPD. (It should be noted that every ER note and history and physical state "regular heart rhythm" but I did not perceive this. The patient is in atrial fibrillation now and likely was in it before as well). EXTREMITIES: The patient has bilateral palpable femoral pulses. Dopplerable popliteal pulses and dorsalis pedis and posterior tibials by Doppler. The feet are cool with dependent rubor and elevation pallor. Above-noted ulcer on the third digit of the right foot. Cultures are pending. NEUROLOGIC: The patient is grossly intact however he has not been walking for a while now. He states he was walking last month but does not use a walker. IMPRESSION AND RECOMMENDATIONS: An 87-year-old gentleman who is awake, alert and oriented and who, according to him, was fairly active prior to all this. At this point, I believe it is appropriate and reasonable to do a CTA with a runoff to evaluate the patient's circulation. It is likely that the majority of the disease will be below the level of the knee; however, given the circumstances if there are reconstructable lesions that can be reached by balloon angioplasty or stenting, that would certainly greatly improve the flow to the foot and the potential of healing. Will continue to follow the patient. Raad VIVAS/FAMILIA /2:48 PM /6:03 PM BRISSA
[2017-11-28] MEDS ORDERED: IOHEXOL 350 MG/ML 10 ML VIAL (for RAD DIAG) IVCONTRAST ONE (18:33)
--- NOTE | 2017-11-28 19:03 | HHI.IDPN ---
Subjective Subjective Remarks ID X cover for Dr Fried chart was reviewed is an 87 y/o CM with PMHx of CAD, CHF, Afib on anticoagulant and with Pacemaker in Left subclavian. Patient reports h/o 2 falls at home (note patient on anticoagulants) ? LOC after this fall. Patient was brought to hospital via Ambulance. Per chart review it appears patient had lost his footing and hit the back of his head. Family did not witness it and has a head laceration. There is report of possible LOC but not sure how long. When patient woke up he mainly complained of pain mainly to left shoulder and head. Per family patient is getting worked up for loss of 20 pounds recently and concerned for cancer. He has noticed black tarry stools for the last week or so and has been progressively getting weaker. Patient had significant bleeding from his scalp laceration which was sutured in the ER. He was noted to be coagulopathic with an INR of 6.5 and received 2 units of FFP and vitamin K 10 mg IV in the ER. He had a subclavian central line placed by ER physician. Patient was given 1.5 L fluid bolus and started on Faisal-Synephrine for pressor support. 2 units FFP, PRBCs 2 units were ordered to be transfused as his hemoglobin dropped to 6.9 following fluid bolus. Patient was admitted under critical care medicine service. Head CT done revealed a subdural hematoma. Neurosurgery was consulted and did not plan any active intervention. Patient was evaluated by GI and underwent EGD today with reported duodenitis and no bleeder or malignancies per verbal report. Colonoscopy is planned at some point in future per GI notes. Blood cultures done on admission were positive for MRSA and ID consulted for same given h/o pacer in situ. Pertinent positives and negatives: Family reported h/o MRSA. Patient reportedly had a urologic procedure a week back for a urethral stricture. H/o falls x 2 Patient upon questioning reports he stubbed his toe probably around the falls. Not sure of timing. H/o weight loss, workup ongoing. Overnight events reviewed No fevers No rash No diarrhea dw bedside I&D performed highly suspicious of osteomyelitis. Bone biopsy performed as probed down to the bone. Bone bx + for osteo Arterial study + for PVD CTA was done Dr Mariscal was consulted, following the pt Pt is growing MRSA from foot clx Antibiotics Vanco IV Lines Line sites with no e.o infection Past Medical History reviewed Allergies: Coded Allergies: *MDRO Multi-Drug Resistant Organism (Unverified Adverse Reaction, Unknown , 11/22/17) MRSA back wound 02/2015. Objective . Vital Signs Date Time Temp Pulse Resp B/P (MAP) Pulse Ox O2 Delivery O2 Flow Rate FiO2 11/28/17 16:00 98.0 108 18 137/85 (102) 98 11/28/17 12:00 97.8 102 18 124/82 (96) 98 11/28/17 08:00 98.4 104 18 104/60 (75) 98 11/28/17 04:00 98.9 115 20 147/85 (105) 97 11/28/17 00:00 98.6 112 18 141/69 (93) 97 11/27/17 20:00 97.6 114 18 160/73 (102) 96 11/28/17 11/28/17 11/29/17 15:00 23:00 07:00 Intake Total 515 ml 1000 ml Balance 515 ml 1000 ml IV Total 515 ml 1000 ml . Laboratory Tests Test 11/27/17 06:50 11/28/17 06:15 White Blood Count 4.9 TH/MM3 5.4 TH/MM3 Red Blood Count 2.67 MIL/MM3 3.08 MIL/MM3 Hemoglobin 6.8 GM/DL 8.2 GM/DL Hematocrit 19.8 % 23.8 % Mean Corpuscular Volume 74.3 FL 77.5 FL Mean Corpuscular Hemoglobin 25.6 PG 26.7 PG Mean Corpuscular Hemoglobin Concent 34.4 % 34.4 % Red Cell Distribution Width 17.2 % 18.3 % Platelet Count 136 TH/MM3 151 TH/MM3 Mean Platelet Volume 6.1 FL 6.0 FL Neutrophils (%) (Auto) 68.4 % 70.2 % Lymphocytes (%) (Auto) 11.4 % 11.3 % Monocytes (%) (Auto) 12.1 % 12.0 % Eosinophils (%) (Auto) 7.5 % 5.5 % Basophils (%) (Auto) 0.6 % 1.0 % Neutrophils # (Auto) 3.3 TH/MM3 3.8 TH/MM3 Lymphocytes # (Auto) 0.6 TH/MM3 0.6 TH/MM3 Monocytes # (Auto) 0.6 TH/MM3 0.6 TH/MM3 Eosinophils # (Auto) 0.4 TH/MM3 0.3 TH/MM3 Basophils # (Auto) 0.0 TH/MM3 0.1 TH/MM3 CBC Comment DIFF FINAL DIFF FINAL Differential Comment Laboratory Tests Test 11/27/17 06:50 11/28/17 06:15 Blood Urea Nitrogen 28 MG/DL 28 MG/DL Creatinine 1.57 MG/DL 1.53 MG/DL Random Glucose 80 MG/DL 76 MG/DL Total Protein 5.9 GM/DL 6.2 GM/DL Albumin 1.6 GM/DL Calcium Level 7.3 MG/DL 7.2 MG/DL Alkaline Phosphatase 50 U/L Aspartate Amino Transf (AST/SGOT) 12 U/L Alanine Aminotransferase (ALT/SGPT) 10 U/L Total Bilirubin 0.6 MG/DL Sodium Level 140 MEQ/L 140 MEQ/L Potassium Level 4.4 MEQ/L 4.2 MEQ/L Chloride Level 111 MEQ/L 111 MEQ/L Carbon Dioxide Level 20.0 MEQ/L 22.2 MEQ/L Anion Gap 9 MEQ/L 7 MEQ/L Estimat Glomerular Filtration Rate 42 ML/MIN 43 ML/MIN Protein Corrected Calcium 7.9 MG/DL 7.7 MG/DL Microbiology Date/Time Source Procedure Growth Status 11/26/17 08:30 Wound Toe Gram Stain - Final Complete 11/26/17 08:30 Wound Culture - Final S. Aureus Mrsa Complete Imaging Last Impressions Upper Extremity Ultrasound 11/27/17 0000 Signed Impressions: Service Date/Time: Monday, November 27, 2017 21:56 - CONCLUSION: 1. No sonographic evidence for upper extremity DVT. Chris Cooper MD Chest X-Ray 11/25/17 0000 Signed Impressions: Service Date/Time: Saturday, November 25, 2017 15:16 - CONCLUSION: 1. Left basilar effusion and consolidation concerning for pneumonia. Darrian Shell MD Head CT 11/24/17 0600 Signed Impressions: Service Date/Time: Friday, November 24, 2017 05:16 - CONCLUSION: 1. Mild increase in the size of the high density hemorrhage along the right parietal lobe 2. 2 additional smaller areas of high density punctate hemorrhage are now noted along the right parietal lobe as well. Franklin Schaefer MD Foot X-Ray 2/20/18 0000 Signed Impressions: Service Date/Time: Friday, November 24, 2017 18:04 - CONCLUSION: 1. Chronic appearing limited erosion of the medial proximal first metatarsal near the MTP joint. 2. No evidence for erosive change to suggest osteomyelitis involving the third digit. Chris Cooper MD Cervical Spine CT 11/22/17 1418 Signed Impressions: Service Date/Time: Wednesday, November 22, 2017 14:39 - CONCLUSION: Large anterior osteophytes at multiple levels. Scattered areas of bilateral neuroforaminal narrowing due to osteophyte. No evidence of acute fracture or significant subluxation. Dagoberto Das MD Shoulder X-Ray 11/22/17 0000 Signed Impressions: Service Date/Time: Wednesday, November 22, 2017 16:27 - CONCLUSION: Unremarkable examination of the left shoulder status post left bipolar pacermaker. Marked impingement change with acromial spurring and erosions across the greater tuberosity Dagoberto Das MD Pelvis X-Ray 11/22/17 0000 Signed Impressions: Service Date/Time: Wednesday, November 22, 2017 14:36 - CONCLUSION: Unremarkable examination of the pelvis. Dagoberto Das MD Chest CT 11/22/17 0000 Signed Impressions: Service Date/Time: Wednesday, November 22, 2017 16:02 - CONCLUSION: 1. No acute finding is identified on this noncontrast examination of the chest. 2. There is stable left pleural thickening, trace left pleural fluid, and volume loss in the left lower lobe. 3. Coronary artery calcification and severe atherosclerotic disease of aorta. Jalil Cedillo MD Abdomen/Pelvis CT 11/22/17 0000 Signed Impressions: Service Date/Time: Wednesday, November 22, 2017 16:02 - CONCLUSION: 1. No acute finding is identified on this mildly motion degraded noncontrast CT of the abdomen and pelvis. 2. Stable nonacute findings include cholelithiasis, severe atherosclerotic disease, and sigmoid diverticulosis. Jalil Cedillo MD Physical Exam GENERAL: This is a well-nourished, well-developed patient, in no apparent distress. SKIN: No rashes, ecchymoses or lesions. Cool and dry. HEAD: Atraumatic. Normocephalic. No temporal or scalp tenderness. CARDIOVASCULAR: HS audible.Pacemaker site ok with no e.o infection. RESPIRATORY: Clear to auscultation. Breath sounds equal bilaterally. GASTROINTESTINAL: Abdomen soft, non-tender, nondistended. MUSCULOSKELETAL: rt foot in dressing with 3 tor nail avulsion, swelling and some serosang drainage Non palpanble pulses Dependent rubor Dry atrophic skin witb marked loss of skin appendages NEUROLOGICAL: Awake and alert. Responds to questions. Speech ok. Psych cooperative IV line sites with no e.o infection. Assessment & Plan Remarks MRSA bacteremia present on admission. R/o pacer infection and endocarditis. ? reason for fall vs resultant of fall related toe injury. - repaet BC negative @ 3 days - low grade unsustained 1/4 bottles only MRSA in urine likely from renal translocation concerning for endovascular infection. Right 3rd toe abscess r/o osteomyelitis. ? source of bacteremia. - confirmed osteo by harry galarza severe PVD Dr Friedman consulted for vascular Pacemaker in situ. Afib on anticoagulation. H/o falls x 2, Right parietal lobe bleed. Pulm edema Recs: Continue Vanco IV (target 15-20 for MRSA bacteremia) donna Hair bedside I&D performed highly suspicious of osteomyelitis. Bone biopsy performed as probed down to the bone. Follow cultures Follow clinically. Nica Vargas MD Nov 28, 2017 19:03
--- NOTE | 2017-11-28 20:04 | RADRPT ---
EXAM DATE/TIME: 11/28/2017 18:26 [place] COMPARISON: CT ABDOMEN & PELVIS W/O CONTRAST, November 22, 2017, 16:02. INDICATIONS : Right foot wound. IV CONTRAST: 93 cc Omnipaque 350 (iohexol) IV RADIATION DOSE: 3.63 CTDIvol (mGy) MEDICAL HISTORY : Congestive heart failure. Hypertension. hepatitis SURGICAL HISTORY : None. ENCOUNTER: Initial ACUITY: 1 week PAIN SCALE: 4/10 LOCATION: Right foot TECHNIQUE: Volumetric scanning was performed using a multi-row detector CT scanner. The data was post processed with a variety of visualization algorithms including full volume maximum intensity projection, multi -planar sliding thin slab reformation, curved planar reformation, and surface rendering techniques. Using automated exposure control and adjustment of the mA and/or kV according to patient size, radiat ion dose was kept as low as reasonably achievable to obtain optimal diagnostic quality images. DICO M format image data is available electronically for review and comparison. FINDINGS: ABDOMINAL AORTA: There is severe atherosclerotic disease of the abdominal aorta. It is ectatic and mildly aneurysmal m easuring up to 2.8 x 2.7 centimeters just distal to the JONA origin. There is atherosclerotic calcific ation of the origin of the celiac trunk with mild atherosclerotic disease in the celiac trunk. No sig nificant stenosis is present. There is moderate atherosclerotic disease of the superior mesenteric ar elif with moderate stenosis proximally. There is motion artifact limiting evaluation of the second or jennifer branches. The JONA is patent. There are patent single renal arteries bilaterally which demonstrate mild atherosclerotic disease. RIGHT PELVIS: There is moderate atherosclerotic calcification of the right common iliac artery and both the interna l and external iliac branches. No high-grade stenosis is identified. There is no aneurysm. LEFT PELVIS: There is moderate atherosclerotic calcification of the left common iliac artery and within the project intern al and extra ruddy iliac artery branches. No high-grade stenosis or aneurysm is present. RIGHT THIGH: Common femoral artery demonstrates moderate to severe atherosclerotic calcification without significa nt luminal narrowing. Profunda femoris demonstrates mild atherosclerotic disease but no high-grade st enosis. Superficial femoral artery demonstrates scattered atherosclerotic plaque of moderate severity throughout. No significant stenosis is present. LEFT THIGH: The left common femoral artery demonstrates moderate calcified plaque without significant luminal yomaira rowing. Bifurcation is normal and profunda femoris demonstrates mild atherosclerotic disease without high-grade stenosis. The superficial femoral artery demonstrates mild to moderate scattered calcified plaque without significant luminal narrowing. RIGHT KNEE: The popliteal artery demonstrates moderate calcified plaque. Directly posterior to the knee the popli teal artery is not visualized for a short segment given the severe beam hardening artifact from the k nee arthroplasty. No definite occlusion is seen. There is likely mild stenosis in the below knee popl iteal artery. LEFT KNEE: There is moderate scattered calcified plaque in the popliteal artery. Similar to the right side there is a short segment of nonvisualization of the popliteal artery secondary to beam hardening artifact from the knee arthroplasty. The below knee popliteal artery demonstrates moderate plaque but no signi ficant luminal narrowing. RIGHT LEG: Trifurcation appears normal and there is mild to moderate calcified plaque. The anterior tibial arter y may be occluded in the mid leg with minimal distal flow visualized. There is severe atherosclerotic disease in the posterior tibial artery with likely high-grade stenosis in the distal leg. Peroneal a rtery demonstrates a runoff to the level of the ankle. LEFT LEG: The trifurcation is normal. There is atherosclerotic plaque in the peroneal artery with likely a leas t moderate stenosis given the degree of calcified plaque present. Anterior tibial artery demonstrates minimal blood flow distally and posterior tibial artery appears to demonstrate blood flow just proxi mal to the ankle. Nonvascular findings: There is a moderate size right and small left pleural effusion. There is chronic left pleural thicken ing with atelectasis versus consolidation in the left lower lobe. A 15 mm low-density lesion in the l eft lobe of the liver has density measurements consistent with a cyst. There are small calcified ston es in the gallbladder. There is very patchy heterogeneous enhancement of both kidneys, left greater t ford right. There is severe left hydronephrosis and hydroureter. The hydroureter extends to the urinar y bladder without distal obstructing stone seen. There is no right-sided hydronephrosis. Spleen and p ancreas demonstrate no acute finding. No acute bowel abnormality is identified. There is trace free f luid in the pelvis. Sigmoid diverticulosis is present. There is mild diffuse subcutaneous edema in th e abdomen and in the lower extremities. CONCLUSION: 1. Severe atherosclerotic disease. The popliteal arteries are nonvisualized bilaterally for a short s egment given the beam hardening artifact from the knee arthroplasty hardware. In the right leg the an terior tibial artery appears to be occluded in the mid leg for a short segment with minimal runoff mo re distally. Please see above for detailed description of the remaining vessels. 2. Moderate size right and a chronic small left pleural effusion with left pleural thickening. 3. There is a small volume of free fluid in the pelvis from uncertain etiology. There is mild diffuse subcutaneous edema. 4. There is abnormal patchy enhancement of both kidneys which is nonspecific but can be seen with inf ection or interstitial nephritis related to contrast administration. There is severe left hydronephro sis and hydroureter from uncertain etiology. No distal obstructing process is seen. Therefore, this c ould be related to reflux. 1. Jalil Cedillo MD on November 28, 2017 at 19:47 Board Certified Radiologist. This report was verified electronically.
[2017-11-28 20:30] VITALS: BP 130/67; PULSE 80; RESP 19; TEMP 98.7; O2SAT 98
[2017-11-28] MEDS: CALCIUM CARBONATE 500 MG CHEWABLE TAB CHEW SCH (21:33)
[2017-11-29 00:20] VITALS: BP 128/75; PULSE 88; RESP 19; TEMP 98.4; O2SAT 98
[2017-11-29] MEDS: CHLORHEXIDINE GLUCONATE 2 % 1 PACK (2 CLOTHS) TOP SCH (03:54)
[2017-11-29 04:00] VITALS: BP 125/85; PULSE 78; RESP 18; TEMP 97.3; O2SAT 97
[2017-11-29] MEDS: SODIUM CHLOR 0.9% 1000 ML INJ 1,000 ML IV SCH ×2 (06:05→16:50)
[2017-11-29 08:00] VITALS: BP 123/78; PULSE 111; RESP 18; TEMP 98.5; O2SAT 98
[2017-11-29] MEDS: PANTOPRAZOLE SOD 40 MG DELAYED RELEASE TAB PO SCH ×2 (08:08→21:13)
[2017-11-29] MEDS: DOCUSATE SODIUM 50 MG/SENNA 8.6 MG TAB PO SCH ×2 (08:09→21:13)
[2017-11-29] MEDS: SODIUM CHLORIDE 0.9% FLUSH 10 ML FLUSH IV FLUSH SCH ×2 (08:09→21:13)
[2017-11-29] MEDS: CALCIUM CARBONATE 500 MG CHEWABLE TAB CHEW SCH ×2 (08:09→21:13)
[2017-11-29] MEDS ORDERED: PHARMACY ORDERED LAB ONE (10:45)
--- NOTE | 2017-11-29 11:06 | HHI.PR ---
Subjective Remarks Follow-up for multiple medical conditions and assessment plan Patient has no complaints. Denies abdominal pain or nausea or vomiting. All questions were answered completely. His stepdaughter is at the bedside she had multiple questions. Patient denies any GI bleed. Objective Vitals Vital Signs Date Time Temp Pulse Resp B/P (MAP) Pulse Ox O2 Delivery O2 Flow Rate FiO2 11/29/17 08:00 98.5 111 18 123/78 (93) 98 11/29/17 04:00 97.3 78 18 125/85 (98) 97 11/29/17 00:20 98.4 88 19 128/75 (92) 98 11/28/17 20:30 98.7 80 19 130/67 (88) 98 11/28/17 16:00 98.0 108 18 137/85 (102) 98 11/28/17 12:00 97.8 102 18 124/82 (96) 98 I/O 11/28/17 11/28/17 11/28/17 11/29/17 11/29/17 11/29/17 07:00 15:00 23:00 07:00 15:00 23:00 Intake Total 515 ml 1700 ml 500 ml Output Total 3 ml Balance -3 ml 515 ml 1700 ml 500 ml Intake Oral 700 ml 500 ml IV Total 515 ml 1000 ml Stool Total 3 ml # Voids 5 1 2 # Bowel Movements 1 0 Result Diagram: 11/28/17 0615 11/28/17 0615 Objective Remarks GENERAL: in NAD SKIN: Right foot third toe with erythema and wound. HEAD: Normocephalic. EYES: No scleral icterus. No injection or drainage. NECK: Supple, trachea midline. No JVD or lymphadenopathy. CARDIOVASCULAR: Regular rate and rhythm without murmurs, gallops, or rubs. RESPIRATORY: Breath sounds equal bilaterally. No accessory muscle use. Procedures Right 3rd digit ulcer OM s/p Incision drainage and debridement with bone biopsy right third digit by Dr Barr podiatry on 11/26/17 Medications and IVs Current Medications Tetanus/ Diphtheria Toxoids (Tetanus/ Diphtheria Tox Adult) 0.5 ml ONCE ONCE IM Last administered on 11/22/17at 15:57; Start 11/22/17 at 14:30; Stop 11/22/17 at 14:31; Status DC Lidocaine HCl (Xylocaine 1% Inj) 30 ml ONCE ONCE INFIL Last administered on at 14:30; Start 11/22/17 at 14:30; Stop 11/22/17 at 14:31; Status DC Lidocaine HCl (Xylocaine-Mpf 1% Inj) 30 ml STK-MED ONCE .ROUTE ; Start 11/22/17 at 14:55; Stop 11/22/17 at 14:56; Status DC Acetaminophen (Tylenol) 650 mg ONCE ONCE PO Last administered on 11/22/17at 16: 23; Start 11/22/17 at 16:15; Stop 11/22/17 at 16:16; Status DC Sodium Chloride 500 ml @ 500 mls/hr BOLUS ONCE IV Last administered on at 16:24; Start 11/22/17 at 16:30; Stop 11/22/17 at 17:29; Status DC Ceftriaxone Sodium 1000 mg/ Sodium Chloride 100 ml @ 200 mls/hr ONCE ONCE IV Last administered on 11/22/17at 16:39; Start 11/22/17 at 16:30; Stop 11/22/17 at 16:59; Status DC Sodium Chloride 1,000 ml @ 999 mls/hr BOLUS ONCE IV ; Start 11/22/17 at 17:00 ; Stop 11/22/17 at 18:00; Status DC Phenylephrine HCl 40 mg/Dextrose 500 ml @ 30 mls/hr TITRATE PRN IV Blood pressure management Last administered on 11/22/17at 17:51; Start 11/22/17 at 17: 15 Terbutaline Sulfate (Brethine Inj) 1 mg UNSCH PRN SQ For Extravasation; Start 11/22/17 at 17:15 Piperacillin Sod/ Tazobactam Sod 50 ml @ 100 mls/hr ONCE ONCE IV Last administered on 11/22/17at 17:46; Start 11/22/17 at 17:45; Stop 11/22/17 at 18:14 ; Status DC Phytonadione 10 mg/Dextrose 51 ml @ 102 mls/hr ONCE ONCE IV ; Start 11/22/17 at 19:00; Stop 11/22/17 at 19:00; Status DC Phytonadione (Vitamin K Inj) 10 mg ONCE ONCE SQ Last administered on at 19:28; Start 11/22/17 at 19:00; Stop 11/22/17 at 19:03; Status DC Sodium Chloride 1,000 ml @ 84 mls/hr [id number] IV Last administered on at 06:05; Start 11/22/17 at 19:10 Sodium Chloride (NS Flush) 2 ml UNSCH PRN IV FLUSH FLUSH AFTER USING IV ACCESS ; Start 11/22/17 at 19:15 Sodium Chloride (NS Flush) 2 ml BID IV FLUSH Last administered on 11/29/17at 08: 09; Start 11/22/17 at 21:00 Acetaminophen (Tylenol) 650 mg Q6H PRN PO PAIN 1-2 AND/OR FEVER >101F Last administered on 11/27/17at 08:23; Start 11/22/17 at 19:15 Pantoprazole Sodium (Protonix Inj) 40 mg DAILY IV PUSH Last administered on at 00:56; Start 11/22/17 at 19:15; Stop 11/23/17 at 09:27; Status DC Ondansetron HCl (Zofran Inj) 4 mg Q6H PRN IV PUSH NAUSEA OR VOMITING; Start at 19:15 Metoclopramide HCl (Reglan Inj) 10 mg Q6H PRN IV PUSH NAUSEA OR VOMITING; Start 11/22/17 at 19:15 Albuterol/ Ipratropium (Duoneb Neb) 1 ampule Q4HR NEB PRN INH WHEEZING; Start 11/22/17 at 19:15 Miscellaneous Information 1 [id number] XX ; Start 11/22/17 at 19:15 Chlorhexidine Gluconate (Chlorhexidine 2% Cloth) Taper DAILY@04 TOP ; Start at 04:00; Stop 11/19/18 at 03:59 Chlorhexidine Gluconate (Chlorhexidine 2% Cloth) 3 pack UNSCH PRN TOP HYGIENIC CARE; Start 11/22/17 at 19:15 Senna/Docusate Sodium (Flower-Colace) 1 tab BID PO Last administered on at 21:32; Start 11/22/17 at 21:00 Magnesium Hydroxide (Milk Of Magnesia Liq) 30 ml Q12H PRN PO Mild constipation ; Start 11/22/17 at 19:15 Sennosides (Senokot) 17.2 mg Q12H PRN PO Moderate constipation; Start 11/22/17 at 19:15 Bisacodyl (Dulcolax Supp) 10 mg DAILY PRN RECTAL SEVERE CONSITIPATION; Start at 19:15 Lactulose (Lactulose Liq) 30 ml DAILY PRN PO SEVERE CONSITIPATION; Start at 19:15 Piperacillin Sod/ Tazobactam Sod 50 ml @ 100 mls/hr Q8H IV ; Start 11/23/17 at 01:00; Stop 11/23/17 at 01:00; Status DC Piperacillin Sod/ Tazobactam Sod 50 ml @ 100 mls/hr Q8H IV Last administered on 11/24/17at 08:38; Start 11/23/17 at 01:00; Stop 11/24/17 at 09:53; Status DC Sodium Chloride 250 ml @ 15 mls/hr ONCE ONCE IV Last administered on at 09:19; Start 11/23/17 at 06:30; Stop 11/23/17 at 23:09; Status DC Phytonadione (Vitamin K Inj) 10 mg ONCE ONCE SQ Last administered on at 18:45; Start 11/23/17 at 19:00; Stop 11/23/17 at 19:01; Status DC Pantoprazole Sodium (Protonix Inj) 40 mg Q12H IV PUSH Last administered on 11/26at 09:09; Start 11/23/17 at 10:00; Stop 11/26/17 at 11:42; Status DC Polyethylene Glycol/ Electrolytes (Colyte Liq) 4,000 ml ONCE ONCE PO ; Start at 16:00; Stop 11/23/17 at 16:05; Status DC Pharmacy Profile Note 0 ml @ 0 mls/hr UNSCH OTHER ; Start 11/23/17 at 16:30 Vancomycin/Sodium Chloride 200 ml @ 200 mls/hr ONCE ONCE IV Last administered on 11/23/17at 20:12; Start 11/23/17 at 18:00; Stop 11/23/17 at 18:59 ; Status DC Dextrose (D50w (Syr) Inj) 12.5 ml ONCE ONCE IV PUSH Last administered on at 08:48; Start 11/24/17 at 08:30; Stop 11/24/17 at 08:31; Status DC Vancomycin HCl 500 mg/Sodium Chloride 100 ml @ 200 mls/hr ONCE ONCE IV Last administered on 11/24/17at 10:23; Start 11/24/17 at 10:00; Stop 11/24/17 at 10:29 ; Status DC Phytonadione (Vitamin K Inj) 10 mg ONCE ONCE SQ Last administered on at 09:15; Start 11/24/17 at 09:00; Stop 11/24/17 at 09:01; Status DC Lidocaine HCl (Xylocaine 1% Inj (50 ml)) AT BEDSIDE FOR PROCEDURE UNSCH .XX ; Start 11/25/17 at 00:30; Stop 11/25/17 at 15:48; Status DC Vancomycin HCl 1500 mg/Sodium Chloride 515 ml @ 250 mls/hr ONCE ONCE IV Last administered on 11/25/17at 14:28; Start 11/25/17 at 14:00; Stop 11/25/17 at 16:03 ; Status DC Lidocaine HCl (Xylocaine 1% Inj) UNSCH OTHER ; Start 11/25/17 at 16:00; Stop at 00:29; Status DC Vancomycin HCl 1500 mg/Sodium Chloride 515 ml @ 250 mls/hr Q24H IV Last administered on 11/29/17at 11:49; Start 11/26/17 at 11:00; Status Future Hold Miscellaneous Information SPECIFIC LAB TO BE DRAWN:VANCOMY... ONCE ONCE .XX Last administered on 11/29/17at 10:45; Start 11/29/17 at 10:45; Stop 11/29/17 at 10:46; Status DC Pantoprazole Sodium (Protonix) 40 mg Q12HR PO Last administered on 11/29/17at 08 :08; Start 11/26/17 at 21:00 Acetaminophen/ Hydrocodone Bitart ([place] 5-325 Mg) 1 tab Q4H PRN PO PAIN SCALE 3 TO 5; Start 11/26/17 at 15:15 Acetaminophen/ Hydrocodone Bitart ([place] 10-325 Mg) 1 tab Q4H PRN PO PAIN SCALE 6 TO 10; Start 11/26/17 at 15:15 Morphine Sulfate (Morphine Inj) 2 mg Q4H PRN IV PUSH BREAKTHROUGH PAIN; Start 11/26/17 at 15:15 Naloxone HCl (Narcan Inj) 0.4 mg UNSCH PRN IV PUSH SEE LABEL COMMENTS; Start at 15:15 Tamsulosin HCl (Flomax) 0.4 mg DAILY@1800 PO Last administered on 11/28/17at 17: 28; Start 11/26/17 at 18:00 Sodium Chloride 250 ml @ 15 mls/hr ONCE ONCE IV Last administered on at 13:14; Start 11/27/17 at 09:15; Stop 11/28/17 at 01:54; Status DC Acetaminophen (Tylenol) 650 mg Q4H PRN PO SEE LABEL COMMENTS Last administered on 11/27/17at 12:47; Start 11/27/17 at 09:15; Stop 11/27/17 at 23:59; Status DC Diphenhydramine HCl (Benadryl) 25 mg Q4H PRN PO SEE LABEL COMMENTS Last administered on 11/27/17at 12:47; Start 11/27/17 at 09:15; Stop 11/27/17 at 23:59 ; Status DC Furosemide (Lasix Inj) 20 mg ONCE ONCE IV PUSH Last administered on 11/27/17at 16:57; Start 11/27/17 at 10:00; Stop 11/27/17 at 10:01; Status DC Propofol (Diprivan 200 Mg/20 ml Inj) 400 mg STK-MED ONCE IV ; Start 11/24/17 at 12:00; Stop 11/27/17 at 12:51; Status DC Phenylephrine HCl (Neosynephrine/ NS 1000 Mcg/10ml Syr) 1,000 mcg STK-MED ONCE IV ; Start 11/24/17 at 12:00; Stop 11/27/17 at 12:51; Status DC Ferrous Sulfate (Ferrous Sulfate) 325 mg BID@12,17 PO Last administered on 11/29at 11:47; Start 11/27/17 at 17:00 Calcium Carbonate (Tums Chew) 500 mg ONCE ONCE CHEW Last administered on at 10:30; Start 11/28/17 at 10:00; Stop 11/28/17 at 10:01; Status DC Calcium Carbonate (Tums Chew) 500 mg Q12HR CHEW Last administered on 11/29/17at 08:09; Start 11/28/17 at 21:00 Iohexol (Omnipaque 350 Inj) 93 ml STK-MED ONCE IVCONTRAST Last administered on 11/28/17at 18:33; Start 11/28/17 at 18:33; Stop 11/28/17 at 18:34; Status DC A/P Assessment and Plan This is a 87-year-old male who presented with a fall and third toe infection Small SDH post fall - slight increase in SDH on repeat CT head, however neurologically intact -Neurosurgeon consulted. Patient was on Coumadin at home. Coumadin currently held. Continue home Coumadin pending recommendations from neurosurgeon when Coumadin can be restarted. 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 - Right 3rd digit ulcer OM s/p Incision drainage and debridement with bone biopsy right third digit by Madhav podiatry on 11/26/17. MRSA on cultures. also pathology shows OM. -CTA runoff ordered by vascular surgeon in which it showed severe peripheral vascular disease. Per vascular surgeon no indication for any procedure from his perspective. Recommend to proceed with the toe amputation by director it. Due to severe peripheral vascular disease patient may need a BKA in the future. Hydronephrosis found on CTA runoff -We will get a renal ultrasound. Scalp laceration -Stable. On chronic anticoagulation -Warfarin held secondary to small subdural hemorrhage. Neurosurgeon to determine when to restart warfarin. Acute blood loss anemia likely secondary to GIB -Patient had EGD which showed gastritis and duodenal ulcer. Status post transfuse with 2 units of packed red blood cells has been stable. No active GI bleed since hospitalization. Continue to monitor. Per GI if he bleeds again will need to do a repeat EGD. -Continue Protonix. MRSA UTI and MRSA bacteremia with concern for endovascular infection -Infectious disease consult following patient on vancomycin. LISBETH -Improving the urine output. Will restart his Lasix. DVT prophylaxis with SCD's Li Alvarez MD Nov 29, 2017 11:06
[2017-11-29] MEDS: FERROUS SULFATE 325 MG (65 MG ELEMENTAL IRON) TAB PO SCH ×2 (11:47→16:50)
[2017-11-29] MEDS: VANCOMYCIN INJ 1,500 MG in SODIUM CHLORID 0.9% 500 ML INJ 500 ML IV SCH (11:49)
[2017-11-29 12:00] VITALS: BP 137/70; PULSE 110; RESP 18; TEMP 97.8; O2SAT 100
--- NOTE | 2017-11-29 12:04 | HHI.GIFU ---
Subjective Remarks Sitting up in the bed talking Currently looking for his phone Denies any acute nausea, vomiting, diarrhea, constipation or abdominal pain CBC pending Febrile (Kelsy Steiner) Objective Vitals I&O Vital Signs Date Time Temp Pulse Resp B/P (MAP) Pulse Ox O2 Delivery O2 Flow Rate FiO2 11/29/17 08:00 98.5 111 18 123/78 (93) 98 11/29/17 04:00 97.3 78 18 125/85 (98) 97 11/29/17 00:20 98.4 88 19 128/75 (92) 98 11/28/17 20:30 98.7 80 19 130/67 (88) 98 11/28/17 16:00 98.0 108 18 137/85 (102) 98 11/28/17 12:00 97.8 102 18 124/82 (96) 98 I/O 11/28/17 11/28/17 11/28/17 11/29/17 11/29/17 11/29/17 06:59 14:59 22:59 06:59 14:59 22:59 Intake Total 515 ml 1700 ml 500 ml Output Total 3 ml Balance -3 ml 515 ml 1700 ml 500 ml Intake Oral 700 ml 500 ml IV Total 515 ml 1000 ml Stool Total 3 ml # Voids 5 1 2 # Bowel Movements 1 0 Laboratory Laboratory Tests Test 11/29/17 10:55 Vancomycin Level Trough 23.5 Date/Time Source Procedure Growth Status 11/25/17 04:51 Blood Peripheral Aerobic Blood Culture - Preliminary NO GROWTH IN 4 DAYS Resulted 11/25/17 04:51 Blood Peripheral Anaerobic Blood Culture - Preliminary NO GROWTH IN 4 DAYS Resulted 11/22/17 16:00 Urine Random Urine Urine Culture - Final S. Aureus Mrsa Complete 11/26/17 08:30 Wound Toe Gram Stain - Final Complete 11/26/17 08:30 Wound Culture - Final S. Aureus Mrsa Complete Imaging Last Impressions Aorta w/Runoff CTA 11/28/17 0000 Signed Impressions: Service Date/Time: Tuesday, November 28, 2017 18:26 - CONCLUSION: 1. Severe atherosclerotic disease. The popliteal arteries are nonvisualized bilaterally for a short segment given the beam hardening artifact from the knee arthroplasty hardware. In the right leg the anterior tibial artery appears to be occluded in the mid leg for a short segment with minimal runoff more distally. Please see above for detailed description of the remaining vessels. 2. Moderate size right and a chronic small left pleural effusion with left pleural thickening. 3. There is a small volume of free fluid in the pelvis from uncertain etiology. There is mild diffuse subcutaneous edema. 4. There is abnormal patchy enhancement of both kidneys which is nonspecific but can be seen with infection or interstitial nephritis related to contrast administration. There is severe left hydronephrosis and hydroureter from uncertain etiology. No distal obstructing process is seen. Therefore, this could be related to reflux. 1. Jalil Cedillo MD Upper Extremity Ultrasound 11/27/17 0000 Signed Impressions: Service Date/Time: Monday, November 27, 2017 21:56 - CONCLUSION: 1. No sonographic evidence for upper extremity DVT. Chris Cooper MD Chest X-Ray 11/25/17 0000 Signed Impressions: Service Date/Time: Saturday, November 25, 2017 15:16 - CONCLUSION: 1. Left basilar effusion and consolidation concerning for pneumonia. Darrian Shell MD Head CT 11/24/17 0600 Signed Impressions: Service Date/Time: Friday, November 24, 2017 05:16 - CONCLUSION: 1. Mild increase in the size of the high density hemorrhage along the right parietal lobe 2. 2 additional smaller areas of high density punctate hemorrhage are now noted along the right parietal lobe as well. Franklin Schaefer MD Foot X-Ray 11/24/17 0000 Signed Impressions: Service Date/Time: Friday, November 24, 2017 18:04 - CONCLUSION: 1. Chronic appearing limited erosion of the medial proximal first metatarsal near the MTP joint. 2. No evidence for erosive change to suggest osteomyelitis involving the third digit. Chris Cooper MD Cervical Spine CT 11/22/17 1418 Signed Impressions: Service Date/Time: Wednesday, November 22, 2017 14:39 - CONCLUSION: Large anterior osteophytes at multiple levels. Scattered areas of bilateral neuroforaminal narrowing due to osteophyte. No evidence of acute fracture or significant subluxation. Dagoberto Das MD Shoulder X-Ray 11/22/17 0000 Signed Impressions: Service Date/Time: Wednesday, November 22, 2017 16:27 - CONCLUSION: Unremarkable examination of the left shoulder status post left bipolar pacermaker. Marked impingement change with acromial spurring and erosions across the greater tuberosity Dagoberto Das MD Pelvis X-Ray 11/22/17 0000 Signed Impressions: Service Date/Time: Wednesday, November 22, 2017 14:36 - CONCLUSION: Unremarkable examination of the pelvis. Dagoberto Das MD Chest CT 11/22/17 0000 Signed Impressions: Service Date/Time: Wednesday, November 22, 2017 16:02 - CONCLUSION: 1. No acute finding is identified on this noncontrast examination of the chest. 2. There is stable left pleural thickening, trace left pleural fluid, and volume loss in the left lower lobe. 3. Coronary artery calcification and severe atherosclerotic disease of aorta. Jalil Cedillo MD Abdomen/Pelvis CT 11/22/17 0000 Signed Impressions: Service Date/Time: Wednesday, November 22, 2017 16:02 - CONCLUSION: 1. No acute finding is identified on this mildly motion degraded noncontrast CT of the abdomen and pelvis. 2. Stable nonacute findings include cholelithiasis, severe atherosclerotic disease, and sigmoid diverticulosis. Jalil Cedillo MD Physical Exam HEENT: PERRL; normocephalic; atraumatic pale, oral cavity clear, I'll to obesity CHEST: Essentially clear CARDIAC: Irregular heart rate, controlled ABDOMEN: Round, Soft, nondistended, nontender; no hepatosplenomegaly palpable; bowel sounds are present in all four quadrants. EXTREMITIES: No clubbing, cyanosis, or edema, right foot third toe, bandaged and clean dry and intact SKIN: Pale, Normal; no rash; no jaundice. DATASTAGE DEVELOPER: Possible mild confusion?; alert and oriented times 2, (Kelsy Steiner) Assessment and Plan Plan ASSESSMENT and history - black tarry stool anemia - poss UGIB, no Coumadin now, anemia is microcytic. 11/24/17 S/P EGD found gastritis, ulcer in duodenum. Reconsult on 11/28/17 due to hemoglobin drop on 11/27/17 to 6.8. Hemoglobin has been trending in the low to mid 7 range, 2 units of blood being transfused today. Currently patient is hungry asking for regular food. Normal stool brown this a.m., but will need to continue to monitor for tarry stool next bowel movement. Could be due to patient's duodenal ulcer. Patient currently denies any nausea, vomiting ,diarrhea or abdominal pain. Patient has osteomyelitis in his right foot third toe, plan is for amputation. no history of cancer Patient had aortogram runoff on 11/28/17 that showed severe atherosclerotic disease. Possible reflux. PLAN -continue PPI - Diet change per attending -CBC pending today - Monitor for any obvious bleeding or tarry stools - Consider bleeding scan or repeat EGD/ possible cautery if patient starts bleeding, or black tarry stools. - Intake and output - EGD in 3 months - monitor labs which includes hemoglobin, check and CBC today, if his hemoglobin drops again he will need repeat endoscopy with possible cautery rate or angiogram with embolization pt seen by myself and Dr Olmedo, note is written on his behalf (Kelsy Steiner) Plan Patient was seen and examined, agree with above-noted, no sign of active bleeding these coalesce back if there is any active bleeding otherwise we will see the patient as an outpatient (Ange Olmedo MD) Kelsy Steiner Nov 29, 2017 12:04 Ange Olmedo MD Nov 29, 2017 17:10
--- NOTE | 2017-11-29 12:17 | PD.CAR.PN ---
CVT Progress Note Subjective/Hospital Course: 11/28/2017 Patient seen full consult dictated Thanks J 11/29/2017 Patient with severe peripheral vascular disease and underlying comorbidities. A CTA with runoff was performed and it confirms the clinical impression and findings as noted in the consultation Patient has diffuse atherosclerotic disease however no significant inflow stenosis in either iliac or femoral arteries Both SFAs and popliteal arteries are patent. Once we reached the trifurcation there is severe disease in the anterior tibial artery which is basically gone in the right leg and the posterior tibial artery in the left leg Most of the vessels are bits and pieces as they come down to the foot This is consistent with a small vessel disease of diabetes and there is no reconstruction to be done either open or endovascular We will proceed with podiatric surgery with the understanding that this patient may end up with below-knee amputation in the future based on the natural history and progression of the disease Objective: Vital Signs Date Time Temp Pulse Resp B/P (MAP) Pulse Ox O2 Delivery O2 Flow Rate FiO2 11/29/17 08:00 98.5 111 18 123/78 (93) 98 11/29/17 04:00 97.3 78 18 125/85 (98) 97 11/29/17 00:20 98.4 88 19 128/75 (92) 98 11/28/17 20:30 98.7 80 19 130/67 (88) 98 11/28/17 16:00 98.0 108 18 137/85 (102) 98 Labs: Laboratory Tests Test 11/29/17 10:55 Vancomycin Level Trough 23.5 MCG/ML (5.0-10.0) Result Diagram: 11/28/17 0615 11/28/17 0615 Raad Ramirez MD Nov 29, 2017 12:17
[2017-11-29 13:20] LABS: HEMATOCRIT 24.3 % (39.0-51.0); HEMOGLOBIN 8.3 GM/DL (13.0-17.0); MEAN CELL VOLUME 77.4 FL (80.0-100.0); MEAN CORPUSCULAR HEMOGLOBIN 26.5 PG (27.0-34.0); MEAN CORPUSCULAR HGB CONC 34.2 % (32.0-36.0); PLATELET COUNT 185 TH/MM3 (150-450); RED BLOOD COUNT 3.14 MIL/MM3 (4.50-5.90); RED CELL DISTRIBUTION WIDTH 18.4 % (11.6-17.2); WHITE BLOOD COUNT 6.1 TH/MM3 (4.0-11.0)
--- NOTE | 2017-11-29 13:54 | PD.POD ---
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 Physical Exam Remarks Remarks Right foot decreased pulses. Warm improved edema and erythema of right third digit with ulcer that probes directly to distal phalanx Assessment & Plan A/P Right foot ulcer infection osteomyelitis. Reviewed case with Dr [facility]. No intervention planned. Reviewed risks and benefits with patient. NPO after liquid breakfast for surgery tomorrow, Right third digit amputation with Dr Cortés. I will sign out to her. Caleb Barr DPM Nov 29, 2017 13:54
--- NOTE | 2017-11-29 15:11 | HHI.NSPN ---
(Cory Mcconnell) History Chief Complaint: Fall (Cory Mcconnell) Interval History This is an 87-year-old male patient with history of Coumadin use who presents to the ER apparently after falling. The patient reports that he was trying to go to the bathroom when he lost control and fell striking the back of his head. He had possible loss of consciousness of unknown duration. He was brought to the emergency room because of bleeding of the scalp and a laceration and underwent evaluation. He also complains of left shoulder pain. He takes Coumadin for atrial fibrillation. Denies any other types or problems at the present time except for weight loss since August of last year for which he has undergone evaluation. 11/23/17: Pt awake and alert. Denies headache. No n/v. Pt states he has felt weak and tired over last 3 days at least and feels this is why his legs gave out from him and he fell. He also reports to me he has had dark stools during this time. 11/24/17: Pt awake and alert. Denies headache, nausea, vomiting. No weakness other than limitation with deltoid from his chronic shoulder condition. 11/25/17: Pt awake and alert. Denies headache, nausea, vomiting, numbness or tingling. Denies any chest pain or sob. 11/26/17: Pt awake and alert. Denies headache, nausea, vomiting, numbness or tingling. Pt had surgery on his right 3rd toe bandage in place. He doesn't think he has urinated that much today. 11/27/17: Pt awakens. States he feels very tired. No nausea, vomiting, paresthesias in face or extremities. 11/28/17: Pt awake and alert. He states he is feeling better now his blood counts have come up he is less tired. He denies any headaches, nausea or vomiting. 11/29/17: Pt denies any headaches, nausea or vomiting. He is adamant that he doesn't want any inpatient rehab and wants [facility] and home PT (Cory Mcconnell) Review of Systems General: Negative for: fever, chills, insomnia Respiratory: Negative for: shortness of breath, cough, sputum Cardiovascular: Negative for: chest pain Gastrointestinal: Negative for: nausea, vomitting, diarrhea, constipation ( Cory Mcconnell) Exam Results Vital Signs Date Time Temp Pulse Resp B/P (MAP) Pulse Ox O2 Delivery O2 Flow Rate FiO2 11/29/17 12:00 97.8 110 18 137/70 (92) 100 11/26/17 20:24 Room Air 11/26/17 10:15 21 Intake and Output 11/29/17 11/29/17 11/30/17 08:00 16:00 00:00 Intake Total 500 ml Balance 500 ml (Cory Mcconnell) Physical Examination General: Pt awake and alert, in no acute distress and stable vitals. Eyes: Pupils equal sclera anicteric. Resp: CTA bilaterally. Heart: Irregular no murmurs. Abd: Soft positive bs. Skin: No cyanosis or erythema. His right 3rd toe is bandaged. Muscle: Moves all 4 extremities symmetrically with good strength. Some limitation with deltoid strength bilaterally pt states from chronic shoulder problems. Neuro: Pt awake and alert. Pupils equal 3mm bilaterally. Follows commands well. Speech clear and appropriate. (Cory Mcconnell) Lab, Micro, Other Results Last Impressions Aorta w/Runoff CTA 11/28/17 0000 Signed Impressions: Service Date/Time: Tuesday, November 28, 2017 18:26 - CONCLUSION: 1. Severe atherosclerotic disease. The popliteal arteries are nonvisualized bilaterally for a short segment given the beam hardening artifact from the knee arthroplasty hardware. In the right leg the anterior tibial artery appears to be occluded in the mid leg for a short segment with minimal runoff more distally. Please see above for detailed description of the remaining vessels. 2. Moderate size right and a chronic small left pleural effusion with left pleural thickening. 3. There is a small volume of free fluid in the pelvis from uncertain etiology. There is mild diffuse subcutaneous edema. 4. There is abnormal patchy enhancement of both kidneys which is nonspecific but can be seen with infection or interstitial nephritis related to contrast administration. There is severe left hydronephrosis and hydroureter from uncertain etiology. No distal obstructing process is seen. Therefore, this could be related to reflux. 1. Jalil Cedillo MD Upper Extremity Ultrasound 11/27/17 0000 Signed Impressions: Service Date/Time: Monday, November 27, 2017 21:56 - CONCLUSION: 1. No sonographic evidence for upper extremity DVT. Chris Cooper MD Chest X-Ray 11/25/17 0000 Signed Impressions: Service Date/Time: Saturday, November 25, 2017 15:16 - CONCLUSION: 1. Left basilar effusion and consolidation concerning for pneumonia. Darrian Shell MD Head CT 11/24/17 0600 Signed Impressions: Service Date/Time: Friday, November 24, 2017 05:16 - CONCLUSION: 1. Mild increase in the size of the high density hemorrhage along the right parietal lobe 2. 2 additional smaller areas of high density punctate hemorrhage are now noted along the right parietal lobe as well. Franklin Schaefer MD Foot X-Ray 11/24/17 0000 Signed Impressions: Service Date/Time: Friday, November 24, 2017 18:04 - CONCLUSION: 1. Chronic appearing limited erosion of the medial proximal first metatarsal near the MTP joint. 2. No evidence for erosive change to suggest osteomyelitis involving the third digit. Chris Cooper MD Cervical Spine CT 11/22/17 1418 Signed Impressions: Service Date/Time: Wednesday, November 22, 2017 14:39 - CONCLUSION: Large anterior osteophytes at multiple levels. Scattered areas of bilateral neuroforaminal narrowing due to osteophyte. No evidence of acute fracture or significant subluxation. Dagoberto Das MD Shoulder X-Ray 11/22/17 0000 Signed Impressions: Service Date/Time: Wednesday, November 22, 2017 16:27 - CONCLUSION: Unremarkable examination of the left shoulder status post left bipolar pacermaker. Marked impingement change with acromial spurring and erosions across the greater tuberosity Dagoberto Das MD Pelvis X-Ray 11/22/17 0000 Signed Impressions: Service Date/Time: Wednesday, November 22, 2017 14:36 - CONCLUSION: Unremarkable examination of the pelvis. Dagoberto Das MD Chest CT 11/22/17 0000 Signed Impressions: Service Date/Time: Kareem, November 22, 2017 16:02 - CONCLUSION: 1. No acute finding is identified on this noncontrast examination of the chest. 2. There is stable left pleural thickening, trace left pleural fluid, and volume loss in the left lower lobe. 3. Coronary artery calcification and severe atherosclerotic disease of aorta. Jalil Cedillo MD Abdomen/Pelvis CT 11/22/17 0000 Signed Impressions: Service Date/Time: Wednesday, November 22, 2017 16:02 - CONCLUSION: 1. No acute finding is identified on this mildly motion degraded noncontrast CT of the abdomen and pelvis. 2. Stable nonacute findings include cholelithiasis, severe atherosclerotic disease, and sigmoid diverticulosis. Jalil Cedillo MD Laboratory Tests Test 11/29/17 10:55 11/29/17 12:39 Vancomycin Level Trough 23.5 MCG/ML White Blood Count 6.1 TH/MM3 Red Blood Count 3.14 MIL/MM3 Hemoglobin 8.3 GM/DL Hematocrit 24.3 % Mean Corpuscular Volume 77.4 FL Mean Corpuscular Hemoglobin 26.5 PG Mean Corpuscular Hemoglobin Concent 34.2 % Red Cell Distribution Width 18.4 % Platelet Count 185 TH/MM3 Mean Platelet Volume 6.0 FL (Cory Mcconnell) Medical Decision Making Impression and Plan A: 87 y/o M with elevated PT/INR s/p fall with possibly a very small amount of hemorrhage in the right subdural space. On Follow up CT head pt has more small contusions in the right parietal area also. Anemia Sepsis P: Continue with neuro checks. Continue with current care. Continue with antibiotics for his sepsis. Pt is adamant that he doesn't want SNF after hospital stay. (Cory Mcconnell) Attending Statement The exam, history, and the medical decision-making described in the above note were completed with the assistance of the mid-level provider. I reviewed and agree with the findings presented. I attest that I had a [id number] encounter with the patient on the same day, and personally performed and documented my assessment and findings in the medical record. (Carter Santacruz MD) Cory Mcconnell Nov 29, 2017 15:11 Carter Santacruz MD Nov 29, 2017 16:42
[2017-11-29] MEDS ORDERED: TAMSULOSIN HCL 0.4 MG CAP PO SCH (15:30)
[2017-11-29 16:00] VITALS: BP 127/90; PULSE 102; RESP 18; TEMP 97.8; O2SAT 99
[2017-11-29] MEDS ORDERED: POVIDONE IODINE 5% (ANTISEPSIS KIT) 4 APPLICATIONS EACH NARE PRN (16:15)
[2017-11-29] MEDS ORDERED: LACTATED RINGER'S 1000 ML IV PRN (16:15)
[2017-11-29] MEDS ORDERED: SODIUM CHLORID 0.9% 500 ML IV PRN (16:15)
[2017-11-29] MEDS ORDERED: CHLORHEXIDINE GLUCONATE 2 % 1 PACK (2 CLOTHS) TOPICAL PRN (16:15)
[2017-11-29] MEDS ORDERED: INSULIN HUMAN REGULAR 1,000 UNITS/10 ML VIAL SQ PRN (16:15)
[2017-11-29] MEDS: FUROSEMIDE 40 MG TAB PO SCH (16:50)
[2017-11-29] MEDS: PRAVASTATIN SOD 40 MG TAB PO SCH (16:50)
[2017-11-29] MEDS: TAMSULOSIN HCL 0.4 MG CAP PO SCH (16:50)
--- NOTE | 2017-11-29 17:58 | RADRPT ---
EXAM DATE/TIME: 11/29/2017 16:28 [facility] COMPARISON: CT ABDOMEN & PELVIS W/O CONTRAST, November 22, 2017, 16:02. US KIDNEY/RENAL/BLADDER, March 09, 2012, 19:12. INDICATIONS : Abnormal labs. MEDICAL HISTORY : Hypercholesterolemia. Congestive heart failure. Renal failure, chronic. Anticoagulant therapy. Afib. Hypertension. BPH. Arthritis. Shingles. MRSA. SURGICAL HISTORY : Pacemaker. TURP. Bilateral lens replacements. Bilateral knee replacements. ENCOUNTER: Subsequent ACUITY: 1 day PAIN SCORE: 0/10 LOCATION: Bilateral flank MEASUREMENTS: RIGHT KIDNEY: 10.4 x 5.4 x 6.4 cm LEFT KIDNEY: 11.4 x 5.1 x 6.0 cm FINDINGS: RIGHT KIDNEY: Renal cortex is normal in thickness and echotexture. No hydronephrosis, stone, or mass. Several sma ll cysts are seen if this were the right ovary. The largest cyst measures 1.5 cm. LEFT KIDNEY: Renal cortex is normal in thickness and echotexture. There is hydronephrosis of the left collecting s ystem. Several small cysts are seen associated with the left kidney. The largest measures 1.5 cm. BLADDER: Within normal limits given the degree of distension. CONCLUSION: 1. There is hydronephrosis of the left collecting system. 2. Multiple small benign-appearing bilateral renal cysts. Bull Pena MD on November 29, 2017 at 17:54 Board Certified Radiologist. This report was verified electronically.
[2017-11-29 20:00] VITALS: BP 123/72; PULSE 89; RESP 18; TEMP 98.4; O2SAT 97
[2017-11-29] MEDS: METOPROLOL TARTRATE 50 MG TAB PO SCH (21:13)
[2017-11-30] VITALS (7 sets, daily range): BP systolic 107–158; BP diastolic 62–83; PULSE 78–95; RESP 17–22; TEMP 97.2–98.6; O2SAT 96–100
[2017-11-30] MEDS: CHLORHEXIDINE GLUCONATE 2 % 1 PACK (2 CLOTHS) TOP SCH (04:00)
[2017-11-30 05:26] LABS: HEMATOCRIT 24.7 % (39.0-51.0); HEMOGLOBIN 8.4 GM/DL (13.0-17.0); MEAN CELL VOLUME 76.9 FL (80.0-100.0); MEAN CORPUSCULAR HEMOGLOBIN 26.2 PG (27.0-34.0); MEAN CORPUSCULAR HGB CONC 34.1 % (32.0-36.0); MEAN PLATELET VOLUME 5.9 FL (7.0-11.0); PLATELET COUNT 209 TH/MM3 (150-450); RED BLOOD COUNT 3.22 MIL/MM3 (4.50-5.90); RED CELL DISTRIBUTION WIDTH 18.7 % (11.6-17.2); WHITE BLOOD COUNT 5.7 TH/MM3 (4.0-11.0)
[2017-11-30] MEDS: SODIUM CHLOR 0.9% 1000 ML INJ 1,000 ML IV SCH (05:27)
[2017-11-30 05:51] LABS: BICARBONATE 19.6 MEQ/L (21.0-32.0); CALCIUM 7.5 MG/DL (8.5-10.1); CREATININE 1.51 MG/DL (0.60-1.30)
[2017-11-30] MEDS: PRAVASTATIN SOD 40 MG TAB PO SCH (07:06)
[2017-11-30] MEDS: SODIUM CHLORIDE 0.9% FLUSH 10 ML FLUSH IV FLUSH SCH ×2 (07:06→21:08)
[2017-11-30] MEDS: DOCUSATE SODIUM 50 MG/SENNA 8.6 MG TAB PO SCH ×2 (07:06→21:08)
[2017-11-30] MEDS: CALCIUM CARBONATE 500 MG CHEWABLE TAB CHEW SCH ×2 (07:07→21:08)
[2017-11-30] MEDS: FUROSEMIDE 40 MG TAB PO SCH (08:04)
[2017-11-30] MEDS: PANTOPRAZOLE SOD 40 MG DELAYED RELEASE TAB PO SCH ×2 (08:04→21:08)
[2017-11-30] MEDS: METOPROLOL TARTRATE 50 MG TAB PO SCH ×2 (08:04→21:08)
[2017-11-30] MEDS: FERROUS SULFATE 325 MG (65 MG ELEMENTAL IRON) TAB PO SCH ×2 (11:03→16:16)
--- NOTE | 2017-11-30 11:18 | HHI.PR ---
Subjective Remarks f/u for infection patient stated he is doing well today. he has no complaints. denied any CP, SOB , palpitations, or lightheadedness/dizziness. patient remains afebrile. Objective Vitals Vital Signs Date Time Temp Pulse Resp B/P (MAP) Pulse Ox O2 Delivery O2 Flow Rate FiO2 11/30/17 08:00 97.2 88 18 125/68 (87) 99 11/30/17 04:00 97.3 92 19 137/83 (101) 97 11/30/17 00:00 98.2 85 22 107/62 (77) 97 11/29/17 20:00 98.4 89 18 123/72 (89) 97 11/29/17 16:00 97.8 102 18 127/90 (102) 99 11/29/17 12:00 97.8 110 18 137/70 (92) 100 I/O 11/29/17 11/29/17 11/29/17 11/30/17 11/30/17 11/30/17 07:00 15:00 23:00 07:00 15:00 23:00 Intake Total 500 ml 720 ml Balance 500 ml 720 ml Intake Oral 500 ml 720 ml # Voids 2 6 # Bowel Movements 0 Result Diagram: 11/30/17 0510 11/30/17 0510 Imaging Last Impressions Renal Ultrasound 11/29/17 0000 Signed Impressions: Service Date/Time: Wednesday, November 29, 2017 16:28 - CONCLUSION: 1. There is hydronephrosis of the left collecting system. 2. Multiple small benign- appearing bilateral renal cysts. Bull Pena MD Aorta w/Runoff CTA 11/28/17 0000 Signed Impressions: Service Date/Time: Tuesday, November 28, 2017 18:26 - CONCLUSION: 1. Severe atherosclerotic disease. The popliteal arteries are nonvisualized bilaterally for a short segment given the beam hardening artifact from the knee arthroplasty hardware. In the right leg the anterior tibial artery appears to be occluded in the mid leg for a short segment with minimal runoff more distally. Please see above for detailed description of the remaining vessels. 2. Moderate size right and a chronic small left pleural effusion with left pleural thickening. 3. There is a small volume of free fluid in the pelvis from uncertain etiology. There is mild diffuse subcutaneous edema. 4. There is abnormal patchy enhancement of both kidneys which is nonspecific but can be seen with infection or interstitial nephritis related to contrast administration. There is severe left hydronephrosis and hydroureter from uncertain etiology. No distal obstructing process is seen. Therefore, this could be related to reflux. 1. Jalil Cedillo MD Upper Extremity Ultrasound 11/27/17 0000 Signed Impressions: Service Date/Time: Monday, November 27, 2017 21:56 - CONCLUSION: 1. No sonographic evidence for upper extremity DVT. Chris Cooper MD Chest X-Ray 11/25/17 0000 Signed Impressions: Service Date/Time: Saturday, November 25, 2017 15:16 - CONCLUSION: 1. Left basilar effusion and consolidation concerning for pneumonia. Darrian Shell MD Head CT 11/24/17 0600 Signed Impressions: Service Date/Time: Friday, November 24, 2017 05:16 - CONCLUSION: 1. Mild increase in the size of the high density hemorrhage along the right parietal lobe 2. 2 additional smaller areas of high density punctate hemorrhage are now noted along the right parietal lobe as well. Franklin Schaefer MD Foot X-Ray 11/24/17 0000 Signed Impressions: Service Date/Time: Friday, November 24, 2017 18:04 - CONCLUSION: 1. Chronic appearing limited erosion of the medial proximal first metatarsal near the MTP joint. 2. No evidence for erosive change to suggest osteomyelitis involving the third digit. Chris Cooper MD Cervical Spine CT 11/22/17 1418 Signed Impressions: Service Date/Time: Wednesday, November 22, 2017 14:39 - CONCLUSION: Large anterior osteophytes at multiple levels. Scattered areas of bilateral neuroforaminal narrowing due to osteophyte. No evidence of acute fracture or significant subluxation. Dagoberto Das MD Shoulder X-Ray 11/22/17 0000 Signed Impressions: Service Date/Time: Wednesday, November 22, 2017 16:27 - CONCLUSION: Unremarkable examination of the left shoulder status post left bipolar pacermaker. Marked impingement change with acromial spurring and erosions across the greater tuberosity Dagoberto Das MD Pelvis X-Ray 11/22/17 0000 Signed Impressions: Service Date/Time: Wednesday, November 22, 2017 14:36 - CONCLUSION: Unremarkable examination of the pelvis. Dagoberto Das MD Chest CT 11/22/17 0000 Signed Impressions: Service Date/Time: Wednesday, November 22, 2017 16:02 - CONCLUSION: 1. No acute finding is identified on this noncontrast examination of the chest. 2. There is stable left pleural thickening, trace left pleural fluid, and volume loss in the left lower lobe. 3. Coronary artery calcification and severe atherosclerotic disease of aorta. Jalil Cedillo MD Abdomen/Pelvis CT 11/22/17 0000 Signed Impressions: Service Date/Time: Wednesday, November 22, 2017 16:02 - CONCLUSION: 1. No acute finding is identified on this mildly motion degraded noncontrast CT of the abdomen and pelvis. 2. Stable nonacute findings include cholelithiasis, severe atherosclerotic disease, and sigmoid diverticulosis. Jalil Cedillo MD Objective Remarks GENERAL: in NAD SKIN: Right foot third toe with erythema and wound. HEAD: Normocephalic. EYES: No scleral icterus. No injection or drainage. NECK: Supple, trachea midline. No JVD or lymphadenopathy. CARDIOVASCULAR: Regular rate and rhythm without murmurs, gallops, or rubs. RESPIRATORY: Breath sounds equal bilaterally. No accessory muscle use. Procedures Right 3rd digit ulcer OM s/p Incision drainage and debridement with bone biopsy right third digit by Dr Barr podiatry on 11/26/17 Medications and IVs Current Medications Tetanus/ Diphtheria Toxoids (Tetanus/ Diphtheria Tox Adult) 0.5 ml ONCE ONCE IM Last administered on 11/22/17at 15:57; Start 11/22/17 at 14:30; Stop 11/22/17 at 14:31; Status DC Lidocaine HCl (Xylocaine 1% Inj) 30 ml ONCE ONCE INFIL Last administered on at 14:30; Start 11/22/17 at 14:30; Stop 11/22/17 at 14:31; Status DC Lidocaine HCl (Xylocaine-Mpf 1% Inj) 30 ml STK-MED ONCE .ROUTE ; Start 11/22/17 at 14:55; Stop 11/22/17 at 14:56; Status DC Acetaminophen (Tylenol) 650 mg ONCE ONCE PO Last administered on 11/22/17at 16: 23; Start 11/22/17 at 16:15; Stop 11/22/17 at 16:16; Status DC Sodium Chloride 500 ml @ 500 mls/hr BOLUS ONCE IV Last administered on at 16:24; Start 11/22/17 at 16:30; Stop 11/22/17 at 17:29; Status DC Ceftriaxone Sodium 1000 mg/ Sodium Chloride 100 ml @ 200 mls/hr ONCE ONCE IV Last administered on 11/22/17at 16:39; Start 11/22/17 at 16:30; Stop 11/22/17 at 16:59; Status DC Sodium Chloride 1,000 ml @ 999 mls/hr BOLUS ONCE IV ; Start 11/22/17 at 17:00 ; Stop 11/22/17 at 18:00; Status DC Phenylephrine HCl 40 mg/Dextrose 500 ml @ 30 mls/hr TITRATE PRN IV Blood pressure management Last administered on 11/22/17at 17:51; Start 11/22/17 at 17: 15 Terbutaline Sulfate (Brethine Inj) 1 mg UNSCH PRN SQ For Extravasation; Start 11/22/17 at 17:15 Piperacillin Sod/ Tazobactam Sod 50 ml @ 100 mls/hr ONCE ONCE IV Last administered on 11/22/17at 17:46; Start 11/22/17 at 17:45; Stop 11/22/17 at 18:14 ; Status DC Phytonadione 10 mg/Dextrose 51 ml @ 102 mls/hr ONCE ONCE IV ; Start 11/22/17 at 19:00; Stop 11/22/17 at 19:00; Status DC Phytonadione (Vitamin K Inj) 10 mg ONCE ONCE SQ Last administered on at 19:28; Start 11/22/17 at 19:00; Stop 11/22/17 at 19:03; Status DC Sodium Chloride 1,000 ml @ 84 mls/hr [id number] IV Last administered on at 05:27; Start 11/22/17 at 19:10 Sodium Chloride (NS Flush) 2 ml UNSCH PRN IV FLUSH FLUSH AFTER USING IV ACCESS ; Start 11/22/17 at 19:15 Sodium Chloride (NS Flush) 2 ml BID IV FLUSH Last administered on 11/29/17at 21: 13; Start 11/22/17 at 21:00 Acetaminophen (Tylenol) 650 mg Q6H PRN PO PAIN 1-2 AND/OR FEVER >101F Last administered on 11/27/17at 08:23; Start 11/22/17 at 19:15 Pantoprazole Sodium (Protonix Inj) 40 mg DAILY IV PUSH Last administered on at 00:56; Start 11/22/17 at 19:15; Stop 11/23/17 at 09:27; Status DC Ondansetron HCl (Zofran Inj) 4 mg Q6H PRN IV PUSH NAUSEA OR VOMITING; Start at 19:15 Metoclopramide HCl (Reglan Inj) 10 mg Q6H PRN IV PUSH NAUSEA OR VOMITING; Start 11/22/17 at 19:15 Albuterol/ Ipratropium (Duoneb Neb) 1 ampule Q4HR NEB PRN INH WHEEZING; Start 11/22/17 at 19:15 Miscellaneous Information 1 Q361D XX ; Start 11/22/17 at 19:15 Chlorhexidine Gluconate (Chlorhexidine 2% Cloth) Taper DAILY@04 TOP ; Start at 04:00; Stop 11/19/18 at 03:59 Chlorhexidine Gluconate (Chlorhexidine 2% Cloth) 3 pack UNSCH PRN TOP HYGIENIC CARE; Start 11/22/17 at 19:15 Senna/Docusate Sodium (Flower-Colace) 1 tab BID PO Last administered on at 21:13; Start 11/22/17 at 21:00 Magnesium Hydroxide (Milk Of Magnesia Liq) 30 ml Q12H PRN PO Mild constipation ; Start 11/22/17 at 19:15 Sennosides (Senokot) 17.2 mg Q12H PRN PO Moderate constipation; Start 11/22/17 at 19:15 Bisacodyl (Dulcolax Supp) 10 mg DAILY PRN RECTAL SEVERE CONSITIPATION; Start at 19:15 Lactulose (Lactulose Liq) 30 ml DAILY PRN PO SEVERE CONSITIPATION; Start at 19:15 Piperacillin Sod/ Tazobactam Sod 50 ml @ 100 mls/hr Q8H IV ; Start 11/23/17 at 01:00; Stop 11/23/17 at 01:00; Status DC Piperacillin Sod/ Tazobactam Sod 50 ml @ 100 mls/hr Q8H IV Last administered on 11/24/17at 08:38; Start 11/23/17 at 01:00; Stop 11/24/17 at 09:53; Status DC Sodium Chloride 250 ml @ 15 mls/hr ONCE ONCE IV Last administered on at 09:19; Start 11/23/17 at 06:30; Stop 11/23/17 at 23:09; Status DC Phytonadione (Vitamin K Inj) 10 mg ONCE ONCE SQ Last administered on at 18:45; Start 11/23/17 at 19:00; Stop 11/23/17 at 19:01; Status DC Pantoprazole Sodium (Protonix Inj) 40 mg Q12H IV PUSH Last administered on 11/26at 09:09; Start 11/23/17 at 10:00; Stop 11/26/17 at 11:42; Status DC Polyethylene Glycol/ Electrolytes (Colyte Liq) 4,000 ml ONCE ONCE PO ; Start at 16:00; Stop 11/23/17 at 16:05; Status DC Pharmacy Profile Note 0 ml @ 0 mls/hr UNSCH OTHER ; Start 11/23/17 at 16:30 Vancomycin/Sodium Chloride 200 ml @ 200 mls/hr ONCE ONCE IV Last administered on 11/23/17at 20:12; Start 11/23/17 at 18:00; Stop 11/23/17 at 18:59 ; Status DC Dextrose (D50w (Syr) Inj) 12.5 ml ONCE ONCE IV PUSH Last administered on at 08:48; Start 11/24/17 at 08:30; Stop 11/24/17 at 08:31; Status DC Vancomycin HCl 500 mg/Sodium Chloride 100 ml @ 200 mls/hr ONCE ONCE IV Last administered on 11/24/17at 10:23; Start 11/24/17 at 10:00; Stop 11/24/17 at 10:29 ; Status DC Phytonadione (Vitamin K Inj) 10 mg ONCE ONCE SQ Last administered on at 09:15; Start 11/24/17 at 09:00; Stop 11/24/17 at 09:01; Status DC Lidocaine HCl (Xylocaine 1% Inj (50 ml)) AT BEDSIDE FOR PROCEDURE UNSCH .XX ; Start 11/25/17 at 00:30; Stop 11/25/17 at 15:48; Status DC Vancomycin HCl 1500 mg/Sodium Chloride 515 ml @ 250 mls/hr ONCE ONCE IV Last administered on 11/25/17at 14:28; Start 11/25/17 at 14:00; Stop 11/25/17 at 16:03 ; Status DC Lidocaine HCl (Xylocaine 1% Inj) UNSCH OTHER ; Start 11/25/17 at 16:00; Stop at 00:29; Status DC Vancomycin HCl 1500 mg/Sodium Chloride 515 ml @ 250 mls/hr Q24H IV Last administered on 11/29/17at 11:49; Start 11/26/17 at 11:00; Status Future Hold Miscellaneous Information SPECIFIC LAB TO BE DRAWN:VANCOMY... ONCE ONCE .XX Last administered on 11/29/17at 10:45; Start 11/29/17 at 10:45; Stop 11/29/17 at 10:46; Status DC Pantoprazole Sodium (Protonix) 40 mg Q12HR PO Last administered on 11/30/17at 08 :04; Start 11/26/17 at 21:00 Acetaminophen/ Hydrocodone Bitart ([place] 5-325 Mg) 1 tab Q4H PRN PO PAIN SCALE 3 TO 5; Start 11/26/17 at 15:15 Acetaminophen/ Hydrocodone Bitart ([place] 10-325 Mg) 1 tab Q4H PRN PO PAIN SCALE 6 TO 10; Start 11/26/17 at 15:15 Morphine Sulfate (Morphine Inj) 2 mg Q4H PRN IV PUSH BREAKTHROUGH PAIN; Start 11/26/17 at 15:15 Naloxone HCl (Narcan Inj) 0.4 mg UNSCH PRN IV PUSH SEE LABEL COMMENTS; Start at 15:15 Tamsulosin HCl (Flomax) 0.4 mg DAILY@1800 PO Last administered on 11/29/17at 16: 50; Start 11/26/17 at 18:00 Sodium Chloride 250 ml @ 15 mls/hr ONCE ONCE IV Last administered on at 13:14; Start 11/27/17 at 09:15; Stop 11/28/17 at 01:54; Status DC Acetaminophen (Tylenol) 650 mg Q4H PRN PO SEE LABEL COMMENTS Last administered on 11/27/17at 12:47; Start 11/27/17 at 09:15; Stop 11/27/17 at 23:59; Status DC Diphenhydramine HCl (Benadryl) 25 mg Q4H PRN PO SEE LABEL COMMENTS Last administered on 11/27/17at 12:47; Start 11/27/17 at 09:15; Stop 11/27/17 at 23:59 ; Status DC Furosemide (Lasix Inj) 20 mg ONCE ONCE IV PUSH Last administered on 11/27/17at 16:57; Start 11/27/17 at 10:00; Stop 11/27/17 at 10:01; Status DC Propofol (Diprivan 200 Mg/20 ml Inj) 400 mg STK-MED ONCE IV ; Start 11/24/17 at 12:00; Stop 11/27/17 at 12:51; Status DC Phenylephrine HCl (Neosynephrine/ NS 1000 Mcg/10ml Syr) 1,000 mcg STK-MED ONCE IV ; Start 11/24/17 at 12:00; Stop 11/27/17 at 12:51; Status DC Ferrous Sulfate (Ferrous Sulfate) 325 mg BID@12,17 PO Last administered on 11/29at 16:50; Start 11/27/17 at 17:00 Calcium Carbonate (Tums Chew) 500 mg ONCE ONCE CHEW Last administered on at 10:30; Start 11/28/17 at 10:00; Stop 11/28/17 at 10:01; Status DC Calcium Carbonate (Tums Chew) 500 mg Q12HR CHEW Last administered on 11/29/17at 21:13; Start 11/28/17 at 21:00 Iohexol (Omnipaque 350 Inj) 93 ml STK-MED ONCE IVCONTRAST Last administered on 11/28/17at 18:33; Start 11/28/17 at 18:33; Stop 11/28/17 at 18:34; Status DC Furosemide (Lasix) 40 mg DAILY PO Last administered on 11/30/17at 08:04; Start 11/29/17 at 15:30 Metoprolol Tartrate (Lopressor) 50 mg BID PO Last administered on 11/30/17at 08: 04; Start 11/29/17 at 21:00 Tamsulosin HCl (Flomax) 0.4 mg DAILY PO ; Start 11/29/17 at 15:30; Stop at 15:33; Status DC Pravastatin Sodium (Pravachol) 40 mg DAILY PO Last administered on 11/29/17at 16 :50; Start 11/29/17 at 15:30 Lactated Ringer's 1,000 ml @ 30 mls/hr Q24H PRN IV SEE LABEL COMMENTS; Start at 16:15; Stop 12/02/17 at 16:14 Sodium Chloride 500 ml @ 30 mls/hr [id number] PRN IV SEE LABEL COMMENTS; Start at 16:15; Stop 12/02/17 at 16:14 Povidone Iodine (Betadine 5% Antisepsis Kit) 1 applic [employer] PRN EACH NARE SEE LABEL COMMENTS; Start 11/29/17 at 16:15; Stop 12/02/17 at 16:14 Chlorhexidine Gluconate (Chlorhexidine 2% Cloth) 3 pack [employer] PRN TOPICAL SEE LABEL COMMENTS; Start 11/29/17 at 16:15; Stop 12/02/17 at 16:14 Insulin Human Regular (NovoLIN R INJ) See Protocol Table ... [employer] PRN SQ SEE PROTOCOL TABLE; Start 11/29/17 at 16:15; Stop 12/02/17 at 16:14 A/P Assessment and Plan This is a 87-year-old male who presented with a fall and third toe infection Small SDH post fall - slight increase in SDH on repeat CT head, however neurologically intact -Neurosurgeon consulted. Patient was on Coumadin at home. Coumadin currently held. when to restart Coumadin pending recommendations from neurosurgeon. 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 - Right 3rd digit ulcer OM s/p Incision drainage and debridement with bone biopsy right third digit by Madhav podiatry on 11/26/17. MRSA on cultures. also pathology shows OM. -CTA runoff ordered by vascular surgeon in which it showed severe peripheral vascular disease. Per vascular surgeon no indication for any procedure from his perspective. Recommend to proceed with the toe amputation by youth development professional. Due to severe peripheral vascular disease patient may need a BKA in the future. -patient schedule for toe amputation today. Hydronephrosis found on CTA runoff -confirmed by US. -consult urologist. he sees Dr. Iqbal as outpatient. Scalp laceration -Stable. On chronic anticoagulation -Warfarin held secondary to small subdural hemorrhage. Neurosurgeon to determine when to restart warfarin. Acute blood loss anemia likely secondary to GIB -Patient had EGD which showed gastritis and duodenal ulcer. Status post transfuse with 2 units of packed red blood cells has been stable. No active GI bleed since hospitalization. Continue to monitor. Per GI if he bleeds again will need to do a repeat EGD. -Continue Protonix. MRSA UTI and MRSA bacteremia with concern for endovascular infection -Infectious disease consult following patient on vancomycin. LISBETH -Improving the urine output. continue with lasix. DVT prophylaxis with SCD's Discharge Planning patient scheduled for surgery today. Li Alvarez MD Nov 30, 2017 11:18
[2017-11-30] MEDS ORDERED: LIDOCAINE HCL 1% PF 5 ML SYRINGE OTHER ONE (12:00)
[2017-11-30] MEDS ORDERED: PROPOFOL 200 MG/20 ML AMP IV ONE (12:00)
--- NOTE | 2017-11-30 14:47 | HHI.IDPN ---
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 Patient reports h/o 2 falls at home (note patient on anticoagulants) ? LOC after this fall. Patient was brought to hospital via Ambulance. Per chart review it appears patient had lost his footing and hit the back of his head. Family did not witness it and has a head laceration. There is report of possible LOC but not sure how long. When patient woke up he mainly complained of pain mainly to left shoulder and head. Per family patient is getting worked up for loss of 20 pounds recently and concerned for cancer. He has noticed black tarry stools for the last week or so and has been progressively getting weaker. Patient had significant bleeding from his scalp laceration which was sutured in the ER. He was noted to be coagulopathic with an INR of 6.5 and received 2 units of FFP and vitamin K 10 mg IV in the ER. He had a subclavian central line placed by ER physician. Patient was given 1.5 L fluid bolus and started on Faisal-Synephrine for pressor support. 2 units FFP, PRBCs 2 units were ordered to be transfused as his hemoglobin dropped to 6.9 following fluid bolus. Patient was admitted under critical care medicine service. Head CT done revealed a subdural hematoma. Neurosurgery was consulted and did not plan any active intervention. Patient was evaluated by GI and underwent EGD today with reported duodenitis and no bleeder or malignancies per verbal report. Colonoscopy is planned at some point in future per GI notes. Blood cultures done on admission were positive for MRSA and ID consulted for same given h/o pacer in situ. Pertinent positives and negatives: Family reported h/o MRSA. Patient reportedly had a urologic procedure a week back for a urethral stricture. H/o falls x 2 Patient upon questioning reports he stubbed his toe probably around the falls. Not sure of timing. H/o weight loss, workup ongoing. Overnight events reviewed No fevers No rash No diarrhea Bone bx + for osteo Arterial study + for PVD CTA was done RN informs me plan on amputation of infected toe, details not known. Antibiotics Vanco IV Lines Line sites with no e.o infection Past Medical History reviewed Allergies: Coded Allergies: *MDRO Multi-Drug Resistant Organism (Unverified Adverse Reaction, Unknown , 2/18/18) MRSA back wound 02/2015. Objective . Vital Signs Date Time Temp Pulse Resp B/P (MAP) Pulse Ox O2 Delivery O2 Flow Rate FiO2 11/30/17 12:00 98.6 82 17 126/79 (95) 96 11/30/17 08:00 97.2 88 18 125/68 (87) 99 11/30/17 04:00 97.3 92 19 137/83 (101) 97 11/30/17 00:00 98.2 85 22 107/62 (77) 97 11/29/17 20:00 98.4 89 18 123/72 (89) 97 11/29/17 16:00 97.8 102 18 127/90 (102) 99 . Laboratory Tests Test 11/29/17 12:39 11/30/17 05:10 White Blood Count 6.1 TH/MM3 5.7 TH/MM3 Red Blood Count 3.14 MIL/MM3 3.22 MIL/MM3 Hemoglobin 8.3 GM/DL 8.4 GM/DL Hematocrit 24.3 % 24.7 % Mean Corpuscular Volume 77.4 FL 76.9 FL Mean Corpuscular Hemoglobin 26.5 PG 26.2 PG Mean Corpuscular Hemoglobin Concent 34.2 % 34.1 % Red Cell Distribution Width 18.4 % 18.7 % Platelet Count 185 TH/MM3 209 TH/MM3 Mean Platelet Volume 6.0 FL 5.9 FL Laboratory Tests Test 11/30/17 05:10 Blood Urea Nitrogen 25 MG/DL Creatinine 1.51 MG/DL Random Glucose 82 MG/DL Calcium Level 7.5 MG/DL Sodium Level 142 MEQ/L Potassium Level 4.1 MEQ/L Chloride Level 113 MEQ/L Carbon Dioxide Level 19.6 MEQ/L Anion Gap 9 MEQ/L Estimat Glomerular Filtration Rate 44 ML/MIN Imaging Last Impressions Upper Extremity Ultrasound 11/27/17 0000 Signed Impressions: Service Date/Time: Monday, November 27, 2017 21:56 - CONCLUSION: 1. No sonographic evidence for upper extremity DVT. Chris Cooper MD Chest X-Ray 11/25/17 0000 Signed Impressions: Service Date/Time: Saturday, November 25, 2017 15:16 - CONCLUSION: 1. Left basilar effusion and consolidation concerning for pneumonia. Darrian Shell MD Head CT 11/24/17 0600 Signed Impressions: Service Date/Time: Friday, November 24, 2017 05:16 - CONCLUSION: 1. Mild increase in the size of the high density hemorrhage along the right parietal lobe 2. 2 additional smaller areas of high density punctate hemorrhage are now noted along the right parietal lobe as well. Franklin Schaefer MD Foot X-Ray 11/24/17 0000 Signed Impressions: Service Date/Time: Friday, November 24, 2017 18:04 - CONCLUSION: 1. Chronic appearing limited erosion of the medial proximal first metatarsal near the MTP joint. 2. No evidence for erosive change to suggest osteomyelitis involving the third digit. Chris Cooper MD Cervical Spine CT 11/22/17 1418 Signed Impressions: Service Date/Time: Wednesday, November 22, 2017 14:39 - CONCLUSION: Large anterior osteophytes at multiple levels. Scattered areas of bilateral neuroforaminal narrowing due to osteophyte. No evidence of acute fracture or significant subluxation. Dagoberto Das MD Shoulder X-Ray 11/22/17 0000 Signed Impressions: Service Date/Time: Wednesday, November 22, 2017 16:27 - CONCLUSION: Unremarkable examination of the left shoulder status post left bipolar pacermaker. Marked impingement change with acromial spurring and erosions across the greater tuberosity Dagoberto Das MD Pelvis X-Ray 11/22/17 0000 Signed Impressions: Service Date/Time: Wednesday, November 22, 2017 14:36 - CONCLUSION: Unremarkable examination of the pelvis. Dagoberto Das MD Chest CT 11/22/17 0000 Signed Impressions: Service Date/Time: Wednesday, November 22, 2017 16:02 - CONCLUSION: 1. No acute finding is identified on this noncontrast examination of the chest. 2. There is stable left pleural thickening, trace left pleural fluid, and volume loss in the left lower lobe. 3. Coronary artery calcification and severe atherosclerotic disease of aorta. Jalil Cedillo MD Abdomen/Pelvis CT 11/22/17 0000 Signed Impressions: Service Date/Time: Wednesday, November 22, 2017 16:02 - CONCLUSION: 1. No acute finding is identified on this mildly motion degraded noncontrast CT of the abdomen and pelvis. 2. Stable nonacute findings include cholelithiasis, severe atherosclerotic disease, and sigmoid diverticulosis. Jalil Cedillo MD Physical Exam GENERAL: This is a well-nourished, well-developed patient, in no apparent distress. SKIN: No rashes, ecchymoses or lesions. Cool and dry. HEAD: Atraumatic. Normocephalic. No temporal or scalp tenderness. CARDIOVASCULAR: HS audible.Pacemaker site ok with no e.o infection. RESPIRATORY: Clear to auscultation. Breath sounds equal bilaterally. GASTROINTESTINAL: Abdomen soft, non-tender, nondistended. MUSCULOSKELETAL: rt foot in dressing NEUROLOGICAL: Awake and alert. Responds to questions. Speech ok. Psych cooperative IV line sites with no e.o infection. Assessment & Plan Remarks MRSA bacteremia present on admission. ? reason for fall vs resultant of fall related toe injury. - repeat BC negative @ 3 days - low grade unsustained 1/4 bottles only Right 3rd toe abscess r/o osteomyelitis:source of bacteremia. 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 likely severe PVD Pacemaker in situ. Afib on anticoagulation. H/o falls x 2, Right parietal lobe bleed. Pulm edema Recs: DC Vanco IV (target 15-20 for MRSA bacteremia) Start Daptomycin IV(Vanco level high, renal failure. indication osteomyelitis) Post hospital infusion orders in chart. dw patients daughter Sofi over the phone she lives with them and will help out. dw her outpatient plan pending insurance approval. Gave her contact info for . [facility] plan. Dr.Reba Carrasco Follow cultures Follow clinically. DONNA Hernández bone path pending and depending on the results may consider changing regimen but plan on at least 2 weeks for bacteremia and if osteo on bone path will need 6 weeks completion of treatment with IV. Rossy Fried MD Nov 30, 2017 14:47
--- NOTE | 2017-11-30 16:22 | PD.CONS ---
HPI Service Urology Consult Requested By Dr Alvarez Reason for Consult Left hydronephrosis Primary Care Physician Unknown Diagnosis: History of Present Illness 87y.o M with h/o BPH and LUTS and retention of urine. He is at the hospital post recent fall. He is well known to our practice and usually followed y Dr Iqbal. He has TURP done on 10/22/17 and after sotomayor was removed had urinary retention which required sotomayor cath placement. He was seen last time on 11/09/17 at our office for voiding trial and had over 500cc residual, refused sotomayor placement. He was recommended to continue taking flomax daily. Looking at his recent sonogram he also had overdistended bladder which can be a reason why he had hydro. on 05/22/[address] scan no hydro was seen.His VS are stable, His Cr is 1.5 and his UC is + for MRSA, primary team is addressing it Review of Systems Except as stated in HPI: all other systems reviewed are Neg Past Family Social History Past Medical History see admission notes Past Surgical History see admission note Allergies: Coded Allergies: *MDRO Multi-Drug Resistant Organism (Unverified Adverse Reaction, Unknown , 11/22/17) MRSA back wound 02/2015. Family History cant tell Social History none Physical Exam Vital Signs Date Time Temp Pulse Resp B/P (MAP) Pulse Ox O2 Delivery O2 Flow Rate FiO2 11/30/17 12:00 98.6 82 17 126/79 (95) 96 11/30/17 08:00 97.2 88 18 125/68 (87) 99 11/30/17 04:00 97.3 92 19 137/83 (101) 97 11/30/17 00:00 98.2 85 22 107/62 (77) 97 11/29/17 20:00 98.4 89 18 123/72 (89) 97 Physical Exam GENERAL: This is a well-nourished, well-developed patient, in no apparent distress. SKIN: No rashes, ecchymoses or lesions. Cool and dry. HEAD: Normocephalic, + stiches post fall EYES: Pupils equal round and reactive. . NECK: Supple, nontender, no meningeal signs. CARDIOVASCULAR: Regular rate and rhythm without murmurs, gallops, or rubs. RESPIRATORY: Clear to auscultation. Breath sounds equal bilaterally. No wheezes , rales, or rhonchi. GASTROINTESTINAL: Abdomen soft, non-tender, nondistended. GENITOURINARY: Normal genital exam, bladder is slightly distended MUSCULOSKELETAL: Extremities without clubbing, cyanosis, or edema. NEUROLOGICAL: Awake and alert. Lab results reviewed: Yes Laboratory Tests Test 11/30/17 05:10 11/30/17 14:52 White Blood Count 5.7 Red Blood Count 3.22 Hemoglobin 8.4 Hematocrit 24.7 Mean Corpuscular Volume 76.9 Mean Corpuscular Hemoglobin 26.2 Mean Corpuscular Hemoglobin Concent 34.1 Red Cell Distribution Width 18.7 Platelet Count 209 Mean Platelet Volume 5.9 Blood Urea Nitrogen 25 Creatinine 1.51 Random Glucose 82 Calcium Level 7.5 Sodium Level 142 Potassium Level 4.1 Chloride Level 113 Carbon Dioxide Level 19.6 Anion Gap 9 Estimat Glomerular Filtration Rate 44 Date/Time Source Procedure Growth Status 11/25/17 04:51 Blood Peripheral Aerobic Blood Culture - Final NO GROWTH IN 5 DAYS Complete 11/25/17 04:51 Blood Peripheral Anaerobic Blood Culture - Final NO GROWTH IN 5 DAYS Complete 11/22/17 16:00 Urine Random Urine Urine Culture - Final S. Aureus Mrsa Complete 11/26/17 08:30 Wound Toe Gram Stain - Final Complete 11/26/17 08:30 Wound Culture - Final S. Aureus Mrsa Complete Result Diagram: 11/30/17 0510 11/30/17 0510 Personally reviewed images: Yes Imaging Last Impressions Renal Ultrasound 11/29/17 0000 Signed Impressions: Service Date/Time: Wednesday, November 29, 2017 16:28 - CONCLUSION: 1. There is hydronephrosis of the left collecting system. 2. Multiple small benign- appearing bilateral renal cysts. Bull Pena MD Aorta w/Runoff CTA 11/28/17 0000 Signed Impressions: Service Date/Time: Tuesday, November 28, 2017 18:26 - CONCLUSION: 1. Severe atherosclerotic disease. The popliteal arteries are nonvisualized bilaterally for a short segment given the beam hardening artifact from the knee arthroplasty hardware. In the right leg the anterior tibial artery appears to be occluded in the mid leg for a short segment with minimal runoff more distally. Please see above for detailed description of the remaining vessels. 2. Moderate size right and a chronic small left pleural effusion with left pleural thickening. 3. There is a small volume of free fluid in the pelvis from uncertain etiology. There is mild diffuse subcutaneous edema. 4. There is abnormal patchy enhancement of both kidneys which is nonspecific but can be seen with infection or interstitial nephritis related to contrast administration. There is severe left hydronephrosis and hydroureter from uncertain etiology. No distal obstructing process is seen. Therefore, this could be related to reflux. 1. Jalil Cedillo MD Upper Extremity Ultrasound 11/27/17 0000 Signed Impressions: Service Date/Time: Monday, November 27, 2017 21:56 - CONCLUSION: 1. No sonographic evidence for upper extremity DVT. Chris Cooper MD Chest X-Ray 11/25/17 0000 Signed Impressions: Service Date/Time: Saturday, November 25, 2017 15:16 - CONCLUSION: 1. Left basilar effusion and consolidation concerning for pneumonia. Darrian Shell MD Head CT 11/24/17 0600 Signed Impressions: Service Date/Time: Friday, November 24, 2017 05:16 - CONCLUSION: 1. Mild increase in the size of the high density hemorrhage along the right parietal lobe 2. 2 additional smaller areas of high density punctate hemorrhage are now noted along the right parietal lobe as well. Franklin Schaefer MD Foot X-Ray 11/24/17 0000 Signed Impressions: Service Date/Time: Friday, November 24, 2017 18:04 - CONCLUSION: 1. Chronic appearing limited erosion of the medial proximal first metatarsal near the MTP joint. 2. No evidence for erosive change to suggest osteomyelitis involving the third digit. Chris Cooper MD Cervical Spine CT 11/22/17 1418 Signed Impressions: Service Date/Time: Wednesday, November 22, 2017 14:39 - CONCLUSION: Large anterior osteophytes at multiple levels. Scattered areas of bilateral neuroforaminal narrowing due to osteophyte. No evidence of acute fracture or significant subluxation. Dagoberto Das MD Shoulder X-Ray 11/22/17 0000 Signed Impressions: Service Date/Time: Wednesday, November 22, 2017 16:27 - CONCLUSION: Unremarkable examination of the left shoulder status post left bipolar pacermaker. Marked impingement change with acromial spurring and erosions across the greater tuberosity Dagoberto Das MD Pelvis X-Ray 11/22/17 0000 Signed Impressions: Service Date/Time: Wednesday, November 22, 2017 14:36 - CONCLUSION: Unremarkable examination of the pelvis. Dagoberto Das MD Chest CT 11/22/17 0000 Signed Impressions: Service Date/Time: Wednesday, November 22, 2017 16:02 - CONCLUSION: 1. No acute finding is identified on this noncontrast examination of the chest. 2. There is stable left pleural thickening, trace left pleural fluid, and volume loss in the left lower lobe. 3. Coronary artery calcification and severe atherosclerotic disease of aorta. Jalil Cedillo MD Abdomen/Pelvis CT 11/22/17 0000 Signed Impressions: Service Date/Time: Wednesday, November 22, 2017 16:02 - CONCLUSION: 1. No acute finding is identified on this mildly motion degraded noncontrast CT of the abdomen and pelvis. 2. Stable nonacute findings include cholelithiasis, severe atherosclerotic disease, and sigmoid diverticulosis. Jalil Cedillo MD Assessment and Plan Assessment and Plan Pt is admitted due to a recent fall. Found to have left hydro on recent sonogram. Also had distended bladder. he is s/p TURP 1mo/a but still has retention. Cr is stable at 1.5. Pt denies any pain, f/c/n/v. _ No acute intervention needed from urology - Continue care as per primary team - Pt refused Sotomayor catheter placement - Needs to continue flomax daily - Follow up with DR Iqbal as outpt No additional recommendations Urology remains available as needed. Discussed Condition With Dr Nette GARRETT attending who agrees with this plan Cristian Mace Nov 30, 2017 16:22
[2017-11-30] MEDS: SODIUM CHLORIDE 0.9% IV SCH (16:41)
[2017-11-30] MEDS: DAPTOMYCIN IV SCH (16:41)
--- NOTE | 2017-11-30 17:07 | HHI.PR ---
Subjective Remarks Patient seen in preop. Agrees with planned surgical intervention. Denies N,V,F, Ch. Objective Vital Signs Date Time Temp Pulse Resp B/P (MAP) Pulse Ox O2 Delivery O2 Flow Rate FiO2 11/30/17 16:00 98.1 78 18 158/76 (103) 96 11/30/17 12:00 98.6 82 17 126/79 (95) 96 11/30/17 08:00 97.2 88 18 125/68 (87) 99 11/30/17 04:00 97.3 92 19 137/83 (101) 97 11/30/17 00:00 98.2 85 22 107/62 (77) 97 11/29/17 20:00 98.4 89 18 123/72 (89) 97 I/O 11/29/17 11/29/17 11/29/17 11/30/17 11/30/17 11/30/17 07:00 15:00 23:00 07:00 15:00 23:00 Intake Total 500 ml 720 ml 504 ml Output Total 950 ml Balance 500 ml 720 ml -950 ml 504 ml Intake Oral 500 ml 720 ml IV Total 504 ml Output Urine Total 950 ml # Voids 2 6 # Bowel Movements 0 0 Result Diagram: 11/30/17 0510 11/30/17 0510 Imaging Last Impressions Renal Ultrasound 11/29/17 0000 Signed Impressions: Service Date/Time: Wednesday, November 29, 2017 16:28 - CONCLUSION: 1. There is hydronephrosis of the left collecting system. 2. Multiple small benign- appearing bilateral renal cysts. Bull Pena MD Aorta w/Runoff CTA 11/28/17 0000 Signed Impressions: Service Date/Time: Tuesday, November 28, 2017 18:26 - CONCLUSION: 1. Severe atherosclerotic disease. The popliteal arteries are nonvisualized bilaterally for a short segment given the beam hardening artifact from the knee arthroplasty hardware. In the right leg the anterior tibial artery appears to be occluded in the mid leg for a short segment with minimal runoff more distally. Please see above for detailed description of the remaining vessels. 2. Moderate size right and a chronic small left pleural effusion with left pleural thickening. 3. There is a small volume of free fluid in the pelvis from uncertain etiology. There is mild diffuse subcutaneous edema. 4. There is abnormal patchy enhancement of both kidneys which is nonspecific but can be seen with infection or interstitial nephritis related to contrast administration. There is severe left hydronephrosis and hydroureter from uncertain etiology. No distal obstructing process is seen. Therefore, this could be related to reflux. 1. Jalil Cedillo MD Upper Extremity Ultrasound 11/27/17 0000 Signed Impressions: Service Date/Time: Monday, November 27, 2017 21:56 - CONCLUSION: 1. No sonographic evidence for upper extremity DVT. Chris Cooper MD Chest X-Ray 11/25/17 0000 Signed Impressions: Service Date/Time: Saturday, November 25, 2017 15:16 - CONCLUSION: 1. Left basilar effusion and consolidation concerning for pneumonia. Darrian Shell MD Head CT 11/24/17 0600 Signed Impressions: Service Date/Time: Friday, November 24, 2017 05:16 - CONCLUSION: 1. Mild increase in the size of the high density hemorrhage along the right parietal lobe 2. 2 additional smaller areas of high density punctate hemorrhage are now noted along the right parietal lobe as well. Franklin Schaefer MD Foot X-Ray 11/24/17 0000 Signed Impressions: Service Date/Time: Friday, November 24, 2017 18:04 - CONCLUSION: 1. Chronic appearing limited erosion of the medial proximal first metatarsal near the MTP joint. 2. No evidence for erosive change to suggest osteomyelitis involving the third digit. Chris Cooper MD Cervical Spine CT 11/22/17 1418 Signed Impressions: Service Date/Time: Wednesday, November 22, 2017 14:39 - CONCLUSION: Large anterior osteophytes at multiple levels. Scattered areas of bilateral neuroforaminal narrowing due to osteophyte. No evidence of acute fracture or significant subluxation. Dagoberto Das MD Shoulder X-Ray 11/22/17 0000 Signed Impressions: Service Date/Time: Wednesday, November 22, 2017 16:27 - CONCLUSION: Unremarkable examination of the left shoulder status post left bipolar pacermaker. Marked impingement change with acromial spurring and erosions across the greater tuberosity Dagoberto Das MD Pelvis X-Ray 11/22/17 0000 Signed Impressions: Service Date/Time: Wednesday, November 22, 2017 14:36 - CONCLUSION: Unremarkable examination of the pelvis. Dagoberto Das MD Chest CT 11/22/17 0000 Signed Impressions: Service Date/Time: Wednesday, November 22, 2017 16:02 - CONCLUSION: 1. No acute finding is identified on this noncontrast examination of the chest. 2. There is stable left pleural thickening, trace left pleural fluid, and volume loss in the left lower lobe. 3. Coronary artery calcification and severe atherosclerotic disease of aorta. Jalil Cedillo MD Abdomen/Pelvis CT 11/22/17 0000 Signed Impressions: Service Date/Time: Wednesday, November 22, 2017 16:02 - CONCLUSION: 1. No acute finding is identified on this mildly motion degraded noncontrast CT of the abdomen and pelvis. 2. Stable nonacute findings include cholelithiasis, severe atherosclerotic disease, and sigmoid diverticulosis. Jalil Cedillo MD Objective Remarks Dressing intact to right third digit. Distal ulcer noted to right third digit with increased edema and erythema. No drainage noted. No erythema noted to midfoot. Hammertoe to right third digit noted. Medications and IVs Current Medications Medications (Trade) Dose Ordered Sig/Aga Route Start Time Stop Time Status Last Admin Phenylephrine HCl 40 mg/Dextrose 500 ml @ 30 mls/hr TITRATE PRN IV 11/22/17 17:15 11/22/17 17:51 (Brethine Inj) 1 mg UNSCH PRN SQ 11/22/17 17:15 (NS Flush) 2 ml UNSCH PRN IV FLUSH 11/22/17 19:15 (NS Flush) 2 ml BID IV FLUSH 11/22/17 21:00 11/29/17 21:13 (Tylenol) 650 mg Q6H PRN PO 11/22/17 19:15 11/27/17 08:23 (Zofran Inj) 4 mg Q6H PRN IV PUSH 11/22/17 19:15 (Reglan Inj) 10 mg Q6H PRN IV PUSH 11/22/17 19:15 (Duoneb Neb) 1 ampule Q4HR NEB PRN INH 11/22/17 19:15 Miscellaneous Information 1 Q361D XX 11/22/17 19:15 (Chlorhexidine 2% Cloth) Taper DAILY@04 TOP 11/23/17 04:00 11/19/18 03:59 (Chlorhexidine 2% Cloth) 3 pack UNSCH PRN TOP 11/22/17 19:15 (Flower-Colace) 1 tab BID PO 11/22/17 21:00 11/29/17 21:13 (Milk Of Magnesia Liq) 30 ml Q12H PRN PO 11/22/17 19:15 (Senokot) 17.2 mg Q12H PRN PO 11/22/17 19:15 (Dulcolax Supp) 10 mg DAILY PRN RECTAL 11/22/17 19:15 (Lactulose Liq) 30 ml DAILY PRN PO 11/22/17 19:15 (Protonix) 40 mg Q12HR PO 11/26/17 21:00 11/30/17 08:04 (Fitzgerald 5-325 Mg) 1 tab Q4H PRN PO 11/26/17 15:15 (Fitzgerald 10-325 Mg) 1 tab Q4H PRN PO 11/26/17 15:15 (Morphine Inj) 2 mg Q4H PRN IV PUSH 11/26/17 15:15 (Narcan Inj) 0.4 mg UNSCH PRN IV PUSH 11/26/17 15:15 (Flomax) 0.4 mg DAILY@1800 PO 11/26/17 18:00 11/29/17 16:50 (Ferrous Sulfate) 325 mg BID@12,17 PO 11/27/17 17:00 11/29/17 16:50 (Tums Chew) 500 mg Q12HR CHEW 11/28/17 21:00 11/29/17 21:13 (Lasix) 40 mg DAILY PO 11/29/17 15:30 11/30/17 08:04 (Lopressor) 50 mg BID PO 11/29/17 21:00 11/30/17 08:04 (Pravachol) 40 mg DAILY PO 11/29/17 15:30 11/29/17 16:50 (Betadine 5% Antisepsis Kit) 1 applic JEWEL SETTER PRN EACH NARE 11/29/17 16:15 12/02/17 16:14 (Chlorhexidine 2% Cloth) 3 pack JEWEL SETTER PRN TOPICAL 11/29/17 16:15 12/02/17 16:14 (NovoLIN R INJ) See Protocol Table ... JEWEL SETTER PRN SQ 11/29/17 16:15 12/02/17 16:14 Daptomycin 890 mg/ Sodium Chloride 100 ml @ 200 mls/hr Q24H IV 11/30/17 16:00 11/30/17 16:41 Assessment and Plan Assessment and Plan 87 year old male with OM noted to right third digit Patient examined and evaluated with all questions answered To OR for right third digit amputation Consent signed Right third digit marked Understands all risks, benefits and complications. Mariely Cortés DPM Nov 30, 2017 17:07
[2017-11-30] MEDS ORDERED: BUPIVACAINE HCL PF 0.5% 30 ML VIAL INFIL ONE (17:29)
[2017-11-30] MEDS ORDERED: DO NOT ADM ANY ANTICOAGULANT DRUGS PRN (17:58)
--- NOTE | 2017-11-30 18:10 | HHI.PR ---
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
[2017-11-30] MEDS ORDERED: Post-op Orders (for Pharmacy) XX ONE (18:15)
--- NOTE | 2017-11-30 18:53 | RADRPT ---
EXAM DATE/TIME: 11/30/2017 18:19 [facility] COMPARISON: CHEST SINGLE AP, November 25, 2017, 15:16. INDICATIONS : Cough. MEDICAL HISTORY : Cardiovascular disease. Congestive heart failure. Hypertension. SURGICAL HISTORY : Pacemaker. ENCOUNTER: Initial ACUITY: 1 day PAIN SCORE: Non-responsive. LOCATION: Bilateral chest FINDINGS: A single view of the chest demonstrates pacer lead overlying right atrium and right ventricle. Cardio megaly. Basilar airspace disease, left greater than right with small effusions. No pneumothorax. Righ t central line in superior vena cava. CONCLUSION: 1. Cardiomegaly with basilar airspace disease and pleural effusions, left greater than right. No sign ificant change from November 25. Tiago Rodriguez MD on November 30, 2017 at 18:51 Board Certified Radiologist. This report was verified electronically.
--- NOTE | 2017-11-30 18:56 | RADRPT ---
EXAM DATE/TIME: 11/30/2017 18:23 [facility] COMPARISON: No previous studies available for comparison. INDICATIONS : Post op right foot. MEDICAL HISTORY : None. SURGICAL HISTORY : None. ENCOUNTER: Initial ACUITY: 1 day PAIN SCORE: 10/10 LOCATION: Right foot. FINDINGS: Postoperative amputation of the third toe at the proximal phalanx. Moderate degenerative changes thro ughout the foot. Mild hallux valgus. CONCLUSION: 1. 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 Tiago Rodriguez MD on November 30, 2017 at 18:54 Board Certified Radiologist. This report was verified electronically.
[2017-11-30] MEDS: TAMSULOSIN HCL 0.4 MG CAP PO SCH (21:08)
[2017-12-01] VITALS (7 sets, daily range): BP systolic 117–130; BP diastolic 58–79; PULSE 64–97; RESP 17–20; TEMP 97.2–98.5; O2SAT 96–99
--- NOTE | 2017-12-01 02:47 | MP ---
cc: Mariely Cortés DPM DATE OF OPERATION: SURGEON: Mariely Cortés DPM VELOCITY SHOOTER: None. PREOPERATIVE DIAGNOSIS: Right third digit osteomyelitis. POSTOPERATIVE DIAGNOSIS: Right third digit osteomyelitis. PROCEDURE: Right third digit amputation at proximal phalangeal joint. ANESTHESIA: MAC, IV sedation with multiple infiltrate of 0.5% Marcaine plain, 10 mL total. ESTIMATED BLOOD LOSS: 5 mL. HEMOSTASIS: None. MATERIALS: 3-0 nylon. INJECTABLES: None. COMPLICATIONS: None. INDICATION FOR PROCEDURE: The patient is an 87-year-old male whose bone pathology to distal phalanx was suspicious for acute osteomyelitis. Decision was made with patient to continue with amputation of distal aspect of digit. Patient understands all benefits, alternatives, complications associated with the procedure. He would like to proceed with right third digit amputation. DESCRIPTION OF PROCEDURE: The patient was brought back to the operating room, placed on the operating room table in supine position. IV sedation was then achieved and a local infiltrate of 10 mL of 0.5 Marcaine plain were infiltrated about the right foot. A well padded ____ ankle tourniquet was placed however, not inflated. The right foot was then prepped and draped in the usual sterile manner. Attention was then directed to the right third digit where a fishmouth incision was made about the proximal interphalangeal joint. This incision was deepened to subcutaneous tissues with care to retract all vital neurovascular structures. Incision was deepened to bone and medial and lateral ligaments were transected in order to perform an amputation. The distal aspect of digit was removed from the table and sent to pathology. Proximal phalanx was then resected with a bone cutter. This was also sent to pathology. Copious irrigation was performed to right third digit amputation site. Following copious irrigation, a rongeur was utilized to obtain right foot soft tissue specimen to be sent for microbiology. Bone cutter was also utilized to take proximal clearing margin of proximal phalanx to be sent for microbiology and pathology. Site was then irrigated once again. 3-0 nylon was utilized to close skin. Adaptic, 4 x 4s, Carmelo and Bryant were then applied. Patient tolerate procedure and anesthesia well. He was transferred from the OR to PACU with vital signs stable and neurovascular status intact. Mariely Cortés DPM JIBlaise/rt , 06:18 PM , 02:46 AM
[2017-12-01] MEDS: CHLORHEXIDINE GLUCONATE 2 % 1 PACK (2 CLOTHS) TOP SCH (04:00)
[2017-12-01 06:34] LABS: HEMATOCRIT 23.8 % (39.0-51.0); HEMOGLOBIN 8.1 GM/DL (13.0-17.0); MEAN CELL VOLUME 77.2 FL (80.0-100.0); MEAN CORPUSCULAR HEMOGLOBIN 26.2 PG (27.0-34.0); MEAN CORPUSCULAR HGB CONC 33.9 % (32.0-36.0); MEAN PLATELET VOLUME 5.7 FL (7.0-11.0); PLATELET COUNT 208 TH/MM3 (150-450); RED BLOOD COUNT 3.08 MIL/MM3 (4.50-5.90); WHITE BLOOD COUNT 4.7 TH/MM3 (4.0-11.0)
[2017-12-01 07:26] LABS: BICARBONATE 20.3 MEQ/L (21.0-32.0); CALCIUM 7.6 MG/DL (8.5-10.1); CREATININE 1.56 MG/DL (0.60-1.30)
[2017-12-01] MEDS: FUROSEMIDE 40 MG TAB PO SCH (10:06)
[2017-12-01] MEDS: PANTOPRAZOLE SOD 40 MG DELAYED RELEASE TAB PO SCH ×2 (10:06→20:07)
[2017-12-01] MEDS: PRAVASTATIN SOD 40 MG TAB PO SCH (10:06)
[2017-12-01] MEDS: METOPROLOL TARTRATE 50 MG TAB PO SCH ×2 (10:06→20:07)
[2017-12-01] MEDS: SODIUM CHLORIDE 0.9% FLUSH 10 ML FLUSH IV FLUSH SCH ×2 (10:07→20:07)
[2017-12-01] MEDS: ACETAMINOPHEN/HYDROcodone 325 MG/10 MG TAB PO PRN ×2 (10:07→21:52)
[2017-12-01] MEDS: DOCUSATE SODIUM 50 MG/SENNA 8.6 MG TAB PO SCH ×2 (10:07→20:07)
[2017-12-01] MEDS: CALCIUM CARBONATE 500 MG CHEWABLE TAB CHEW SCH ×2 (10:13→20:07)
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
[2017-12-01] MEDS: FERROUS SULFATE 325 MG (65 MG ELEMENTAL IRON) TAB PO SCH ×2 (12:55→17:42)
[2017-12-01] MEDS ORDERED: Calcium Carbonate Chew CHEW (15:41)
[2017-12-01] MEDS ORDERED: PERI PO (15:41)
[2017-12-01] MEDS ORDERED: PANT40TA3 PO (15:41)
[2017-12-01] MEDS ORDERED: HYDR-3516 PO (15:41)
--- NOTE | 2017-12-01 15:45 | HHI.FF ---
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 Administer Medication Daptomycin q 24 hours 890 mg IV q24hrs Start Treatment: Dec 01, 2017 Stop Treatment: Dec 25, 2017 Additional Information Additional Medications Stop date to be determined by Dr.Reba Carrasco on follow up in clinic. 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 [] May leave port accessed during therapy. [] May leave peripheral site accessed for duration of therapy. [x] If patient has SOB or respiratory distress, check oxygen saturation. If less than 90% or clinical signs of respiratory distress, administer oxygen at 2 L/min. via nasal cannula and notify physician. [x] Anaphylaxis/Reaction orders: * Stop infusion. * Keep IV line open with saline flush. * Notify physician. * Monitor vital signs every 15 minutes until symptoms resolve. * Check Oxygen saturation; Oxygen at 2 L/min. via nasal cannula if less than 90% or clinical signs of respiratory distress. * Administer diphenhydramine (Benadryl) 25 mg IV STAT, (unless patient has received as pre-med). May repeat once, if necessary. * Solu-Cortef 250 mg IVP over 30-60 seconds, use 100 mg vials for each dissolution. * Epinephrine (1mg/1 ml) 0.3 mg subcutaneously or IVP now with any signs of respiratory distress. * Check with physician for new additional pre-med orders if patient is re- challenged or re-treated. [x] May remove PICC line when treatment complete, after confirming with Physician. [x] If the patient is admitted to the hospital, the ED, or transferred via [facility] , complete transfer form including medication reconciliation order sheet. Laboratory Tests Weekly Labs: CBC w/diff, Creatinine, CRP, LFT's (Hepatic function test), Serum CK Levels Additional Information Please draw weekly labs, fax labs to numbers below and call with abnormals, change in clinical condition or problems to: Dr.Reba Carrasco or or covering ID Physician Follow up appt: Patient to schedule follow up appt with Dr.Reba Carrasco within 2 weeks post discharge. Follow up with PCP Follow up with other MDs as planned. Counseling: Counseled about medication side effects Counseled about PICC line care and hand hygiene. Counseled about Cdiff and importance of early testing. Rossy Fried MD Dec 01, 2017 15:45
--- NOTE | 2017-12-01 15:48 | HHI.NSPN ---
(Cory Mcconnell) History Chief Complaint: Fall (Cory Mcconnell) Interval History This is an 87-year-old male patient with history of Coumadin use who presents to the ER apparently after falling. The patient reports that he was trying to go to the bathroom when he lost control and fell striking the back of his head. He had possible loss of consciousness of unknown duration. He was brought to the emergency room because of bleeding of the scalp and a laceration and underwent evaluation. He also complains of left shoulder pain. He takes Coumadin for atrial fibrillation. Denies any other types or problems at the present time except for weight loss since August of last year for which he has undergone evaluation. 11/23/17: Pt awake and alert. Denies headache. No n/v. Pt states he has felt weak and tired over last 3 days at least and feels this is why his legs gave out from him and he fell. He also reports to me he has had dark stools during this time. 11/24/17: Pt awake and alert. Denies headache, nausea, vomiting. No weakness other than limitation with deltoid from his chronic shoulder condition. 11/25/17: Pt awake and alert. Denies headache, nausea, vomiting, numbness or tingling. Denies any chest pain or sob. 11/26/17: Pt awake and alert. Denies headache, nausea, vomiting, numbness or tingling. Pt had surgery on his right 3rd toe bandage in place. He doesn't think he has urinated that much today. 11/27/17: Pt awakens. States he feels very tired. No nausea, vomiting, paresthesias in face or extremities. 11/28/17: Pt awake and alert. He states he is feeling better now his blood counts have come up he is less tired. He denies any headaches, nausea or vomiting. 11/29/17: Pt denies any headaches, nausea or vomiting. He is adamant that he doesn't want any inpatient rehab and wants [facility] and home PT 12/01/17: Came to see pt yesterday but was in surgery for his toe. He denies headache, nausea, vomiting. He is fatigued. (Cory Mcconnell) Review of Systems General: Negative for: fever, chills, insomnia Respiratory: Negative for: shortness of breath, cough, sputum Cardiovascular: Negative for: chest pain Gastrointestinal: Negative for: nausea, vomitting, diarrhea, constipation ( Cory Mcconnell) Exam Results Vital Signs Date Time Temp Pulse Resp B/P (MAP) Pulse Ox O2 Delivery O2 Flow Rate FiO2 12/01/17 12:00 97.6 73 17 119/60 (79) 98 12/01/17 07:44 21 11/30/17 20:02 Nasal Cannula 2.00 (Cory Mcconnell) Physical Examination General: Pt awake and alert, in no acute distress and stable vitals. Eyes: Pupils equal sclera anicteric. Resp: CTA bilaterally. Heart: Irregular no murmurs. Abd: Soft positive bs. Skin: No cyanosis or erythema. His right 3rd toe is ambulated and his foot is wrapped in a orthopedic shoe. Muscle: Moves all 4 extremities symmetrically with good strength. Some limitation with deltoid strength bilaterally pt states from chronic shoulder problems. Neuro: Pt awake and alert. Pupils equal 3mm bilaterally. Follows commands well. Speech clear and appropriate. (Cory Mcconnell) Lab, Micro, Other Results Last Impressions Foot X-Ray 11/30/17 0000 Signed Impressions: Service Date/Time: Thursday, November 30, 2017 18:23 - CONCLUSION: 1. 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 Tiago Rodriguez MD Chest X-Ray 11/30/17 0000 Signed Impressions: Service Date/Time: Thursday, November 30, 2017 18:19 - CONCLUSION: 1. Cardiomegaly with basilar airspace disease and pleural effusions, left greater than right. No significant change from November 25. Tiago Rodriguez MD Renal Ultrasound 11/29/17 0000 Signed Impressions: Service Date/Time: Wednesday, November 29, 2017 16:28 - CONCLUSION: 1. There is hydronephrosis of the left collecting system. 2. Multiple small benign- appearing bilateral renal cysts. Bull Pena MD Aorta w/Runoff CTA 11/28/17 0000 Signed Impressions: Service Date/Time: Tuesday, November 28, 2017 18:26 - CONCLUSION: 1. Severe atherosclerotic disease. The popliteal arteries are nonvisualized bilaterally for a short segment given the beam hardening artifact from the knee arthroplasty hardware. In the right leg the anterior tibial artery appears to be occluded in the mid leg for a short segment with minimal runoff more distally. Please see above for detailed description of the remaining vessels. 2. Moderate size right and a chronic small left pleural effusion with left pleural thickening. 3. There is a small volume of free fluid in the pelvis from uncertain etiology. There is mild diffuse subcutaneous edema. 4. There is abnormal patchy enhancement of both kidneys which is nonspecific but can be seen with infection or interstitial nephritis related to contrast administration. There is severe left hydronephrosis and hydroureter from uncertain etiology. No distal obstructing process is seen. Therefore, this could be related to reflux. 1. Jalil Cedillo MD Upper Extremity Ultrasound 11/27/17 0000 Signed Impressions: Service Date/Time: Monday, November 27, 2017 21:56 - CONCLUSION: 1. No sonographic evidence for upper extremity DVT. Chris Cooper MD Head CT 11/24/17 0600 Signed Impressions: Service Date/Time: Friday, November 24, 2017 05:16 - CONCLUSION: 1. Mild increase in the size of the high density hemorrhage along the right parietal lobe 2. 2 additional smaller areas of high density punctate hemorrhage are now noted along the right parietal lobe as well. Franklin Schaefer MD Cervical Spine CT 11/22/17 1418 Signed Impressions: Service Date/Time: Wednesday, November 22, 2017 14:39 - CONCLUSION: Large anterior osteophytes at multiple levels. Scattered areas of bilateral neuroforaminal narrowing due to osteophyte. No evidence of acute fracture or significant subluxation. Dagoberto Das MD Shoulder X-Ray 11/22/17 0000 Signed Impressions: Service Date/Time: Wednesday, November 22, 2017 16:27 - CONCLUSION: Unremarkable examination of the left shoulder status post left bipolar pacermaker. Marked impingement change with acromial spurring and erosions across the greater tuberosity Dagoberto Das MD Pelvis X-Ray 11/22/17 0000 Signed Impressions: Service Date/Time: Wednesday, November 22, 2017 14:36 - CONCLUSION: Unremarkable examination of the pelvis. Dagoberto Das MD Chest CT 11/22/17 0000 Signed Impressions: Service Date/Time: Wednesday, November 22, 2017 16:02 - CONCLUSION: 1. No acute finding is identified on this noncontrast examination of the chest. 2. There is stable left pleural thickening, trace left pleural fluid, and volume loss in the left lower lobe. 3. Coronary artery calcification and severe atherosclerotic disease of aorta. Jalil Cedillo MD Abdomen/Pelvis CT 11/22/17 0000 Signed Impressions: Service Date/Time: Wednesday, November 22, 2017 16:02 - CONCLUSION: 1. No acute finding is identified on this mildly motion degraded noncontrast CT of the abdomen and pelvis. 2. Stable nonacute findings include cholelithiasis, severe atherosclerotic disease, and sigmoid diverticulosis. Jalil Cedillo MD Laboratory Tests Test 12/01/17 06:19 White Blood Count 4.7 TH/MM3 Red Blood Count 3.08 MIL/MM3 Hemoglobin 8.1 GM/DL Hematocrit 23.8 % Mean Corpuscular Volume 77.2 FL Mean Corpuscular Hemoglobin 26.2 PG Mean Corpuscular Hemoglobin Concent 33.9 % Red Cell Distribution Width 19.0 % Platelet Count 208 TH/MM3 Mean Platelet Volume 5.7 FL Blood Urea Nitrogen 28 MG/DL Creatinine 1.56 MG/DL Random Glucose 71 MG/DL Calcium Level 7.6 MG/DL Sodium Level 143 MEQ/L Potassium Level 4.1 MEQ/L Chloride Level 115 MEQ/L Carbon Dioxide Level 20.3 MEQ/L Anion Gap 8 MEQ/L Estimat Glomerular Filtration Rate 42 ML/MIN 12/01/17 12/01/17 12/02/17 15:00 23:00 07:00 Bladder Scan Volume Amount 49 ml (Cory Mcconnell) Medical Decision Making Impression and Plan A: 87 y/o M with elevated PT/INR s/p fall with possibly a very small amount of hemorrhage in the right subdural space. On Follow up CT head pt has more small contusions in the right parietal area also. Anemia Sepsis P: Continue with neuro checks, he has been stable. Continue with current care. Continue with antibiotics for his sepsis. Pt is adamant that he doesn't want SNF after hospital stay. (Cory Mcconnell) Attending Statement The exam, history, and the medical decision-making described in the above note were completed with the assistance of the mid-level provider. I reviewed and agree with the findings presented. I attest that I had a [id number] encounter with the patient on the same day, and personally performed and documented my assessment and findings in the medical record. (Carter Santacruz MD) Cory Mcconnell Dec 01, 2017 15:48 Carter Santacruz MD Dec 02, 2017 09:47
[2017-12-01] MEDS: DAPTOMYCIN IV SCH (16:00)
[2017-12-01] MEDS: SODIUM CHLORIDE 0.9% IV SCH (16:00)
[2017-12-01] MEDS: TAMSULOSIN HCL 0.4 MG CAP PO SCH (17:42)
--- NOTE | 2017-12-01 17:58 | HHI.PR ---
Subjective Remarks Patient seen bedside this evening. Denies nausea, vomiting, fevers, or chills. Denies calf pain. Resting comfortably. Objective Vital Signs Date Time Temp Pulse Resp B/P (MAP) Pulse Ox O2 Delivery O2 Flow Rate FiO2 12/01/17 16:36 98.4 64 18 124/62 (82) 99 12/01/17 12:00 97.6 73 17 119/60 (79) 98 12/01/17 08:00 98.2 87 20 120/58 (78) 99 12/01/17 07:44 96 21 12/01/17 05:43 98.5 77 18 125/77 (93) 98 12/01/17 01:29 97.2 97 18 130/79 (96) 97 11/30/17 21:28 97.2 95 18 123/80 (94) 96 11/30/17 20:02 100 Nasal Cannula 2.00 11/30/17 18:44 97.7 86 19 142/82 (102) 100 Nasal Cannula 2 11/30/17 18:44 97.7 11/30/17 18:30 78 20 138/83 (101) 99 Nasal Cannula 2 11/30/17 18:15 80 20 131/74 (93) 100 Nasal Cannula 2 11/30/17 18:00 96.0 11/30/17 18:00 96.0 83 24 137/74 (95) 99 Nasal Cannula 2 I/O 11/30/17 11/30/17 11/30/17 12/01/17 12/01/17 12/01/17 06:59 14:59 22:59 06:59 14:59 22:59 Intake Total 504 ml 240 ml Output Total 950 ml 0 ml 251 ml Balance -950 ml 504 ml -11 ml Intake Oral 240 ml IV Total 504 ml Output Urine Total 950 ml 250 ml Stool Total 1 ml Estimated Blood Loss 0 ml Bladder Scan Volume Amount 49 ml 49 ml # Bowel Movements 0 Result Diagram: 12/01/1761812/01/17618 Imaging Last Impressions Foot X-Ray 11/30/17 0000 Signed Impressions: Service Date/Time: Thursday, November 30, 2017 18:23 - CONCLUSION: 1. 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 Tiago Rodriguez MD Chest X-Ray 11/30/17 0000 Signed Impressions: Service Date/Time: Thursday, November 30, 2017 18:19 - CONCLUSION: 1. Cardiomegaly with basilar airspace disease and pleural effusions, left greater than right. No significant change from November 25. Tiago Rodriguez MD Renal Ultrasound 11/29/17 0000 Signed Impressions: Service Date/Time: Wednesday, November 29, 2017 16:28 - CONCLUSION: 1. There is hydronephrosis of the left collecting system. 2. Multiple small benign- appearing bilateral renal cysts. Bull Pena MD Aorta w/Runoff CTA 11/28/17 0000 Signed Impressions: Service Date/Time: Tuesday, November 28, 2017 18:26 - CONCLUSION: 1. Severe atherosclerotic disease. The popliteal arteries are nonvisualized bilaterally for a short segment given the beam hardening artifact from the knee arthroplasty hardware. In the right leg the anterior tibial artery appears to be occluded in the mid leg for a short segment with minimal runoff more distally. Please see above for detailed description of the remaining vessels. 2. Moderate size right and a chronic small left pleural effusion with left pleural thickening. 3. There is a small volume of free fluid in the pelvis from uncertain etiology. There is mild diffuse subcutaneous edema. 4. There is abnormal patchy enhancement of both kidneys which is nonspecific but can be seen with infection or interstitial nephritis related to contrast administration. There is severe left hydronephrosis and hydroureter from uncertain etiology. No distal obstructing process is seen. Therefore, this could be related to reflux. 1. Jalil Cedillo MD Upper Extremity Ultrasound 11/27/17 0000 Signed Impressions: Service Date/Time: Monday, November 27, 2017 21:56 - CONCLUSION: 1. No sonographic evidence for upper extremity DVT. Chris Cooper MD Head CT 11/24/17 0600 Signed Impressions: Service Date/Time: Friday, November 24, 2017 05:16 - CONCLUSION: 1. Mild increase in the size of the high density hemorrhage along the right parietal lobe 2. 2 additional smaller areas of high density punctate hemorrhage are now noted along the right parietal lobe as well. Franklin Schaefer MD Cervical Spine CT 11/22/17 1418 Signed Impressions: Service Date/Time: Wednesday, November 22, 2017 14:39 - CONCLUSION: Large anterior osteophytes at multiple levels. Scattered areas of bilateral neuroforaminal narrowing due to osteophyte. No evidence of acute fracture or significant subluxation. Dagoberto Das MD Shoulder X-Ray 11/22/17 0000 Signed Impressions: Service Date/Time: Wednesday, November 22, 2017 16:27 - CONCLUSION: Unremarkable examination of the left shoulder status post left bipolar pacermaker. Marked impingement change with acromial spurring and erosions across the greater tuberosity Dagoberto Das MD Pelvis X-Ray 11/22/17 0000 Signed Impressions: Service Date/Time: Wednesday, November 22, 2017 14:36 - CONCLUSION: Unremarkable examination of the pelvis. Dagoberto Das MD Chest CT 11/22/17 0000 Signed Impressions: Service Date/Time: Wednesday, November 22, 2017 16:02 - CONCLUSION: 1. No acute finding is identified on this noncontrast examination of the chest. 2. There is stable left pleural thickening, trace left pleural fluid, and volume loss in the left lower lobe. 3. Coronary artery calcification and severe atherosclerotic disease of aorta. Jalil Cedillo MD Abdomen/Pelvis CT 11/22/17 0000 Signed Impressions: Service Date/Time: Wednesday, November 22, 2017 16:02 - CONCLUSION: 1. No acute finding is identified on this mildly motion degraded noncontrast CT of the abdomen and pelvis. 2. Stable nonacute findings include cholelithiasis, severe atherosclerotic disease, and sigmoid diverticulosis. Jalil Cedillo MD Procedures Status post right third digit amputation date of surgery 11/30 Other Results Current Medications Medications (Trade) Dose Ordered Sig/Aga Route Start Time Stop Time Status Last Admin Phenylephrine HCl 40 mg/Dextrose 500 ml @ 30 mls/hr TITRATE PRN IV 11/22/17 17:15 11/22/17 17:51 (Brethine Inj) 1 mg UNSCH PRN SQ 11/22/17 17:15 (NS Flush) 2 ml UNSCH PRN IV FLUSH 11/22/17 19:15 (NS Flush) 2 ml BID IV FLUSH 11/22/17 21:00 12/01/17 10:07 (Tylenol) 650 mg Q6H PRN PO 11/22/17 19:15 11/27/17 08:23 (Zofran Inj) 4 mg Q6H PRN IV PUSH 11/22/17 19:15 (Reglan Inj) 10 mg Q6H PRN IV PUSH 11/22/17 19:15 (Duoneb Neb) 1 ampule Q4HR NEB PRN INH 11/22/17 19:15 Miscellaneous Information 1 Q361D XX 11/22/17 19:15 (Chlorhexidine 2% Cloth) Taper DAILY@04 TOP 11/23/17 04:00 11/19/18 03:59 (Chlorhexidine 2% Cloth) 3 pack UNSCH PRN TOP 11/22/17 19:15 (Flower-Colace) 1 tab BID PO 11/22/17 21:00 12/01/17 10:07 (Milk Of Magnesia Liq) 30 ml Q12H PRN PO 11/22/17 19:15 (Senokot) 17.2 mg Q12H PRN PO 11/22/17 19:15 (Dulcolax Supp) 10 mg DAILY PRN RECTAL 11/22/17 19:15 (Lactulose Liq) 30 ml DAILY PRN PO 11/22/17 19:15 (Protonix) 40 mg Q12HR PO 11/26/17 21:00 12/01/17 10:06 ([place] 5-325 Mg) 1 tab Q4H PRN PO 11/26/17 15:15 12/01/17 17:41 ([place] 10-325 Mg) 1 tab Q4H PRN PO 11/26/17 15:15 12/01/17 10:07 (Morphine Inj) 2 mg Q4H PRN IV PUSH 11/26/17 15:15 (Narcan Inj) 0.4 mg UNSCH PRN IV PUSH 11/26/17 15:15 (Flomax) 0.4 mg DAILY@1800 PO 11/26/17 18:00 12/01/17 17:42 (Ferrous Sulfate) 325 mg BID@12,17 PO 11/27/17 17:00 12/01/17 17:42 (Tums Chew) 500 mg Q12HR CHEW 11/28/17 21:00 12/01/17 10:13 (Lasix) 40 mg DAILY PO 11/29/17 15:30 12/01/17 10:06 (Lopressor) 50 mg BID PO 11/29/17 21:00 12/01/17 10:06 (Pravachol) 40 mg DAILY PO 11/29/17 15:30 12/01/17 10:06 (Betadine 5% Antisepsis Kit) 1 applic A AUXILIARY PRN EACH NARE 11/29/17 16:15 12/02/17 16:14 (Chlorhexidine 2% Cloth) 3 pack A AUXILIARY PRN TOPICAL 11/29/17 16:15 12/02/17 16:14 (NovoLIN R INJ) See Protocol Table ... A AUXILIARY PRN SQ 11/29/17 16:15 12/02/17 16:14 Daptomycin 890 mg/ Sodium Chloride 100 ml @ 200 mls/hr Q24H IV 11/30/17 16:00 11/30/17 16:41 Miscellaneous Information ALL NURSING DEPARTME... UNSCH PRN .XX 11/30/17 17:58 12/01/17 17:57 Microbiology Date/Time Source Procedure Growth Status 11/25/17 04:51 Blood Peripheral Aerobic Blood Culture - Final NO GROWTH IN 5 DAYS Complete 11/25/17 04:51 Blood Peripheral Anaerobic Blood Culture - Final NO GROWTH IN 5 DAYS Complete 11/22/17 16:00 Urine Random Urine Urine Culture - Final S. Aureus Mrsa Complete 11/30/17 17:41 Wound Toe Fungal Smear - Final NO FUNGAL ELEMENTS SEEN. Resulted 11/30/17 17:41 Wound Toe Fungal Culture Pending Resulted Objective Remarks Lower extremity physical exam: Vascular: Dorsalis pedis diminished, posterior tibial tendon. Capillary refill time within normal limits to digits 4, right foot. Edema present mildly to right foot. Neuro: Gross sensation intact to bilateral lower extremity. Pinpoint sensation decreased. No hyperalgesia noted to bilateral lower extremity Dermatology: Normal temperature and turgor to bilateral lower extremity. Upon dressing change right third digit proximal phalanx stump with sutures intact and skin well coapted, mild sanguinous drainage, no surrounding erythema. Musculoskeletal: Tender to palpation to right foot third digit amputation site. Medications and IVs Current Medications Medications (Trade) Dose Ordered Sig/Aga Route Start Time Stop Time Status Last Admin Phenylephrine HCl 40 mg/Dextrose 500 ml @ 30 mls/hr TITRATE PRN IV 11/22/17 17:15 11/22/17 17:51 (Brethine Inj) 1 mg UNSCH PRN SQ 11/22/17 17:15 (NS Flush) 2 ml UNSCH PRN IV FLUSH 11/22/17 19:15 (NS Flush) 2 ml BID IV FLUSH 11/22/17 21:00 12/01/17 10:07 (Tylenol) 650 mg Q6H PRN PO 11/22/17 19:15 11/27/17 08:23 (Zofran Inj) 4 mg Q6H PRN IV PUSH 11/22/17 19:15 (Reglan Inj) 10 mg Q6H PRN IV PUSH 11/22/17 19:15 (Duoneb Neb) 1 ampule Q4HR NEB PRN INH 11/22/17 19:15 Miscellaneous Information 1 Q361D XX 11/22/17 19:15 (Chlorhexidine 2% Cloth) Taper DAILY@04 TOP 11/23/17 04:00 11/19/18 03:59 (Chlorhexidine 2% Cloth) 3 pack UNSCH PRN TOP 11/22/17 19:15 (Flower-Colace) 1 tab BID PO 11/22/17 21:00 12/01/17 10:07 (Milk Of Magnesia Liq) 30 ml Q12H PRN PO 11/22/17 19:15 (Senokot) 17.2 mg Q12H PRN PO 11/22/17 19:15 (Dulcolax Supp) 10 mg DAILY PRN RECTAL 11/22/17 19:15 (Lactulose Liq) 30 ml DAILY PRN PO 11/22/17 19:15 (Protonix) 40 mg Q12HR PO 11/26/17 21:00 12/01/17 10:06 ([place] 5-325 Mg) 1 tab Q4H PRN PO 11/26/17 15:15 12/01/17 17:41 ([place] 10-325 Mg) 1 tab Q4H PRN PO 11/26/17 15:15 12/01/17 10:07 (Morphine Inj) 2 mg Q4H PRN IV PUSH 11/26/17 15:15 (Narcan Inj) 0.4 mg UNSCH PRN IV PUSH 11/26/17 15:15 (Flomax) 0.4 mg DAILY@1800 PO 11/26/17 18:00 12/01/17 17:42 (Ferrous Sulfate) 325 mg BID@12,17 PO 11/27/17 17:00 12/01/17 17:42 (Tums Chew) 500 mg Q12HR CHEW 11/28/17 21:00 12/01/17 10:13 (Lasix) 40 mg DAILY PO 11/29/17 15:30 12/01/17 10:06 (Lopressor) 50 mg BID PO 11/29/17 21:00 12/01/17 10:06 (Pravachol) 40 mg DAILY PO 11/29/17 15:30 12/01/17 10:06 (Betadine 5% Antisepsis Kit) 1 applic A AUXILIARY PRN EACH NARE 11/29/17 16:15 12/02/17 16:14 (Chlorhexidine 2% Cloth) 3 pack A AUXILIARY PRN TOPICAL 11/29/17 16:15 12/02/17 16:14 (NovoLIN R INJ) See Protocol Table ... A AUXILIARY PRN SQ 11/29/17 16:15 12/02/17 16:14 Daptomycin 890 mg/ Sodium Chloride 100 ml @ 200 mls/hr Q24H IV 11/30/17 16:00 11/30/17 16:41 Miscellaneous Information ALL NURSING DEPARTME... UNSCH PRN .XX 11/30/17 17:58 12/01/17 17:57 Assessment and Plan Assessment and Plan 87 year old male with OM noted to right third digit Patient examined and evaluated with all questions answered Okay to DC per podiatry Discussed with infectious disease Agree with infectious disease plan for IV antibiotics and follow-up as outpatient Dressing to right foot changed, Xeroform, 4 x 4's, Carmelo and Bryant applied to right foot Discussed pending discharge with patient's daughter she knows she is to make appointment for patient to see me next week Okay to weight-bear as tolerated to right foot and surgical shoe Mariely Cortés DPM Dec 01, 2017 17:58
--- NOTE | 2017-12-01 18:11 | RADRPT ---
EXAM DATE/TIME: 12/01/2017 17:42 [facility] COMPARISON: CHEST SINGLE AP, November 30, 2017, 18:19. INDICATIONS : PIcc placement. MEDICAL HISTORY : Hypercholesterolemia. Congestive heart failure. Renal failure, chronic. SURGICAL HISTORY : Pacemaker. TURP. Bilateral lens replacements. Bilateral knee replacements ENCOUNTER: Initial ACUITY: 1 day PAIN SCORE: 0/10 LOCATION: Right chest FINDINGS: The cardiac silhouette is enlarged in transverse diameter. A bipolar pacemaker is in place via a left sided approach. There is left lower lobe atelectasis versus pneumonia. A moderate size left sided ef fusion is present. There is also atelectasis versus pneumonia in the right base. A PICC line is in pl jovany via right-sided approach with its tip in the region of the superior vena cava. CONCLUSION: 1. Uncomplicated PICC line placement. 2. Left lower lobe atelectasis versus pneumonia. There has been no significant change when compared t o the prior exam. Adolfo Freitas MD on December 01, 2017 at 18:10 Board Certified Radiologist. This report was verified electronically.
[2017-12-01] MEDS ORDERED: SODIUM CHLORIDE 0.9% FLUSH 10 ML FLUSH IV FLUSH PRN (18:15)
[2017-12-01] MEDS: MORPHINE SULFATE 2 MG/ML INJ IV PUSH PRN (20:07)
[2017-12-02] VITALS (7 sets, daily range): BP systolic 101–139; BP diastolic 57–86; PULSE 64–88; RESP 18; TEMP 97.4–97.7; O2SAT 18–99
[2017-12-02] MEDS: MORPHINE SULFATE 2 MG/ML INJ IV PUSH PRN (00:32)
[2017-12-02] MEDS: ACETAMINOPHEN/HYDROcodone 325 MG/10 MG TAB PO PRN ×2 (02:01→05:38)
[2017-12-02] MEDS: CHLORHEXIDINE GLUCONATE 2 % 1 PACK (2 CLOTHS) TOP SCH ×2 (03:19→22:17)
[2017-12-02 05:01] LABS: CREATININE 1.71 MG/DL (0.60-1.30)
[2017-12-02] MEDS: DOCUSATE SODIUM 50 MG/SENNA 8.6 MG TAB PO SCH ×2 (08:24→22:17)
[2017-12-02] MEDS: PANTOPRAZOLE SOD 40 MG DELAYED RELEASE TAB PO SCH ×2 (08:24→22:17)
[2017-12-02] MEDS: CALCIUM CARBONATE 500 MG CHEWABLE TAB CHEW SCH ×2 (08:25→22:17)
[2017-12-02] MEDS: FUROSEMIDE 40 MG TAB PO SCH (08:25)
[2017-12-02] MEDS: PRAVASTATIN SOD 40 MG TAB PO SCH (08:25)
[2017-12-02] MEDS: SODIUM CHLORIDE 0.9% FLUSH 10 ML FLUSH IV FLUSH SCH ×3 (08:25→22:17)
[2017-12-02] MEDS: METOPROLOL TARTRATE 50 MG TAB PO SCH ×2 (08:35→22:17)
--- NOTE | 2017-12-02 11:49 | RADRPT ---
EXAM DATE/TIME: 12/02/2017 11:36 [facility] COMPARISON: CT BRAIN W/O CONTRAST, November 24, 2017, 5:16. INDICATIONS : Evaluate stroke, weakness RADIATION DOSE: 42.05 CTDIvol (mGy) MEDICAL HISTORY : Cardiovascular disease. Hypertension. Renal insufficiency, chronic. SURGICAL HISTORY : Pacemaker. ENCOUNTER: Initial ACUITY: 1 day PAIN SCALE: 0/10 LOCATION: cranial TECHNIQUE: Multiple contiguous axial images were obtained of the head. Using automated exposure control and adj ustment of the mA and/or kV according to patient size, radiation dose was kept as low as reasonably a chievable to obtain optimal diagnostic quality images. DICOM format image data is available electro nically for review and comparison. FINDINGS: CEREBRUM: There is moderate to severe generalized cerebral atrophy. Ventricles are normal in size. There is mil d periventricular white matter low attenuation. There are 2 small areas of extra-axial mildly high de nsity blood products in the right frontal high and mid convexity measuring approximately 6 mm each. T he amount of blood products as slightly decreased from the prior study. No new blood products are see n. There is no midline shift or herniation. No findings of acute infarct or mass lesion are identifie d.. POSTERIOR FOSSA: The cerebellum and brainstem are intact. The 4th ventricle is midline. The cerebellopontine angle i s unremarkable. EXTRACRANIAL: The right frontoparietal scalp soft tissue swelling has mildly decreased. SKULL: The calvaria is intact. No evidence of skull fracture. CONCLUSION: 1. The extra-axial acute blood products documented on the prior study remain present but decreased in volume. 2. Mild decrease in the right scalp soft tissue swelling. 3. Stable chronic changes include generalized atrophy and chronic periventricular white matter change katelyn Cedillo MD on December 02, 2017 at 11:42 Board Certified Radiologist. This report was verified electronically.
--- NOTE | 2017-12-02 12:31 | HHI.PR ---
Subjective Remarks Follow-up for infection When patient was initially seen he complained about his diet because he cannot get honey. He had no other complaints. Patient is AAO 4. Mild left the patient's room for about 2 minutes his daughter complained about slurred speech and left-sided facial droop. When I came and reexamined the patient right after he was still at his baseline. Patient had normal speech. There are no focal neurological deficits. In terms of his slight facial droop that was there prior. Stat MRI place but unable due to pacemaker so a stat CT scan of the brain was placed. Also discussed case with Dr. Bishop neurologist on-call today. Objective Vitals Vital Signs Date Time Temp Pulse Resp B/P (MAP) Pulse Ox O2 Delivery O2 Flow Rate FiO2 12/02/17 08:32 97.4 78 18 119/61 (80) 18 12/02/17 06:44 18 12/02/17 04:00 97.6 64 18 101/59 (73) 97 12/02/17 00:52 18 12/02/17 00:00 97.6 68 18 109/57 (74) 98 12/01/17 20:00 98.2 71 18 117/58 (77) 99 12/01/17 16:36 98.4 64 18 124/62 (82) 99 I/O 12/01/17 12/01/17 12/01/17 12/02/17 12/02/17 12/02/17 06:59 14:59 22:59 06:59 14:59 22:59 Intake Total 240 ml Output Total 251 ml Balance -11 ml Intake Oral 240 ml Output Urine Total 250 ml Stool Total 1 ml Bladder Scan Volume Amount 49 ml 49 ml # Voids 4 # Bowel Movements 1 Result Diagram: 12/01/17 0619 12/02/17 0430 Objective Remarks GENERAL: in NAD SKIN: Right foot third toe with erythema and wound. HEAD: Normocephalic. EYES: No scleral icterus. No injection or drainage. NECK: Supple, trachea midline. No JVD or lymphadenopathy. CARDIOVASCULAR: Regular rate and rhythm without murmurs, gallops, or rubs. RESPIRATORY: Breath sounds equal bilaterally. No accessory muscle use. NEURO: AAO X 3. CN 2-12 intact. slight left facial drop that was present prior. 5/5 UE and LE strength. sensation grossly intact. Procedures Right 3rd digit ulcer OM s/p Incision drainage and debridement with bone biopsy right third digit by Dr Barr podiatry on 11/26/17 Medications and IVs Current Medications Tetanus/ Diphtheria Toxoids (Tetanus/ Diphtheria Tox Adult) 0.5 ml ONCE ONCE IM Last administered on 11/22/17at 15:57; Start 11/22/17 at 14:30; Stop 11/22/17 at 14:31; Status DC Lidocaine HCl (Xylocaine 1% Inj) 30 ml ONCE ONCE INFIL Last administered on at 14:30; Start 11/22/17 at 14:30; Stop 11/22/17 at 14:31; Status DC Lidocaine HCl (Xylocaine-Mpf 1% Inj) 30 ml STK-MED ONCE .ROUTE ; Start 11/22/17 at 14:55; Stop 11/22/17 at 14:56; Status DC Acetaminophen (Tylenol) 650 mg ONCE ONCE PO Last administered on 11/22/17at 16: 23; Start 11/22/17 at 16:15; Stop 11/22/17 at 16:16; Status DC Sodium Chloride 500 ml @ 500 mls/hr BOLUS ONCE IV Last administered on at 16:24; Start 11/22/17 at 16:30; Stop 11/22/17 at 17:29; Status DC Ceftriaxone Sodium 1000 mg/ Sodium Chloride 100 ml @ 200 mls/hr ONCE ONCE IV Last administered on 11/22/17at 16:39; Start 11/22/17 at 16:30; Stop 11/22/17 at 16:59; Status DC Sodium Chloride 1,000 ml @ 999 mls/hr BOLUS ONCE IV ; Start 11/22/17 at 17:00 ; Stop 11/22/17 at 18:00; Status DC Phenylephrine HCl 40 mg/Dextrose 500 ml @ 30 mls/hr TITRATE PRN IV Blood pressure management Last administered on 11/22/17at 17:51; Start 11/22/17 at 17: 15 Terbutaline Sulfate (Brethine Inj) 1 mg UNSCH PRN SQ For Extravasation; Start 11/22/17 at 17:15 Piperacillin Sod/ Tazobactam Sod 50 ml @ 100 mls/hr ONCE ONCE IV Last administered on 11/22/17at 17:46; Start 11/22/17 at 17:45; Stop 11/22/17 at 18:14 ; Status DC Phytonadione 10 mg/Dextrose 51 ml @ 102 mls/hr ONCE ONCE IV ; Start 11/22/17 at 19:00; Stop 11/22/17 at 19:00; Status DC Phytonadione (Vitamin K Inj) 10 mg ONCE ONCE SQ Last administered on at 19:28; Start 11/22/17 at 19:00; Stop 11/22/17 at 19:03; Status DC Sodium Chloride 1,000 ml @ 84 mls/hr [id number] IV Last administered on at 05:27; Start 11/22/17 at 19:10; Stop 11/30/17 at 12:44; Status DC Sodium Chloride (NS Flush) 2 ml UNSCH PRN IV FLUSH FLUSH AFTER USING IV ACCESS ; Start 11/22/17 at 19:15 Sodium Chloride (NS Flush) 2 ml BID IV FLUSH Last administered on 12/02/17at 08: 26; Start 11/22/17 at 21:00 Acetaminophen (Tylenol) 650 mg Q6H PRN PO PAIN 1-2 AND/OR FEVER >101F Last administered on 11/27/17at 08:23; Start 11/22/17 at 19:15 Pantoprazole Sodium (Protonix Inj) 40 mg DAILY IV PUSH Last administered on at 00:56; Start 11/22/17 at 19:15; Stop 11/23/17 at 09:27; Status DC Ondansetron HCl (Zofran Inj) 4 mg Q6H PRN IV PUSH NAUSEA OR VOMITING; Start at 19:15 Metoclopramide HCl (Reglan Inj) 10 mg Q6H PRN IV PUSH NAUSEA OR VOMITING; Start 11/22/17 at 19:15 Albuterol/ Ipratropium (Duoneb Neb) 1 ampule Q4HR NEB PRN INH WHEEZING; Start 11/22/17 at 19:15 Miscellaneous Information 1 Q361D XX ; Start 11/22/17 at 19:15 Chlorhexidine Gluconate (Chlorhexidine 2% Cloth) Taper DAILY@04 TOP ; Start at 04:00; Stop 11/19/18 at 03:59 Chlorhexidine Gluconate (Chlorhexidine 2% Cloth) 3 pack UNSCH PRN TOP HYGIENIC CARE; Start 11/22/17 at 19:15 Senna/Docusate Sodium (Flower-Colace) 1 tab BID PO Last administered on at 08:24; Start 11/22/17 at 21:00 Magnesium Hydroxide (Milk Of Magnesia Liq) 30 ml Q12H PRN PO Mild constipation ; Start 11/22/17 at 19:15 Sennosides (Senokot) 17.2 mg Q12H PRN PO Moderate constipation; Start 11/22/17 at 19:15 Bisacodyl (Dulcolax Supp) 10 mg DAILY PRN RECTAL SEVERE CONSITIPATION; Start at 19:15 Lactulose (Lactulose Liq) 30 ml DAILY PRN PO SEVERE CONSITIPATION; Start at 19:15 Piperacillin Sod/ Tazobactam Sod 50 ml @ 100 mls/hr Q8H IV ; Start 11/23/17 at 01:00; Stop 11/23/17 at 01:00; Status DC Piperacillin Sod/ Tazobactam Sod 50 ml @ 100 mls/hr Q8H IV Last administered on 11/24/17at 08:38; Start 11/23/17 at 01:00; Stop 11/24/17 at 09:53; Status DC Sodium Chloride 250 ml @ 15 mls/hr ONCE ONCE IV Last administered on at 09:19; Start 11/23/17 at 06:30; Stop 11/23/17 at 23:09; Status DC Phytonadione (Vitamin K Inj) 10 mg ONCE ONCE SQ Last administered on at 18:45; Start 11/23/17 at 19:00; Stop 11/23/17 at 19:01; Status DC Pantoprazole Sodium (Protonix Inj) 40 mg Q12H IV PUSH Last administered on 11/26at 09:09; Start 11/23/17 at 10:00; Stop 11/26/17 at 11:42; Status DC Polyethylene Glycol/ Electrolytes (Colyte Liq) 4,000 ml ONCE ONCE PO ; Start at 16:00; Stop 11/23/17 at 16:05; Status DC Pharmacy Profile Note 0 ml @ 0 mls/hr UNSCH OTHER ; Start 11/23/17 at 16:30; Stop 11/30/17 at 15:00; Status DC Vancomycin/Sodium Chloride 200 ml @ 200 mls/hr ONCE ONCE IV Last administered on 11/23/17at 20:12; Start 11/23/17 at 18:00; Stop 11/23/17 at 18:59 ; Status DC Dextrose (D50w (Syr) Inj) 12.5 ml ONCE ONCE IV PUSH Last administered on at 08:48; Start 11/24/17 at 08:30; Stop 11/24/17 at 08:31; Status DC Vancomycin HCl 500 mg/Sodium Chloride 100 ml @ 200 mls/hr ONCE ONCE IV Last administered on 11/24/17at 10:23; Start 11/24/17 at 10:00; Stop 11/24/17 at 10:29 ; Status DC Phytonadione (Vitamin K Inj) 10 mg ONCE ONCE SQ Last administered on at 09:15; Start 11/24/17 at 09:00; Stop 11/24/17 at 09:01; Status DC Lidocaine HCl (Xylocaine 1% Inj (50 ml)) AT BEDSIDE FOR PROCEDURE UNSCH .XX ; Start 11/25/17 at 00:30; Stop 11/25/17 at 15:48; Status DC Vancomycin HCl 1500 mg/Sodium Chloride 515 ml @ 250 mls/hr ONCE ONCE IV Last administered on 11/25/17at 14:28; Start 11/25/17 at 14:00; Stop 11/25/17 at 16:03 ; Status DC Lidocaine HCl (Xylocaine 1% Inj) UNSCH OTHER ; Start 11/25/17 at 16:00; Stop at 00:29; Status DC Vancomycin HCl 1500 mg/Sodium Chloride 515 ml @ 250 mls/hr Q24H IV Last administered on 11/29/17at 11:49; Start 11/26/17 at 11:00; Stop 11/30/17 at 15:00 ; Status DC Miscellaneous Information SPECIFIC LAB TO BE DRAWN:VANCOMY... ONCE ONCE .XX Last administered on 11/29/17at 10:45; Start 11/29/17 at 10:45; Stop 11/29/17 at 10:46; Status DC Pantoprazole Sodium (Protonix) 40 mg Q12HR PO Last administered on 12/02/17 08 :24; Start 11/26/17 at 21:00 Acetaminophen/ Hydrocodone Bitart ([place] 5-325 Mg) 1 tab Q4H PRN PO PAIN SCALE 3 TO 5 Last administered on 12/01/17at 17:41; Start 11/26/17 at 15:15 Acetaminophen/ Hydrocodone Bitart ([place] 10-325 Mg) 1 tab Q4H PRN PO PAIN SCALE 6 TO 10 Last administered on 12/02/17 05:38; Start 11/26/17 at 15:15 Morphine Sulfate (Morphine Inj) 2 mg Q4H PRN IV PUSH BREAKTHROUGH PAIN Last administered on 12/02/17 00:32; Start 11/26/17 at 15:15 Naloxone HCl (Narcan Inj) 0.4 mg UNSCH PRN IV PUSH SEE LABEL COMMENTS; Start at 15:15 Tamsulosin HCl (Flomax) 0.4 mg DAILY@1800 PO Last administered on 12/01/17at 17: 42; Start 11/26/17 at 18:00 Sodium Chloride 250 ml @ 15 mls/hr ONCE ONCE IV Last administered on 13:14; Start 11/27/17 at 09:15; Stop 11/28/17 at 01:54; Status DC Acetaminophen (Tylenol) 650 mg Q4H PRN PO SEE LABEL COMMENTS Last administered on 11/27/17 12:47; Start 11/27/17 at 09:15; Stop 11/27/17 at 23:59; Status DC Diphenhydramine HCl (Benadryl) 25 mg Q4H PRN PO SEE LABEL COMMENTS Last administered on 11/27/17 12:47; Start 11/27/17 at 09:15; Stop 11/27/17 at 23:59 ; Status DC Furosemide (Lasix Inj) 20 mg ONCE ONCE IV PUSH Last administered on 11/27/17at 16:57; Start 11/27/17 at 10:00; Stop 11/27/17 at 10:01; Status DC Propofol (Diprivan 200 Mg/20 ml Inj) 400 mg STK-MED ONCE IV ; Start 11/24/17 at 12:00; Stop 11/27/17 at 12:51; Status DC Phenylephrine HCl (Neosynephrine/ NS 1000 Mcg/10ml Syr) 1,000 mcg STK-MED ONCE IV ; Start 11/24/17 at 12:00; Stop 11/27/17 at 12:51; Status DC Ferrous Sulfate (Ferrous Sulfate) 325 mg BID@12,17 PO Last administered on 12/01at 17:42; Start 11/27/17 at 17:00 Calcium Carbonate (Tums Chew) 500 mg ONCE ONCE CHEW Last administered on at 10:30; Start 11/28/17 at 10:00; Stop 11/28/17 at 10:01; Status DC Calcium Carbonate (Tums Chew) 500 mg Q12HR CHEW Last administered on 12/02/17at 08:25; Start 11/28/17 at 21:00 Iohexol (Omnipaque 350 Inj) 93 ml STK-MED ONCE IVCONTRAST Last administered on 11/28/17at 18:33; Start 11/28/17 at 18:33; Stop 11/28/17 at 18:34; Status DC Furosemide (Lasix) 40 mg DAILY PO Last administered on 12/02/17at 08:25; Start 11/29/17 at 15:30 Metoprolol Tartrate (Lopressor) 50 mg BID PO Last administered on 12/01/17at 20: 07; Start 11/29/17 at 21:00 Tamsulosin HCl (Flomax) 0.4 mg DAILY PO ; Start 11/29/17 at 15:30; Stop at 15:33; Status DC Pravastatin Sodium (Pravachol) 40 mg DAILY PO Last administered on 12/02/17at 08 :25; Start 11/29/17 at 15:30 Lactated Ringer's 1,000 ml @ 30 mls/hr Q24H PRN IV SEE LABEL COMMENTS; Start at 16:15; Stop 11/30/17 at 12:44; Status DC Sodium Chloride 500 ml @ 30 mls/hr [id number] PRN IV SEE LABEL COMMENTS; Start at 16:15; Stop 11/30/17 at 12:44; Status DC Povidone Iodine (Betadine 5% Antisepsis Kit) 1 applic COOK SUPERVISOR PRN EACH NARE SEE LABEL COMMENTS; Start 11/29/17 at 16:15; Stop 12/02/17 at 16:14 Chlorhexidine Gluconate (Chlorhexidine 2% Cloth) 3 pack COOK SUPERVISOR PRN TOPICAL SEE LABEL COMMENTS; Start 11/29/17 at 16:15; Stop 12/02/17 at 16:14 Insulin Human Regular (NovoLIN R INJ) See Protocol Table ... COOK SUPERVISOR PRN SQ SEE PROTOCOL TABLE; Start 11/29/17 at 16:15; Stop 12/02/17 at 16:14 Daptomycin 890 mg/ Sodium Chloride 100 ml @ 200 mls/hr Q24H IV Last administered on 12/01/17at 16:00; Start 11/30/17 at 16:00 Miscellaneous Information (Post-op Orders (for Pharmacy)) STAT ONCE XX ; Start 11/30/17 at 18:15; Stop 11/30/17 at 18:22; Status DC Bupivacaine HCl (Marcaine Pf 0.5% Inj) 30 ml ONCE ONCE INFIL Last administered on 11/30/17at 17:29; Start 11/30/17 at 17:29; Stop 11/30/17 at 18:08 ; Status DC Miscellaneous Information ALL NURSING DEPARTME... UNSCH PRN .XX SEE LABEL COMMENTS; Start 11/30/17 at 17:58; Stop 12/01/17 at 17:57; Status DC Lidocaine HCl (Xylocaine-Mpf 1% Inj) 5 ml STK-MED ONCE OTHER ; Start 11/30/17 at 12:00; Stop 12/01/17 at 14:59; Status DC Propofol (Diprivan 200 Mg/20 ml Inj) 200 mg STK-MED ONCE IV ; Start 11/30/17 at 12:00; Stop 12/01/17 at 14:59; Status DC Sodium Chloride (NS Flush) See Protocol DAILY IV FLUSH Last administered on at 08:25; Start 12/02/17 at 09:00 Sodium Chloride (NS Flush) See Protocol UNSCH PRN IV FLUSH SEE PROTOCOL TABLE; Start 12/01/17 at 18:15 Heparin Sodium (Porcine) (Heparin Central Flush) See Protocol DAILY IV FLUSH Last administered on 12/02/17at 08:25; Start 12/02/17 at 09:00 Heparin Sodium (Porcine) (Heparin Central Flush) See Protocol UNSCH PRN IV FLUSH SEE PROTOCOL TABLE; Start 12/01/17 at 18:15 Sodium Chloride (NS Flush) UNSCH PRN IV FLUSH SEE PROTOCOL TABLE; Start at 18:15 A/P Assessment and Plan This is a 87-year-old male who presented with a fall and third toe infection Brief moment of slurred speech on 12/02 per patient's daughter -Stat CT scan of the brain was placed unable to do MRI due to the type of pacemaker in place. Consulted Dr. Bishop over the phone in regards to patient. -Difficult situation because patient was on Coumadin but that was held secondary to a small subdural hemorrhage. -Neurochecks. -Discussed case with patient and daughter extensively that overall to the complexity of his case patient has a poor prognosis. Small SDH post fall - slight increase in SDH on repeat CT head, however neurologically intact -Neurosurgeon consulted. Patient was on Coumadin at home. Coumadin currently held. when to restart Coumadin pending recommendations from neurosurgeon. 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 - Right 3rd digit ulcer OM s/p Incision drainage and debridement with bone biopsy right third digit by Madhav podiatry on 11/26/17. MRSA on cultures. also pathology shows OM. -CTA runoff ordered by vascular surgeon in which it showed severe peripheral vascular disease. Per vascular surgeon no indication for any procedure from his perspective. Recommend to proceed with the toe amputation by recovery assistant. Due to severe peripheral vascular disease patient may need a BKA in the future. 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 -Per recovery assistant dressing to right foot changed, Xeroform, 4 x 4's, Carmelo and Bryant applied to right foot, Okay to weight-bear as tolerated to right foot and surgical shoe, and daughter to schedule appointment for next week. Hydronephrosis found on CTA runoff -confirmed by US. -per urologist continues with medical management including flomax and f/u as outpatient. Scalp laceration -Stable. On chronic anticoagulation -Warfarin held secondary to small subdural hemorrhage. Neurosurgeon to determine when to restart warfarin. Acute blood loss anemia likely secondary to GIB -Patient had EGD which showed gastritis and duodenal ulcer. Status post transfuse with 2 units of packed red blood cells has been stable. No active GI bleed since hospitalization. Continue to monitor. Per GI if he bleeds again will need to do a repeat EGD. -Continue Protonix. MRSA UTI and MRSA bacteremia with concern for endovascular infection -Infectious disease consult following. s/p vancomycin d/c on 11/30 now on daptomycin. Patient was receive outpatient infusion of daptomycin. Order ready placed by infectious disease. LISBETH -Improving the urine output. continue with lasix. DVT prophylaxis with SCD's Discussed case with charge nurse and patient's nurse. Patient's daughter was also at the bedside during the interview. Discharge Planning Once outpatient infusion set up and neurological exam has been negative for at least 24 hours with a negative CT scan most likely can be discharged home tomorrow if okay by neurologist. Li Alvarez MD Dec 02, 2017 12:31
--- NOTE | 2017-12-02 13:01 | MB ---
cc: Adolfo Bishop MD, David J MD DATE OF CONSULT: 12/02/2017 REASON FOR CONSULTATION: Neurology consult. HISTORY OF PRESENT ILLNESS: 87 year-old, right handed man with hypertension and some renal insufficiency who has been in the hospital. Admitted on 11/22/2917, he has had a course complicated by a fall, in fact originally admitted lost his footing, hit the back of his head. He was found to have a small right extraaxial hemorrhage with some hygroma on the right side and then a repeat CT a few days later on the of this month showed a little bit of what may be intraparenchymal hemorrhage. He was on coumadin although he is not sure why. He has a Pacemaker and sees Dr. Rueda. His tele has been sinus rhythm in the hospital. He said he woke up and maybe had a little bit of slurred speech, he did notice much of it, his daughter thought he had a left facial droop which the Med Team say they had noticed prior. MEDICATIONS AT HOME: 1. He was on Linzess 2. Iron 3. Nitrofurantoin 4. Coumadin 10 mg per day. 5. Metoprolol 6. Lisinopril 7. Simvastatin 8. Lasix. ALLERGIES: No known drug allergies. REVIEW OF SYSTEMS: He denied any diabetes, hypercholesteremia, IN, CABG, A fib, hepatic, pulmonary disease, thyroid disease, lupus, cancer, seizure, strokes. SOCIAL HISTORY: Not a smoker, or drinker, lives with his . FAMILY HISTORY: Positive for cancer, negative for seizure or stroke. CURRENT MEDICATIONS: 1. He is on Daptomycin 2. Lopressor 3. Lasix 4. Pravachol 5. Tums 6. Iron 7. Protonix 8. Flomax 9. Hydrocodone which he did get one today at 5:00 a.m. 10. Morphine, he also got a midnight last night. 11. As needed Narcan PHYSICAL EXAMINATION: VITAL SIGNS: Afebrile, 78, 18, 119/61. NECK: There were no carotid bruits. HEART: Regular rhythm, I did not detect a murmur. HEENT: Pupils are equal but small. Visual cantu are full. Extraocular movements were intact without nystagmus. The face has just a hint of droopiness at rest on the left corner of his mouth but he moves it symmetrically with normal station. Tongue was midline. NEUROLOGICALLY: There is no drift, he had normal strength in bilateral uppers and lower extremities. He has a boot on his right foot. DTRs are absent throughout. Pin prick was intact throughout including the left side of his face. He is not ataxic on finger to nose. Speech is fluent, he is not aphasic. He is alert and oriented times three. There is no slurred speech. LABORATORY FINDINGS: Hematocrit is 23, it had been down to 19. Platelet count is normal. Also labs from yesterday, UA showed positive for UTI on the his INR is 1.2, his basic metabolic profile, creatinine, 1.71. GFR 37. Calcium is 7.6, slightly below. CPK has been normal. LFT's are normal. Albumin 1.6. His troponin was normal when he came into the hospital. His creatinine was 2.56 at that time. CAT scan is noted, his chest x-ray yesterday, atelectasis versus pneumonia. He had an aortic CTA which showed severe diffuse peripheral vascular disease. He had A CT scan of his cervical spine. No acute fracture, large osteophytes anterior. He had abdominal CT that was negative. He had osteomyelitis in the toe, that was amputated. He had some staph aureus on some blood cultures on 11/22/2017. He had an echocardiogram on 11/25/2017 that showed an EF of 35 to 40%. Pulmonary hypertension, moderate to severe MR with possible mild stenosis. His left atrial size is read as normal. Although the measurement was 4.1 centimeters. Mild thickening of the aortic valve. I do not see where he has been seen by cardiology. IMPRESSION/PLAN: I think that he looks okay neurologically at this time. He had normal naming and repetition and has now slurred speech. It might be that he got the medication of the Narcotics and also just woke up. I will stop his narcotics. Now we will repeat a CT and do a carotid ultrasound and EEG. If there is any thought that he could have endocarditis, it should be addressed with a possible REGINALD. We will see what the CAT scan looks like. He appears to be probably at a high risk for cardioembolic events in the future and should be anticoagulated as soon as possible after the blood resolves. It is possible that he could have had A fib in the past, it is unclear why he has been anticoagulated but could have Dr. Rueda come by and see him and weigh in on that. I will defer to the med team on that. MD DINA Sheldon/KETTY , 11:26 AM , 01:01 PM
--- NOTE | 2017-12-02 13:40 | RADRPT ---
EXAM DATE/TIME: 12/02/2017 12:00 [facility] COMPARISON: No previous studies available for comparison. INDICATIONS : Cerebrovascular accident. MEDICAL HISTORY : Hypercholesterolemia. CFH. Anticoagulant therapy. A.FIB. Hypertension. Renal disease. Enlarged pr ostate. Arthritis. MRSA. SURGICAL HISTORY : Eye surgery. Pacemaker. TURP. Bilertal knee replacement. ENCOUNTER: Initial ACUITY: 1 day PAIN SCORE: 0/10 LOCATION: Bilateral neck PEAK SYSTOLIC VELOCITIES (cm/sec): ICA/CCA RATIO: Right: 1.2 Left: 0.9 ICA: Right: 92.5 Left: 92.4 CCA: Right: 76.8 Left: 101.0 ECA: Right: 100.0 Left: 133.7 VERTEBRAL: Right: 55.0 antegrade Left: 80.6 antegrade Elevated flow velocities and ICA/CCA ratios have been found to correlate with increased degrees of vessel stenosis, calculated as percentage of diameter relative to a normal segment of distal ICA/CCA FINDINGS: RIGHT CAROTID: There is no evidence for a hemodynamically significant carotid stenosis. Minimal int imal hyperplasia is present with scattered calcific plaque. LEFT CAROTID: There is no evidence for a hemodynamically significant carotid stenosis. Minimal inti mal hyperplasia is present with scattered calcific plaque. VERTEBRAL ARTERIES: Flow is antegrade in both vertebral arteries. MISCELLANEOUS: There are no ancillary masses or adenopathy. CONCLUSION: Negative examination for a hemodynamically significant carotid stenosis. Phu Shell MD FACR on December 02, 2017 at 13:39 Board Certified Radiologist. This report was verified electronically.
[2017-12-02] MEDS: FERROUS SULFATE 325 MG (65 MG ELEMENTAL IRON) TAB PO SCH ×2 (15:43→18:40)
[2017-12-02] MEDS: SODIUM CHLORIDE 0.9% IV SCH (15:43)
[2017-12-02] MEDS: DAPTOMYCIN IV SCH (15:43)
--- NOTE | 2017-12-02 15:54 | MG ---
cc: Rhiannon Small MD EEG #[id number] REFERRING PHYSICIAN: Dr. Bishop In room 1516 with photic done, awake, drowsy, asleep study. CT: Extraaxial acute blood products, mild decrease in the right scalp soft tissue swelling, atrophy. EEG 02/14/2012 was normal. On 11/22/2017 he fell hitting the back of his head, brief episode of slurred speech, small subdural hematoma. An 87-year-old man with multiple medical issues with pacemaker, hypertension, on anticoagulation. CURRENT MEDICINES: Heparin, daptomycin, Lasix, ferrous sulfate, [place], Flomax. DESCRIPTION OF RECORD: The patient has an overall 5 to 5-1/2 Hertz background. Symmetrical. Mild attenuation throughout noted. He has some mild arrhythmia versus a PVC at times. Hyperventilation was not done. Photic stimulation with a mild driving response. IMPRESSION: Abnormal EEG due to mild slowing. Also, some premature ventricular contractions were noted in the EKG. No epileptiform features. Clinical correlation with encephalopathy ____ etiology. Rhiannon Small MD DF/TL/robinson , 03:15 PM , 03:35 PM
[2017-12-02] MEDS: TAMSULOSIN HCL 0.4 MG CAP PO SCH (18:40)
[2017-12-03] VITALS (9 sets, daily range): BP systolic 109–152; BP diastolic 55–76; PULSE 64–111; RESP 17–18; TEMP 97.1–98.2; O2SAT 96–100
--- NOTE | 2017-12-03 07:41 | HHI.PR ---
Subjective Remarks no new co Objective Vital Signs Date Time Temp Pulse Resp B/P (MAP) Pulse Ox O2 Delivery O2 Flow Rate FiO2 12/03/17 04:00 98.2 76 18 122/76 (91) 96 12/03/17 00:00 97.1 75 18 130/72 (91) 97 12/02/17 20:00 97.4 88 18 116/64 (81) 98 12/02/17 17:59 99 21 12/02/17 16:34 97.4 74 18 139/86 (103) 99 12/02/17 12:43 97.7 69 18 128/71 (90) 98 12/02/17 08:32 97.4 78 18 119/61 (80) 97 I/O 12/02/17 12/02/17 12/02/17 12/03/17 12/03/17 12/03/17 07:00 15:00 23:00 07:00 15:00 23:00 # Voids 5 1 1 # Bowel Movements 1 1 4 Result Diagram: 12/01/17 0619 12/02/17 0430 Procedures Status post right third digit amputation date of surgery 11/30 Objective Remarks awake alert left droop mild and moves sym vff speech nl Assessment and Plan Assessment and Plan imp eeg nl us neg ct improved b12 nl should have cards weigh in on afib hx? defer to med team could dc neuro otero and fu with me office 2 weeks Adolfo Bishop MD Dec 03, 2017 07:41
[2017-12-03] MEDS: CALCIUM CARBONATE 500 MG CHEWABLE TAB CHEW SCH ×2 (08:19→20:46)
[2017-12-03] MEDS: PANTOPRAZOLE SOD 40 MG DELAYED RELEASE TAB PO SCH ×2 (08:20→20:43)
[2017-12-03] MEDS: FUROSEMIDE 40 MG TAB PO SCH (08:21)
[2017-12-03] MEDS: PRAVASTATIN SOD 40 MG TAB PO SCH (08:21)
[2017-12-03] MEDS: DOCUSATE SODIUM 50 MG/SENNA 8.6 MG TAB PO SCH ×2 (08:22→20:45)
[2017-12-03] MEDS: METOPROLOL TARTRATE 50 MG TAB PO SCH ×2 (08:22→20:40)
[2017-12-03] MEDS: SODIUM CHLORIDE 0.9% FLUSH 10 ML FLUSH IV FLUSH SCH ×3 (08:22→20:44)
--- NOTE | 2017-12-03 09:10 | HHI.PR ---
Subjective Remarks in no acute distress. is comfortable with no pain. afebrile. wants to go home today. Objective Vitals Vital Signs Date Time Temp Pulse Resp B/P (MAP) Pulse Ox O2 Delivery O2 Flow Rate FiO2 12/03/17 04:00 98.2 76 18 122/76 (91) 96 12/03/17 00:00 97.1 75 18 130/72 (91) 97 12/02/17 20:00 97.4 88 18 116/64 (81) 98 12/02/17 17:59 99 21 12/02/17 16:34 97.4 74 18 139/86 (103) 99 12/02/17 12:43 97.7 69 18 128/71 (90) 98 I/O 12/02/17 12/02/17 12/02/17 12/03/17 12/03/17 12/03/17 07:00 15:00 23:00 07:00 15:00 23:00 # Voids 5 1 1 # Bowel Movements 1 1 4 Result Diagram: 12/01/17 0619 12/02/17 0430 Imaging Last Impressions Carotid Artery Ultrasound 12/02/17 1124 Signed Impressions: Service Date/Time: Saturday, December 02, 2017 12:00 - CONCLUSION: Negative examination for a hemodynamically significant carotid stenosis. Phu Shell MD FACR Head CT 12/02/17 0000 Signed Impressions: Service Date/Time: Saturday, December 02, 2017 11:36 - CONCLUSION: 1. The extra-axial acute blood products documented on the prior study remain present but decreased in volume. 2. Mild decrease in the right scalp soft tissue swelling. 3. Stable chronic changes include generalized atrophy and chronic periventricular white matter changes. Jalil Cedillo MD Chest X-Ray 12/01/17 0000 Signed Impressions: Service Date/Time: Friday, December 01, 2017 17:42 - CONCLUSION: 1. Uncomplicated PICC line placement. 2. Left lower lobe atelectasis versus pneumonia. There has been no significant change when compared to the prior exam. Adolfo Freitas MD Foot X-Ray 11/30/17 0000 Signed Impressions: Service Date/Time: Thursday, November 30, 2017 18:23 - CONCLUSION: 1. 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 Tiago Rodriguez MD Renal Ultrasound 11/29/17 0000 Signed Impressions: Service Date/Time: Wednesday, November 29, 2017 16:28 - CONCLUSION: 1. There is hydronephrosis of the left collecting system. 2. Multiple small benign- appearing bilateral renal cysts. Bull Pena MD Aorta w/Runoff CTA 11/28/17 0000 Signed Impressions: Service Date/Time: Tuesday, November 28, 2017 18:26 - CONCLUSION: 1. Severe atherosclerotic disease. The popliteal arteries are nonvisualized bilaterally for a short segment given the beam hardening artifact from the knee arthroplasty hardware. In the right leg the anterior tibial artery appears to be occluded in the mid leg for a short segment with minimal runoff more distally. Please see above for detailed description of the remaining vessels. 2. Moderate size right and a chronic small left pleural effusion with left pleural thickening. 3. There is a small volume of free fluid in the pelvis from uncertain etiology. There is mild diffuse subcutaneous edema. 4. There is abnormal patchy enhancement of both kidneys which is nonspecific but can be seen with infection or interstitial nephritis related to contrast administration. There is severe left hydronephrosis and hydroureter from uncertain etiology. No distal obstructing process is seen. Therefore, this could be related to reflux. 1. Jalil Cedillo MD Upper Extremity Ultrasound 11/27/17 0000 Signed Impressions: Service Date/Time: Monday, November 27, 2017 21:56 - CONCLUSION: 1. No sonographic evidence for upper extremity DVT. Chris Cooper MD Cervical Spine CT 11/22/17 1418 Signed Impressions: Service Date/Time: Wednesday, November 22, 2017 14:39 - CONCLUSION: Large anterior osteophytes at multiple levels. Scattered areas of bilateral neuroforaminal narrowing due to osteophyte. No evidence of acute fracture or significant subluxation. Dagoberto Das MD Shoulder X-Ray 11/22/17 0000 Signed Impressions: Service Date/Time: Wednesday, November 22, 2017 16:27 - CONCLUSION: Unremarkable examination of the left shoulder status post left bipolar pacermaker. Marked impingement change with acromial spurring and erosions across the greater tuberosity Dagoberto Das MD Pelvis X-Ray 11/22/17 0000 Signed Impressions: Service Date/Time: Wednesday, November 22, 2017 14:36 - CONCLUSION: Unremarkable examination of the pelvis. Dagoberto Das MD Chest CT 11/22/17 0000 Signed Impressions: Service Date/Time: Wednesday, November 22, 2017 16:02 - CONCLUSION: 1. No acute finding is identified on this noncontrast examination of the chest. 2. There is stable left pleural thickening, trace left pleural fluid, and volume loss in the left lower lobe. 3. Coronary artery calcification and severe atherosclerotic disease of aorta. Jalil Cedillo MD Abdomen/Pelvis CT 11/22/17 0000 Signed Impressions: Service Date/Time: Wednesday, November 22, 2017 16:02 - CONCLUSION: 1. No acute finding is identified on this mildly motion degraded noncontrast CT of the abdomen and pelvis. 2. Stable nonacute findings include cholelithiasis, severe atherosclerotic disease, and sigmoid diverticulosis. Jalil Cedillo MD Objective Remarks GENERAL: This is a well-nourished, well-developed patient, in no apparent distress. CARDIOVASCULAR: Regular rate and regular rhythm without murmurs, gallops, or rubs. RESPIRATORY: Clear to auscultation. Breath sounds equal bilaterally. No wheezes , rales, or rhonchi. GASTROINTESTINAL: Abdomen soft, non-tender, nondistended. Normal, active bowel sounds MUSCULOSKELETAL: right foot covered with clean dressing. NEURO: Alert & Oriented x4 to person, place, time, situation. Moves all ext x4 Procedures Right 3rd digit ulcer OM s/p Incision drainage and debridement with bone biopsy right third digit by Dr Barr podiatry on 11/26/17 Medications and IVs Inpatient Medications Acetaminophen (Tylenol) 650 mg Q4H PRN PO SEE LABEL COMMENTS Last administered on 11/27/17at 12:47; Start 11/27/17 at 09:15; Stop 11/27/17 at 23:59; Status DC Acetaminophen/ Hydrocodone Bitart ([place] 5-325 Mg) 1 tab Q4H PRN PO PAIN SCALE 3 TO 5 Last administered on 12/01/17at 17:41; Start 11/26/17 at 15:15 Acetaminophen/ Hydrocodone Bitart ([place] 10-325 Mg) 1 tab Q4H PRN PO PAIN SCALE 6 TO 10 Last administered on 12/02/17at 05:38; Start 11/26/17 at 15:15 Albuterol/ Ipratropium (Duoneb Neb) 1 ampule Q4HR NEB PRN INH WHEEZING; Start 11/22/17 at 19:15 Bisacodyl (Dulcolax Supp) 10 mg DAILY PRN RECTAL SEVERE CONSITIPATION; Start at 19:15 Bupivacaine HCl (Marcaine Pf 0.5% Inj) 30 ml ONCE ONCE INFIL Last administered on 11/30/17at 17:29; Start 11/30/17 at 17:29; Stop 11/30/17 at 18:08 ; Status DC Calcium Carbonate (Tums Chew) 500 mg Q12HR CHEW Last administered on 12/03/17at 08:19; Start 11/28/17 at 21:00 Ceftriaxone Sodium 1000 mg/ Sodium Chloride 100 ml @ 200 mls/hr ONCE ONCE IV Last administered on 11/22/17at 16:39; Start 11/22/17 at 16:30; Stop 11/22/17 at 16:59; Status DC Chlorhexidine Gluconate (Chlorhexidine 2% Cloth) 3 pack HOTEL MAINTENANCE ENGINEER PRN TOPICAL SEE LABEL COMMENTS; Start 11/29/17 at 16:15; Stop 12/02/17 at 16:14; Status DC Daptomycin 890 mg/ Sodium Chloride 100 ml @ 200 mls/hr Q24H IV Last administered on 12/02/17at 15:43; Start 11/30/17 at 16:00 Dextrose (D50w (Syr) Inj) 12.5 ml ONCE ONCE IV PUSH Last administered on at 08:48; Start 11/24/17 at 08:30; Stop 11/24/17 at 08:31; Status DC Diphenhydramine HCl (Benadryl) 25 mg Q4H PRN PO SEE LABEL COMMENTS Last administered on 11/27/17at 12:47; Start 11/27/17 at 09:15; Stop 11/27/17 at 23:59 ; Status DC Ferrous Sulfate (Ferrous Sulfate) 325 mg BID@12,17 PO Last administered on 12/02at 18:40; Start 11/27/17 at 17:00 Furosemide (Lasix Inj) 20 mg ONCE ONCE IV PUSH Last administered on 11/27/17at 16:57; Start 11/27/17 at 10:00; Stop 11/27/17 at 10:01; Status DC Furosemide (Lasix) 40 mg DAILY PO Last administered on 12/03/17at 08:21; Start at 15:30 Heparin Sodium (Porcine) (Heparin Central Flush) See Protocol UNSCH PRN IV FLUSH SEE PROTOCOL TABLE; Start 12/01/17 at 18:15 Insulin Human Regular (NovoLIN R INJ) See Protocol Table ... HOTEL MAINTENANCE ENGINEER PRN SQ SEE PROTOCOL TABLE; Start 11/29/17 at 16:15; Stop 12/02/17 at 16:14; Status DC Lactated Ringer's 1,000 ml @ 30 mls/hr Q24H PRN IV SEE LABEL COMMENTS; Start at 16:15; Stop 11/30/17 at 12:44; Status DC Lactulose (Lactulose Liq) 30 ml DAILY PRN PO SEVERE CONSITIPATION; Start at 19:15 Lidocaine HCl (Xylocaine 1% Inj (50 ml)) AT BEDSIDE FOR PROCEDURE UNSCH .XX ; Start 11/25/17 at 00:30; Stop 11/25/17 at 15:48; Status DC Lidocaine HCl (Xylocaine 1% Inj) UNSCH OTHER ; Start 11/25/17 at 16:00; Stop at 00:29; Status DC Magnesium Hydroxide (Milk Of Magnesia Liq) 30 ml Q12H PRN PO Mild constipation ; Start 11/22/17 at 19:15 Metoclopramide HCl (Reglan Inj) 10 mg Q6H PRN IV PUSH NAUSEA OR VOMITING; Start 11/22/17 at 19:15 Metoprolol Tartrate (Lopressor) 50 mg BID PO Last administered on 12/03/17at 08: 22; Start 11/29/17 at 21:00 Miscellaneous Information ALL NURSING DEPARTME... UNSCH PRN .XX SEE LABEL COMMENTS; Start 11/30/17 at 17:58; Stop 12/01/17 at 17:57; Status DC Miscellaneous Information (Post-op Orders (for Pharmacy)) STAT ONCE XX Last administered on 11/30/17at 18:15; Start 11/30/17 at 18:15; Stop 11/30/17 at 18:22 ; Status DC Morphine Sulfate (Morphine Inj) 2 mg Q4H PRN IV PUSH BREAKTHROUGH PAIN Last administered on 12/02/17at 00:32; Start 11/26/17 at 15:15 Naloxone HCl (Narcan Inj) 0.4 mg UNSCH PRN IV PUSH SEE LABEL COMMENTS; Start at 15:15 Ondansetron HCl (Zofran Inj) 4 mg Q6H PRN IV PUSH NAUSEA OR VOMITING; Start at 19:15 Pantoprazole Sodium (Protonix Inj) 40 mg Q12H IV PUSH Last administered on 11/26at 09:09; Start 11/23/17 at 10:00; Stop 11/26/17 at 11:42; Status DC Pantoprazole Sodium (Protonix) 40 mg Q12HR PO Last administered on 12/03/17at 08: 20; Start 11/26/17 at 21:00 Pharmacy Profile Note 0 ml @ 0 mls/hr UNSCH OTHER ; Start 11/23/17 at 16:30; Stop 11/30/17 at 15:00; Status DC Phenylephrine HCl 40 mg/Dextrose 500 ml @ 30 mls/hr TITRATE PRN IV Blood pressure management Last administered on 11/22/17at 17:51; Start 11/22/17 at 17: 15 Phytonadione (Vitamin K Inj) 10 mg ONCE ONCE SQ Last administered on at 09:15; Start 11/24/17 at 09:00; Stop 11/24/17 at 09:01; Status DC Phytonadione 10 mg/Dextrose 51 ml @ 102 mls/hr ONCE ONCE IV ; Start 11/22/17 at 19:00; Stop 11/22/17 at 19:00; Status DC Piperacillin Sod/ Tazobactam Sod 50 ml @ 100 mls/hr Q8H IV Last administered on 11/24/17at 08:38; Start 11/23/17 at 01:00; Stop 11/24/17 at 09:53; Status DC Polyethylene Glycol/ Electrolytes (Colyte Liq) 4,000 ml ONCE ONCE PO ; Start at 16:00; Stop 11/23/17 at 16:05; Status DC Povidone Iodine (Betadine 5% Antisepsis Kit) 1 applic [employer] MAINTENANCE ENGINEER PRN EACH NARE SEE LABEL COMMENTS; Start 11/29/17 at 16:15; Stop 12/02/17 at 16:14; Status DC Pravastatin Sodium (Pravachol) 40 mg DAILY PO Last administered on 12/03/17at 08: 21; Start 11/29/17 at 15:30 Senna/Docusate Sodium (Flower-Colace) 1 tab BID PO Last administered on at 22:17; Start 11/22/17 at 21:00 Sennosides (Senokot) 17.2 mg Q12H PRN PO Moderate constipation; Start 11/22/17 at 19:15 Sodium Chloride (NS Flush) UNSCH PRN IV FLUSH SEE PROTOCOL TABLE; Start at 18:15 Tamsulosin HCl (Flomax) 0.4 mg DAILY PO ; Start 11/29/17 at 15:30; Stop at 15:33; Status DC Terbutaline Sulfate (Brethine Inj) 1 mg UNSCH PRN SQ For Extravasation; Start 11/22/17 at 17:15 Tetanus/ Diphtheria Toxoids (Tetanus/ Diphtheria Tox Adult) 0.5 ml ONCE ONCE IM Last administered on 11/22/17at 15:57; Start 11/22/17 at 14:30; Stop 11/22/17 at 14:31; Status DC Vancomycin HCl 500 mg/Sodium Chloride 100 ml @ 200 mls/hr ONCE ONCE IV Last administered on 11/24/17at 10:23; Start 11/24/17 at 10:00; Stop 11/24/17 at 10:29 ; Status DC Vancomycin HCl 1500 mg/Sodium Chloride 515 ml @ 250 mls/hr Q24H IV Last administered on 11/29/17at 11:49; Start 11/26/17 at 11:00; Stop 11/30/17 at 15:00 ; Status DC Vancomycin/Sodium Chloride 200 ml @ 200 mls/hr ONCE ONCE IV Last administered on 11/23/17at 20:12; Start 11/23/17 at 18:00; Stop 11/23/17 at 18:59 ; Status DC A/P Assessment and Plan A/P Brief moment of slurred speech on 12/02 per patient's daughter -Difficult situation because patient was on Coumadin but that was held secondary to a small subdural hemorrhage. -Neurochecks. - case was previously d/w with patient and daughter extensively that overall to the complexity of his case patient has a poor prognosis. Small SDH post fall - slight increase in SDH on repeat CT head, however neurologically intact -Neurosurgeon consulted. Patient was on Coumadin at home. Coumadin currently held. to restart Coumadin pending recommendations from neurosurgeon. 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 - Right 3rd digit ulcer OM s/p Incision drainage and debridement with bone biopsy right third digit by Madhav podiatry on 11/26/17. MRSA on cultures. also pathology shows OM. -CTA runoff ordered by vascular surgeon in which it showed severe peripheral vascular disease. Per vascular surgeon no indication for any procedure from his perspective. Recommend to proceed with the toe amputation by commanding officer traffic division. Due to severe peripheral vascular disease patient may need a BKA in the future. 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 -Per commanding officer traffic division dressing to right foot changed, Xeroform, 4 x 4's, Carmelo and Bryant applied to right foot, Okay to weight-bear as tolerated to right foot and surgical shoe, and daughter to schedule appointment for next week. Hydronephrosis found on CTA runoff -confirmed by US. -per urologist continues with medical management including flomax and f/u as outpatient. Scalp laceration -Stable. On chronic anticoagulation -Warfarin held secondary to small subdural hemorrhage. Neurosurgeon to determine when to restart warfarin. Acute blood loss anemia likely secondary to GIB -Patient had EGD which showed gastritis and duodenal ulcer. Status post transfuse with 2 units of packed red blood cells has been stable. No active GI bleed since hospitalization. Continue to monitor. Per GI if he bleeds again will need to do a repeat EGD. -Continue Protonix. MRSA UTI and MRSA bacteremia with concern for endovascular infection -Infectious disease consult following. s/p vancomycin d/c on 11/30 now on daptomycin. Patient was receive outpatient infusion of daptomycin. Order ready placed by infectious disease. LISBETH -Improving the urine output. continue with lasix. DVT prophylaxis with SCD's Discharge Planning likely dc home with [facility] later today - after cleared by neurosurgery. see med list. d/w the patient and the daughter. f/u; pcp, neurology, podiatry,ID and GI. time spent 35 min. Handy Rosas MD 1, 2018 09:10
[2017-12-03] MEDS ORDERED: ASPIRIN 81 MG CHEW TAB PO STA (09:54)
[2017-12-03] MEDS: FERROUS SULFATE 325 MG (65 MG ELEMENTAL IRON) TAB PO SCH ×2 (11:31→16:39)
--- NOTE | 2017-12-03 12:58 | HHI.PR ---
Addendum To [facility] Progress Not Reason for addendum: Additonal documentation (d/w - will start the patient back on coumadin with subw Heparin- stop aspirin- consulted .patient is not ready for discharge today.) Handy Rosas MD Dec 03, 2017 12:58
[2017-12-03 13:45] LABS: INTERNATIONAL NORMALIZED RATIO 1.2 RATIO; PROTHROMBIN TIME - PATIENT 12.3 SEC (9.8-11.6)
--- NOTE | 2017-12-03 14:23 | MB ---
cc: Timmy Rueda MD DATE OF CONSULT: 12/03/2017 REASON FOR CONSULTATION: Assist with management of anticoagulation, history of atrial fibrillation. HISTORY OF PRESENT ILLNESS: The patient is an 87-year-old white male with a history of chronic renal insufficiency, gout, hyperlipidemia, hypertension, pacemaker implant, paroxysmal atrial fibrillation, possible paroxysmal ventricular tachycardia, who initially presented to the hospital after falling, hitting the back of his head. He was found to have a small right-sided subdural hematoma. Also of note, he was mildly to moderately hypotensive on admission. The patient states he did not lose consciousness at the time of his fall. He denies any chest pain, shortness of breath, palpitations. Occasionally, he experiences mild transient dizziness. He also denies paroxysmal nocturnal dyspnea, fevers, flu symptoms. Chronically, he has minimal dependent edema. PAST MEDICAL HISTORY: 1. Chronic renal insufficiency. 2. Gout. 3. Hyperlipidemia. 4. Hypertension. 5. [employer] permanent pacemaker implant 03/05/2012. Of note, he had right ventricular lead dislodgement and the lead removed and a new one placed, which subsequently caused a pericardial effusion. This case was done by Dr. Sarthak Oconnell. 6. Paroxysmal atrial fibrillation, status post cardioversion 03/06/2012. 7. History of pericardial effusion after right ventricular lead dislodgement and replacement, status post pericardiocentesis 03/06/2012. 8. History of possible nonsustained ventricular tachycardia demonstrated by pacemaker check 2014 without significant recurrences since that time. MEDICATIONS: His cardiac medications at home: Warfarin, simvastatin, metoprolol, lisinopril, furosemide. ALLERGIES: NO KNOWN DRUG ALLERGIES. FAMILY HISTORY: Noncontributory. SOCIAL HISTORY: The patient denies alcohol or tobacco abuse. He is a former smoker. REVIEW OF SYSTEMS: As in the history of present illness; otherwise, negative or noncontributory. He also denies headache, abdominal pain, melena, dyspepsia, bright red per rectum. PHYSICAL EXAMINATION: VITAL SIGNS: His blood pressure 126/73 with a pulse of 64, respirations 18. GENERAL: He is a well-developed, well-nourished white male in no acute distress. NECK: Jugular venous pressure is normal. Carotid pulses are 2+ bilaterally and without bruits. CHEST: Reveals clear lung cantu. CARDIAC: He has a regular rhythm and rate with a grade 2/6 systolic murmur heard best at the base of the heart. The S2 heart sound is normal. No gallop is audible. ABDOMEN: He has a soft, nontender abdomen. Bowel sounds are present. There is no definite hepatosplenomegaly. EXTREMITIES: Reveals no pedal edema. EKG from 11/23/2017 shows sinus rhythm, lateral ST and T wave abnormality, consider ischemia. LABORATORY DATA: Includes potassium 4.1, BUN 28, creatinine 1.71, CK 39. INR 1.2. WBC 4.7, hemoglobin 8.1, platelets 208. IMPRESSION: Overall stable cardiac status in this 87-year-old white male with a history of paroxysmal atrial fibrillation, chronic renal insufficiency, hypertension, pacemaker implant, possible nonsustained ventricular tachycardia, admitted status post a fall. Also of note, he is status post amputation of his third right toe this admission 11/30/2017 due to infection. He does continue to have short salvos of what appear to be atrial fibrillation, which sometimes is aberrantly conducted. His atrial arrhythmia burden has been overall low the past several months based on pacemaker checks. Nonetheless, his thromboembolic risk is at least moderately elevated. His echocardiogram has been reviewed. His ejection fraction appears closer to 50% rather than the 35-40% reported. The degree of tricuspid regurgitation also appears to be moderate rather than "moderate to severe." RECOMMENDATIONS: 1. Given his at least moderately elevated thromboembolic risk and continued episodic atrial fibrillation, agree with warfarin therapy to achieve an INR of 2-2.5. 2. Continue his metoprolol. No JUAN ANTONIO inhibitor with his renal insufficiency. MD SLIM Miller/cc , 01:50 PM , 02:22 PM BRISSA
[2017-12-03] MEDS: DAPTOMYCIN IV SCH (16:38)
[2017-12-03] MEDS: SODIUM CHLORIDE 0.9% IV SCH (16:38)
[2017-12-03] MEDS: TAMSULOSIN HCL 0.4 MG CAP PO SCH (16:40)
[2017-12-03] MEDS: WARFARIN SOD 3 MG TAB PO SCH (16:40)
[2017-12-03] MEDS: HEPARIN SODIUM - SQ 10,000 UNITS/ML VIAL SQ SCH (20:45)
[2017-12-04] VITALS (11 sets, daily range): BP systolic 114–135; BP diastolic 57–80; PULSE 61–80; RESP 17–19; TEMP 97.2–98.8; O2SAT 95–99
[2017-12-04] MEDS: CHLORHEXIDINE GLUCONATE 2 % 1 PACK (2 CLOTHS) TOP SCH (04:00)
[2017-12-04 04:01] LABS: INTERNATIONAL NORMALIZED RATIO 1.4 RATIO; PROTHROMBIN TIME - PATIENT 13.9 SEC (9.8-11.6)
[2017-12-04] MEDS: CALCIUM CARBONATE 500 MG CHEWABLE TAB CHEW SCH ×2 (07:52→20:38)
[2017-12-04] MEDS: PANTOPRAZOLE SOD 40 MG DELAYED RELEASE TAB PO SCH ×2 (07:52→20:31)
[2017-12-04] MEDS: PRAVASTATIN SOD 40 MG TAB PO SCH (07:52)
[2017-12-04] MEDS: FUROSEMIDE 40 MG TAB PO SCH (07:53)
[2017-12-04] MEDS: DOCUSATE SODIUM 50 MG/SENNA 8.6 MG TAB PO SCH ×2 (07:53→20:30)
[2017-12-04] MEDS: SODIUM CHLORIDE 0.9% FLUSH 10 ML FLUSH IV FLUSH SCH ×3 (07:54→20:31)
[2017-12-04] MEDS: METOPROLOL TARTRATE 50 MG TAB PO SCH (07:54)
[2017-12-04] MEDS: HEPARIN SODIUM - SQ 10,000 UNITS/ML VIAL SQ SCH ×2 (07:54→20:32)
--- NOTE | 2017-12-04 08:49 | HHI.PR ---
Subjective Remarks no new co Objective Vital Signs Date Time Temp Pulse Resp B/P (MAP) Pulse Ox O2 Delivery O2 Flow Rate FiO2 12/04/17 06:00 98.0 75 19 135/65 (88) 96 12/04/17 03:00 61 12/04/17 00:40 97.6 67 18 125/67 (86) 95 12/03/17 20:34 97.3 74 18 109/55 (73) 99 12/03/17 20:00 80 12/03/17 16:00 97.9 76 18 152/73 (99) 97 12/03/17 15:00 111 12/03/17 12:20 21 12/03/17 12:00 64 12/03/17 12:00 97.6 66 17 116/74 (88) 100 12/03/17 09:56 85 I/O 12/03/17 12/03/17 12/03/17 12/04/17 12/04/17 12/04/17 07:00 15:00 23:00 07:00 15:00 23:00 Intake Total 600 ml 500 ml Balance 600 ml 500 ml Intake Oral 600 ml 500 ml # Voids 1 0 2 # Bowel Movements 1 4 3 1 Result Diagram: 12/01/17 0619 12/02/17 0430 Procedures Status post right third digit amputation date of surgery 11/30 Objective Remarks awake alert left droop mild and moves sym vff speech nl no change Assessment and Plan Assessment and Plan imp eeg nl us neg ct improved b12 nl should have cards weigh in on afib hx? defer to med team could dc neuro otero and fu with me office 2 weeks 12/04/17 martinaeter wanted back on anticoag so cleared with nusu acc to med team and coumadin back on w sq hep needs daily inrs inr 1.4 today i dw her check standing bp today she willhave to follow inr he passed out at home initially and hit head cards on case afib should check ct brain when inr >2.0 i dw daughter for next week we willc all her MED TEAM PLZ CHECK AND SEE WHAT HIS STANDING BPS ARE I PUT IN ORDER Adolfo Bishop MD Dec 04, 2017 08:49
--- NOTE | 2017-12-04 08:51 | PD.CARD.PN ---
Subjective Subjective Remarks Denies palpitations, dizziness, near syncope, CP, dyspnea. Objective Medications Item Value Date Time Heparin Sodium 5,000 units 12/03/17 2100 (Porcine) Q12HR/SQ 12/04/17 0754 (Heparin Inj) Warfarin Sodium 3 mg 12/03/17 1600 (Coumadin) DAILY@16/PO 12/03/17 1640 Furosemide 40 mg 11/29/17 1530 (Lasix) DAILY/PO 12/04/17 0753 Metoprolol 50 mg 11/29/17 2100 Tartrate BID/PO 12/04/17 0754 (Lopressor) Pravastatin Sodium 40 mg 11/29/17 1530 (Pravachol) DAILY/PO 12/04/17 0752 Current Medications Medications (Trade) Dose Ordered Sig/Aga Route Start Time Stop Time Status Last Admin Phenylephrine HCl 40 mg/Dextrose 500 ml @ 30 mls/hr TITRATE PRN IV 11/22/17 17:15 11/22/17 17:51 (Brethine Inj) 1 mg UNSCH PRN SQ 11/22/17 17:15 (NS Flush) 2 ml UNSCH PRN IV FLUSH 11/22/17 19:15 (NS Flush) 2 ml BID IV FLUSH 11/22/17 21:00 12/04/17 07:54 (Tylenol) 650 mg Q6H PRN PO 11/22/17 19:15 11/27/17 08:23 (Zofran Inj) 4 mg Q6H PRN IV PUSH 11/22/17 19:15 (Reglan Inj) 10 mg Q6H PRN IV PUSH 11/22/17 19:15 (Duoneb Neb) 1 ampule Q4HR NEB PRN INH 11/22/17 19:15 Miscellaneous Information 1 Q361D XX 11/22/17 19:15 (Chlorhexidine 2% Cloth) Taper DAILY@04 TOP 11/23/17 04:00 11/19/18 03:59 (Chlorhexidine 2% Cloth) 3 pack UNSCH PRN TOP 11/22/17 19:15 (Flower-Colace) 1 tab BID PO 11/22/17 21:00 12/02/17 22:17 (Milk Of Magnesia Liq) 30 ml Q12H PRN PO 11/22/17 19:15 (Senokot) 17.2 mg Q12H PRN PO 11/22/17 19:15 (Dulcolax Supp) 10 mg DAILY PRN RECTAL 11/22/17 19:15 (Lactulose Liq) 30 ml DAILY PRN PO 11/22/17 19:15 (Protonix) 40 mg Q12HR PO 11/26/17 21:00 12/04/17 07:52 ([place] 5-325 Mg) 1 tab Q4H PRN PO 11/26/17 15:15 12/01/17 17:41 ([place] 10-325 Mg) 1 tab Q4H PRN PO 11/26/17 15:15 12/02/17 05:38 (Morphine Inj) 2 mg Q4H PRN IV PUSH 11/26/17 15:15 12/02/17 00:32 (Narcan Inj) 0.4 mg UNSCH PRN IV PUSH 11/26/17 15:15 (Flomax) 0.4 mg DAILY@1800 PO 11/26/17 18:00 12/03/17 16:40 (Ferrous Sulfate) 325 mg BID@12,17 PO 11/27/17 17:00 12/03/17 16:39 (Tums Chew) 500 mg Q12HR CHEW 11/28/17 21:00 12/03/17 08:19 (Lasix) 40 mg DAILY PO 11/29/17 15:30 12/04/17 07:53 (Lopressor) 50 mg BID PO 11/29/17 21:00 12/04/17 07:54 (Pravachol) 40 mg DAILY PO 11/29/17 15:30 12/04/17 07:52 Daptomycin 890 mg/ Sodium Chloride 100 ml @ 200 mls/hr Q24H IV 11/30/17 16:00 12/03/17 16:38 (NS Flush) See Protocol DAILY IV FLUSH 12/02/17 09:00 12/04/17 07:55 (NS Flush) See Protocol UNSCH PRN IV FLUSH 12/01/17 18:15 (Heparin Central Flush) See Protocol DAILY IV FLUSH 12/02/17 09:00 12/04/17 07:55 (Heparin Central Flush) See Protocol UNSCH PRN IV FLUSH 12/01/17 18:15 (NS Flush) UNSCH PRN IV FLUSH 12/01/17 18:15 (Coumadin) 3 mg DAILY@16 PO 12/03/17 16:00 12/03/17 16:40 (Heparin Inj) 5,000 units Q12HR SQ 12/03/17 21:00 12/04/17 07:54 Pharmacy Profile Note 0 ml @ 0 mls/hr UNSCH OTHER 12/03/17 12:00 Vital Signs / I&O Vital Signs Date Time Temp Pulse Resp B/P (MAP) Pulse Ox O2 Delivery O2 Flow Rate FiO2 12/04/17 06:00 98.0 75 19 135/65 (88) 96 12/04/17 03:00 61 12/04/17 00:40 97.6 67 18 125/67 (86) 95 12/03/17 20:34 97.3 74 18 109/55 (73) 99 12/03/17 20:00 80 12/03/17 16:00 97.9 76 18 152/73 (99) 97 12/03/17 15:00 111 12/03/17 12:20 21 12/03/17 12:00 64 12/03/17 12:00 97.6 66 17 116/74 (88) 100 12/03/17 09:56 85 I/O 12/03/17 12/03/17 12/03/17 12/04/17 12/04/17 12/04/17 07:00 15:00 23:00 07:00 15:00 23:00 Intake Total 600 ml 500 ml Balance 600 ml 500 ml Intake Oral 600 ml 500 ml # Voids 1 0 2 # Bowel Movements 1 4 3 1 Physical Exam GENERAL: Well developed, well nourished. No acute distress. HEENT: Jugular venous pressure is normal. CHEST: Lungs clear to auscultation bilaterally. Unlabored respiratory effort. CARDIAC: Regular rate and rhythm without S3, S4, or murmur. ABDOMEN: Soft, nontender, no hepatosplenomegaly. Bowel sounds present. EXTREMITIES: Trace pretibial edema. Laboratory Laboratory Tests Test 12/03/17 12:55 12/04/17 03:15 Prothrombin Time 12.3 SEC 13.9 SEC Prothromb Time International Ratio 1.2 RATIO 1.4 RATIO Assessment and Plan Problem List: (1) Paroxysmal atrial fibrillation ICD Codes: I48.0 - Paroxysmal atrial fibrillation Status: Chronic Plan: Stable overnight. Patient with infrequent, fleeting episodes of atrial fib, some probably aberrantly conducted causing wide complex arrhythmia. Patient asymptomatic. Now back on warfarin. Again, the reported EF on echo this admission of 35-40% appears inaccurate. His EF appears closer to 50%. REC continue warfarin to achieve INR 2-2.5 continue metoprolol, increasing dosing will f/u as needed (2) History of cardiac pacemaker ICD Codes: Z95.0 - Presence of cardiac pacemaker Status: Chronic Plan: Stable. No evidence for pacemaker malfunction. (3) Hypertension ICD Codes: I10 - Essential (primary) hypertension Status: Chronic Plan: Fluctuating BP's, mostly normotensive. To increase metoprolol as above. Code Status full code Discussed Condition With patient and his daughter Problem Qualifiers (1) Hypertension: Qualified Codes: I10 - Essential (primary) hypertension Timmy Rueda MD Dec 04, 2017 08:51
[2017-12-04] MEDS ORDERED: ASPIRIN 81 MG CHEW TAB PO SCH (09:00)
--- NOTE | 2017-12-04 09:14 | HHI.PR ---
Subjective Remarks in no acute distress. had some slurred speech earlier today. daughter at the bedside. d/w the RN. Objective Vitals Vital Signs Date Time Temp Pulse Resp B/P (MAP) Pulse Ox O2 Delivery O2 Flow Rate FiO2 12/04/17 06:00 98.0 75 19 135/65 (88) 96 12/04/17 03:00 61 12/04/17 00:40 97.6 67 18 125/67 (86) 95 12/03/17 20:34 97.3 74 18 109/55 (73) 99 12/03/17 20:00 80 12/03/17 16:00 97.9 76 18 152/73 (99) 97 12/03/17 15:00 111 12/03/17 12:20 21 12/03/17 12:00 64 12/03/17 12:00 97.6 66 17 116/74 (88) 100 12/03/17 09:56 85 I/O 12/03/17 12/03/17 12/03/17 12/04/17 12/04/17 12/04/17 07:00 15:00 23:00 07:00 15:00 23:00 Intake Total 600 ml 500 ml Balance 600 ml 500 ml Intake Oral 600 ml 500 ml # Voids 1 0 2 # Bowel Movements 1 4 3 1 Result Diagram: 12/01/17 0619 12/02/17 0430 Imaging Last Impressions Carotid Artery Ultrasound 12/02/17 1124 Signed Impressions: Service Date/Time: Saturday, December 02, 2017 12:00 - CONCLUSION: Negative examination for a hemodynamically significant carotid stenosis. Phu Shell MD FACR Head CT 12/02/17 0000 Signed Impressions: Service Date/Time: Saturday, December 02, 2017 11:36 - CONCLUSION: 1. The extra-axial acute blood products documented on the prior study remain present but decreased in volume. 2. Mild decrease in the right scalp soft tissue swelling. 3. Stable chronic changes include generalized atrophy and chronic periventricular white matter changes. Jalil Cedillo MD Chest X-Ray 12/01/17 0000 Signed Impressions: Service Date/Time: Friday, December 01, 2017 17:42 - CONCLUSION: 1. Uncomplicated PICC line placement. 2. Left lower lobe atelectasis versus pneumonia. There has been no significant change when compared to the prior exam. Adolfo Freitas MD Foot X-Ray 11/30/17 0000 Signed Impressions: Service Date/Time: Thursday, November 30, 2017 18:23 - CONCLUSION: 1. 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 Tiago Rodriguez MD Renal Ultrasound 11/29/17 0000 Signed Impressions: Service Date/Time: Wednesday, November 29, 2017 16:28 - CONCLUSION: 1. There is hydronephrosis of the left collecting system. 2. Multiple small benign- appearing bilateral renal cysts. Bull Pena MD Aorta w/Runoff CTA 11/28/17 0000 Signed Impressions: Service Date/Time: Tuesday, November 28, 2017 18:26 - CONCLUSION: 1. Severe atherosclerotic disease. The popliteal arteries are nonvisualized bilaterally for a short segment given the beam hardening artifact from the knee arthroplasty hardware. In the right leg the anterior tibial artery appears to be occluded in the mid leg for a short segment with minimal runoff more distally. Please see above for detailed description of the remaining vessels. 2. Moderate size right and a chronic small left pleural effusion with left pleural thickening. 3. There is a small volume of free fluid in the pelvis from uncertain etiology. There is mild diffuse subcutaneous edema. 4. There is abnormal patchy enhancement of both kidneys which is nonspecific but can be seen with infection or interstitial nephritis related to contrast administration. There is severe left hydronephrosis and hydroureter from uncertain etiology. No distal obstructing process is seen. Therefore, this could be related to reflux. 1. Jalil Cedillo MD Upper Extremity Ultrasound 11/27/17 0000 Signed Impressions: Service Date/Time: Monday, November 27, 2017 21:56 - CONCLUSION: 1. No sonographic evidence for upper extremity DVT. Chris Cooper MD Cervical Spine CT 11/22/17 1418 Signed Impressions: Service Date/Time: Wednesday, November 22, 2017 14:39 - CONCLUSION: Large anterior osteophytes at multiple levels. Scattered areas of bilateral neuroforaminal narrowing due to osteophyte. No evidence of acute fracture or significant subluxation. Dagoberto Das MD Shoulder X-Ray 11/22/17 0000 Signed Impressions: Service Date/Time: Wednesday, November 22, 2017 16:27 - CONCLUSION: Unremarkable examination of the left shoulder status post left bipolar pacermaker. Marked impingement change with acromial spurring and erosions across the greater tuberosity Dagoberto Das MD Pelvis X-Ray 11/22/17 0000 Signed Impressions: Service Date/Time: Wednesday, November 22, 2017 14:36 - CONCLUSION: Unremarkable examination of the pelvis. Dagoberto Das MD Chest CT 11/22/17 0000 Signed Impressions: Service Date/Time: Wednesday, November 22, 2017 16:02 - CONCLUSION: 1. No acute finding is identified on this noncontrast examination of the chest. 2. There is stable left pleural thickening, trace left pleural fluid, and volume loss in the left lower lobe. 3. Coronary artery calcification and severe atherosclerotic disease of aorta. Jalil Cedillo MD Abdomen/Pelvis CT 11/22/17 0000 Signed Impressions: Service Date/Time: Wednesday, November 22, 2017 16:02 - CONCLUSION: 1. No acute finding is identified on this mildly motion degraded noncontrast CT of the abdomen and pelvis. 2. Stable nonacute findings include cholelithiasis, severe atherosclerotic disease, and sigmoid diverticulosis. Jalil Cedillo MD Objective Remarks GENERAL: This is a well-nourished, well-developed patient, in no apparent distress. CARDIOVASCULAR: Regular rate and regular rhythm without murmurs, gallops, or rubs. RESPIRATORY: Clear to auscultation. Breath sounds equal bilaterally. No wheezes , rales, or rhonchi. GASTROINTESTINAL: Abdomen soft, non-tender, nondistended. Normal, active bowel sounds MUSCULOSKELETAL: right foot covered with clean dressing. NEURO: Alert & Oriented x4 to person, place, time, situation. Moves all ext x4 Procedures Right 3rd digit ulcer OM s/p Incision drainage and debridement with bone biopsy right third digit by Dr Barr podiatry on 11/26/17 Medications and IVs Inpatient Medications Acetaminophen (Tylenol) 650 mg Q4H PRN PO SEE LABEL COMMENTS Last administered on 11/27/17at 12:47; Start 11/27/17 at 09:15; Stop 11/27/17 at 23:59; Status DC Acetaminophen/ Hydrocodone Bitart ([place] 5-325 Mg) 1 tab Q4H PRN PO PAIN SCALE 3 TO 5 Last administered on 12/01/17at 17:41; Start 11/26/17 at 15:15 Acetaminophen/ Hydrocodone Bitart ([place] 10-325 Mg) 1 tab Q4H PRN PO PAIN SCALE 6 TO 10 Last administered on 12/02/17at 05:38; Start 11/26/17 at 15:15 Albuterol/ Ipratropium (Duoneb Neb) 1 ampule Q4HR NEB PRN INH WHEEZING; Start 11/22/17 at 19:15 Aspirin (Aspirin Chew) 81 mg DAILY PO ; Start 12/04/17 at 09:00; Stop 12/04/17 at 09:00; Status DC Bisacodyl (Dulcolax Supp) 10 mg DAILY PRN RECTAL SEVERE CONSITIPATION; Start at 19:15 Bupivacaine HCl (Marcaine Pf 0.5% Inj) 30 ml ONCE ONCE INFIL Last administered on 11/30/17at 17:29; Start 11/30/17 at 17:29; Stop 11/30/17 at 18:08 ; Status DC Calcium Carbonate (Tums Chew) 500 mg Q12HR CHEW Last administered on 12/03/17 08:19; Start 11/28/17 at 21:00 Ceftriaxone Sodium 1000 mg/ Sodium Chloride 100 ml @ 200 mls/hr ONCE ONCE IV Last administered on 11/22/17at 16:39; Start 11/22/17 at 16:30; Stop 11/22/17 at 16:59; Status DC Chlorhexidine Gluconate (Chlorhexidine 2% Cloth) 3 pack LEAD JAVASCRIPT ENGINEER PRN TOPICAL SEE LABEL COMMENTS; Start 11/29/17 at 16:15; Stop 12/02/17 at 16:14; Status DC Daptomycin 890 mg/ Sodium Chloride 100 ml @ 200 mls/hr Q24H IV Last administered on 12/03/17at 16:38; Start 11/30/17 at 16:00 Dextrose (D50w (Syr) Inj) 12.5 ml ONCE ONCE IV PUSH Last administered on at 08:48; Start 11/24/17 at 08:30; Stop 11/24/17 at 08:31; Status DC Diphenhydramine HCl (Benadryl) 25 mg Q4H PRN PO SEE LABEL COMMENTS Last administered on 11/27/17at 12:47; Start 11/27/17 at 09:15; Stop 11/27/17 at 23:59 ; Status DC Ferrous Sulfate (Ferrous Sulfate) 325 mg BID@12,17 PO Last administered on at 16:39; Start 11/27/17 at 17:00 Furosemide (Lasix Inj) 20 mg ONCE ONCE IV PUSH Last administered on 11/27/17at 16:57; Start 11/27/17 at 10:00; Stop 11/27/17 at 10:01; Status DC Furosemide (Lasix) 40 mg DAILY PO Last administered on 12/04/17at 07:53; Start at 15:30 Heparin Sodium (Porcine) (Heparin Central Flush) See Protocol UNSCH PRN IV FLUSH SEE PROTOCOL TABLE; Start 12/01/17 at 18:15 Heparin Sodium (Porcine) (Heparin Inj) 5,000 units Q12HR SQ Last administered on 12/04/17at 07:54; Start 12/03/17 at 21:00 Insulin Human Regular (NovoLIN R INJ) See Protocol Table ... LEAD JAVASCRIPT ENGINEER PRN SQ SEE PROTOCOL TABLE; Start 11/29/17 at 16:15; Stop 12/02/17 at 16:14; Status DC Lactated Ringer's 1,000 ml @ 30 mls/hr Q24H PRN IV SEE LABEL COMMENTS; Start at 16:15; Stop 11/30/17 at 12:44; Status DC Lactulose (Lactulose Liq) 30 ml DAILY PRN PO SEVERE CONSITIPATION; Start at 19:15 Lidocaine HCl (Xylocaine 1% Inj (50 ml)) AT BEDSIDE FOR PROCEDURE UNSCH .XX ; Start 11/25/17 at 00:30; Stop 11/25/17 at 15:48; Status DC Lidocaine HCl (Xylocaine 1% Inj) UNSCH OTHER ; Start 11/25/17 at 16:00; Stop at 00:29; Status DC Magnesium Hydroxide (Milk Of Magnesia Liq) 30 ml Q12H PRN PO Mild constipation ; Start 11/22/17 at 19:15 Metoclopramide HCl (Reglan Inj) 10 mg Q6H PRN IV PUSH NAUSEA OR VOMITING; Start 11/22/17 at 19:15 Metoprolol Tartrate (Lopressor) 100 mg BID PO ; Start 12/04/17 at 21:00; Status UNV Miscellaneous Information ALL NURSING DEPARTME... UNSCH PRN .XX SEE LABEL COMMENTS; Start 11/30/17 at 17:58; Stop 12/01/17 at 17:57; Status DC Miscellaneous Information (Post-op Orders (for Pharmacy)) STAT ONCE XX Last administered on 11/30/17at 18:15; Start 11/30/17 at 18:15; Stop 11/30/17 at 18:22 ; Status DC Morphine Sulfate (Morphine Inj) 2 mg Q4H PRN IV PUSH BREAKTHROUGH PAIN Last administered on 12/02/17at 00:32; Start 11/26/17 at 15:15 Naloxone HCl (Narcan Inj) 0.4 mg UNSCH PRN IV PUSH SEE LABEL COMMENTS; Start at 15:15 Ondansetron HCl (Zofran Inj) 4 mg Q6H PRN IV PUSH NAUSEA OR VOMITING; Start at 19:15 Pantoprazole Sodium (Protonix Inj) 40 mg Q12H IV PUSH Last administered on 11/26at 09:09; Start 11/23/17 at 10:00; Stop 11/26/17 at 11:42; Status DC Pantoprazole Sodium (Protonix) 40 mg Q12HR PO Last administered on 12/04/17at 07: 52; Start 11/26/17 at 21:00 Patient Medication Teaching (Coumadin Booklet) 1 ONCE ONCE .XX ; Start 12/03/17 at 16:00; Stop 12/03/17 at 16:01; Status DC Pharmacy Profile Note 0 ml @ 0 mls/hr UNSCH OTHER ; Start 12/03/17 at 12:00 Phenylephrine HCl 40 mg/Dextrose 500 ml @ 30 mls/hr TITRATE PRN IV Blood pressure management Last administered on 11/22/17at 17:51; Start 11/22/17 at 17: 15 Phytonadione (Vitamin K Inj) 10 mg ONCE ONCE SQ Last administered on at 09:15; Start 11/24/17 at 09:00; Stop 11/24/17 at 09:01; Status DC Phytonadione 10 mg/Dextrose 51 ml @ 102 mls/hr ONCE ONCE IV ; Start 11/22/17 at 19:00; Stop 11/22/17 at 19:00; Status DC Piperacillin Sod/ Tazobactam Sod 50 ml @ 100 mls/hr Q8H IV Last administered on 11/24/17at 08:38; Start 11/23/17 at 01:00; Stop 11/24/17 at 09:53; Status DC Polyethylene Glycol/ Electrolytes (Colyte Liq) 4,000 ml ONCE ONCE PO ; Start at 16:00; Stop 11/23/17 at 16:05; Status DC Povidone Iodine (Betadine 5% Antisepsis Kit) 1 applic LEAD JAVASCRIPT ENGINEER PRN EACH NARE SEE LABEL COMMENTS; Start 11/29/17 at 16:15; Stop 12/02/17 at 16:14; Status DC Pravastatin Sodium (Pravachol) 40 mg DAILY PO Last administered on 12/04/17at 07: 52; Start 11/29/17 at 15:30 Senna/Docusate Sodium ([place]lower-Colace) 1 tab BID PO Last administered on at 22:17; Start 11/22/17 at 21:00 Sennosides (Senokot) 17.2 mg Q12H PRN PO Moderate constipation; Start 11/22/17 at 19:15 Sodium Chloride (NS Flush) UNSCH PRN IV FLUSH SEE PROTOCOL TABLE; Start at 18:15 Tamsulosin HCl (Flomax) 0.4 mg DAILY PO ; Start 11/29/17 at 15:30; Stop at 15:33; Status DC Terbutaline Sulfate (Brethine Inj) 1 mg UNSCH PRN SQ For Extravasation; Start 11/22/17 at 17:15 Tetanus/ Diphtheria Toxoids (Tetanus/ Diphtheria Tox Adult) 0.5 ml ONCE ONCE IM Last administered on 11/22/17at 15:57; Start 11/22/17 at 14:30; Stop 11/22/17 at 14:31; Status DC Vancomycin HCl 500 mg/Sodium Chloride 100 ml @ 200 mls/hr ONCE ONCE IV Last administered on 11/24/17at 10:23; Start 11/24/17 at 10:00; Stop 11/24/17 at 10:29 ; Status DC Vancomycin HCl 1500 mg/Sodium Chloride 515 ml @ 250 mls/hr Q24H IV Last administered on 11/29/17at 11:49; Start 11/26/17 at 11:00; Stop 11/30/17 at 15:00 ; Status DC Vancomycin/Sodium Chloride 200 ml @ 200 mls/hr ONCE ONCE IV Last administered on 11/23/17at 20:12; Start 11/23/17 at 18:00; Stop 11/23/17 at 18:59 ; Status DC Warfarin Sodium (Coumadin) 3 mg DAILY@16 PO Last administered on 12/03/17at 16:40 ; Start 12/03/17 at 16:00 A/P Assessment and Plan A/P Small SDH post fall -had short episode of slurred speech earlier today. -Neurosurgeon consulted. Patient was on Coumadin at home. -restarted Coumadin- ( ok with neurosurgery). -will repeat CT head when INR is therapeutic. -check orthostatic BP today. 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 - Right 3rd digit ulcer OM s/p Incision drainage and debridement with bone biopsy right third digit by Madhav podiatry on 11/26/17. MRSA on cultures. also pathology shows OM. -CTA runoff ordered by vascular surgeon in which it showed severe peripheral vascular disease. Per vascular surgeon no indication for any procedure from his perspective. Recommend to proceed with the toe amputation by public health officer. Due to severe peripheral vascular disease patient may need a BKA in the future. 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 -Per public health officer dressing to right foot changed, Xeroform, 4 x 4's, Carmelo and Bryant applied to right foot, Okay to weight-bear as tolerated to right foot and surgical shoe, and daughter to schedule appointment for next week. A-fib; - continue metoprolol and Coumadin. -cardiology consult appreciated. Hydronephrosis found on CTA runoff -confirmed by US. -per urologist continues with medical management including flomax and f/u as outpatient. Scalp laceration -Stable. Acute blood loss anemia likely secondary to GIB -Patient had EGD which showed gastritis and duodenal ulcer. Status post transfuse with 2 units of packed red blood cells has been stable. No active GI bleed since hospitalization. Continue to monitor. Per GI if he bleeds again will need to do a repeat EGD. -Continue Protonix. MRSA UTI and MRSA bacteremia with concern for endovascular infection -Infectious disease consult following. s/p vancomycin d/c on 11/30 now on daptomycin. Patient was receive outpatient infusion of daptomycin. Order ready placed by infectious disease. LISBETH -Improving the urine output. continue with lasix. DVT prophylaxis with SCD's Discharge Planning dc planning; home early next week when INR is therapeutic. SNF was offered but the patient's daughter declined. Handy Rosas MD Dec 04, 2017 09:14
[2017-12-04] MEDS: FERROUS SULFATE 325 MG (65 MG ELEMENTAL IRON) TAB PO SCH ×2 (11:35→16:21)
[2017-12-04] MEDS: TAMSULOSIN HCL 0.4 MG CAP PO SCH (16:20)
[2017-12-04] MEDS: SODIUM CHLORIDE 0.9% IV SCH (16:20)
[2017-12-04] MEDS: DAPTOMYCIN IV SCH (16:20)
[2017-12-04] MEDS: WARFARIN SOD 3 MG TAB PO SCH (16:21)
[2017-12-04] MEDS: METOPROLOL TARTRATE 100 MG TAB PO SCH (20:31)
[2017-12-05] VITALS (9 sets, daily range): BP systolic 120–152; BP diastolic 69–80; PULSE 55–105; RESP 18–21; TEMP 97.2–98.3; O2SAT 94–99
[2017-12-05] MEDS: CHLORHEXIDINE GLUCONATE 2 % 1 PACK (2 CLOTHS) TOP SCH (04:00)
[2017-12-05 07:06] LABS: INTERNATIONAL NORMALIZED RATIO 1.2 RATIO; PROTHROMBIN TIME - PATIENT 12.1 SEC (9.8-11.6)
[2017-12-05] MEDS: CALCIUM CARBONATE 500 MG CHEWABLE TAB CHEW SCH ×2 (08:35→21:45)
[2017-12-05] MEDS: METOPROLOL TARTRATE 100 MG TAB PO SCH ×2 (08:35→21:45)
[2017-12-05] MEDS: FUROSEMIDE 40 MG TAB PO SCH (08:36)
[2017-12-05] MEDS: DOCUSATE SODIUM 50 MG/SENNA 8.6 MG TAB PO SCH ×2 (08:36→21:45)
[2017-12-05] MEDS: PANTOPRAZOLE SOD 40 MG DELAYED RELEASE TAB PO SCH ×2 (08:36→21:45)
[2017-12-05] MEDS: PRAVASTATIN SOD 40 MG TAB PO SCH (08:36)
[2017-12-05] MEDS: HEPARIN SODIUM - SQ 10,000 UNITS/ML VIAL SQ SCH ×2 (08:37→21:45)
[2017-12-05] MEDS: SODIUM CHLORIDE 0.9% FLUSH 10 ML FLUSH IV FLUSH SCH ×3 (08:39→21:45)
--- NOTE | 2017-12-05 10:19 | HHI.PR ---
Subjective Remarks in no acute distress. sitting comfortably with no distress. denies pain. daughter at the bedside. Objective Vitals Vital Signs Date Time Temp Pulse Resp B/P (MAP) Pulse Ox O2 Delivery O2 Flow Rate FiO2 12/05/17 08:38 97.5 55 20 134/73 (93) 97 12/05/17 04:40 98.3 69 19 120/80 (93) 96 12/05/17 00:40 97.6 75 21 125/74 (91) 95 12/04/17 22:00 76 12/04/17 21:45 98.8 80 19 125/80 (95) 96 120/76 (91) 115/75 (88) 12/04/17 18:39 65 12/04/17 16:00 97.9 73 18 133/71 (91) 99 125/63 (83) 116/66 (83) 12/04/17 12:47 66 12/04/17 12:00 97.2 64 17 131/61 (84) 99 129/62 (84) 121/66 (84) 12/04/17 10:48 77 I/O 12/04/17 12/04/17 12/04/17 12/05/17 12/05/17 12/05/17 07:00 15:00 23:00 07:00 15:00 23:00 Intake Total 500 ml 500 ml 400 ml Balance 500 ml 500 ml 400 ml Intake Oral 500 ml 500 ml 400 ml # Voids 2 1 2 # Bowel Movements 1 0 0 Result Diagram: 12/01/17 0619 12/02/17 0430 Imaging Last Impressions Carotid Artery Ultrasound 12/02/17 1124 Signed Impressions: Service Date/Time: Saturday, December 02, 2017 12:00 - CONCLUSION: Negative examination for a hemodynamically significant carotid stenosis. Phu Shell MD FACR Head CT 12/02/17 0000 Signed Impressions: Service Date/Time: Saturday, December 02, 2017 11:36 - CONCLUSION: 1. The extra-axial acute blood products documented on the prior study remain present but decreased in volume. 2. Mild decrease in the right scalp soft tissue swelling. 3. Stable chronic changes include generalized atrophy and chronic periventricular white matter changes. Jalil Cedillo MD Chest X-Ray 12/01/17 0000 Signed Impressions: Service Date/Time: Friday, December 01, 2017 17:42 - CONCLUSION: 1. Uncomplicated PICC line placement. 2. Left lower lobe atelectasis versus pneumonia. There has been no significant change when compared to the prior exam. Adolfo Freitas MD Foot X-Ray 11/30/17 0000 Signed Impressions: Service Date/Time: Thursday, November 30, 2017 18:23 - CONCLUSION: 1. 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 Tiago Rodriguez MD Renal Ultrasound 11/29/17 0000 Signed Impressions: Service Date/Time: Wednesday, November 29, 2017 16:28 - CONCLUSION: 1. There is hydronephrosis of the left collecting system. 2. Multiple small benign- appearing bilateral renal cysts. Bull Pena MD Aorta w/Runoff CTA 11/28/17 0000 Signed Impressions: Service Date/Time: Tuesday, November 28, 2017 18:26 - CONCLUSION: 1. Severe atherosclerotic disease. The popliteal arteries are nonvisualized bilaterally for a short segment given the beam hardening artifact from the knee arthroplasty hardware. In the right leg the anterior tibial artery appears to be occluded in the mid leg for a short segment with minimal runoff more distally. Please see above for detailed description of the remaining vessels. 2. Moderate size right and a chronic small left pleural effusion with left pleural thickening. 3. There is a small volume of free fluid in the pelvis from uncertain etiology. There is mild diffuse subcutaneous edema. 4. There is abnormal patchy enhancement of both kidneys which is nonspecific but can be seen with infection or interstitial nephritis related to contrast administration. There is severe left hydronephrosis and hydroureter from uncertain etiology. No distal obstructing process is seen. Therefore, this could be related to reflux. 1. Jalil Cedillo MD Upper Extremity Ultrasound 11/27/17 0000 Signed Impressions: Service Date/Time: Monday, November 27, 2017 21:56 - CONCLUSION: 1. No sonographic evidence for upper extremity DVT. Chris Cooper MD Cervical Spine CT 11/22/17 1418 Signed Impressions: Service Date/Time: Wednesday, November 22, 2017 14:39 - CONCLUSION: Large anterior osteophytes at multiple levels. Scattered areas of bilateral neuroforaminal narrowing due to osteophyte. No evidence of acute fracture or significant subluxation. Dagoberto aDs MD Shoulder X-Ray 11/22/17 0000 Signed Impressions: Service Date/Time: Wednesday, November 22, 2017 16:27 - CONCLUSION: Unremarkable examination of the left shoulder status post left bipolar pacermaker. Marked impingement change with acromial spurring and erosions across the greater tuberosity Dagoberto Das MD Pelvis X-Ray 11/22/17 0000 Signed Impressions: Service Date/Time: Wednesday, November 22, 2017 14:36 - CONCLUSION: Unremarkable examination of the pelvis. Dagoberto Das MD Chest CT 11/22/17 0000 Signed Impressions: Service Date/Time: Wednesday, November 22, 2017 16:02 - CONCLUSION: 1. No acute finding is identified on this noncontrast examination of the chest. 2. There is stable left pleural thickening, trace left pleural fluid, and volume loss in the left lower lobe. 3. Coronary artery calcification and severe atherosclerotic disease of aorta. Jalil Cedillo MD Abdomen/Pelvis CT 11/22/17 0000 Signed Impressions: Service Date/Time: Wednesday, November 22, 2017 16:02 - CONCLUSION: 1. No acute finding is identified on this mildly motion degraded noncontrast CT of the abdomen and pelvis. 2. Stable nonacute findings include cholelithiasis, severe atherosclerotic disease, and sigmoid diverticulosis. Jalil Cedillo MD Objective Remarks GENERAL: This is a well-nourished, well-developed patient, in no apparent distress. CARDIOVASCULAR: Regular rate and regular rhythm without murmurs, gallops, or rubs. RESPIRATORY: Clear to auscultation. Breath sounds equal bilaterally. No wheezes , rales, or rhonchi. GASTROINTESTINAL: Abdomen soft, non-tender, nondistended. Normal, active bowel sounds MUSCULOSKELETAL: right foot covered with clean dressing. NEURO: Alert & Oriented x4 to person, place, time, situation. Moves all ext x4 Procedures Right 3rd digit ulcer OM s/p Incision drainage and debridement with bone biopsy right third digit by Dr Barr podiatry on 11/26/17 Medications and IVs Inpatient Medications Acetaminophen (Tylenol) 650 mg Q4H PRN PO SEE LABEL COMMENTS Last administered on 11/27/17at 12:47; Start 11/27/17 at 09:15; Stop 11/27/17 at 23:59; Status DC Acetaminophen/ Hydrocodone Bitart ([place] 5-325 Mg) 1 tab Q4H PRN PO PAIN SCALE 3 TO 5 Last administered on 12/01/17at 17:41; Start 11/26/17 at 15:15 Acetaminophen/ Hydrocodone Bitart ([place] 10-325 Mg) 1 tab Q4H PRN PO PAIN SCALE 6 TO 10 Last administered on 12/02/17at 05:38; Start 11/26/17 at 15:15 Albuterol/ Ipratropium (Duoneb Neb) 1 ampule Q4HR NEB PRN INH WHEEZING; Start 11/22/17 at 19:15 Aspirin (Aspirin Chew) 81 mg DAILY PO ; Start 12/04/17 at 09:00; Stop 12/04/17 at 09:00; Status DC Bisacodyl (Dulcolax Supp) 10 mg DAILY PRN RECTAL SEVERE CONSITIPATION; Start at 19:15 Bupivacaine HCl (Marcaine Pf 0.5% Inj) 30 ml ONCE ONCE INFIL Last administered on 11/30/17at 17:29; Start 11/30/17 at 17:29; Stop 11/30/17 at 18:08 ; Status DC Calcium Carbonate (Tums Chew) 500 mg Q12HR CHEW Last administered on 12/05/17at 08:35; Start 11/28/17 at 21:00 Ceftriaxone Sodium 1000 mg/ Sodium Chloride 100 ml @ 200 mls/hr ONCE ONCE IV Last administered on 11/22/17at 16:39; Start 11/22/17 at 16:30; Stop 11/22/17 at 16:59; Status DC Chlorhexidine Gluconate (Chlorhexidine 2% Cloth) 3 pack HOME STAGER PRN TOPICAL SEE LABEL COMMENTS; Start 11/29/17 at 16:15; Stop 12/02/17 at 16:14; Status DC Daptomycin 890 mg/ Sodium Chloride 100 ml @ 200 mls/hr Q24H IV Last administered on 12/04/17at 16:20; Start 11/30/17 at 16:00 Dextrose (D50w (Syr) Inj) 12.5 ml ONCE ONCE IV PUSH Last administered on at 08:48; Start 11/24/17 at 08:30; Stop 11/24/17 at 08:31; Status DC Diphenhydramine HCl (Benadryl) 25 mg Q4H PRN PO SEE LABEL COMMENTS Last administered on 11/27/17at 12:47; Start 11/27/17 at 09:15; Stop 11/27/17 at 23:59 ; Status DC Ferrous Sulfate (Ferrous Sulfate) 325 mg BID@12,17 PO Last administered on at 16:21; Start 11/27/17 at 17:00 Furosemide (Lasix Inj) 20 mg ONCE ONCE IV PUSH Last administered on 11/27/17at 16:57; Start 11/27/17 at 10:00; Stop 11/27/17 at 10:01; Status DC Furosemide (Lasix) 40 mg DAILY PO Last administered on 12/05/17at 08:36; Start at 15:30 Heparin Sodium (Porcine) (Heparin Central Flush) See Protocol UNSCH PRN IV FLUSH SEE PROTOCOL TABLE; Start 12/01/17 at 18:15 Heparin Sodium (Porcine) (Heparin Inj) 5,000 units Q12HR SQ Last administered on 12/05/17at 08:37; Start 12/03/17 at 21:00 Insulin Human Regular (NovoLIN R INJ) See Protocol Table ... HOME STAGER PRN SQ SEE PROTOCOL TABLE; Start 11/29/17 at 16:15; Stop 12/02/17 at 16:14; Status DC Lactated Ringer's 1,000 ml @ 30 mls/hr Q24H PRN IV SEE LABEL COMMENTS; Start at 16:15; Stop 11/30/17 at 12:44; Status DC Lactulose (Lactulose Liq) 30 ml DAILY PRN PO SEVERE CONSITIPATION; Start at 19:15 Lidocaine HCl (Xylocaine 1% Inj (50 ml)) AT BEDSIDE FOR PROCEDURE UNSCH .XX ; Start 11/25/17 at 00:30; Stop 11/25/17 at 15:48; Status DC Lidocaine HCl (Xylocaine 1% Inj) UNSCH OTHER ; Start 11/25/17 at 16:00; Stop at 00:29; Status DC Magnesium Hydroxide (Milk Of Magnesia Liq) 30 ml Q12H PRN PO Mild constipation ; Start 11/22/17 at 19:15 Metoclopramide HCl (Reglan Inj) 10 mg Q6H PRN IV PUSH NAUSEA OR VOMITING; Start 11/22/17 at 19:15 Metoprolol Tartrate (Lopressor) 100 mg BID PO Last administered on 12/05/17at 08: 35; Start 12/04/17 at 21:00 Miscellaneous Information ALL NURSING DEPARTME... UNSCH PRN .XX SEE LABEL COMMENTS; Start 11/30/17 at 17:58; Stop 12/01/17 at 17:57; Status DC Miscellaneous Information (Post-op Orders (for Pharmacy)) STAT ONCE XX Last administered on 11/30/17at 18:15; Start 11/30/17 at 18:15; Stop 11/30/17 at 18:22 ; Status DC Morphine Sulfate (Morphine Inj) 2 mg Q4H PRN IV PUSH BREAKTHROUGH PAIN Last administered on 12/02/17at 00:32; Start 11/26/17 at 15:15 Naloxone HCl (Narcan Inj) 0.4 mg UNSCH PRN IV PUSH SEE LABEL COMMENTS; Start at 15:15 Ondansetron HCl (Zofran Inj) 4 mg Q6H PRN IV PUSH NAUSEA OR VOMITING; Start at 19:15 Pantoprazole Sodium (Protonix Inj) 40 mg Q12H IV PUSH Last administered on 11/26at 09:09; Start 11/23/17 at 10:00; Stop 11/26/17 at 11:42; Status DC Pantoprazole Sodium (Protonix) 40 mg Q12HR PO Last administered on 12/05/17at 08: 36; Start 11/26/17 at 21:00 Patient Medication Teaching (Coumadin Booklet) 1 ONCE ONCE .XX ; Start 12/03/17 at 16:00; Stop 12/03/17 at 16:01; Status DC Pharmacy Profile Note 0 ml @ 0 mls/hr UNSCH OTHER ; Start 12/03/17 at 12:00 Phenylephrine HCl 40 mg/Dextrose 500 ml @ 30 mls/hr TITRATE PRN IV Blood pressure management Last administered on 11/22/17at 17:51; Start 11/22/17 at 17: 15 Phytonadione (Vitamin K Inj) 10 mg ONCE ONCE SQ Last administered on at 09:15; Start 11/24/17 at 09:00; Stop 11/24/17 at 09:01; Status DC Phytonadione 10 mg/Dextrose 51 ml @ 102 mls/hr ONCE ONCE IV ; Start 11/22/17 at 19:00; Stop 11/22/17 at 19:00; Status DC Piperacillin Sod/ Tazobactam Sod 50 ml @ 100 mls/hr Q8H IV Last administered on 11/24/17at 08:38; Start 11/23/17 at 01:00; Stop 11/24/17 at 09:53; Status DC Polyethylene Glycol/ Electrolytes (Colyte Liq) 4,000 ml ONCE ONCE PO ; Start at 16:00; Stop 11/23/17 at 16:05; Status DC Povidone Iodine (Betadine 5% Antisepsis Kit) 1 applic HOME STAGER PRN EACH NARE SEE LABEL COMMENTS; Start 11/29/17 at 16:15; Stop 12/02/17 at 16:14; Status DC Pravastatin Sodium (Pravachol) 40 mg DAILY PO Last administered on 12/05/17at 08: 36; Start 11/29/17 at 15:30 Senna/Docusate Sodium (Flower-Colace) 1 tab BID PO Last administered on 12/04/17 20:30; Start 11/22/17 at 21:00 Sennosides (Senokot) 17.2 mg Q12H PRN PO Moderate constipation; Start 11/22/17 at 19:15 Sodium Chloride (NS Flush) UNSCH PRN IV FLUSH SEE PROTOCOL TABLE; Start at 18:15 Tamsulosin HCl (Flomax) 0.4 mg DAILY PO ; Start 11/29/17 at 15:30; Stop at 15:33; Status DC Terbutaline Sulfate (Brethine Inj) 1 mg UNSCH PRN SQ For Extravasation; Start 11/22/17 at 17:15 Tetanus/ Diphtheria Toxoids (Tetanus/ Diphtheria Tox Adult) 0.5 ml ONCE ONCE IM Last administered on 11/22/17at 15:57; Start 11/22/17 at 14:30; Stop 11/22/17 at 14:31; Status DC Vancomycin HCl 500 mg/Sodium Chloride 100 ml @ 200 mls/hr ONCE ONCE IV Last administered on 11/24/17at 10:23; Start 11/24/17 at 10:00; Stop 11/24/17 at 10:29 ; Status DC Vancomycin HCl 1500 mg/Sodium Chloride 515 ml @ 250 mls/hr Q24H IV Last administered on 11/29/17at 11:49; Start 11/26/17 at 11:00; Stop 11/30/17 at 15:00 ; Status DC Vancomycin/Sodium Chloride 200 ml @ 200 mls/hr ONCE ONCE IV Last administered on 11/23/17at 20:12; Start 11/23/17 at 18:00; Stop 11/23/17 at 18:59 ; Status DC Warfarin Sodium (Coumadin) 3 mg DAILY@16 PO Last administered on 12/04/17at 16:21 ; Start 12/03/17 at 16:00 A/P Assessment and Plan A/P Small SDH post fall -has on and off episode of slurred speech . -Neurosurgeon consulted. Patient was on Coumadin at home. -restarted Coumadin- ( ok with neurosurgery). -will repeat CT head when INR is therapeutic. -no orthostatic hypotension. 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 - Right 3rd digit ulcer OM s/p Incision drainage and debridement with bone biopsy right third digit by Madhav podiatry on 11/26/17. MRSA on cultures. also pathology shows OM. -CTA runoff ordered by vascular surgeon in which it showed severe peripheral vascular disease. Per vascular surgeon no indication for any procedure from his perspective. Recommend to proceed with the toe amputation by bag mender. Due to severe peripheral vascular disease patient may need a BKA in the future. 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 -Per bag mender dressing to right foot changed, Xeroform, 4 x 4's, Carmelo and Bryant applied to right foot, Okay to weight-bear as tolerated to right foot and surgical shoe, and daughter to schedule appointment for next week. A-fib; - continue metoprolol and Coumadin. -cardiology consult appreciated. Hydronephrosis found on CTA runoff -confirmed by US. -per urologist continues with medical management including flomax and f/u as outpatient. Scalp laceration -Stable. Acute blood loss anemia likely secondary to GIB -Patient had EGD which showed gastritis and duodenal ulcer. Status post transfuse with 2 units of packed red blood cells has been stable. No active GI bleed since hospitalization. Continue to monitor. Per GI if he bleeds again will need to do a repeat EGD. -Continue Protonix. -CBC tomorrow. MRSA UTI and MRSA bacteremia with concern for endovascular infection -Infectious disease consult following. s/p vancomycin d/c on 11/30 now on daptomycin. Patient was receive outpatient infusion of daptomycin. Order ready placed by infectious disease. LISBETH -Improving the urine output. continue with lasix. repeat CMP tomorrow. DVT prophylaxis with SCD's Discharge Planning dc planning; home early this week when INR is therapeutic. SNF was offered but the patient's daughter declined. Handy Rosas MD Dec 05, 2017 10:19
[2017-12-05] MEDS: FERROUS SULFATE 325 MG (65 MG ELEMENTAL IRON) TAB PO SCH ×2 (13:14→16:36)
[2017-12-05] MEDS ORDERED: PILL SPLITTER OTHER PRN (15:00)
[2017-12-05] MEDS ORDERED: WARFARIN SOD 1 MG TAB PO ONE (16:00)
[2017-12-05] MEDS: WARFARIN SOD 3 MG TAB PO SCH (16:36)
[2017-12-05] MEDS: SODIUM CHLORIDE 0.9% IV SCH (16:36)
[2017-12-05] MEDS: DAPTOMYCIN IV SCH (16:36)
[2017-12-05] MEDS: TAMSULOSIN HCL 0.4 MG CAP PO SCH (16:36)
[2017-12-06] VITALS (11 sets, daily range): BP systolic 116–147; BP diastolic 60–75; PULSE 55–64; RESP 17–20; TEMP 97.1–98; O2SAT 98–100
[2017-12-06] MEDS: CHLORHEXIDINE GLUCONATE 2 % 1 PACK (2 CLOTHS) TOP SCH (03:18)
[2017-12-06 05:47] LABS: AUTOMATED NEUTROPHIL # 2.5 TH/MM3 (1.8-7.7); BASOPHIL # 0.1 TH/MM3 (0-0.2); BASOPHIL % 2.2 % (0.0-2.0); EOSINOPHIL # 0.4 TH/MM3 (0-0.4); EOSINOPHIL % 9.7 % (0.0-4.0); HEMATOCRIT 23.9 % (39.0-51.0); HEMOGLOBIN 7.9 GM/DL (13.0-17.0); LYMPH % 18.3 % (9.0-44.0); LYMPHOCYTE # 0.8 TH/MM3 (1.0-4.8); MEAN CELL VOLUME 76.5 FL (80.0-100.0); MEAN CORPUSCULAR HEMOGLOBIN 25.3 PG (27.0-34.0); MEAN CORPUSCULAR HGB CONC 33.1 % (32.0-36.0); MEAN PLATELET VOLUME 5.8 FL (7.0-11.0); MONO % 9.7 % (0.0-8.0); MONOCYTE # 0.4 TH/MM3 (0-0.9); NEUT % 60.1 % (16.0-70.0); PLATELET COUNT 226 TH/MM3 (150-450); RED BLOOD COUNT 3.13 MIL/MM3 (4.50-5.90); WHITE BLOOD COUNT 4.2 TH/MM3 (4.0-11.0)
[2017-12-06 05:53] LABS: ALBUMIN 1.8 GM/DL (3.4-5.0); BICARBONATE 25.5 MEQ/L (21.0-32.0); CALCIUM 7.2 MG/DL (8.5-10.1); CALCIUM-PROTEIN CORRECTED 7.8 MG/DL (8.5-10.1); CREATININE 1.78 MG/DL (0.60-1.30); TOTAL BILIRUBIN ADULT 0.6 MG/DL (0.2-1.0)
[2017-12-06 06:27] LABS: INTERNATIONAL NORMALIZED RATIO 1.3 RATIO; PROTHROMBIN TIME - PATIENT 13.2 SEC (9.8-11.6)
[2017-12-06] MEDS: METOPROLOL TARTRATE 100 MG TAB PO SCH ×2 (07:24→21:19)
[2017-12-06] MEDS: DOCUSATE SODIUM 50 MG/SENNA 8.6 MG TAB PO SCH ×2 (07:24→21:19)
[2017-12-06] MEDS: PANTOPRAZOLE SOD 40 MG DELAYED RELEASE TAB PO SCH ×2 (07:24→21:19)
[2017-12-06] MEDS: PRAVASTATIN SOD 40 MG TAB PO SCH (07:24)
[2017-12-06] MEDS: CALCIUM CARBONATE 500 MG CHEWABLE TAB CHEW SCH ×2 (07:24→21:19)
[2017-12-06] MEDS: FUROSEMIDE 40 MG TAB PO SCH (07:24)
[2017-12-06] MEDS: SODIUM CHLORIDE 0.9% FLUSH 10 ML FLUSH IV FLUSH SCH ×3 (07:25→21:20)
[2017-12-06] MEDS: HEPARIN SODIUM - SQ 10,000 UNITS/ML VIAL SQ SCH ×2 (07:25→21:20)
--- NOTE | 2017-12-06 08:29 | HHI.PR ---
Subjective Remarks in no acute distress. afebrile. has on and off episodes of slurred speech. INR trend noted. daughter at the bedside. Objective Vitals Vital Signs Date Time Temp Pulse Resp B/P (MAP) Pulse Ox O2 Delivery O2 Flow Rate FiO2 12/06/17 05:18 97.3 62 18 132/70 (90) 99 12/06/17 04:03 59 12/06/17 00:36 98.0 61 18 141/68 (92) 100 12/06/17 00:01 59 12/05/17 20:14 70 12/05/17 20:11 97.6 62 18 152/70 (97) 96 12/05/17 17:04 105 12/05/17 15:58 97.4 65 20 135/69 (91) 94 12/05/17 12:32 97.2 56 20 139/69 (92) 99 12/05/17 11:39 64 12/05/17 08:38 97.5 55 20 134/73 (93) 97 I/O 12/05/17 12/05/17 12/05/17 12/06/17 12/06/17 12/06/17 07:00 15:00 23:00 07:00 15:00 23:00 Intake Total 400 ml 240 ml Balance 400 ml 240 ml Intake Oral 400 ml 240 ml # Voids 2 3 1 # Bowel Movements 0 1 Result Diagram: 12/06/17 0520 12/06/17 0450 Imaging Last Impressions Carotid Artery Ultrasound 12/02/17 1124 Signed Impressions: Service Date/Time: Saturday, December 02, 2017 12:00 - CONCLUSION: Negative examination for a hemodynamically significant carotid stenosis. Phu Shell MD FACR Head CT 12/02/17 0000 Signed Impressions: Service Date/Time: Saturday, December 02, 2017 11:36 - CONCLUSION: 1. The extra-axial acute blood products documented on the prior study remain present but decreased in volume. 2. Mild decrease in the right scalp soft tissue swelling. 3. Stable chronic changes include generalized atrophy and chronic periventricular white matter changes. Jalil Cedillo MD Chest X-Ray 12/01/17 0000 Signed Impressions: Service Date/Time: Friday, December 01, 2017 17:42 - CONCLUSION: 1. Uncomplicated PICC line placement. 2. Left lower lobe atelectasis versus pneumonia. There has been no significant change when compared to the prior exam. Adolfo Freitas MD Foot X-Ray 11/30/17 0000 Signed Impressions: Service Date/Time: Thursday, November 30, 2017 18:23 - CONCLUSION: 1. 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 Tiago Rodriguez MD Renal Ultrasound 11/29/17 0000 Signed Impressions: Service Date/Time: Wednesday, November 29, 2017 16:28 - CONCLUSION: 1. There is hydronephrosis of the left collecting system. 2. Multiple small benign- appearing bilateral renal cysts. Bull Pena MD Aorta w/Runoff CTA 11/28/17 0000 Signed Impressions: Service Date/Time: Tuesday, November 28, 2017 18:26 - CONCLUSION: 1. Severe atherosclerotic disease. The popliteal arteries are nonvisualized bilaterally for a short segment given the beam hardening artifact from the knee arthroplasty hardware. In the right leg the anterior tibial artery appears to be occluded in the mid leg for a short segment with minimal runoff more distally. Please see above for detailed description of the remaining vessels. 2. Moderate size right and a chronic small left pleural effusion with left pleural thickening. 3. There is a small volume of free fluid in the pelvis from uncertain etiology. There is mild diffuse subcutaneous edema. 4. There is abnormal patchy enhancement of both kidneys which is nonspecific but can be seen with infection or interstitial nephritis related to contrast administration. There is severe left hydronephrosis and hydroureter from uncertain etiology. No distal obstructing process is seen. Therefore, this could be related to reflux. 1. Jalil Cedillo MD Upper Extremity Ultrasound 11/27/17 0000 Signed Impressions: Service Date/Time: Monday, November 27, 2017 21:56 - CONCLUSION: 1. No sonographic evidence for upper extremity DVT. Chris Cooper MD Cervical Spine CT 11/22/17 1418 Signed Impressions: Service Date/Time: Wednesday, November 22, 2017 14:39 - CONCLUSION: Large anterior osteophytes at multiple levels. Scattered areas of bilateral neuroforaminal narrowing due to osteophyte. No evidence of acute fracture or significant subluxation. Dagoberto Das MD Shoulder X-Ray 11/22/17 0000 Signed Impressions: Service Date/Time: Wednesday, November 22, 2017 16:27 - CONCLUSION: Unremarkable examination of the left shoulder status post left bipolar pacermaker. Marked impingement change with acromial spurring and erosions across the greater tuberosity Dagoberto Das MD Pelvis X-Ray 11/22/17 0000 Signed Impressions: Service Date/Time: Wednesday, November 22, 2017 14:36 - CONCLUSION: Unremarkable examination of the pelvis. Dagoberto Das MD Chest CT 11/22/17 0000 Signed Impressions: Service Date/Time: Wednesday, November 22, 2017 16:02 - CONCLUSION: 1. No acute finding is identified on this noncontrast examination of the chest. 2. There is stable left pleural thickening, trace left pleural fluid, and volume loss in the left lower lobe. 3. Coronary artery calcification and severe atherosclerotic disease of aorta. Jalil Cedillo MD Abdomen/Pelvis CT 11/22/17 0000 Signed Impressions: Service Date/Time: Wednesday, November 22, 2017 16:02 - CONCLUSION: 1. No acute finding is identified on this mildly motion degraded noncontrast CT of the abdomen and pelvis. 2. Stable nonacute findings include cholelithiasis, severe atherosclerotic disease, and sigmoid diverticulosis. Jalil Cedillo MD Objective Remarks GENERAL: This is a well-nourished, well-developed patient, in no apparent distress. CARDIOVASCULAR: Regular rate and regular rhythm without murmurs, gallops, or rubs. RESPIRATORY: Clear to auscultation. Breath sounds equal bilaterally. No wheezes , rales, or rhonchi. GASTROINTESTINAL: Abdomen soft, non-tender, nondistended. Normal, active bowel sounds MUSCULOSKELETAL: right foot covered with clean dressing. NEURO: Alert & Oriented x4 to person, place, time, situation. Moves all ext x4 Procedures Right 3rd digit ulcer OM s/p Incision drainage and debridement with bone biopsy right third digit by Dr Barr podiatry on 11/26/17 Medications and IVs Inpatient Medications Acetaminophen (Tylenol) 650 mg Q4H PRN PO SEE LABEL COMMENTS Last administered on 11/27/17at 12:47; Start 11/27/17 at 09:15; Stop 11/27/17 at 23:59; Status DC Acetaminophen/ Hydrocodone Bitart (Linden 5-325 Mg) 1 tab Q4H PRN PO PAIN SCALE 3 TO 5 Last administered on 12/01/17at 17:41; Start 11/26/17 at 15:15 Acetaminophen/ Hydrocodone Bitart (Linden 10-325 Mg) 1 tab Q4H PRN PO PAIN SCALE 6 TO 10 Last administered on 12/02/17at 05:38; Start 11/26/17 at 15:15 Albuterol/ Ipratropium (Duoneb Neb) 1 ampule Q4HR NEB PRN INH WHEEZING; Start 11/22/17 at 19:15 Aspirin (Aspirin Chew) 81 mg DAILY PO ; Start 12/04/17 at 09:00; Stop 12/04/17 at 09:00; Status DC Bisacodyl (Dulcolax Supp) 10 mg DAILY PRN RECTAL SEVERE CONSITIPATION; Start at 19:15 Bupivacaine HCl (Marcaine Pf 0.5% Inj) 30 ml ONCE ONCE INFIL Last administered on 11/30/17at 17:29; Start 11/30/17 at 17:29; Stop 11/30/17 at 18:08 ; Status DC Calcium Carbonate (Tums Chew) 500 mg Q12HR CHEW Last administered on 12/06/17at 07:24; Start 11/28/17 at 21:00 Ceftriaxone Sodium 1000 mg/ Sodium Chloride 100 ml @ 200 mls/hr ONCE ONCE IV Last administered on 11/22/17at 16:39; Start 11/22/17 at 16:30; Stop 11/22/17 at 16:59; Status DC Chlorhexidine Gluconate (Chlorhexidine 2% Cloth) 3 pack RUBBER MOLD MAKER PRN TOPICAL SEE LABEL COMMENTS; Start 11/29/17 at 16:15; Stop 12/02/17 at 16:14; Status DC Daptomycin 890 mg/ Sodium Chloride 100 ml @ 200 mls/hr Q24H IV Last administered on 12/05/17at 16:36; Start 11/30/17 at 16:00 Dextrose (D50w (Syr) Inj) 12.5 ml ONCE ONCE IV PUSH Last administered on at 08:48; Start 11/24/17 at 08:30; Stop 11/24/17 at 08:31; Status DC Diphenhydramine HCl (Benadryl) 25 mg Q4H PRN PO SEE LABEL COMMENTS Last administered on 11/27/17at 12:47; Start 11/27/17 at 09:15; Stop 11/27/17 at 23:59 ; Status DC Ferrous Sulfate (Ferrous Sulfate) 325 mg BID@12,17 PO Last administered on at 16:36; Start 11/27/17 at 17:00 Furosemide (Lasix Inj) 20 mg ONCE ONCE IV PUSH Last administered on 11/27/17at 16:57; Start 11/27/17 at 10:00; Stop 11/27/17 at 10:01; Status DC Furosemide (Lasix) 40 mg DAILY PO Last administered on 12/06/17at 07:24; Start at 15:30 Heparin Sodium (Porcine) (Heparin Central Flush) See Protocol UNSCH PRN IV FLUSH SEE PROTOCOL TABLE; Start 12/01/17 at 18:15 Heparin Sodium (Porcine) (Heparin Inj) 5,000 units Q12HR SQ Last administered on 12/06/17at 07:25; Start 12/03/17 at 21:00 Insulin Human Regular (NovoLIN R INJ) See Protocol Table ... RUBBER MOLD MAKER PRN SQ SEE PROTOCOL TABLE; Start 11/29/17 at 16:15; Stop 12/02/17 at 16:14; Status DC Lactated Ringer's 1,000 ml @ 30 mls/hr Q24H PRN IV SEE LABEL COMMENTS; Start at 16:15; Stop 11/30/17 at 12:44; Status DC Lactulose (Lactulose Liq) 30 ml DAILY PRN PO SEVERE CONSITIPATION; Start at 19:15 Lidocaine HCl (Xylocaine 1% Inj (50 ml)) AT BEDSIDE FOR PROCEDURE UNSCH .XX ; Start 11/25/17 at 00:30; Stop 11/25/17 at 15:48; Status DC Lidocaine HCl (Xylocaine 1% Inj) UNSCH OTHER ; Start 11/25/17 at 16:00; Stop at 00:29; Status DC Magnesium Hydroxide (Milk Of Magnesia Liq) 30 ml Q12H PRN PO Mild constipation ; Start 11/22/17 at 19:15 Metoclopramide HCl (Reglan Inj) 10 mg Q6H PRN IV PUSH NAUSEA OR VOMITING; Start 11/22/17 at 19:15 Metoprolol Tartrate (Lopressor) 100 mg BID PO Last administered on 12/06/17 07: 24; Start 12/04/17 at 21:00 Miscellaneous (Pill Splitter) 1 ea UNSCH PRN OTHER SEE LABEL COMMENTS; Start at 15:00 Miscellaneous Information ALL NURSING DEPARTME... UNSCH PRN .XX SEE LABEL COMMENTS; Start 11/30/17 at 17:58; Stop 12/01/17 at 17:57; Status DC Miscellaneous Information (Post-op Orders (for Pharmacy)) STAT ONCE XX Last administered on 11/30/17at 18:15; Start 11/30/17 at 18:15; Stop 11/30/17 at 18:22 ; Status DC Morphine Sulfate (Morphine Inj) 2 mg Q4H PRN IV PUSH BREAKTHROUGH PAIN Last administered on 12/02/17at 00:32; Start 11/26/17 at 15:15 Naloxone HCl (Narcan Inj) 0.4 mg UNSCH PRN IV PUSH SEE LABEL COMMENTS; Start at 15:15 Ondansetron HCl (Zofran Inj) 4 mg Q6H PRN IV PUSH NAUSEA OR VOMITING; Start at 19:15 Pantoprazole Sodium (Protonix Inj) 40 mg Q12H IV PUSH Last administered on 11/26at 09:09; Start 11/23/17 at 10:00; Stop 11/26/17 at 11:42; Status DC Pantoprazole Sodium (Protonix) 40 mg Q12HR PO Last administered on 12/06/17at 07: 24; Start 11/26/17 at 21:00 Patient Medication Teaching (Coumadin Booklet) 1 ONCE ONCE .XX ; Start 12/03/17 at 16:00; Stop 12/03/17 at 16:01; Status DC Pharmacy Profile Note 0 ml @ 0 mls/hr UNSCH OTHER ; Start 12/03/17 at 12:00 Phenylephrine HCl 40 mg/Dextrose 500 ml @ 30 mls/hr TITRATE PRN IV Blood pressure management Last administered on 11/22/17at 17:51; Start 11/22/17 at 17: 15 Phytonadione (Vitamin K Inj) 10 mg ONCE ONCE SQ Last administered on at 09:15; Start 11/24/17 at 09:00; Stop 11/24/17 at 09:01; Status DC Phytonadione 10 mg/Dextrose 51 ml @ 102 mls/hr ONCE ONCE IV ; Start 11/22/17 at 19:00; Stop 11/22/17 at 19:00; Status DC Piperacillin Sod/ Tazobactam Sod 50 ml @ 100 mls/hr Q8H IV Last administered on 11/24/17at 08:38; Start 11/23/17 at 01:00; Stop 11/24/17 at 09:53; Status DC Polyethylene Glycol/ Electrolytes (Colyte Liq) 4,000 ml ONCE ONCE PO ; Start at 16:00; Stop 11/23/17 at 16:05; Status DC Povidone Iodine (Betadine 5% Antisepsis Kit) 1 applic RUBBER MOLD MAKER PRN EACH NARE SEE LABEL COMMENTS; Start 11/29/17 at 16:15; Stop 12/02/17 at 16:14; Status DC Pravastatin Sodium (Pravachol) 40 mg DAILY PO Last administered on 12/06/17at 07: 24; Start 11/29/17 at 15:30 Senna/Docusate Sodium (Flower-Colace) 1 tab BID PO Last administered on 12/06/17at 07:24; Start 11/22/17 at 21:00 Sennosides (Senokot) 17.2 mg Q12H PRN PO Moderate constipation; Start 11/22/17 at 19:15 Sodium Chloride (NS Flush) UNSCH PRN IV FLUSH SEE PROTOCOL TABLE; Start at 18:15 Tamsulosin HCl (Flomax) 0.4 mg DAILY PO ; Start 11/29/17 at 15:30; Stop at 15:33; Status DC Terbutaline Sulfate (Brethine Inj) 1 mg UNSCH PRN SQ For Extravasation; Start 11/22/17 at 17:15 Tetanus/ Diphtheria Toxoids (Tetanus/ Diphtheria Tox Adult) 0.5 ml ONCE ONCE IM Last administered on 11/22/17at 15:57; Start 11/22/17 at 14:30; Stop 11/22/17 at 14:31; Status DC Vancomycin HCl 500 mg/Sodium Chloride 100 ml @ 200 mls/hr ONCE ONCE IV Last administered on 11/24/17at 10:23; Start 11/24/17 at 10:00; Stop 11/24/17 at 10:29 ; Status DC Vancomycin HCl 1500 mg/Sodium Chloride 515 ml @ 250 mls/hr Q24H IV Last administered on 11/29/17at 11:49; Start 11/26/17 at 11:00; Stop 11/30/17 at 15:00 ; Status DC Vancomycin/Sodium Chloride 200 ml @ 200 mls/hr ONCE ONCE IV Last administered on 11/23/17at 20:12; Start 11/23/17 at 18:00; Stop 11/23/17 at 18:59 ; Status DC Warfarin Sodium (Coumadin) 0.5 mg ONCE ONCE PO Last administered on 12/05/17at 16:37; Start 12/05/17 at 16:00; Stop 12/05/17 at 16:01; Status DC A/P Assessment and Plan A/P Small SDH post fall -has on and off episode of slurred speech . -Neurosurgeon consulted. Patient was on Coumadin at home. -restarted Coumadin- ( ok with neurosurgery). -will repeat CT head when INR is therapeutic. -no orthostatic hypotension. -neurology following. 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 - Right 3rd digit ulcer OM s/p Incision drainage and debridement with bone biopsy right third digit by Madhav podiatry on 11/26/17. MRSA on cultures. also pathology shows OM. -CTA runoff ordered by vascular surgeon in which it showed severe peripheral vascular disease. Per vascular surgeon no indication for any procedure from his perspective. Recommend to proceed with the toe amputation by sandwich board carrier. Due to severe peripheral vascular disease patient may need a BKA in the future. 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 -Per sandwich board carrier dressing to right foot changed, Xeroform, 4 x 4's, Carmelo and Bryant applied to right foot, Okay to weight-bear as tolerated to right foot and surgical shoe, and daughter to schedule appointment for next week. -elevated CPK level-m patient is on Daptomycin- will d/w ID. A-fib; - continue metoprolol and Coumadin. -dc subq Heparin when INR is therapeutic. -cardiology consult appreciated. Hydronephrosis found on CTA runoff -confirmed by US. -per urologist continues with medical management including flomax and f/u as outpatient. Scalp laceration -Stable. Acute blood loss anemia likely secondary to GIB -Patient had EGD which showed gastritis and duodenal ulcer. Status post transfuse with 2 units of packed red blood cells has been stable. No active GI bleed since hospitalization. Continue to monitor. Per GI if he bleeds again will need to do a repeat EGD. -Continue Protonix. -H/H fairly stable- continue to monitor periodically. MRSA UTI and MRSA bacteremia with concern for endovascular infection on Daptomycin per ID- LISBETH superimposed on CRI -renal function fairly stable- will monitor periodically. DVT prophylaxis; subq Heparin/ Coumadin Discharge Planning dc planning; home early this week when INR is therapeutic. SNF was offered but the patient's daughter declined. Handy Rosas MD Dec 06, 2017 08:29
[2017-12-06] MEDS ORDERED: SODIUM CHLORID 0.9% 500 ML INJ 500 ML IV ONE (08:30)
[2017-12-06] MEDS: FERROUS SULFATE 325 MG (65 MG ELEMENTAL IRON) TAB PO SCH ×2 (11:49→15:41)
[2017-12-06] MEDS: WARFARIN SOD 5 MG TAB PO SCH (15:42)
[2017-12-06] MEDS: SODIUM CHLORIDE 0.9% IV SCH (15:42)
[2017-12-06] MEDS: DAPTOMYCIN IV SCH (15:42)
[2017-12-06] MEDS: TAMSULOSIN HCL 0.4 MG CAP PO SCH (17:26)
[2017-12-07] VITALS (11 sets, daily range): BP systolic 118–162; BP diastolic 60–73; PULSE 59–72; RESP 17–18; TEMP 97.3–98; O2SAT 96–99
[2017-12-07] MEDS: CHLORHEXIDINE GLUCONATE 2 % 1 PACK (2 CLOTHS) TOP SCH (03:24)
[2017-12-07 04:53] LABS: BASOPHIL # 0.1 TH/MM3 (0-0.2); BASOPHIL % 3.6 % (0.0-2.0); EOSINOPHIL # 0.3 TH/MM3 (0-0.4); EOSINOPHIL % 9.1 % (0.0-4.0); HEMATOCRIT 23.1 % (39.0-51.0); HEMOGLOBIN 7.9 GM/DL (13.0-17.0); LYMPH % 22.5 % (9.0-44.0); LYMPHOCYTE # 0.8 TH/MM3 (1.0-4.8); MEAN CELL VOLUME 76.7 FL (80.0-100.0); MEAN CORPUSCULAR HEMOGLOBIN 26.2 PG (27.0-34.0); MEAN CORPUSCULAR HGB CONC 34.2 % (32.0-36.0); MONO % 10.5 % (0.0-8.0); MONOCYTE # 0.4 TH/MM3 (0-0.9); NEUT % 54.3 % (16.0-70.0); PLATELET COUNT 201 TH/MM3 (150-450); RED BLOOD COUNT 3.02 MIL/MM3 (4.50-5.90); RED CELL DISTRIBUTION WIDTH 18.8 % (11.6-17.2); WHITE BLOOD COUNT 3.7 TH/MM3 (4.0-11.0)
[2017-12-07 05:23] LABS: ALBUMIN 1.9 GM/DL (3.4-5.0); BICARBONATE 24.5 MEQ/L (21.0-32.0); CALCIUM 7.5 MG/DL (8.5-10.1); CREATININE 1.72 MG/DL (0.60-1.30); DIRECT BILIRUBIN ADULT 0.2 MG/DL (0.0-0.2)
[2017-12-07 05:39] LABS: INDIRECT BILIRUBIN 0.4 MG/DL (0.0-0.8); TOTAL BILIRUBIN ADULT 0.6 MG/DL (0.2-1.0); TOTAL PROTEIN 6.1 GM/DL (6.4-8.2)
[2017-12-07 05:46] LABS: INTERNATIONAL NORMALIZED RATIO 1.3 RATIO; PROTHROMBIN TIME - PATIENT 12.7 SEC (9.8-11.6)
--- NOTE | 2017-12-07 08:31 | HHI.PR ---
Subjective Remarks almost daily some slurred speech says at times not swallow well Objective Vital Signs Date Time Temp Pulse Resp B/P (MAP) Pulse Ox O2 Delivery O2 Flow Rate FiO2 12/07/17 05:30 97.4 61 18 140/65 (90) 98 12/07/17 04:02 59 12/07/17 00:49 97.6 64 17 150/70 (96) 98 12/07/17 00:09 59 12/06/17 21:10 97.5 60 17 147/70 (95) 100 12/06/17 20:05 60 12/06/17 16:32 97.1 60 19 130/69 (89) 100 12/06/17 12:05 98.0 64 19 116/60 (78) 99 12/06/17 12:00 63 I/O 12/06/17 12/06/17 12/06/17 12/07/17 12/07/17 12/07/17 07:00 15:00 23:00 07:00 15:00 23:00 Intake Total 980 ml 100 ml 360 ml Balance 980 ml 100 ml 360 ml Intake Oral 480 ml 360 ml IV Total 500 ml 100 ml # Voids 4 4 # Bowel Movements 1 Result Diagram: 12/07/17 0432 12/07/17 0432 Procedures Status post right third digit amputation date of surgery 11/30 Objective Remarks awake alert moves face nl nl name repeat ox3 and moves sym vff speech nl no change bue nl Assessment and Plan Assessment and Plan imp eeg nl us neg ct improved b12 nl should have cards weigh in on afib hx? defer to med team could dc neuro otero and fu with me office 2 weeks 12/04/17 daugheter wanted back on anticoag so cleared with nusu acc to med team and coumadin back on w sq hep needs daily inrs inr 1.4 today i dw her check standing bp today she willhave to follow inr he passed out at home initially and hit head cards on case afib should check ct brain when inr >2.0 i dw daughter for next week we willc all her MED TEAM PLZ CHECK AND SEE WHAT HIS STANDING BPS ARE I PUT IN ORDER 12/07/17 stand bpok inr 1.3 looks well now i dw med team recheck eeg and mbs and mg labs michell these spells are not tia just some fluctuation with small ich r side Adolfo Bishop MD Dec 07, 2017 08:31
[2017-12-07] MEDS: SODIUM CHLORIDE 0.9% FLUSH 10 ML FLUSH IV FLUSH SCH ×3 (08:43→21:14)
[2017-12-07] MEDS: PANTOPRAZOLE SOD 40 MG DELAYED RELEASE TAB PO SCH ×2 (08:44→21:13)
[2017-12-07] MEDS: CALCIUM CARBONATE 500 MG CHEWABLE TAB CHEW SCH ×2 (08:44→21:13)
[2017-12-07] MEDS: FUROSEMIDE 40 MG TAB PO SCH (08:44)
[2017-12-07] MEDS: METOPROLOL TARTRATE 100 MG TAB PO SCH ×2 (08:44→21:13)
[2017-12-07] MEDS: SIMETHICONE 80 MG CHEWABLE TAB CHEW PRN ×2 (08:44→21:13)
[2017-12-07] MEDS: DOCUSATE SODIUM 50 MG/SENNA 8.6 MG TAB PO SCH ×2 (08:45→21:13)
[2017-12-07] MEDS: HEPARIN SODIUM - SQ 10,000 UNITS/ML VIAL SQ SCH ×2 (08:45→21:13)
--- NOTE | 2017-12-07 09:22 | HHI.PR ---
Subjective Remarks in no acute distress. reports some difficulty swallowing. no focal weakness. Objective Vitals Vital Signs Date Time Temp Pulse Resp B/P (MAP) Pulse Ox O2 Delivery O2 Flow Rate FiO2 12/07/17 08:28 97.3 62 18 162/73 (102) 99 12/07/17 05:30 97.4 61 18 140/65 (90) 98 12/07/17 04:02 59 12/07/17 00:49 97.6 64 17 150/70 (96) 98 12/07/17 00:09 59 12/06/17 21:10 97.5 60 17 147/70 (95) 100 12/06/17 20:05 60 12/06/17 16:32 97.1 60 19 130/69 (89) 100 12/06/17 12:05 98.0 64 19 116/60 (78) 99 12/06/17 12:00 63 I/O 12/06/17 12/06/17 12/06/17 12/07/17 12/07/17 12/07/17 07:00 15:00 23:00 07:00 15:00 23:00 Intake Total 980 ml 100 ml 360 ml Balance 980 ml 100 ml 360 ml Intake Oral 480 ml 360 ml IV Total 500 ml 100 ml # Voids 4 4 # Bowel Movements 1 Result Diagram: 12/07/17 0432 12/07/17 0432 Imaging Last Impressions Carotid Artery Ultrasound 12/02/17 1124 Signed Impressions: Service Date/Time: Saturday, December 02, 2017 12:00 - CONCLUSION: Negative examination for a hemodynamically significant carotid stenosis. Phu Shell MD FACR Head CT 12/02/17 0000 Signed Impressions: Service Date/Time: Saturday, December 02, 2017 11:36 - CONCLUSION: 1. The extra-axial acute blood products documented on the prior study remain present but decreased in volume. 2. Mild decrease in the right scalp soft tissue swelling. 3. Stable chronic changes include generalized atrophy and chronic periventricular white matter changes. Jalil Cedillo MD Chest X-Ray 12/01/17 0000 Signed Impressions: Service Date/Time: Friday, December 01, 2017 17:42 - CONCLUSION: 1. Uncomplicated PICC line placement. 2. Left lower lobe atelectasis versus pneumonia. There has been no significant change when compared to the prior exam. Adolfo Freitas MD Foot X-Ray 11/30/17 0000 Signed Impressions: Service Date/Time: Thursday, November 30, 2017 18:23 - CONCLUSION: 1. 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 Tiago Rodriguez MD Renal Ultrasound 11/29/17 0000 Signed Impressions: Service Date/Time: Wednesday, November 29, 2017 16:28 - CONCLUSION: 1. There is hydronephrosis of the left collecting system. 2. Multiple small benign- appearing bilateral renal cysts. Bull Pena MD Aorta w/Runoff CTA 11/28/17 0000 Signed Impressions: Service Date/Time: Tuesday, November 28, 2017 18:26 - CONCLUSION: 1. Severe atherosclerotic disease. The popliteal arteries are nonvisualized bilaterally for a short segment given the beam hardening artifact from the knee arthroplasty hardware. In the right leg the anterior tibial artery appears to be occluded in the mid leg for a short segment with minimal runoff more distally. Please see above for detailed description of the remaining vessels. 2. Moderate size right and a chronic small left pleural effusion with left pleural thickening. 3. There is a small volume of free fluid in the pelvis from uncertain etiology. There is mild diffuse subcutaneous edema. 4. There is abnormal patchy enhancement of both kidneys which is nonspecific but can be seen with infection or interstitial nephritis related to contrast administration. There is severe left hydronephrosis and hydroureter from uncertain etiology. No distal obstructing process is seen. Therefore, this could be related to reflux. 1. Jalil Cedillo MD Upper Extremity Ultrasound 11/27/17 0000 Signed Impressions: Service Date/Time: Monday, November 27, 2017 21:56 - CONCLUSION: 1. No sonographic evidence for upper extremity DVT. Chris Cooper MD Cervical Spine CT 11/22/17 1418 Signed Impressions: Service Date/Time: Wednesday, November 22, 2017 14:39 - CONCLUSION: Large anterior osteophytes at multiple levels. Scattered areas of bilateral neuroforaminal narrowing due to osteophyte. No evidence of acute fracture or significant subluxation. Dagoberto Das MD Shoulder X-Ray 11/22/17 0000 Signed Impressions: Service Date/Time: Wednesday, November 22, 2017 16:27 - CONCLUSION: Unremarkable examination of the left shoulder status post left bipolar pacermaker. Marked impingement change with acromial spurring and erosions across the greater tuberosity Dagoberto Das MD Pelvis X-Ray 11/22/17 0000 Signed Impressions: Service Date/Time: Wednesday, November 22, 2017 14:36 - CONCLUSION: Unremarkable examination of the pelvis. Dagoberto Das MD Chest CT 11/22/17 0000 Signed Impressions: Service Date/Time: Wednesday, November 22, 2017 16:02 - CONCLUSION: 1. No acute finding is identified on this noncontrast examination of the chest. 2. There is stable left pleural thickening, trace left pleural fluid, and volume loss in the left lower lobe. 3. Coronary artery calcification and severe atherosclerotic disease of aorta. Jalil Cedillo MD Abdomen/Pelvis CT 11/22/17 0000 Signed Impressions: Service Date/Time: Wednesday, November 22, 2017 16:02 - CONCLUSION: 1. No acute finding is identified on this mildly motion degraded noncontrast CT of the abdomen and pelvis. 2. Stable nonacute findings include cholelithiasis, severe atherosclerotic disease, and sigmoid diverticulosis. Jalil Cedillo MD Objective Remarks GENERAL: This is a well-nourished, well-developed patient, in no apparent distress. CARDIOVASCULAR: Regular rate and regular rhythm without murmurs, gallops, or rubs. RESPIRATORY: Clear to auscultation. Breath sounds equal bilaterally. No wheezes , rales, or rhonchi. GASTROINTESTINAL: Abdomen soft, non-tender, nondistended. Normal, active bowel sounds MUSCULOSKELETAL: right foot covered with clean dressing. NEURO: Alert & Oriented x4 to person, place, time, situation. Moves all ext x4 Procedures Right 3rd digit ulcer OM s/p Incision drainage and debridement with bone biopsy right third digit by Dr Barr podiatry on 11/26/17 Medications and IVs Inpatient Medications Acetaminophen (Tylenol) 650 mg Q4H PRN PO SEE LABEL COMMENTS Last administered on 11/27/17at 12:47; Start 11/27/17 at 09:15; Stop 11/27/17 at 23:59; Status DC Acetaminophen/ Hydrocodone Bitart ([place]ham 5-325 Mg) 1 tab Q4H PRN PO PAIN SCALE 3 TO 5 Last administered on 12/01/17at 17:41; Start 11/26/17 at 15:15 Acetaminophen/ Hydrocodone Bitart ([place]ham 10-325 Mg) 1 tab Q4H PRN PO PAIN SCALE 6 TO 10 Last administered on 12/02/17at 05:38; Start 11/26/17 at 15:15 Albuterol/ Ipratropium (Duoneb Neb) 1 ampule Q4HR NEB PRN INH WHEEZING; Start 11/22/17 at 19:15 Aspirin (Aspirin Chew) 81 mg DAILY PO ; Start 12/04/17 at 09:00; Stop 12/04/17 at 09:00; Status DC Bisacodyl (Dulcolax Supp) 10 mg DAILY PRN RECTAL SEVERE CONSITIPATION; Start at 19:15 Bupivacaine HCl (Marcaine Pf 0.5% Inj) 30 ml ONCE ONCE INFIL Last administered on 11/30/17at 17:29; Start 11/30/17 at 17:29; Stop 11/30/17 at 18:08 ; Status DC Calcium Carbonate (Tums Chew) 500 mg Q12HR CHEW Last administered on 12/07/17at 08:44; Start 11/28/17 at 21:00 Ceftaroline Fosamil 600 mg/ Sodium Chloride 100 ml @ 100 mls/hr Q8H IV ; Start 12/07/17 at 09:00 Ceftriaxone Sodium 1000 mg/ Sodium Chloride 100 ml @ 200 mls/hr ONCE ONCE IV Last administered on 11/22/17at 16:39; Start 11/22/17 at 16:30; Stop 11/22/17 at 16:59; Status DC Chlorhexidine Gluconate (Chlorhexidine 2% Cloth) 3 pack RESEARCH AND [employer]IGHTS EXECUTIVE PRN TOPICAL SEE LABEL COMMENTS; Start 11/29/17 at 16:15; Stop 12/02/17 at 16:14; Status DC Daptomycin 890 mg/ Sodium Chloride 100 ml @ 200 mls/hr Q24H IV Last administered on 12/06/17at 15:42; Start 11/30/17 at 16:00; Stop 12/07/17 at 08:08; Status DC Dextrose (D50w (Syr) Inj) 12.5 ml ONCE ONCE IV PUSH Last administered on at 08:48; Start 11/24/17 at 08:30; Stop 11/24/17 at 08:31; Status DC Diphenhydramine HCl (Benadryl) 25 mg Q4H PRN PO SEE LABEL COMMENTS Last administered on 11/27/17at 12:47; Start 11/27/17 at 09:15; Stop 11/27/17 at 23:59 ; Status DC Ferrous Sulfate (Ferrous Sulfate) 325 mg BID@12,17 PO Last administered on at 15:41; Start 11/27/17 at 17:00 Furosemide (Lasix Inj) 20 mg ONCE ONCE IV PUSH Last administered on 11/27/17at 16:57; Start 11/27/17 at 10:00; Stop 11/27/17 at 10:01; Status DC Furosemide (Lasix) 40 mg DAILY PO Last administered on 12/07/17at 08:44; Start at 15:30 Heparin Sodium (Porcine) (Heparin Central Flush) See Protocol UNSCH PRN IV FLUSH SEE PROTOCOL TABLE; Start 12/01/17 at 18:15 Heparin Sodium (Porcine) (Heparin Inj) 5,000 units Q12HR SQ Last administered on 12/07/17at 08:45; Start 12/03/17 at 21:00 Insulin Human Regular (NovoLIN R INJ) See Protocol Table ... RESEARCH [employer] INSIGHTS EXECUTIVE PRN SQ SEE PROTOCOL TABLE; Start 11/29/17 at 16:15; Stop 12/02/17 at 16:14; Status DC Lactated Ringer's 1,000 ml @ 30 mls/hr Q24H PRN IV SEE LABEL COMMENTS; Start at 16:15; Stop 11/30/17 at 12:44; Status DC Lactulose (Lactulose Liq) 30 ml DAILY PRN PO SEVERE CONSITIPATION; Start at 19:15 Lidocaine HCl (Xylocaine 1% Inj (50 ml)) AT BEDSIDE FOR PROCEDURE UNSCH .XX ; Start 11/25/17 at 00:30; Stop 11/25/17 at 15:48; Status DC Lidocaine HCl (Xylocaine 1% Inj) UNSCH OTHER ; Start 11/25/17 at 16:00; Stop at 00:29; Status DC Magnesium Hydroxide (Milk Of Magnesia Liq) 30 ml Q12H PRN PO Mild constipation ; Start 11/22/17 at 19:15 Metoclopramide HCl (Reglan Inj) 10 mg Q6H PRN IV PUSH NAUSEA OR VOMITING; Start 11/22/17 at 19:15 Metoprolol Tartrate (Lopressor) 100 mg BID PO Last administered on 12/07/17at 08: 44; Start 12/04/17 at 21:00 Miscellaneous (Pill Splitter) 1 ea UNSCH PRN OTHER SEE LABEL COMMENTS; Start at 15:00 Miscellaneous Information ALL NURSING DEPARTME... UNSCH PRN .XX SEE LABEL COMMENTS; Start 11/30/17 at 17:58; Stop 12/01/17 at 17:57; Status DC Miscellaneous Information (Post-op Orders (for Pharmacy)) STAT ONCE XX Last administered on 11/30/17at 18:15; Start 11/30/17 at 18:15; Stop 11/30/17 at 18:22 ; Status DC Morphine Sulfate (Morphine Inj) 2 mg Q4H PRN IV PUSH BREAKTHROUGH PAIN Last administered on 12/02/17at 00:32; Start 11/26/17 at 15:15 Naloxone HCl (Narcan Inj) 0.4 mg UNSCH PRN IV PUSH SEE LABEL COMMENTS; Start at 15:15 Ondansetron HCl (Zofran Inj) 4 mg Q6H PRN IV PUSH NAUSEA OR VOMITING; Start at 19:15 Pantoprazole Sodium (Protonix Inj) 40 mg Q12H IV PUSH Last administered on 11/26at 09:09; Start 11/23/17 at 10:00; Stop 11/26/17 at 11:42; Status DC Pantoprazole Sodium (Protonix) 40 mg Q12HR PO Last administered on 12/07/17at 08: 44; Start 11/26/17 at 21:00 Patient Medication Teaching (Coumadin Booklet) 1 ONCE ONCE .XX ; Start 12/03/17 at 16:00; Stop 12/03/17 at 16:01; Status DC Pharmacy Profile Note 0 ml @ 0 mls/hr UNSCH OTHER ; Start 12/03/17 at 12:00 Phenylephrine HCl 40 mg/Dextrose 500 ml @ 30 mls/hr TITRATE PRN IV Blood pressure management Last administered on 11/22/17at 17:51; Start 11/22/17 at 17: 15 Phytonadione (Vitamin K Inj) 10 mg ONCE ONCE SQ Last administered on at 09:15; Start 11/24/17 at 09:00; Stop 11/24/17 at 09:01; Status DC Phytonadione 10 mg/Dextrose 51 ml @ 102 mls/hr ONCE ONCE IV ; Start 11/22/17 at 19:00; Stop 11/22/17 at 19:00; Status DC Piperacillin Sod/ Tazobactam Sod 50 ml @ 100 mls/hr Q8H IV Last administered on 11/24/17at 08:38; Start 11/23/17 at 01:00; Stop 11/24/17 at 09:53; Status DC Polyethylene Glycol/ Electrolytes (Colyte Liq) 4,000 ml ONCE ONCE PO ; Start at 16:00; Stop 11/23/17 at 16:05; Status DC Povidone Iodine (Betadine 5% Antisepsis Kit) 1 applic RESEARCH AND INSIGHTS EXECUTIVE PRN EACH NARE SEE LABEL COMMENTS; Start 11/29/17 at 16:15; Stop 12/02/17 at 16:14; Status DC Pravastatin Sodium (Pravachol) 40 mg DAILY PO Last administered on 12/06/17at 07: 24; Start 11/29/17 at 15:30; Status Future Hold Senna/Docusate Sodium (Flower-Colace) 1 tab BID PO Last administered on 12/07/17at 08:45; Start 11/22/17 at 21:00 Sennosides (Senokot) 17.2 mg Q12H PRN PO Moderate constipation; Start 11/22/17 at 19:15 Simethicone (Mylicon Chew) 80 mg PCHS PRN CHEW GAS RETENTION Last administered on 12/07/17at 08:44; Start 12/06/17 at 19:00 Sodium Chloride 500 ml @ 50 mls/hr Q10H ONCE IV Last administered on 12/06/17at 08:30; Start 12/06/17 at 08:30; Stop 12/06/17 at 18:29; Status DC Sodium Chloride (NS Flush) UNSCH PRN IV FLUSH SEE PROTOCOL TABLE; Start at 18:15 Tamsulosin HCl (Flomax) 0.4 mg DAILY PO ; Start 11/29/17 at 15:30; Stop at 15:33; Status DC Terbutaline Sulfate (Brethine Inj) 1 mg UNSCH PRN SQ For Extravasation; Start 11/22/17 at 17:15 Tetanus/ Diphtheria Toxoids (Tetanus/ Diphtheria Tox Adult) 0.5 ml ONCE ONCE IM Last administered on 11/22/17at 15:57; Start 11/22/17 at 14:30; Stop 11/22/17 at 14:31; Status DC Vancomycin HCl 500 mg/Sodium Chloride 100 ml @ 200 mls/hr ONCE ONCE IV Last administered on 11/24/17at 10:23; Start 11/24/17 at 10:00; Stop 11/24/17 at 10:29 ; Status DC Vancomycin HCl 1500 mg/Sodium Chloride 515 ml @ 250 mls/hr Q24H IV Last administered on 11/29/17at 11:49; Start 11/26/17 at 11:00; Stop 11/30/17 at 15:00 ; Status DC Vancomycin/Sodium Chloride 200 ml @ 200 mls/hr ONCE ONCE IV Last administered on 11/23/17at 20:12; Start 11/23/17 at 18:00; Stop 11/23/17 at 18:59 ; Status DC Warfarin Sodium (Coumadin) 5 mg DAILY@16 PO Last administered on 12/06/17at 15:42 ; Start 12/06/17 at 16:00 A/P Assessment and Plan A/P Small SDH post fall -has on and off episode of slurred speech . -Neurosurgeon consulted. Patient was on Coumadin at home. -restarted Coumadin- ( ok with neurosurgery). -will repeat CT head when INR is therapeutic. -no orthostatic hypotension. -neurology following; d/w today; will repeat EEG and check modified barium swallow. 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 MRSA on cultures. also pathology shows OM. -CTA runoff ordered by vascular surgeon in which it showed severe peripheral vascular disease. Per vascular surgeon no indication for any procedure from his perspective. Recommend to proceed with the toe amputation by foam cutting supervisor. Due to severe peripheral vascular disease patient may need a BKA in the future. 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 -Per foam cutting supervisor dressing to right foot changed, Xeroform, 4 x 4's, Carmelo and Bryant applied to right foot, Okay to weight-bear as tolerated to right foot and surgical shoe. -started on Daptomycin but due to elevated CPK- Daptomycin was dc'ed and started on Teflaro- d/w today. -elevated CPK level-worse today- stop Daptomycin as noted above-hold statin- continue gentle IV fluid and monitor CPK level and renal function. A-fib; - continue metoprolol and Coumadin. -dc subq Heparin when INR is therapeutic. -cardiology consult appreciated. Hydronephrosis found on CTA runoff -confirmed by US. -per urologist continues with medical management including flomax and f/u as outpatient. Scalp laceration -Stable. Acute blood loss anemia likely secondary to GIB -Patient had EGD which showed gastritis and duodenal ulcer. Status post transfuse with 2 units of packed red blood cells has been stable. No active GI bleed since hospitalization. Continue to monitor. Per GI if he bleeds again will need to do a repeat EGD. -Continue Protonix. -H/H fairly stable- continue to monitor periodically. LISBETH superimposed on CRI -renal function fairly stable- will monitor periodically. DVT prophylaxis; subq Heparin/ Coumadin Discharge Planning work-up in progress- not ready for discharge today. SNF was offered but the patient's daughter declined. Handy Rosas MD Dec 07, 2017 09:22
[2017-12-07] MEDS ORDERED: SODIUM CHLOR 0.9% 1000 ML INJ 1,000 ML IV ONE (10:00)
[2017-12-07] MEDS: CEFTAROLINE INJ 600 MG in SODIUM CHLORIDE 0.9% INJ 100 ML IV SCH ×2 (10:17→17:03)
--- NOTE | 2017-12-07 11:19 | RADRPT ---
EXAM DATE/TIME: 12/07/2017 10:54 [facility] COMPARISON: No previous studies available for comparison. INDICATIONS : Dysphagia, coughing, history of TIA FLUORO TIME: 1.8 minutes IMAGE COUNT: 1 CONTRAST: Dose as prescribed by speech pathologist. MEDICAL HISTORY : TIA SURGICAL HISTORY : None. ENCOUNTER: Subsequent ACUITY: 3 days PAIN SCORE: Non-responsive. LOCATION: Bilateral esophagus FINDINGS: A modified barium swallow was performed with speech pathology. Patient was given a variety of liquids to swallow. Minimal laryngeal penetration and aspiration For a full detailed report, see report by the speech pathologist. CONCLUSION: No aspiration Phu Shell MD FACR on December 07, 2017 at 11:17 Board Certified Radiologist. This report was verified electronically.
[2017-12-07] MEDS: FERROUS SULFATE 325 MG (65 MG ELEMENTAL IRON) TAB PO SCH ×2 (12:47→17:02)
--- NOTE | 2017-12-07 14:21 | HHI.IDPN ---
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 Patient reports h/o 2 falls at home (note patient on anticoagulants) ? LOC after this fall. Patient was brought to hospital via Ambulance. Per chart review it appears patient had lost his footing and hit the back of his head. Family did not witness it and has a head laceration. There is report of possible LOC but not sure how long. When patient woke up he mainly complained of pain mainly to left shoulder and head. Per family patient is getting worked up for loss of 20 pounds recently and concerned for cancer. He has noticed black tarry stools for the last week or so and has been progressively getting weaker. Patient had significant bleeding from his scalp laceration which was sutured in the ER. He was noted to be coagulopathic with an INR of 6.5 and received 2 units of FFP and vitamin K 10 mg IV in the ER. He had a subclavian central line placed by ER physician. Patient was given 1.5 L fluid bolus and started on Faisal-Synephrine for pressor support. 2 units FFP, PRBCs 2 units were ordered to be transfused as his hemoglobin dropped to 6.9 following fluid bolus. Patient was admitted under critical care medicine service. Head CT done revealed a subdural hematoma. Neurosurgery was consulted and did not plan any active intervention. Patient was evaluated by GI and underwent EGD today with reported duodenitis and no bleeder or malignancies per verbal report. Colonoscopy is planned at some point in future per GI notes. Blood cultures done on admission were positive for MRSA and ID consulted for same given h/o pacer in situ. Pertinent positives and negatives: Family reported h/o MRSA. Patient reportedly had a urologic procedure a week back for a urethral stricture. H/o falls x 2 Patient upon questioning reports he stubbed his toe probably around the falls. Not sure of timing. H/o weight loss, workup ongoing. Overnight events reviewed No fevers No rash No diarrhea Rn informs me of stroke, workup for seizures (EEG done today) Path post resection of toe proximal margin close to body with no e.o osteomyelitis. Antibiotics Pen G IV Lines Line sites with no e.o infection Past Medical History reviewed Allergies: Coded Allergies: *MDRO Multi-Drug Resistant Organism (Unverified Adverse Reaction, Unknown , 11/22/17) MRSA back wound 02/2015. Objective . Vital Signs Date Time Temp Pulse Resp B/P (MAP) Pulse Ox O2 Delivery O2 Flow Rate FiO2 12/07/17 12:51 97.5 63 18 133/64 (87) 98 137/71 (93) 144/61 (88) 12/07/17 08:28 97.3 62 18 162/73 (102) 99 12/07/17 08:15 62 12/07/17 05:30 97.4 61 18 140/65 (90) 98 12/07/17 04:02 59 12/07/17 00:49 97.6 64 17 150/70 (96) 98 12/07/17 00:09 59 12/06/17 21:10 97.5 60 17 147/70 (95) 100 12/06/17 20:05 60 12/06/17 16:32 97.1 60 19 130/69 (89) 100 12/07/17 12/07/17 12/08/17 15:00 23:00 07:00 # Voids 1 . Laboratory Tests Test 12/06/17 05:20 12/07/17 04:32 White Blood Count 4.2 TH/MM3 3.7 TH/MM3 Red Blood Count 3.13 MIL/MM3 3.02 MIL/MM3 Hemoglobin 7.9 GM/DL 7.9 GM/DL Hematocrit 23.9 % 23.1 % Mean Corpuscular Volume 76.5 FL 76.7 FL Mean Corpuscular Hemoglobin 25.3 PG 26.2 PG Mean Corpuscular Hemoglobin Concent 33.1 % 34.2 % Red Cell Distribution Width 19.0 % 18.8 % Platelet Count 226 TH/MM3 201 TH/MM3 Mean Platelet Volume 5.8 FL 6.0 FL Neutrophils (%) (Auto) 60.1 % 54.3 % Lymphocytes (%) (Auto) 18.3 % 22.5 % Monocytes (%) (Auto) 9.7 % 10.5 % Eosinophils (%) (Auto) 9.7 % 9.1 % Basophils (%) (Auto) 2.2 % 3.6 % Neutrophils # (Auto) 2.5 TH/MM3 2.0 TH/MM3 Lymphocytes # (Auto) 0.8 TH/MM3 0.8 TH/MM3 Monocytes # (Auto) 0.4 TH/MM3 0.4 TH/MM3 Eosinophils # (Auto) 0.4 TH/MM3 0.3 TH/MM3 Basophils # (Auto) 0.1 TH/MM3 0.1 TH/MM3 CBC Comment DIFF FINAL DIFF FINAL Differential Comment Laboratory Tests Test 12/06/17 04:50 12/07/17 04:32 Blood Urea Nitrogen 23 MG/DL 21 MG/DL Creatinine 1.78 MG/DL 1.72 MG/DL Random Glucose 78 MG/DL 71 MG/DL Total Protein 6.0 GM/DL 6.1 GM/DL Albumin 1.8 GM/DL 1.9 GM/DL Calcium Level 7.2 MG/DL 7.5 MG/DL Alkaline Phosphatase 60 U/L 65 U/L Aspartate Amino Transf (AST/SGOT) 50 U/L 64 U/L Alanine Aminotransferase (ALT/SGPT) 16 U/L 20 U/L Total Bilirubin 0.6 MG/DL 0.6 MG/DL Sodium Level 143 MEQ/L 142 MEQ/L Potassium Level 4.0 MEQ/L 3.9 MEQ/L Chloride Level 111 MEQ/L 108 MEQ/L Carbon Dioxide Level 25.5 MEQ/L 24.5 MEQ/L Anion Gap 7 MEQ/L 10 MEQ/L Estimat Glomerular Filtration Rate 36 ML/MIN 38 ML/MIN Protein Corrected Calcium 7.8 MG/DL Total Creatine Kinase 806 U/L 1136 U/L Creatine Kinase MB 10.6 NG/ML 15.3 NG/ML Creatine Kinase MB % 1.3 % 1.3 % Troponin I 0.05 NG/ML Direct Bilirubin 0.2 MG/DL Indirect Bilirubin 0.4 MG/DL Imaging Last Impressions Upper Extremity Ultrasound 11/27/17 0000 Signed Impressions: Service Date/Time: Monday, November 27, 2017 21:56 - CONCLUSION: 1. No sonographic evidence for upper extremity DVT. Chris Cooper MD Chest X-Ray 11/25/17 0000 Signed Impressions: Service Date/Time: Saturday, November 25, 2017 15:16 - CONCLUSION: 1. Left basilar effusion and consolidation concerning for pneumonia. Darrian Shell MD Head CT 11/24/17 0600 Signed Impressions: Service Date/Time: Friday, November 24, 2017 05:16 - CONCLUSION: 1. Mild increase in the size of the high density hemorrhage along the right parietal lobe 2. 2 additional smaller areas of high density punctate hemorrhage are now noted along the right parietal lobe as well. Franklin Schaefer MD Foot X-Ray 11/24/17 0000 Signed Impressions: Service Date/Time: Friday, November 24, 2017 18:04 - CONCLUSION: 1. Chronic appearing limited erosion of the medial proximal first metatarsal near the MTP joint. 2. No evidence for erosive change to suggest osteomyelitis involving the third digit. Chris Cooper MD Cervical Spine CT 11/22/17 1418 Signed Impressions: Service Date/Time: Wednesday, November 22, 2017 14:39 - CONCLUSION: Large anterior osteophytes at multiple levels. Scattered areas of bilateral neuroforaminal narrowing due to osteophyte. No evidence of acute fracture or significant subluxation. Dagoberto Das MD Shoulder X-Ray 11/22/17 0000 Signed Impressions: Service Date/Time: Wednesday, November 22, 2017 16:27 - CONCLUSION: Unremarkable examination of the left shoulder status post left bipolar pacermaker. Marked impingement change with acromial spurring and erosions across the greater tuberosity Dagoberto Das MD Pelvis X-Ray 11/22/17 0000 Signed Impressions: Service Date/Time: Wednesday, November 22, 2017 14:36 - CONCLUSION: Unremarkable examination of the pelvis. Dagoberto Das MD Chest CT 11/22/17 0000 Signed Impressions: Service Date/Time: Wednesday, November 22, 2017 16:02 - CONCLUSION: 1. No acute finding is identified on this noncontrast examination of the chest. 2. There is stable left pleural thickening, trace left pleural fluid, and volume loss in the left lower lobe. 3. Coronary artery calcification and severe atherosclerotic disease of aorta. Jalil Cedillo MD Abdomen/Pelvis CT 11/22/17 0000 Signed Impressions: Service Date/Time: Wednesday, November 22, 2017 16:02 - CONCLUSION: 1. No acute finding is identified on this mildly motion degraded noncontrast CT of the abdomen and pelvis. 2. Stable nonacute findings include cholelithiasis, severe atherosclerotic disease, and sigmoid diverticulosis. Jalil Cedillo MD Physical Exam GENERAL: This is a well-nourished, well-developed patient, in no apparent distress. SKIN: No rashes, ecchymoses or lesions. Cool and dry. HEAD: Atraumatic. Normocephalic. No temporal or scalp tenderness. CARDIOVASCULAR: HS audible.Pacemaker site ok with no e.o infection. RESPIRATORY: Clear to auscultation. Breath sounds equal bilaterally. GASTROINTESTINAL: Abdomen soft, non-tender, nondistended. MUSCULOSKELETAL: rt foot in dressing NEUROLOGICAL: Awake and alert. Responds to questions. Speech ok. Psych cooperative IV line sites with no e.o infection. Assessment & Plan Remarks MRSA bacteremia present on admission. ? reason for fall vs resultant of fall related toe injury. - repeat BC negative @ 3 days - low grade unsustained 1/4 bottles only Right 3rd toe abscess r/o osteomyelitis:source of bacteremia. 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 likely severe PVD Pacemaker in situ. Afib on anticoagulation. H/o falls x 2, Right parietal lobe bleed. Pulm edema Recs: DC Daptomycin as CK continued to rise. Troponins normal not cardiac. On Pravastatin which can cause drug interaction but due to rising CK will DC Dapto IV and switch to Teflaro IV Start Teflaro IV (stop date 12/11/2017) to finish the course for bacteremia. If discharged prior to the last date of Teflaro ok to switch to oral Zyvox for the same stop date. Discontinue PICC on discharge. No infusion orders needed on discharge. Will sign off please call back if any change in clinical condition or questions. Rossy Fried MD Dec 07, 2017 14:21
[2017-12-07] MEDS: TAMSULOSIN HCL 0.4 MG CAP PO SCH (17:02)
[2017-12-07] MEDS: WARFARIN SOD 5 MG TAB PO SCH (17:03)
[2017-12-08] VITALS: BP 140/76; PULSE 65; PULSE 70; RESP 20; TEMP 99; O2SAT 95
[2017-12-08] MEDS: CEFTAROLINE INJ 600 MG in SODIUM CHLORIDE 0.9% INJ 100 ML IV SCH ×2 (00:47→09:06)
[2017-12-08] MEDS: CHLORHEXIDINE GLUCONATE 2 % 1 PACK (2 CLOTHS) TOP SCH (03:18)
[2017-12-08 04:02] VITALS: PULSE 65
[2017-12-08 04:23] VITALS: BP 120/57; PULSE 81; RESP 20; TEMP 97.1; O2SAT 97
[2017-12-08 04:52] LABS: INTERNATIONAL NORMALIZED RATIO 1.2 RATIO; PROTHROMBIN TIME - PATIENT 12.2 SEC (9.8-11.6)
[2017-12-08 05:24] LABS: BICARBONATE 23.5 MEQ/L (21.0-32.0); CALCIUM 7.4 MG/DL (8.5-10.1); CREATININE 1.87 MG/DL (0.60-1.30)
[2017-12-08 05:45] LABS: CALCIUM-PROTEIN CORRECTED 7.7 MG/DL (8.5-10.1); TOTAL PROTEIN 6.6 GM/DL (6.4-8.2)
--- NOTE | 2017-12-08 07:40 | HHI.PR ---
Subjective Remarks speech clear now Objective Vital Signs Date Time Temp Pulse Resp B/P (MAP) Pulse Ox O2 Delivery O2 Flow Rate FiO2 12/08/17 04:23 97.1 81 20 120/57 (78) 97 12/08/17 04:02 65 12/08/17 00:00 65 12/07/17 21:59 96 12/07/17 20:48 72 12/07/17 17:04 97.5 63 18 123/63 (83) 96 121/65 (83) 118/60 (79) 12/07/17 12:51 97.5 63 18 133/64 (87) 98 137/71 (93) 144/61 (88) 12/07/17 08:28 97.3 62 18 162/73 (102) 99 12/07/17 08:15 62 I/O 12/07/17 12/07/17 12/07/17 12/08/17 12/08/17 12/08/17 07:00 15:00 23:00 07:00 15:00 23:00 Intake Total 360 ml 580 ml 100 ml 100 ml Balance 360 ml 580 ml 100 ml 100 ml Intake Oral 360 ml 480 ml IV Total 100 ml 100 ml 100 ml # Voids 4 1 1 2 # Bowel Movements 1 1 Result Diagram: 12/07/17 0432 12/08/17 0430 Procedures Status post right third digit amputation date of surgery 11/30 Objective Remarks awake alert moves face nl speech clear Assessment and Plan Assessment and Plan imp eeg nl us neg ct improved b12 nl should have cards weigh in on afib hx? defer to med team could dc neuro otero and fu with me office 2 weeks 12/04/17 daugheter wanted back on anticoag so cleared with nusu acc to med team and coumadin back on w sq hep needs daily inrs inr 1.4 today i dw her check standing bp today she willhave to follow inr he passed out at home initially and hit head cards on case afib should check ct brain when inr >2.0 i dw daughter for next week we willc all her MED TEAM PLZ CHECK AND SEE WHAT HIS STANDING BPS ARE I PUT IN ORDER 12/07/17 stand bpok inr 1.3 looks well now i dw med team recheck eeg and mbs and mg labs likley these spells are not tia just some fluctuation with small ich r side 12/08/17 looks fine mbs ok eeg repeat neg r abn mg labs pend inr yet to bump make sure not eating greens stable neuro Adolfo Bishop MD Dec 08, 2017 07:40
[2017-12-08] MEDS ORDERED: SODIUM CHLOR 0.9% 1000 ML INJ 1,000 ML IV SCH (08:00)
--- NOTE | 2017-12-08 08:06 | HHI.PR ---
Subjective Remarks in no acute distress. denies pain. no fever. no new complaints. Objective Vitals Vital Signs Date Time Temp Pulse Resp B/P (MAP) Pulse Ox O2 Delivery O2 Flow Rate FiO2 12/08/17 04:23 97.1 81 20 120/57 (78) 97 12/08/17 04:02 65 12/08/17 00:00 65 12/07/17 21:59 96 12/07/17 20:48 72 12/07/17 17:04 97.5 63 18 123/63 (83) 96 121/65 (83) 118/60 (79) 12/07/17 12:51 97.5 63 18 133/64 (87) 98 137/71 (93) 144/61 (88) 12/07/17 08:28 97.3 62 18 162/73 (102) 99 12/07/17 08:15 62 I/O 12/07/17 12/07/17 12/07/17 12/08/17 12/08/17 12/08/17 07:00 15:00 23:00 07:00 15:00 23:00 Intake Total 360 ml 580 ml 100 ml 100 ml Balance 360 ml 580 ml 100 ml 100 ml Intake Oral 360 ml 480 ml IV Total 100 ml 100 ml 100 ml # Voids 4 1 1 2 # Bowel Movements 1 1 Result Diagram: 12/07/17 0432 12/08/17 0430 Imaging Last Impressions Modified Barium Swallow 12/07/17 0000 Signed Impressions: Service Date/Time: Thursday, December 07, 2017 10:54 - CONCLUSION: No aspiration Phu Shell MD FACR Carotid Artery Ultrasound 12/02/17 1124 Signed Impressions: Service Date/Time: Saturday, December 02, 2017 12:00 - CONCLUSION: Negative examination for a hemodynamically significant carotid stenosis. Phu Shell MD FACR Head CT 12/02/17 0000 Signed Impressions: Service Date/Time: Saturday, December 02, 2017 11:36 - CONCLUSION: 1. The extra-axial acute blood products documented on the prior study remain present but decreased in volume. 2. Mild decrease in the right scalp soft tissue swelling. 3. Stable chronic changes include generalized atrophy and chronic periventricular white matter changes. Jalil Cedillo MD Chest X-Ray 12/01/17 0000 Signed Impressions: Service Date/Time: Friday, December 01, 2017 17:42 - CONCLUSION: 1. Uncomplicated PICC line placement. 2. Left lower lobe atelectasis versus pneumonia. There has been no significant change when compared to the prior exam. Adolfo Freitas MD Foot X-Ray 11/30/17 0000 Signed Impressions: Service Date/Time: Thursday, November 30, 2017 18:23 - CONCLUSION: 1. 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 Tiago Rodriguez MD Renal Ultrasound 11/29/17 0000 Signed Impressions: Service Date/Time: Wednesday, November 29, 2017 16:28 - CONCLUSION: 1. There is hydronephrosis of the left collecting system. 2. Multiple small benign- appearing bilateral renal cysts. Bull Pena MD Aorta w/Runoff CTA 11/28/17 0000 Signed Impressions: Service Date/Time: Tuesday, November 28, 2017 18:26 - CONCLUSION: 1. Severe atherosclerotic disease. The popliteal arteries are nonvisualized bilaterally for a short segment given the beam hardening artifact from the knee arthroplasty hardware. In the right leg the anterior tibial artery appears to be occluded in the mid leg for a short segment with minimal runoff more distally. Please see above for detailed description of the remaining vessels. 2. Moderate size right and a chronic small left pleural effusion with left pleural thickening. 3. There is a small volume of free fluid in the pelvis from uncertain etiology. There is mild diffuse subcutaneous edema. 4. There is abnormal patchy enhancement of both kidneys which is nonspecific but can be seen with infection or interstitial nephritis related to contrast administration. There is severe left hydronephrosis and hydroureter from uncertain etiology. No distal obstructing process is seen. Therefore, this could be related to reflux. 1. Jalil Cedillo MD Upper Extremity Ultrasound 11/27/17 0000 Signed Impressions: Service Date/Time: Monday, November 27, 2017 21:56 - CONCLUSION: 1. No sonographic evidence for upper extremity DVT. Chris Cooper MD Cervical Spine CT 11/22/17 1418 Signed Impressions: Service Date/Time: Wednesday, November 22, 2017 14:39 - CONCLUSION: Large anterior osteophytes at multiple levels. Scattered areas of bilateral neuroforaminal narrowing due to osteophyte. No evidence of acute fracture or significant subluxation. Dagoberto Das MD Shoulder X-Ray 11/22/17 0000 Signed Impressions: Service Date/Time: Wednesday, November 22, 2017 16:27 - CONCLUSION: Unremarkable examination of the left shoulder status post left bipolar pacermaker. Marked impingement change with acromial spurring and erosions across the greater tuberosity Dagoberto Das MD Pelvis X-Ray 11/22/17 0000 Signed Impressions: Service Date/Time: Wednesday, November 22, 2017 14:36 - CONCLUSION: Unremarkable examination of the pelvis. Dagoberto Das MD Chest CT 11/22/17 0000 Signed Impressions: Service Date/Time: Wednesday, November 22, 2017 16:02 - CONCLUSION: 1. No acute finding is identified on this noncontrast examination of the chest. 2. There is stable left pleural thickening, trace left pleural fluid, and volume loss in the left lower lobe. 3. Coronary artery calcification and severe atherosclerotic disease of aorta. Jalil Cedillo MD Abdomen/Pelvis CT 11/22/17 0000 Signed Impressions: Service Date/Time: Wednesday, November 22, 2017 16:02 - CONCLUSION: 1. No acute finding is identified on this mildly motion degraded noncontrast CT of the abdomen and pelvis. 2. Stable nonacute findings include cholelithiasis, severe atherosclerotic disease, and sigmoid diverticulosis. Jalil Cedillo MD Objective Remarks GENERAL: This is a well-nourished, well-developed patient, in no apparent distress. CARDIOVASCULAR: Regular rate and regular rhythm without murmurs, gallops, or rubs. RESPIRATORY: Clear to auscultation. Breath sounds equal bilaterally. No wheezes , rales, or rhonchi. GASTROINTESTINAL: Abdomen soft, non-tender, nondistended. Normal, active bowel sounds MUSCULOSKELETAL: right foot covered with clean dressing. NEURO: Alert & Oriented x4 to person, place, time, situation. Moves all ext x4 Procedures Right 3rd digit ulcer OM s/p Incision drainage and debridement with bone biopsy right third digit by Dr Barr podiatry on 11/26/17 Medications and IVs Inpatient Medications Acetaminophen (Tylenol) 650 mg Q4H PRN PO SEE LABEL COMMENTS Last administered on 11/27/17at 12:47; Start 11/27/17 at 09:15; Stop 11/27/17 at 23:59; Status DC Acetaminophen/ Hydrocodone Bitart (Herminie 5-325 Mg) 1 tab Q4H PRN PO PAIN SCALE 3 TO 5 Last administered on 12/01/17at 17:41; Start 11/26/17 at 15:15 Acetaminophen/ Hydrocodone Bitart ([place]ie 10-325 Mg) 1 tab Q4H PRN PO PAIN SCALE 6 TO 10 Last administered on 12/02/17at 05:38; Start 11/26/17 at 15:15 Albuterol/ Ipratropium (Duoneb Neb) 1 ampule Q4HR NEB PRN INH WHEEZING; Start 11/22/17 at 19:15 Aspirin (Aspirin Chew) 81 mg DAILY PO ; Start 12/04/17 at 09:00; Stop 12/04/17 at 09:00; Status DC Bisacodyl (Dulcolax Supp) 10 mg DAILY PRN RECTAL SEVERE CONSITIPATION; Start at 19:15 Bupivacaine HCl (Marcaine Pf 0.5% Inj) 30 ml ONCE ONCE INFIL Last administered on 11/30/17at 17:29; Start 11/30/17 at 17:29; Stop 11/30/17 at 18:08 ; Status DC Calcium Carbonate (Tums Chew) 500 mg Q12HR CHEW Last administered on 12/07/17at 21:13; Start 11/28/17 at 21:00 Ceftaroline Fosamil 600 mg/ Sodium Chloride 100 ml @ 100 mls/hr Q8H IV Last administered on 12/08/17at 00:47; Start 12/07/17 at 09:00 Ceftriaxone Sodium 1000 mg/ Sodium Chloride 100 ml @ 200 mls/hr ONCE ONCE IV Last administered on 11/22/17at 16:39; Start 11/22/17 at 16:30; Stop 11/22/17 at 16:59; Status DC Chlorhexidine Gluconate (Chlorhexidine 2% Cloth) 3 pack LANGUAGE TEACHER PRN TOPICAL SEE LABEL COMMENTS; Start 11/29/17 at 16:15; Stop 12/02/17 at 16:14; Status DC Daptomycin 890 mg/ Sodium Chloride 100 ml @ 200 mls/hr Q24H IV Last administered on 12/06/17at 15:42; Start 11/30/17 at 16:00; Stop 12/07/17 at 08:08; Status DC Dextrose (D50w (Syr) Inj) 12.5 ml ONCE ONCE IV PUSH Last administered on at 08:48; Start 11/24/17 at 08:30; Stop 11/24/17 at 08:31; Status DC Diphenhydramine HCl (Benadryl) 25 mg Q4H PRN PO SEE LABEL COMMENTS Last administered on 11/27/17at 12:47; Start 11/27/17 at 09:15; Stop 11/27/17 at 23:59 ; Status DC Ferrous Sulfate (Ferrous Sulfate) 325 mg BID@12,17 PO Last administered on at 17:02; Start 11/27/17 at 17:00 Furosemide (Lasix Inj) 20 mg ONCE ONCE IV PUSH Last administered on 11/27/17at 16:57; Start 11/27/17 at 10:00; Stop 11/27/17 at 10:01; Status DC Furosemide (Lasix) 40 mg DAILY PO Last administered on 12/07/17at 08:44; Start at 15:30 Heparin Sodium (Porcine) (Heparin Central Flush) See Protocol UNSCH PRN IV FLUSH SEE PROTOCOL TABLE; Start 12/01/17 at 18:15 Heparin Sodium (Porcine) (Heparin Inj) 5,000 units Q12HR SQ Last administered on 12/07/17at 21:13; Start 12/03/17 at 21:00 Insulin Human Regular (NovoLIN R INJ) See Protocol Table ... LANGUAGE TEACHER PRN SQ SEE PROTOCOL TABLE; Start 11/29/17 at 16:15; Stop 12/02/17 at 16:14; Status DC Lactated Ringer's 1,000 ml @ 30 mls/hr Q24H PRN IV SEE LABEL COMMENTS; Start at 16:15; Stop 11/30/17 at 12:44; Status DC Lactulose (Lactulose Liq) 30 ml DAILY PRN PO SEVERE CONSITIPATION; Start at 19:15 Lidocaine HCl (Xylocaine 1% Inj (50 ml)) AT BEDSIDE FOR PROCEDURE UNSCH .XX ; Start 11/25/17 at 00:30; Stop 11/25/17 at 15:48; Status DC Lidocaine HCl (Xylocaine 1% Inj) UNSCH OTHER ; Start 11/25/17 at 16:00; Stop at 00:29; Status DC Magnesium Hydroxide (Milk Of Magnesia Liq) 30 ml Q12H PRN PO Mild constipation ; Start 11/22/17 at 19:15 Metoclopramide HCl (Reglan Inj) 10 mg Q6H PRN IV PUSH NAUSEA OR VOMITING; Start 11/22/17 at 19:15 Metoprolol Tartrate (Lopressor) 100 mg BID PO Last administered on 12/07/17at 21: 13; Start 12/04/17 at 21:00 Miscellaneous (Pill Splitter) 1 ea UNSCH PRN OTHER SEE LABEL COMMENTS; Start at 15:00 Miscellaneous Information ALL NURSING DEPARTME... UNSCH PRN .XX SEE LABEL COMMENTS; Start 11/30/17 at 17:58; Stop 12/01/17 at 17:57; Status DC Miscellaneous Information (Post-op Orders (for Pharmacy)) STAT ONCE XX Last administered on 11/30/17at 18:15; Start 11/30/17 at 18:15; Stop 11/30/17 at 18:22 ; Status DC Morphine Sulfate (Morphine Inj) 2 mg Q4H PRN IV PUSH BREAKTHROUGH PAIN Last administered on 12/02/17at 00:32; Start 11/26/17 at 15:15 Naloxone HCl (Narcan Inj) 0.4 mg UNSCH PRN IV PUSH SEE LABEL COMMENTS; Start at 15:15 Ondansetron HCl (Zofran Inj) 4 mg Q6H PRN IV PUSH NAUSEA OR VOMITING; Start at 19:15 Pantoprazole Sodium (Protonix Inj) 40 mg Q12H IV PUSH Last administered on 11/26at 09:09; Start 11/23/17 at 10:00; Stop 11/26/17 at 11:42; Status DC Pantoprazole Sodium (Protonix) 40 mg Q12HR PO Last administered on 12/07/17at 21: 13; Start 11/26/17 at 21:00 Patient Medication Teaching (Coumadin Booklet) 1 ONCE ONCE .XX ; Start 12/03/17 at 16:00; Stop 12/03/17 at 16:01; Status DC Pharmacy Profile Note 0 ml @ 0 mls/hr UNSCH OTHER ; Start 12/03/17 at 12:00 Phenylephrine HCl 40 mg/Dextrose 500 ml @ 30 mls/hr TITRATE PRN IV Blood pressure management Last administered on 11/22/17at 17:51; Start 11/22/17 at 17: 15 Phytonadione (Vitamin K Inj) 10 mg ONCE ONCE SQ Last administered on at 09:15; Start 11/24/17 at 09:00; Stop 11/24/17 at 09:01; Status DC Phytonadione 10 mg/Dextrose 51 ml @ 102 mls/hr ONCE ONCE IV ; Start 11/22/17 at 19:00; Stop 11/22/17 at 19:00; Status DC Piperacillin Sod/ Tazobactam Sod 50 ml @ 100 mls/hr Q8H IV Last administered on 11/24/17at 08:38; Start 11/23/17 at 01:00; Stop 11/24/17 at 09:53; Status DC Polyethylene Glycol/ Electrolytes (Colyte Liq) 4,000 ml ONCE ONCE PO ; Start at 16:00; Stop 11/23/17 at 16:05; Status DC Povidone Iodine (Betadine 5% Antisepsis Kit) 1 applic LANGUAGE TEACHER PRN EACH NARE SEE LABEL COMMENTS; Start 11/29/17 at 16:15; Stop 12/02/17 at 16:14; Status DC Pravastatin Sodium (Pravachol) 40 mg DAILY PO Last administered on 12/06/17at 07: 24; Start 11/29/17 at 15:30; Status Future Hold Senna/Docusate Sodium (Flower-Colace) 1 tab BID PO Last administered on 12/07/17at 21:13; Start 11/22/17 at 21:00 Sennosides (Senokot) 17.2 mg Q12H PRN PO Moderate constipation; Start 11/22/17 at 19:15 Simethicone (Mylicon Chew) 80 mg PCHS PRN CHEW GAS RETENTION Last administered on 12/07/17at 21:13; Start 12/06/17 at 19:00 Sodium Chloride 1,000 ml @ 50 mls/hr Q20H ONCE IV Last administered on at 10:17; Start 12/07/17 at 10:00; Stop 12/08/17 at 05:59; Status DC Sodium Chloride (NS Flush) UNSCH PRN IV FLUSH SEE PROTOCOL TABLE; Start at 18:15 Tamsulosin HCl (Flomax) 0.4 mg DAILY PO ; Start 11/29/17 at 15:30; Stop at 15:33; Status DC Terbutaline Sulfate (Brethine Inj) 1 mg UNSCH PRN SQ For Extravasation; Start 11/22/17 at 17:15 Tetanus/ Diphtheria Toxoids (Tetanus/ Diphtheria Tox Adult) 0.5 ml ONCE ONCE IM Last administered on 11/22/17at 15:57; Start 11/22/17 at 14:30; Stop 11/22/17 at 14:31; Status DC Vancomycin HCl 500 mg/Sodium Chloride 100 ml @ 200 mls/hr ONCE ONCE IV Last administered on 11/24/17at 10:23; Start 11/24/17 at 10:00; Stop 11/24/17 at 10:29 ; Status DC Vancomycin HCl 1500 mg/Sodium Chloride 515 ml @ 250 mls/hr Q24H IV Last administered on 11/29/17at 11:49; Start 11/26/17 at 11:00; Stop 11/30/17 at 15:00 ; Status DC Vancomycin/Sodium Chloride 200 ml @ 200 mls/hr ONCE ONCE IV Last administered on 11/23/17at 20:12; Start 11/23/17 at 18:00; Stop 11/23/17 at 18:59 ; Status DC Warfarin Sodium (Coumadin) 5 mg DAILY@16 PO Last administered on 12/07/17at 17:03 ; Start 12/06/17 at 16:00 A/P Assessment and Plan A/P Small SDH post fall -has on and off episodes of slurred speech . -Neurosurgeon consulted. Patient was on Coumadin at home. -restarted Coumadin- ( ok with neurosurgery). -will repeat CT head when INR is therapeutic. -no orthostatic hypotension. -repeated EEG pending. -neurology following. 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 MRSA on cultures. also pathology shows OM. -CTA runoff ordered by vascular surgeon in which it showed severe peripheral vascular disease. Per vascular surgeon no indication for any procedure from his perspective. Recommend to proceed with the toe amputation by dock hand. Due to severe peripheral vascular disease patient may need a BKA in the future. 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 -Per dock hand dressing to right foot changed, Xeroform, 4 x 4's, Carmelo and Bryant applied to right foot, Okay to weight-bear as tolerated to right foot and surgical shoe. -started on Daptomycin but due to elevated CPK- Daptomycin was dc'ed and started on Teflaro- -previously d/w ; ID has signed off- no need for IV antibiotics upon discharge; will continue Teflaro till 12/11/17- if dc before that date, woodruff witch to po Zyvox. -elevated CPK level-with further increase in CPK level- Daptomycin has been discontinued-continue to hold statin- continue gentle IV fluid and monitor CPK level and renal function closely. A-fib; - continue metoprolol and Coumadin. -dc subq Heparin when INR is therapeutic. -cardiology consult appreciated. Hydronephrosis found on CTA runoff -confirmed by US. -per urologist continues with medical management including flomax and f/u as outpatient. Scalp laceration -Stable. Acute blood loss anemia likely secondary to GIB -Patient had EGD which showed gastritis and duodenal ulcer. Status post transfuse with 2 units of packed red blood cells has been stable. No active GI bleed since hospitalization. Continue to monitor. Per GI if he bleeds again will need to do a repeat EGD. -Continue Protonix. -H/H fairly stable- continue to monitor periodically. LISBETH superimposed on CRI -will monitor closely. DVT prophylaxis; subq Heparin/ Coumadin Discharge Planning with worsening rhabdo- INR still subtherapeutic. need to continue IV fluid with close monitoring of renal function and CPK level. not ready for discharge yet. Handy Rosas MD Dec 08, 2017 08:06
[2017-12-08 08:27] VITALS: BP_SYST 108; BP_SYST 110; BP_SYST 119; BP_DIAS 58; BP_DIAS 61; PULSE 80; RESP 18; TEMP 97.5; O2SAT 92
--- NOTE | 2017-12-08 08:32 | MG ---
cc: Adolfo Bishop MD [phone] SUBJECTIVE: This is a repeat EEG on a man with a history of right parietal, subdural and slight intracranial hemorrhage, with some slurred speech. DESCRIPTION: Muscle artifact is seen over the bitemporal head regions, with an underlying 7.5 hertz, 60 microvolt symmetric and synchronous posterior rhythm. Hyperventilation is not performed. Overall, the recording is synchronous and symmetric. No epileptiform or seizure activities is noted. Specifically, no right temporal or parietal abnormalities are seen. Photic stimulation was performed, without significant posterior driving. IMPRESSION: Mild diffuse theta slowing. Otherwise, a normal EEG. No evidence for a focal or diffuse abnormality. No epileptiform or seizure activity was noted. No right parietal abnormalities are noted. MD DINA Sheldon/SIN , 07:52 PM , 09:19 PM
[2017-12-08] MEDS: CALCIUM CARBONATE 500 MG CHEWABLE TAB CHEW SCH (09:05)
[2017-12-08] MEDS: PANTOPRAZOLE SOD 40 MG DELAYED RELEASE TAB PO SCH (09:05)
[2017-12-08] MEDS: FUROSEMIDE 40 MG TAB PO SCH (09:05)
[2017-12-08] MEDS: DOCUSATE SODIUM 50 MG/SENNA 8.6 MG TAB PO SCH (09:05)
[2017-12-08] MEDS: HEPARIN SODIUM - SQ 10,000 UNITS/ML VIAL SQ SCH (09:07)
--- NOTE | 2017-12-08 10:41 | HHI.PR ---
Addendum To HEPAS Progress Not Reason for addendum: Additonal documentation (patient was coded-patient was seen with at the bedside- patient was intubated- patient will be transferred to ICU with critical care consult.d/w the daughter at the bedside.) Handy Rosas MD Dec 08, 2017 10:41
--- NOTE | 2017-12-08 11:04 | DEATH SUM ---
Pronouncement Date Pronounced : Dec 08, 2017 Time Of : 10:31 Pronouncement Called to pronounce of patient. Identified patient as Gregor Vazquez with wrist band MR# [id number]. Patient with no cardiac activity in 2 separate leads and no palpable/auscible cardiac activity. Patient with no spontaneous respirations, no corneal reflex or response to painful stimuli. Pupils fixed and dilated. Preliminary Cause of : Cardiac arrest Good Laughlin MD Dec 08, 2017 11:03
--- NOTE | 2017-12-08 11:06 | HHI.PR ---
Subjective Remarks Called to evaluate patient as a CODE BLUE on the floor. Difficult to complete full history given acute event. In brief what was relayed to me from his attending physician the bedside nurse was that the patient is an 87-year-old male who was admitted with osteomyelitis of the foot, most recently rhabdomyolysis and acute kidney injury who was hemodynamically stable with stable laboratory values and had an acute onset sudden episode of nausea followed by obtundation and PEA arrest. When I arrived CPR was in progress. I emergently intubated the patient, see separate procedure note for details. Patient was obtunded, ashen. given the clinical history, hyperkalemic arrest from acute rhabdo was high in the differential. We proceeded with 16 minutes of CPR and gave 2 g calcium chloride, 2 A of bicarb for presumed hyperkalemia arrest and we had ROSC. We emergently transferred the patient to medical ICU. However, in the elevator, the patient decompensated into a ventricular fibrillation rhythm. He was DC cardioverted 5 in the elevator, and I personally started CPR in the elevator to maintain an attempt at cerebral perfusion. We emergently transfer the patient to the medical ICU which is the nearest available critical care area. Upon arrival to the medical ICU, we continued ACLS for at least another 35 minutes, where the presenting rhythm persisted to be ventricular fibrillation, or at small intervals PEA. No perfusing rhythm was other regained. We gave multiple rounds of epinephrine, amiodarone, magnesium, multiple rounds of DC cardioversion. Patient's pupils were fixed and dilated. I do conversations with his daughter who is at bedside. First conversation prior to transfer to the ICU, the daughter stated that she wanted everything done "until she walked out of the hospital ". After all of our resuscitative efforts, the patient's relative states "please stop, he is suffering". At this point, medically we had no additional medical therapies to offer, and ROSC was not obtained. In addition I do think it is reasonable at that point to not continue with further resuscitative efforts as his family expressed wishes to transition. At that point the code was called and time of was 10:31 AM. Active problems: PA arrest Ventricular fibrillation Presumed hyperkalemia secondary to rhabdomyolysis Acute encephalopathy Acute hypoxic hypercarbic respiratory failure Hypoxic ischemic encephalopathy Severe acidosis Plan: ACLS as documented in the above narrative. This patient remained critically ill with one or more organ systems which are or may become a threat to life. I have spent in excess of 76 minutes discontinuously in the care and management of this patient. This time is exclusive of procedures, and includes, but is not limited to, evaluation of the patient, review of the medical record, discussions with family, consultants, nursing staff, or respiratory therapy, and documentation in the medical record. Objective Vital Signs Date Time Temp Pulse Resp B/P (MAP) Pulse Ox O2 Delivery O2 Flow Rate FiO2 12/08/17 08:27 97.5 80 18 119/61 (80) 92 108/58 (75) 110/61 (77) 12/08/17 04:23 97.1 81 20 120/57 (78) 97 12/08/17 04:02 65 12/08/17 00:00 65 12/08/17 00:00 99.0 70 20 140/76 (97) 95 12/07/17 21:59 96 12/07/17 20:48 72 12/07/17 20:00 98.0 63 18 137/69 (91) 97 12/07/17 17:04 97.5 63 18 123/63 (83) 96 121/65 (83) 118/60 (79) 12/07/17 12:51 97.5 63 18 133/64 (87) 98 137/71 (93) 144/61 (88) I/O 12/07/17 12/07/17 12/07/17 12/08/17 12/08/17 12/08/17 06:59 14:59 22:59 06:59 14:59 22:59 Intake Total 360 ml 580 ml 100 ml 100 ml Balance 360 ml 580 ml 100 ml 100 ml Intake Oral 360 ml 480 ml IV Total 100 ml 100 ml 100 ml # Voids 4 1 1 5 # Bowel Movements 1 1 Result Diagram: 12/07/17 0432 12/08/17 0430 Procedures Status post right third digit amputation date of surgery 11/30 Good Laughlin MD Dec 08, 2017 11:06
[2017-12-08] MEDS ORDERED: WARFARIN SOD 5 MG TAB PO ONE (16:00)
[2017-12-08] MEDS ORDERED: WARFARIN SOD 2 MG TAB PO ONE (16:00)
--- NOTE | 2017-12-08 19:45 | PD.PROCEDR ---
Procedure Note Procedure Endotracheal Intubation Diagnosis: Acute hypoxic and hypercarbic respiratory failure, PEA arrest Indications: PEA arrest Consent: Emergent Anesthesia: None Description of the Procedure: The patient was positioned in the sniffing position. Pre-oxygenation was performed using a [id number]. A Villa #2 was used for laryngoscopy and a Grade I view was obtained. A 8.0 cuffed endotracheal tube was inserted atraumatically through the vocal cords. Confirmation of correct endotracheal tube placement was made by equal and bilateral breath sounds and colorimetric CO2 detection. The endotracheal tube was secured at 23 cm at the teeth. There were no immediate complications noted. ACLS was ongoing. I personally performed the procedure. Good Laughlin MD Dec 08, 2017 19:45
[2017-12-09] MEDS ORDERED: WARFARIN SOD 5 MG TAB PO SCH (16:00)
[2017-12-11 23:53] LABS: STRIATED MUCLE AB TITER ND (<1:40)
== END 2017-12-08 10:31 | disposition expired | DRG 616 ==
LOC: NEPE 14:08 → NEDA 17:39 → N03B 21:25 → N05B 11-25 21:54 → HIMW 12-08 10:20
PROVIDERS: ADMIT Internal Medicine; ATTEND Internal Medicine
PROC: 0HQ0XZZ Repair Scalp Skin, External Approach (ICD-10-PCS; 2017-11-22)
PROC: 30233K1 Transfusion of Nonautologous Frozen Plasma into Peripheral Vein, Percutaneous Approach (ICD-10-PCS; 2017-11-22)
PROC: 30233N1 Transfusion of Nonautologous Red Blood Cells into Peripheral Vein, Percutaneous Approach (ICD-10-PCS; 2017-11-22)
PROC: 05H533Z Insertion of Infusion Device into Right Subclavian Vein, Percutaneous Approach (ICD-10-PCS; 2017-11-22)
PROC: 0DB98ZX Excision of Duodenum, Via Natural or Artificial Opening Endoscopic, Diagnostic (ICD-10-PCS; 2017-11-24)
PROC: 0QBQ0ZX Excision of Right Toe Phalanx, Open Approach, Diagnostic (ICD-10-PCS; 2017-11-26)
PROC: 0HBRXZZ Excision of Toe Nail, External Approach (ICD-10-PCS; 2017-11-26)
PROC: 0Y6T0Z1 Detachment at Right 3rd Toe, High, Open Approach (ICD-10-PCS; principal; 2017-11-30 17:02)
PROC: 5A12012 Performance of Cardiac Output, Single, Manual (ICD-10-PCS; 2017-12-08)
PROC: 5A2204Z Restoration of Cardiac Rhythm, Single (ICD-10-PCS; 2017-12-08)
PROC: 5A2204Z Restoration of Cardiac Rhythm, Single (ICD-10-PCS; 2017-12-08)
PROC: 0BH17EZ Insertion of Endotracheal Airway into Trachea, Via Natural or Artificial Opening (ICD-10-PCS; 2017-12-08)
DX: E11.69 Type 2 diabetes mellitus with other specified complication (principal); S06.5X9A Traumatic subdural hemorrhage with loss of consciousness of unspecified duration, initial encounter; N17.9 Acute kidney failure, unspecified; G93.1 Anoxic brain damage, not elsewhere classified; J96.02 Acute respiratory failure with hypercapnia; J96.01 Acute respiratory failure with hypoxia; I13.0 Hypertensive heart and chronic kidney disease with heart failure and stage 1 through stage 4 chronic kidney disease, or unspecified chronic kidney disease; I95.9 Hypotension, unspecified; E87.2 Acidosis; I50.9 Heart failure, unspecified; K26.9 Duodenal ulcer, unspecified as acute or chronic, without hemorrhage or perforation; M62.82 Rhabdomyolysis; D62 Acute posthemorrhagic anemia; N30.00 Acute cystitis without hematuria; L02.611 Cutaneous abscess of right foot; K92.1 Melena; M86.9 Osteomyelitis, unspecified; L03.115 Cellulitis of right lower limb; N13.30 Unspecified hydronephrosis; S06.309A Unspecified focal traumatic brain injury with loss of consciousness of unspecified duration, initial encounter; E11.22 Type 2 diabetes mellitus with diabetic chronic kidney disease; E11.621 Type 2 diabetes mellitus with foot ulcer; E11.51 Type 2 diabetes mellitus with diabetic peripheral angiopathy without gangrene; E87.5 Hyperkalemia; I48.0 Paroxysmal atrial fibrillation; S01.01XA Laceration without foreign body of scalp, initial encounter; W18.30XA Fall on same level, unspecified, initial encounter; Y93.9 Activity, unspecified; Y92.009 Unspecified place in unspecified non-institutional (private) residence as the place of occurrence of the external cause; R79.1 Abnormal coagulation profile; Z79.01 Long term (current) use of anticoagulants; Z86.14 Personal history of Methicillin resistant Staphylococcus aureus infection; M15.9 Polyosteoarthritis, unspecified; N18.9 Chronic kidney disease, unspecified; E78.5 Hyperlipidemia, unspecified; Z96.653 Presence of artificial knee joint, bilateral; Z95.0 Presence of cardiac pacemaker; Z79.84 Long term (current) use of oral hypoglycemic drugs; L97.519 Non-pressure chronic ulcer of other part of right foot with unspecified severity; Z87.891 Personal history of nicotine dependence; R63.4 Abnormal weight loss; M25.512 Pain in left shoulder; K29.80 Duodenitis without bleeding; K75.9 Inflammatory liver disease, unspecified; N40.0 Benign prostatic hyperplasia without lower urinary tract symptoms; M62.562 Muscle wasting and atrophy, not elsewhere classified, left lower leg; M62.561 Muscle wasting and atrophy, not elsewhere classified, right lower leg; B35.1 Tinea unguium; M20.41 Other hammer toe(s) (acquired), right foot; I25.10 Atherosclerotic heart disease of native coronary artery without angina pectoris; K80.20 Calculus of gallbladder without cholecystitis without obstruction; H91.90 Unspecified hearing loss, unspecified ear; R47.81 Slurred speech; R29.810 Facial weakness; I27.20 Pulmonary hypertension, unspecified; M10.9 Gout, unspecified; I08.1 Rheumatic disorders of both mitral and tricuspid valves; G89.29 Other chronic pain; K29.70 Gastritis, unspecified, without bleeding; I49.01 Ventricular fibrillation; R13.10 Dysphagia, unspecified; R74.8 Abnormal levels of other serum enzymes; B95.62 Methicillin resistant Staphylococcus aureus infection as the cause of diseases classified elsewhere
CPT/HCPCS: 31500; 36430; 36569; 70450; 71045; 71250; 72125; 72170; 73030; 73620; 73630; 74176; 74230; 75635; 76775; 76937; 80048; 80053; 80076; 80202; 81001; 82330; 82550; 82552; 82565; 82607; 82948; 83519; 83605; 83735; 84100; 84155; 84484; 85025; 85027; 85610; 85730; 86140; 86255; 86403; 86850; 86900; 86901; 86920; 86927; 87015; 87040; 87070; 87086; 87102; 87116; 87147; 87176; 87186; 87205; 87206; 87641; 88305; 88307; 88311; 90471; 90714; 92950; 93005; 93306; 93880; 93923; 93970; 95819; 96361; 96365; C9113; J0696; J0712; J0878; J1642; J1644; J1940; J2270; J2370; J2543; J2765; J3370; J3430; J7030; J7040; J7050; J7060; L3260; P9016; P9017; Q9967